=== PATIENT | female | born 1955 | race African-American/Black ===

== ENCOUNTER 2020-07-09 17:06 | Observation (INO) | payer OTHER, SELFPAY ==
[2020-07-09] VITALS (8 sets, daily range): BP systolic 84–103; BP diastolic 43–65; PULSE 60–74; RESP 12–18; TEMP 36.3; O2SAT 97–100
--- NOTE | ~2020-07-09 | US_ITS ---
EXAMINATION:US venous doppler LE BI INDICATION:Calf pain TECHNIQUE: Multiple grayscale, color flow and Doppler images of the right and left lower extremity de ep venous systems were obtained and reviewed. COMPARISON:No prior studies for comparison. FINDINGS: The common femoral, superficial femoral and popliteal veins demonstrate normal respiratory variation, augmentation and compressibility. Color flow is also seen within the posterior tibial, pe roneal, greater saphenous and profunda veins. IMPRESSION: 1: No lower extremity deep venous thrombosis. Reviewed, dictated and finalized at location B.
--- NOTE | ~2020-07-09 | CT_ITS ---
EXAMINATION: CT brain wo con DATE: 07/09/2020 18:50 INDICATION: Head injury. Syncope. TECHNIQUE: Computed tomography (CT) of the head was performed without intravenous contrast. The mA wa s adjusted according to patient size. Iterative reconstruction technique was employed. The dose-lengt h product was 605.33 mGy-cm. COMPARISON: Head CT 01/04/2008 FINDINGS: There are scattered areas of low attenuation in the cerebral white matter, which is within normal limits for the patient's age. There is no intracranial hemorrhage, acute infarction, or abnorm al intracranial mass lesion. The ventricles are normal in size. The paranasal sinuses are clear. The mastoid air cells are normal. The orbits are normal. IMPRESSION: 1. Normal aging brain. Reviewed, dictated and finalized at location A. IMPRESSION: 1. Normal aging brain.
--- NOTE | ~2020-07-09 | CT_ITS ---
EXAMINATION: CTA brain carotid EXAM DATE: 07/11/2020 14:11 INDICATION: Abnormal carotid ultrasound demonstrating high resistance left vertebral arterial wavefor ms. TECHNIQUE: Noncontrast head CT. Spiral CTA of the carotid arteries was performed with intravenous i njection 100 cc of Omnipaque 350. Axial, coronal, sagittal reformatted images reviewed. Additional r eformatted images created on dedicated 3-D workstation. NASCET comparable standard used to assess th e degree of arterial stenosis. Spiral CT angiogram cerebral arteries performed with the same intrave nous injection of contrast. Source images of the brain CTA transferred to dedicated workstation for 3 -D rotational image creation. Coronal, sagittal maximum intensity pixel images also reviewed. The d ose-length product (DLP) for this examination was 1578.21 mGy-cm. The exposure was tailored accordi ng to patient size, and iterative reconstruction (ASIR) was used as additional dose reduction techniq ue. Correlation is made to carotid ultrasound from 07/10/2020. FINDINGS: There is minimal right carotid bifurcation arteriosclerosis, 0% carotid bulb stenosis bilat erally. The vertebral arteries are codominant and unremarkable. Mild bilateral carotid siphon arteria l sclerosis without stenosis. There is no carotid or vertebral basilar arterial dissection or fibrom uscular dysplasia. There are no cerebral artery aneurysms. There is symmetric cerebral artery arboriz ation. The sagittal, transverse and sigmoid sinuses enhance normally, no venous sinus thrombosis. Int ernal cerebral veins also enhance normally. There is no acute intraparenchymal hemorrhage. No evidence of intraparenchymal brain mass lesion. N o evidence of acute infarction. There is mild periventricular and subcortical hypodensity, nonspecifi c but probably related to small vessel ischemic disease. There is intracranial carotid arterioscler osis. There is no mass effect or midline shift. There is no obstructive hydrocephalus suspected. T here are no extra-axial collections. There are no calvarial acute fractures. There is moderate lower thoracic disc disease. The right submandibular gland is not identified, corre late with any history of surgical resection. Mild apical emphysema. IMPRESSION: 1. No acute carotid or intracranial findings. Symmetric unremarkable vertebral arteries. 2. 0% carotid stenosis bilaterally. 3. Mild microangiopathy. Reviewed, dictated and finalized at location A.
--- NOTE | ~2020-07-09 | US_ITS ---
EXAMINATION: US carotid duplex BI DATE: 07/10/2020 13:16 INDICATION: Syncope TECHNIQUE: Grayscale, color Doppler, and pulsed Doppler images of the cervical carotid arteries were obtained. The degree of vessel stenosis is placed in one of the following categories: normal, <50%, 5 0-69%, >=70% but less than near-occlusion, near-occlusion, or total occlusion. Note that percent sten osis relative to normal distal artery lumen diameter is indirectly measured from velocity measurement s as described by Rodo, et al. Radiology 2003; 229:340-346. COMPARISON: 01/05/2008 FINDINGS: RIGHT: The right common carotid artery (CCA) peak systolic velocity (PSV) is 132 cm/s. The right internal ca rotid artery (ICA) PSV is 114 cm/s. The right ICA end-diastolic velocity (EDV) is 28 cm/s. The right ICA/CCA PSV ratio is 0.9. Grayscale and color Doppler images yield an estimate of <50% diameter reduc tion from plaque in the ICA. The external carotid artery (ECA) PSV is 129 cm/s. There is antegrade fl ow in the right vertebral artery. LEFT: The left CCA PSV is 125 cm/s. The left ICA PSV is 105 cm/s. The left ICA EDV is 27 cm/s. The left ICA /CCA PSV ratio is 0.8. Grayscale and color Doppler images yield an estimate of <50% diameter reductio n from plaque in the ICA. The ECA PSV is 119 cm/s. There is antegrade flow in the left vertebral jameson ry but with high resistance waveform which is new since the prior study. IMPRESSION: 1. <50% stenosis in the right internal carotid artery. 2. <50% stenosis in the left internal carotid artery. 3. High resistance waveform in the left vertebral artery which suggests possibility of downstream occ lusion or high-grade stenosis. Reviewed, dictated and finalized at location A. IMPRESSION: 1. <50% stenosis in the right internal carotid artery. 2. <50% stenosis in the left internal carotid artery. 3. High resistance waveform in the left vertebral artery which suggests possibi lity of downstream occlusion or high-grade stenosis.
--- NOTE | ~2020-07-09 | XR_ITS ---
EXAMINATION: XR chest 2V DATE: 07/09/2020 18:59 INDICATION: Syncope. TECHNIQUE: Frontal and lateral views of the chest were obtained. COMPARISON: Chest 2 views 01/04/2008 FINDINGS: The chest demonstrates clear lungs without pneumonia, pleural effusion, or pneumothorax. Th e heart size is normal. Surgical clips in the right upper quadrant are likely from cholecystectomy. IMPRESSION: 1. No acute cardiopulmonary disease. Reviewed, dictated and finalized at location A.
--- NOTE | 2020-07-09 17:29 | ECG_ITS ---
Measurements Intervals [place] Rate: 66 P: 75 ID: [id number] QRS: 33 QRSD: 95 T: 57 QT: 355 QTc: 374 Interpretive Statements SINUS RHYTHM EARLY PRECORDIAL R/S TRANSITION LOW QRS VOLTAGE IN PRECORDIAL LEADS BASELINE WANDER- I, III BORDERLINE ECG Electronically Signed On 07-09-2020 19:04:14 CDT by Dusty Oliver D.O.
--- NOTE | 2020-07-09 17:37 | ED.SYNCOPE ---
HPI - Syncope General Chief Complaint: Syncope Stated Complaint: syncope x 2 episodes/ hit head Time Seen by Provider: 07/09/20 17:37 Source: patient and family Mode of arrival: ambulatory Limitations: no limitations History of Present Illness HPI narrative: Patient is a 65-year-old female with a history of hypertension, arthritis who presents for evaluation of syncopal event. Patient has been nauseated, dizzy throughout the past 5 days, worsened today, and patient had a syncopal event when she sat down to have a bowel movement. Patient's family found her unconscious on the floor of the bathroom, where she had hit her head on the right side. Patient then awakened and they tried to stand her up before she syncopized again. EMS was called, glucose was appropriate. Patient returned to baseline, no seizure-like activity. Patient currently states she feels weak. No new antihypertensives. Patient was recently started on hydroxychloroquine for her rheumatoid arthritis. No recent fever, chills, shortness of breath or cough. No chest pain. No history of Covid. Patient recently had right wrist/arm surgery at [facility] 2 weeks ago. Denies calf swelling or leg pain. No current chest pain. No current dizziness, or numbness, patient states she generally feels weak. Related Data Allergies Allergy/AdvReac Type Severity Reaction Status Date / Time No Known Allergies Allergy Unverified 04/24/14 13:32 Review of Systems Review of Systems: Narrative: CONSTITUTIONAL: Denies fever, chills, or sweats. EYES: Denies visual changes ENT: Denies rhinorrhea, congestion, sore throat, or otalgia. CARDIOVASCULAR: Denies chest pain, palpitations, or edema. RESPIRATORY: Denies cough or dyspnea. GASTROINTESTINAL: Denies abdominal pain, nausea, vomiting, or diarrhea. GENITOURINARY: Denies dysuria or hematuria. SKIN: Denies rash or itching. MUSCULOSKELETAL: Denies back pain, joint pain, or myalgia. NEUROLOGIC: Denies headache, numbness, states she feels generally weak PMFSH Past Medical History Medical History Arthritis Hypertension Surgical History Surgical History H/O right wrist surgery Family History Family History (Updated 04/10/14 @ 10:47 by DOCTOR UNKNOWN) Mother Family history of malignant neoplasm Other Family history of allergic disorder Hypertension Social History Social History Smoking status: Former smoker Smoking end date: 04/12/94 Alcohol intake: current Exam Narrative: Exam Narrative: GENERAL: Awake, alert, conversant HEAD: Normocephalic, atraumatic. EYES: PERRLA and EOMI. ENT: Nares clear, no rhinorrhea or epistaxis. Mucous membranes moist. NECK: Supple. CHEST: No respiratory distress, breathing even and non labored HEART: Regular rate, sinus rhythm ABDOMEN:Non distended, non tender EXTREMITIES: Normal range of motion. No edema. SKIN: Warm, dry, no rash. NEURO:No focal deficits. Alert and oriented x3 Course Vital Signs Vital signs: Vital Signs Temperature 36.3 C L 07/09/20 17:15 Pulse Rate 74 07/09/20 17:15 Respiratory Rate 18 07/09/20 17:15 Blood Pressure 89/43 L 07/09/20 17:15 Pulse Oximetry 98 07/09/20 17:15 Temperature 36.3 C L 07/09/20 17:15 Pulse Rate 61 07/09/20 22:05 Respiratory Rate 18 07/09/20 22:05 Blood Pressure 100/63 07/09/20 22:05 Pulse Oximetry 100 07/09/20 22:05 MDM - Syncope MDM Narrative Medical decision making narrative: Patient presenting for evaluation of recurrent syncope. At the time of assessment, patient is hypotensive without tachycardia. Her mentation. No reported complaints of pain or infectious type sources. It does initially seen by based on clinical symptoms patient may have had a Valsalva related syncopal event however hypotension did persist after in
--- NOTE | 2020-07-09 17:48 | ECG_ITS ---
Measurements Intervals [place] Rate: 60 P: 70 LA: 174 QRS: 41 QRSD: 92 T: 55 QT: 367 QTc: 367 Interpretive Statements SINUS RHYTHM LOW QRS VOLTAGE IN PRECORDIAL LEADS BORDERLINE ECG Electronically Signed On 07-09-2020 19:05:16 CDT by Dusty Oliver D.O.
[2020-07-09] MEDS: ONDANSETRON INJ 4 MG/2 ML VIAL IV PUSH (17:54)
[2020-07-09] MEDS: SODIUM CHLORIDE 0.9% IV 1,000 ML 999 ML IV CONT ×2 (17:54→20:49)
[2020-07-09 18:56] LABS: Anion Gap 8 mmol/L (8-16); Blood Urea Nitrogen 30 mg/dL (7-17); Calcium 8.7 mg/dL (8.4-10.2); Carbon Dioxide 19 mmol/L (22-30); Chloride 109 mmol/L (98-107); Estimated Glomerular Filt Rate 39; Glucose 88 mg/dL (65-105); Potassium 5.1 mmol/L (3.4-5.0); Sodium 136 mmol/L (137-145)
[2020-07-09 19:07] LABS: NT Pro B Type Natriuretic Pept 48 PG/ML (5-100); Troponin I < 0.012 ng/mL (0.000-0.034)
[2020-07-09 20:35] LABS: Basophils Percent Auto 0.3 % (0.2-1.2); Eosinophils Percent Auto 0.3 % (0-4.4); Hematocrit 32.9 % (37.0-47.0); Hemoglobin 10.8 g/dL (12.0-15.0); Immature Granulocyte Absolute 0.04 K/mm3 (0.00-0.031); Immature Granulocyte Percent A 0.4 % (0-0.5); Lymphocytes Percent Auto 14.3 % (18.3-44.2); Mean Corpuscular HGB Conc 32.8 g/dl (32-36); Mean Corpuscular Hemoglobin 27.2 pg (26-34); Mean Corpuscular Volume 82.9 fl (80-100); Mean Platelet Volume 9.1 fl (7.4-10.4); Monocytes Absolute Auto 0.6 K/mm3 (0.1-0.6); Monocytes Percent Auto 5.1 % (2.6-8.5); Neutrophils Absolute Auto 8.9 K/mm3 (1.3-6.7); Neutrophils Percent Auto 79.6 % (45.5-73.1); Platelet Count Result 293 k/mm3 (150-375); Red Blood Count 3.97 M/mm3 (4.2-5.4); Red Cell Distribution Width 13.5 % (11.5-14.5); White Blood Count 11.2 K/mm3 (4.5-10.0)
[2020-07-09 20:49] LABS: INR 1.1; Partial Thromboplastin Time 27.3 SECONDS (22.3-36.8); Prothrombin Time 14.6 Seconds (11.1-14.7)
[2020-07-09 21:01] LABS: D Dimer 0.27 ug/mL (<0.48)
[2020-07-09 21:30] LABS: Lactic Acid Reflex 0.6 mmol/L (0.7-2.1)
[2020-07-09 23:59] LABS: Add Urine Microscopic? NO; Appearance Urine Clear (Clear); Bilirubin Urine Negative (Negative); Blood Urine Negative (Negative); Color Urine Yellow (Yellow); Glucose Urine UA Negative (Negative); Ketones Urine Negative (Negative); Leukocyte Esterase Ur Negative LEU/UL (Negative); Nitrate Urine Negative (Negative); Protein Urine Negative (Negative); Specific Grav Ur 1.011 (1.001-1.035); Urobilinogen Urine Negative mg/dL (<2.0)
[2020-07-10] VITALS (17 sets, daily range): BP systolic 90–137; BP diastolic 49–68; PULSE 55–89; RESP 12–20; TEMP 36.1–36.8; O2SAT 98–100; BMI 28.0
--- NOTE | 2020-07-10 00:34 | ADMGEN ---
This patient, Nora Campos, was admitted to IMU Room 214-01. Patient/family oriented to hospital policies and general routines including ID bracelet, bed and alarms, visiting hours, pain management, procedures, bathroom and other care routines, personal items, smoking policy, room service/diet, and visiting hours. Information on how to activate the Rapid Response Team has been discussed. Patient/Family are encouraged to report perceived risks to care and to ask questions if they do not understand what they are told or what they should do.
[2020-07-10] MEDS: SODIUM CHLORIDE 0.9% IV 1,000 ML 125 ML IV CONT ×3 (00:56→17:58)
[2020-07-10 01:44] LABS: Anion Gap 6 mmol/L (8-16); Blood Urea Nitrogen 24 mg/dL (7-17); Calcium 8.5 mg/dL (8.4-10.2); Carbon Dioxide 20 mmol/L (22-30); Chloride 111 mmol/L (98-107); Estimated CRCL calculation 39 ml/min; Estimated Glomerular Filt Rate 55; Glucose 89 mg/dL (65-105); Potassium 4.7 mmol/L (3.4-5.0); Sodium 137 mmol/L (137-145)
--- NOTE | 2020-07-10 02:13 | ECHO_ITS ---
Patient Info Name: Nora Campos Age: 65 years : 1955 Gender: Female Ht: 62 in Wt: 153 lbs BSA: 1.76 m2 HR: 63 bpm BP: 108 / 68 mmHg Heart Rhythm: Sinus Rhythm Exam Date: 07/10/2020 11:15 AM Exam Location: [facility] Patient Status: Outpatient Admit Date: 07/09/2020 Staff Ordering Physician: Henry Barroso MD Monorail Charger Operator: Kanu Bledsoe, NATACHA, RT Attending Provider: David Matos MD Referring Physician: Dharmesh HENNING; Exam Type: CA echo doppler color flow Study Info Indications R55 - Syncope and collapse Complete two-dimensional, color flow and Doppler transthoracic echocardiogram is performed. Strain analysis performed. Summary 1. Complete two-dimensional, color flow and Doppler transthoracic echocardiogram is performed. 2. Strain analysis performed. 3. Left ventricular chamber dimension is normal. 4. Left ventricular systolic function is normal, estimated at 60-65%. 5. There is no increased left ventricular wall thickness. 6. The left ventricular diastolic function is normal. 7. Global longitudinal strain is normal at -20 %. 8. There is mild mitral valve regurgitation. 9. There is mild tricuspid valve regurgitation. Left Ventricle Left ventricular chamber dimension is normal. Left ventricular systolic function is normal, estimated at 60-65%. There is no increased left ventricular wall thickness. The left ventricular diastolic function is normal. Global longitudinal strain is normal at -20 %. Right Ventricle Right ventricular chamber dimension is normal. Right ventricular systolic function is normal. Left Atria Left atrial chamber dimension is normal. Right Atria Right atrial chamber dimension is normal. Atrial Septum Intact interatrial septum visualized by color flow imaging. Aortic Valve The aortic valve is trileaflet. There is mild aortic valve sclerosis. There is no aortic valve stenosis. There is trace aortic valve regurgitation. Pulmonic Valve The pulmonic valve is normal. There is no pulmonic valve stenosis. Mitral Valve The mitral valve has thickened leaflets. There is no mitral valve stenosis. There is mild mitral valve regurgitation. Tricuspid Valve The tricuspid valve leaflets are normal. There is no significant tricuspid valve stenosis. There is mild tricuspid valve regurgitation. Pericardium/Pleural The pericardium appears normal. There is no pericardial effusion. Inferior Vena Cava Normal inferior vena cava with >50% collapse upon inspiration consistent with normal right atrial pressure, 5 mmHg. Aorta The aortic root size at the sinus of Valsalva is normal. The prox ascending aorta size is normal. Left Ventricular Outflow Tract Name Value Normal LVOT 2D LVOT Diameter 2.0 cm LVOT Doppler LVOT Peak Gradient 5 mmHg LVOT Mean Gradient 3 mmHg LVOT VTI 23 cm LVOT VTI/AV VTI Ratio 0.9 LVOT Stroke Volume 71 ml LVOT CO 4.6 l/min
[2020-07-10 05:59] LABS: Potassium 4.6 mmol/L (3.4-5.0)
[2020-07-10 06:00] LABS: Basophils Percent Auto 0.5 % (0.2-1.2); Eosinophils Absolute Auto 0.1 K/mm3 (0-0.3); Eosinophils Percent Auto 0.9 % (0-4.4); Hematocrit 31.4 % (37.0-47.0); Hemoglobin 10.2 g/dL (12.0-15.0); Immature Granulocyte Absolute 0.04 K/mm3 (0.00-0.031); Immature Granulocyte Percent A 0.5 % (0-0.5); Lymphocytes Absolute Auto 1.95 K/mm3 (0.9-3.2); Lymphocytes Percent Auto 22.8 % (18.3-44.2); Mean Corpuscular HGB Conc 32.5 g/dl (32-36); Mean Corpuscular Hemoglobin 27.3 pg (26-34); Mean Corpuscular Volume 84.2 fl (80-100); Mean Platelet Volume 9.2 fl (7.4-10.4); Monocytes Absolute Auto 0.4 K/mm3 (0.1-0.6); Monocytes Percent Auto 4.6 % (2.6-8.5); Neutrophils Absolute Auto 6.1 K/mm3 (1.3-6.7); Neutrophils Percent Auto 70.7 % (45.5-73.1); Platelet Count Result 264 k/mm3 (150-375); Red Blood Count 3.73 M/mm3 (4.2-5.4); Red Cell Distribution Width 13.4 % (11.5-14.5); White Blood Count 8.6 K/mm3 (4.5-10.0)
[2020-07-10 06:06] LABS: Anion Gap 5 mmol/L (8-16); Blood Urea Nitrogen 23 mg/dL (7-17); Calcium 8.2 mg/dL (8.4-10.2); Carbon Dioxide 20 mmol/L (22-30); Chloride 113 mmol/L (98-107); Estimated CRCL calculation 42 ml/min; Estimated Glomerular Filt Rate > 60; Glucose 86 mg/dL (65-105); Magnesium 1.4 mg/dL (1.6-2.3); Sodium 138 mmol/L (137-145)
[2020-07-10] MEDS: FLUTICASONE PROP 110 MCG INHALER 12 GM (*SP) 2 PUFF INHALATION ×2 (07:05→20:47)
[2020-07-10 08:02] LABS: Glucose Point of Care 82 (65-105)
[2020-07-10] MEDS: FERROUS SULFATE 324 MG TABLET PO (09:01)
[2020-07-10] MEDS: FOLIC ACID 1 MG TABLET 2 MG PO (09:01)
[2020-07-10] MEDS: IPRATROPIUM NASAL SPRAY 0.03% 15 ML BOTTLE 2 SPRAY NASAL ×3 (09:02→17:59)
[2020-07-10] MEDS: MAGNESIUM SULF 2 GM/WATER 50ML 2 GM/50 ML BAG IVPB (11:16)
[2020-07-10 11:51] LABS: Glucose Point of Care 122 (65-105)
--- NOTE | 2020-07-10 14:26 | PM.IMHP ---
H&P: HPI History of Present Illness Date/Time: 07/10/20 14:26 Chief Complaint: syncopy Narrative: 62-year-old female with history of diabetes, hypertension and rheumatoid arthritis was brought in to the emergency department for syncopal episode. Patient has been on Hyzaar for many years. She started spironolactone about a year ago for hirsutism. She states that since starting the medication she has been having some mild lightheadedness when standing after tying her shoes for example. She also was recently started on hydroxychloroquine January. More recently she was having weakness, numbness and tingling in her right hand and underwent a right wrist surgery on May 22 and just had the cast off yesterday. She also states that she had spinal injections on June 17 in the lumbar area. She has been feeling well recently. She has been eating and drinking normally. No nausea, vomiting or diarrhea. She has been having palpitations with activity but this is been going on for about a year. She has frequent ?muscle spasms? in her chest, face and back. They have been going on for years but she has noted increased frequency and severity. MRI of the spine recently showed ?narrowing of the spine and a cyst on the spine?. She follows Dr. Norman and a nerve conduction study was ordered but has not been completed. No recent fever or chills. No vision changes. No odynophagia or dysphagia. She has been having allergy symptoms. She does have asthma has been having a slight wheeze. She has lost about 60 lb over the past 3 years. Her glucose has been well controlled and her metformin dose was decreased. She no longer checks her sugars at home. Patient states that she was speaking with her daughter on the day of admission by phone. She has been feeling constipated recently. She went to sit on the toilet and was bearing down when she had a syncopal episode. Her daughter was still on the phone and contacted family. Patient became awake. Her family tried a stander she had another syncopal episode. There is no seizure-like activity. Patient has no memory since sitting down on the toilet. She is brought to the emergency room for evaluation. Blood pressure was 89/43. She was treated with IV fluids. D-dimer was normal. Creatinine 1.6. Potassium was 5.1. Lactic acid was normal. She was admitted for further care. Review of Systems Review of Systems: All systems reviewed & are unremarkable except as noted in HPI and below PMFSH Past Medical History Medical History (Updated 07/10/20 @ 16:23 by David Matos MD) Arthritis Asthma Cataracts, bilateral Diabetes mellitus Glaucoma Hypertension Rheumatoid arthritis Spinal disease Surgical History Surgical History (Updated 07/10/20 @ 16:09 by David Matos MD) H/O right wrist surgery History of cholecystectomy History of neck surgery Cyst resection History of toe surgery History of total abdominal hysterectomy JESUS when in her 20s with USO. Her 2nd ovary was removed around 1993 Family History Family History (Updated 04/10/14 @ 10:47 by DOCTOR UNKNOWN) Mother Family history of malignant neoplasm Other Family history of allergic disorder Hypertension Social History Social History (Updated 07/10/20 @ 16:11 by David Matos MD) Social History: Patient quit smoking 23 years ago. She smoked a pack a day for about 20 years. She rarely drinks alcohol. She denies drug use but does have a medical card for marijuana chewables that she uses for pain. She lives at home with her and [id number]. She is a full code. [id number] has dementia. She nominated her to be the individual would make medical decisions for her if she is not able. Smoking end date: 04/12/94 Alcohol intake: never Substance use: never Spiritual care concerns: No Meds Home Medications and Allergies Home Medications Medication Instructions Recorded Con
[2020-07-10 16:27] LABS: Glucose Point of Care 76 (65-105)
[2020-07-10] MEDS: ENOXAPARIN 40 MG/0.4 ML SYRINGE SUB-Q (18:22)
[2020-07-10 20:40] LABS: Glucose Point of Care 101 (65-105)
[2020-07-10] MEDS: MONTELUKAST SODIUM 10 MG TABLET PO (20:44)
[2020-07-11] VITALS (9 sets, daily range): BP systolic 97–149; BP diastolic 44–76; PULSE 59–97; RESP 12–20; TEMP 36.1–36.8; O2SAT 99–100
[2020-07-11 08:26] LABS: Glucose Point of Care 90 (65-105)
[2020-07-11] MEDS: IPRATROPIUM NASAL SPRAY 0.03% 15 ML BOTTLE 2 SPRAY NASAL ×2 (08:49→13:13)
[2020-07-11] MEDS: CHOLECALCIFEROL 1,000 UNITS TABLET 2000 UNITS PO (08:49)
[2020-07-11] MEDS: FOLIC ACID 1 MG TABLET 2 MG PO (08:49)
[2020-07-11] MEDS: FLUTICASONE PROP 110 MCG INHALER 12 GM (*SP) 2 PUFF INHALATION (08:50)
[2020-07-11] MEDS: metFORMIN HCL 500 MG TABLET 1000 MG PO (08:50)
[2020-07-11] MEDS: HYDROXYCHLOROQUINE SULFATE 200 MG TABLET PO (08:50)
[2020-07-11] MEDS: FERROUS SULFATE 324 MG TABLET PO (08:50)
[2020-07-11] MEDS: ENOXAPARIN 40 MG/0.4 ML SYRINGE SUB-Q (08:51)
[2020-07-11] MEDS: SODIUM CHLORIDE 0.9% IV 1,000 ML 125 ML IV CONT (08:52)
[2020-07-11 09:03] LABS: Hematocrit 35.2 % (37.0-47.0); Hemoglobin 11.5 g/dL (12.0-15.0); Mean Corpuscular HGB Conc 32.7 g/dl (32-36); Mean Corpuscular Hemoglobin 27.4 pg (26-34); Mean Corpuscular Volume 83.8 fl (80-100); Mean Platelet Volume 8.9 fl (7.4-10.4); Platelet Count Result 299 k/mm3 (150-375); Red Cell Distribution Width 13.6 % (11.5-14.5); White Blood Count 7.6 K/mm3 (4.5-10.0)
[2020-07-11 09:18] LABS: Hemoglobin A1C 5.3 % (<5.7)
[2020-07-11 09:20] LABS: Albumin Level 3.7 g/dL (3.5-5.1); Anion Gap 4 mmol/L (8-16); Blood Urea Nitrogen 13 mg/dL (7-17); Calcium 8.9 mg/dL (8.4-10.2); Carbon Dioxide 23 mmol/L (22-30); Chloride 111 mmol/L (98-107); Estimated CRCL calculation 47 ml/min; Estimated Glomerular Filt Rate > 60; Glucose 94 mg/dL (65-105); Magnesium 1.5 mg/dL (1.6-2.3); Phosphorus 2.5 mg/dL (2.5-4.5); Potassium 4.6 mmol/L (3.4-5.0); Sodium 138 mmol/L (137-145)
[2020-07-11 10:20] LABS: Iron 78 ug/dL (37-170)
[2020-07-11 10:22] LABS: Folic Acid 11.7 ng/mL (2.76->20)
[2020-07-11 10:28] LABS: Percent Iron Saturation 26 % (20-50)
[2020-07-11] MEDS: EUCERIN CREAM 120 GM JAR 1 APPLIC TOPICAL ×2 (13:16→13:17)
[2020-07-11 13:17] LABS: Glucose Point of Care 116 (65-105)
--- NOTE | 2020-07-11 15:46 | PM.DS ---
DS: Admitting Diagnosis Admitting Diagnosis Admitting Diagnosis: Syncope DS: Discharge Diagnosis Discharge Diagnosis (1) Syncope: Qualifiers: Syncope type: unspecified Qualified Code(s): R55 - Syncope and collapse Code(s): R55 - Syncope and collapse Status: Acute Assessment and Plan: To the emergency room by EMS after syncopal episode x2. CT of the brain showed no acute findings. Chest x-ray was clear. Echocardiogram showing EF of 60-65% and normal diastolic function. Mild valvular disease noted. Doppler US showed less than 50% stenosis in the bilateral internal carotid arteries. She did have high resistance waveform left vertebral artery issues as possible a downstream occlusion or high-grade stenosis. CTA of the head and neck however did not show anything abnormal. Patient most likely had a syncopal episode related to vasovagal episode complicated by her chronic dehydrated state. Patient has been on diuretics for about a year and has had some mild symptoms lightheadedness with standing. Anti-HTN medications held. Unclear on the precipitating event but could be related to her recent surgery. In any regard, she has somehow gotten behind on her fluids causing dehydration with a syncopal episode related to her straining on the toilet. Treated with IV fluids. No orthostatic HoTN noted. LE venous dopplers negative for DVT. She worked with PT/OT and was having no symptoms with standing. (2) Acute kidney injury: Code(s): N17.9 - Acute kidney failure, unspecified Status: Acute Assessment and Plan: Creatinine 1.6 on admission. Suspect this is prerenal related to her diuretics. With IV fluids, creatinine has trended downward to 1.0. (3) Hyperkalemia: Code(s): E87.5 - Hyperkalemia Status: Acute Assessment and Plan: Potassium mildly elevated on admission 5.1 related to the renal failure and dehydration. On repeat, this normalized. (4) Rheumatoid arthritis: Code(s): M06.9 - Rheumatoid arthritis, unspecified Status: Acute Assessment and Plan: Stable. No active synovitis. We resumed hydroxychloroquine and methotrexate. (5) Diabetes mellitus: Code(s): E11.9 - Type 2 diabetes mellitus without complications Status: Acute Assessment and Plan: Patient well controlled by report. A1c 5.3 here. She has been started on AccuCheks covering with sliding scale. Hypoglycemia protocol was available as needed. We continued metformin. (6) Asthma: Code(s): J45.909 - Unspecified asthma, uncomplicated Status: Acute Assessment and Plan: Lungs remained clear. No wheezing. We continued Flovent. Albuterol was available as needed. DS: Summary Hospital Course Reason for hospitalization: 65yo female here for syncopal episode x2. Please see H&P for details. Hospital Course: Please see above for details of hospital course. Status at Discharge Cognitive/behavioral status at discharge: Stable Time Spent with Patient Time attestation: Total time spent providing and/or coordinating discharge services: 35 minutes Time spent: Greater than 30 minutes Exam Narrative: Exam Narrative: AF 98.3 149/70 78 14 100% ra Gen - NARD Chest - CTA bilaterally, nml RR CV - RRR S1/S2; Tele showing no significant dysrhytmias Abd - soft, NT/ND, +BS Ext - no pedal edema. Psych - normal mood and affect. Patient is pleasant and cooperative. Skin - warm and dry. DS: Data Data Completed and Pending Labs on day of discharge: Labs from last 24 hours 07/11/20 07/11/20 07/11/20 12:09 08:47 08:47 WBC RBC Hgb Hct MCV MCH MCHC RDW Plt Count MPV Sodium Potassium Chloride Carbon Dioxide Anion Gap BUN Creatinine Estim Creat Clear Calc Estimated GFR Glucose POC Capillary Glucose 116 H Hemoglobin A1c 5.3 Calcium Phosphorus
--- NOTE | 2020-07-15 12:10 | PC.NURSE ---
Blood cx are negative. Dr. Shawna allen.
== END 2020-07-11 17:25 | disposition home or self-care (01) ==
LOC: ANHED 17:37 → ANHIMU 23:18
PROVIDERS: Emergency Medicine; Admitting Provider Family Medicine; Emergency Provider Emergency Medicine; PCP Internal Medicine; Visit Provider Internal Medicine
DX: R55 Syncope and collapse (principal); E86.0 Dehydration; E87.5 Hyperkalemia; R06.2 Wheezing; N17.9 Acute kidney failure, unspecified; I65.23 Occlusion and stenosis of bilateral carotid arteries; M06.9 Rheumatoid arthritis, unspecified; I10 Essential (primary) hypertension; E11.9 Type 2 diabetes mellitus without complications; Z87.891 Personal history of nicotine dependence; H40.9 Unspecified glaucoma; H26.9 Unspecified cataract; J45.909 Unspecified asthma, uncomplicated; F12.90 Cannabis use, unspecified, uncomplicated; I34.0 Nonrheumatic mitral (valve) insufficiency; I36.1 Nonrheumatic tricuspid (valve) insufficiency; M79.661 Pain in right lower leg; Z79.51 Long term (current) use of inhaled steroids; Z79.84 Long term (current) use of oral hypoglycemic drugs
CPT/HCPCS: 36415; 70450; 70496; 70498; 71046; 80048; 80069; 81003; 82607; 82728; 82746; 82948; 83036; 83540; 83550; 83605; 83735; 83880; 84443; 84484; 85025; 85027; 85380; 85610; 85730; 87040; 93005; 93306; 93880; 93970; 94640; 96360; 96361; 96372; 96374; 97116; 97161; 97165; 99285; A9270; G0378; J1650; J2405; J3475; J7030; Q9967

== ENCOUNTER 2020-07-22 08:19 | Outpatient (CLI) | payer OTHER, SELFPAY | END 2020-07-22 08:20 | disposition home or self-care (01) | LOC: ANHCOVIDVC 08:19 | PROVIDERS: PCP Internal Medicine | DX: Z23 Encounter for immunization (principal) | CPT/HCPCS: 0001A; 91300 ==

== ENCOUNTER 2020-08-12 08:18 | Outpatient (CLI) | payer OTHER, SELFPAY | END 2020-08-12 08:19 | disposition home or self-care (01) | LOC: ANHCOVIDVC 08:18 | PROVIDERS: PCP Internal Medicine | DX: Z23 Encounter for immunization (principal) | CPT/HCPCS: 0002A; 91300 ==

== ENCOUNTER 2021-09-12 14:53 | Inpatient (IN) | payer OTHER, SELFPAY ==
--- NOTE | ~2021-09-12 | XR_ITS ---
EXAMINATION: XR chest 2V DATE: 09/12/2021 15:50 INDICATION: Left-sided chest pain TECHNIQUE: PA and lateral views of the chest are obtained. COMPARISON: 07/09/2020 FINDINGS: The lungs are free of acute opacities. There is no pleural effusion or pneumothorax. The ca rdiomediastinal silhouette is normal. There is moderate thoracic spondylosis. Surgical clips in the r ight upper quadrant are likely from prior cholecystectomy. IMPRESSION: 1. No acute cardiopulmonary abnormality. Reviewed, dictated and finalized at location F.
--- NOTE | ~2021-09-12 | US_ITS ---
EXAMINATION: US abdomen limited DATE: 09/13/2021 11:11 INDICATION: Elevated liver function tests TECHNIQUE: Multiple grayscale and Doppler ultrasound images of the abdomen were obtained. COMPARISON: 03/16/2014; CT, 09/12/2021 FINDINGS: The head and body of the pancreas are normal. The pancreatic tail is obscured by bowel gas. The liver is normal with normal echogenicity and echotexture. No surface nodularity. Normal hepatope chris flow in the main portal vein. The gallbladder is absent. The normal common bile duct measures 3 m m. IMPRESSION: 1. No sonographic correlate for the patient's symptoms. Reviewed, dictated and finalized at location A.
--- NOTE | ~2021-09-12 | CT_ITS ---
EXAMINATION: CT abdomen pelvis wo con DATE: 09/12/2021 17:16 INDICATION: Elevated lipase, left-sided pain TECHNIQUE: Computed tomography (CT) of the abdomen and pelvis was performed without intravenous contr ast. The dose-length product (DLP) was 440.07 mGy-cm. Automated exposure control and iterative recons truction technique were employed. COMPARISON: None FINDINGS: Minimal dependent atelectasis is present in the lung bases. The heart size is normal. The g allbladder is surgically absent. The liver, spleen, pancreas, and adrenal glands are normal. The kidn eys are unremarkable. No pathologically enlarged abdominal or pelvic lymph nodes are identified. Ther e is no free intraperitoneal gas or evidence of bowel obstruction. There is moderate lumbar spondylos is. IMPRESSION: 1. No CT correlate for the patient's symptoms. Reviewed, dictated and finalized at location F.
--- NOTE | ~2021-09-12 | MR_ITS ---
EXAMINATION: MR MRCP wo/w con/w 3D wo ind DATE: 09/14/2021 08:05 INDICATION: Pancreatitis, elevated liver function tests TECHNIQUE: Magnetic resonance imaging (MRI) of the abdomen was performed without and with intravenous contrast. Sequences included coronal T2-weighted SS-FSE ARC, coronal T2-weighted FS SS-FSE, coronal T2-weighted 2D FS FIESTA, Water:Coronal LAVA-Flex, sagittal T2-weighted SS-FSE ARC, axial SSFSE ARC, axial 3D DualEcho, axial DWI B=600, axial T1-weighted LAVA, FAT:Coronal LAVA-Flex, and coronal in and opposed phase LAVA-Flex. Thick-slab T2-weighted FRFSE-XL images were obtained for magnetic resonance cholangiopancreatography (MRCP). Maximum intensity projection 3-D reconstructions of the volumetric data were created by the technologist. Postcontrast sequences included a time course of axial T1-weig hted LAVA, FAT:Coronal LAVA-Flex, coronal in and opposed phase LAVA-Flex, and Water:Coronal LAVA-Flex . COMPARISON: CT, 09/12/2021 CONTRAST: Multihance, 14 cc FINDINGS: ABDOMEN MRI: The liver, spleen, pancreas, and adrenal glands are normal. The gallbladder is surgicall y absent. Cysts of the kidneys measure up to 2.3 cm on the left. There are no pathologically enlarged abdominal lymph nodes. There are no dilated loops of bowel. No abnormal enhancement is present after contrast administration. ABDOMEN MRCP: There is no intrahepatic or extrahepatic biliary dilatation. The pancreatic duct is nor mal in course and caliber. IMPRESSION: 1. Normal postcholecystectomy MRCP. Reviewed, dictated and finalized at location A.
--- NOTE | 2021-09-12 14:56 | ECG_ITS ---
Measurements Intervals [place] Rate: 76 P: 73 MO: 160 QRS: 20 QRSD: 102 T: 67 QT: 370 QTc: 418 Interpretive Statements SINUS RHYTHM LOW QRS VOLTAGE IN PRECORDIAL LEADS [QRS DEFLECTION < 1.0 mV IN CHEST LEADS] RSR' IN V1 OR V2, PROBABLY NORMAL VARIANT BASELINE ARTIFACT BORDERLINE ECG COMPARED TO ECG 07/09/2020 17:59:09 NO SIGNIFICANT CHANGES Electronically Signed On 09-12-2021 17:24:34 CDT by Louis Lopez M.D.
[2021-09-12 15:08] VITALS: BP 137/106; PULSE 65; RESP 14; TEMP 36.9; O2SAT 100
[2021-09-12 15:24] LABS: Basophils Absolute Auto 0.1 K/mm3 (0.0-0.1); Basophils Percent Auto 0.7 % (0.2-1.2); Eosinophils Absolute Auto 0.1 K/mm3 (0-0.3); Eosinophils Percent Auto 0.5 % (0-4.4); Hematocrit 40.6 % (37.0-47.0); Hemoglobin 12.9 g/dL (12.0-15.0); Immature Granulocyte Absolute 0.05 K/mm3 (0.00-0.031); Immature Granulocyte Percent A 0.4 % (0-0.5); Lymphocytes Absolute Auto 1.91 K/mm3 (0.9-3.2); Lymphocytes Percent Auto 15.8 % (18.3-44.2); Mean Corpuscular HGB Conc 31.8 g/dl (32-36); Mean Corpuscular Hemoglobin 25.9 pg (26-34); Mean Corpuscular Volume 81.4 fl (80-100); Mean Platelet Volume 9.9 fl (7.4-10.4); Monocytes Absolute Auto 0.9 K/mm3 (0.1-0.6); Monocytes Percent Auto 7.3 % (2.6-8.5); Neutrophils Absolute Auto 9.1 K/mm3 (1.3-6.7); Neutrophils Percent Auto 75.3 % (45.5-73.1); Platelet Count Result 270 k/mm3 (150-375); Red Blood Count 4.99 M/mm3 (4.2-5.4); Red Cell Distribution Width 13.8 % (11.5-14.5); White Blood Count 12.1 K/mm3 (4.5-10.0)
[2021-09-12 15:35] LABS: INR 1.1; Partial Thromboplastin Time 33.4 SECONDS (22.3-36.8); Prothrombin Time 14.2 Seconds (11.1-14.7)
[2021-09-12 15:46] LABS: Troponin I < 0.012 ng/mL (0.000-0.034)
[2021-09-12 15:47] LABS: Alanine Aminotransferase 18 U/L (6-35); Albumin Level 4.6 g/dL (3.5-5.1); Alkaline Phosphatase 75 U/L (38-126); Anion Gap 10 mmol/L (8-16); Aspartate Amino Transferase 23 U/L (14-36); Bilirubin,Total 0.5 mg/dL (0.2-1.3); Blood Urea Nitrogen 13 mg/dL (7-17); Calcium 9.4 mg/dL (8.4-10.2); Carbon Dioxide 25 mmol/L (22-30); Chloride 102 mmol/L (98-107); Estimated CRCL calculation 47 ml/min; Estimated Glomerular Filt Rate > 60; Glucose 131 mg/dL (65-110); Potassium 3.7 mmol/L (3.4-5.0); Sodium 137 mmol/L (137-145)
[2021-09-12 16:12] LABS: Lipase 2413 U/L (23-300)
--- NOTE | 2021-09-12 16:53 | ED.CHESTPAIN ---
HPI - Chest Pain General Chief Complaint: Chest Pain Stated Complaint: L CHEST WALL PAIN Time Seen by Provider: 09/12/21 16:44 History of Present Illness HPI narrative: 66 y/o female presents to the ER today for pain to left lateral chest and left back. She says that the pain started on Wednesday. She thought that she just slept wrong but it has continued to get worse and she can find any position of comfort. She has had nausea and has been belching more frequently. No diarrhea. No fever or chills. She has not had any cough or shortness of breath. She has never had pain like this in the past. PMH is significant for HTN, RA, diabetes. She denies previous history of pancreatitis. She denies any alcohol use. Related Data Home Medications Medication Instructions Recorded Confirmed Eye Promise 2 cap PO TID 07/10/20 07/10/20 albuterol sulfate 90 mcg/actuation 2 puff inhalation QID PRN 07/10/20 07/10/20 aerosol inhaler (Proventil HFA) Shortness Of Breath Or Wheezing carboxymethylcellulose sodium 0.5 1 drp EACH EYE TID 07/10/20 07/10/20 % eye drops (Refresh Tears) cholecalciferol (vitamin D3) 50 50 mcg PO DAILY 07/10/20 07/10/20 mcg (2,000 unit) tablet emollient 1 applic topical DAILY 07/10/20 07/10/20 ferrous sulfate 325 mg (65 mg 325 mg PO DAILY 07/10/20 07/10/20 iron) tablet fluticasone propionate 110 2 puff inhalation Q12H 07/10/20 07/10/20 mcg/actuation HFA aerosol inhaler folic acid 1 mg tablet 2 mg PO DAILY 07/10/20 07/10/20 hydrocodone 5 mg-acetaminophen 325 1 tablet PO Q6H PRN Pain 07/10/20 07/10/20 mg tablet hydroxychloroquine 200 mg tablet 200 mg PO QTUTHSA 07/10/20 07/10/20 hydroxychloroquine 200 mg tablet 400 mg PO QMWF 07/10/20 07/10/20 ipratropium bromide 21 mcg (0.03 2 spray intranasal TID 07/10/20 07/10/20 %) nasal spray krill 1,000 mg-omega-3 230 mg-dha 1 cap PO DAILY 07/10/20 07/10/20 60 pa-mfg-oalrsqsia-astaxan capsule lactobacillus combination no.8 3 2,000 mmu cells PO DAILY 07/10/20 07/10/20 billion cell capsule (Adult Probiotic) losartan 100 1 tablet PO DAILY 07/10/20 07/10/20 mg-hydrochlorothiazide 12.5 mg tablet (Hyzaar) metformin 1,000 mg tablet 1,000 mg PO DAILY 07/10/20 07/10/20 methotrexate sodium 2.5 mg tablet 22.5 mg PO WEEKLY 07/10/20 07/10/20 montelukast 10 mg tablet 10 mg PO HS 07/10/20 07/10/20 (Singulair) progesterone micronized 100 mg 100 mg PO QAM 07/10/20 07/10/20 capsule (Prometrium) spironolactone 100 mg tablet 100 mg PO DAILY 07/10/20 07/10/20 terbinafine 1 % topical gel 1 ea topical HS 07/10/20 07/10/20 triamcinolone acetonide 55 mcg 2 spray intranasal DAILY 07/10/20 07/10/20 nasal spray aerosol (Nasacort) Allergies Allergy/AdvReac Type Severity Reaction Status Date / Time aspirin Allergy Gastrointestinal Verified 07/10/20 01:18 Upset Sulfa (Sulfonamide Allergy Gastrointestinal Verified 07/10/20 01:18 Antibiotics) Upset tramadol Allergy Rash Verified 07/10/20 01:18 Review of Systems Constitutional: Constitutional: Denies chills, Denies fever(s) and Denies weakness Eyes: Eyes: Reports no additional eye complaints ENT: Denies vertigo, Denies dizziness and Denies nasal congestion Cardiovascular: Cardiovascular: Reports chest pain, Denies rapid heart rate and Denies slow heart rate Respiratory: Respiratory: Denies dyspnea and Denies wheezing Gastrointestinal: Gastrointestinal: Reports abdominal pain, Denies diarrhea, Reports nausea and Denies vomiting Genitourinary: Genitourinary: Denies hematuria, Denies nocturia and Denies pelvic pain Musculoskeletal: Musculoskeletal: Denies myalgias Integumentary/Breasts: Skin/Breast: Denies erythema and Denies rash Neurologic: Denies dizziness and Denies headache(s) Psychiatric: Psychiatric: Denies anxiety and Denies depression Hematologic/Lymphatic: Hematologic/Lymphatic: Denies easy bleeding and Denies easy bruising [facility] Past Medical History Medical History (Reviewed 09/12/21 @ 19:13
[2021-09-12] MEDS: ONDANSETRON INJ 4 MG/2 ML VIAL IV PUSH (17:01)
[2021-09-12] MEDS: MORPHINE SULFATE (*CRX) 4 MG/ML INJ IV PUSH (17:01)
[2021-09-12] MEDS: SODIUM CHLORIDE 0.9% IV 1,000 ML 999 ML IV CONT (17:01)
[2021-09-12 17:45] LABS: D Dimer 0.56 ug/mL (<0.48)
[2021-09-12 17:53] LABS: Amylase 392 U/L (30-110)
[2021-09-12] MEDS: HYDROmorphone HCL INJ (*CRX) 1 MG/ML SYR IV PUSH (18:24)
[2021-09-12 19:23] VITALS: BP 116/59; PULSE 71; RESP 12; O2SAT 98
--- NOTE | 2021-09-12 19:34 | PM.IMHP ---
H&P: HPI History of Present Illness Date/Time: 09/12/21 19:34 Chief Complaint: Abdominal pain. Narrative: This is a 66-year-old female with past medical history significant for type 2 diabetes mellitus, RA, COPD/emphysema, hypertension, dyslipidemia. Patient presents to the emergency room due to epigastric abdominal pain with radiation to the back, patient has been in her usual state of health, she has been tolerating all her meals with no nausea or vomiting or diarrhea. Patient denies any cough, sputum production, fevers, rigors, chills. Patient denies any cough, sputum production, shortness of breath, no chest pain, no leg swelling, no PND, no orthopnea. Preliminary workup was significant for lipase above do [address] of abdomen and pelvis did not show acute intra-abdominal findings. Patient has been admitted for further evaluation management and treatment. Review of Systems Review of Systems: Abdominal pain Constitutional: Constitutional: Denies chills, Denies fever(s) and Denies night sweats Eyes: Eyes: Denies change in vision ENT: Denies dysphagia, Denies vertigo, Denies dizziness, Denies nasal congestion, Denies nasal discharge, Denies nasal obstruction and Denies odynophagia Cardiovascular: Cardiovascular: Denies chest pain, Denies pedal edema, Denies claudication, Denies lightheadedness, Denies radiating jaw, neck or arm pain, Denies palpitations and Denies dyspnea on exertion Gastrointestinal: Gastrointestinal: Reports abdominal pain, Denies dyspepsia, Denies heartburn, Denies diarrhea, Denies nausea and Denies vomiting Musculoskeletal: Musculoskeletal: Reports arthralgias and Denies joint swelling Integumentary/Breasts: Skin/Breast: Denies rash Neurologic: Denies focal weakness and Denies Sensory deficit (Neuro) Psychiatric: Psychiatric: Reports no additional psychiatric complaints and Reports as per HPI Endocrine: Endocrine: Denies heat intolerance, Denies polyphagia, Denies polydipsia and Denies palpitations Hematologic/Lymphatic: Hematologic/Lymphatic: Reports no additional hematologic/lymphatic complaints and Reports as per HPI Allergic/Immunologic: Allergic/Immunologic: Reports no additional allergic/immunologic complaints and Reports as per HPI [facility] Past Medical History Medical History (Updated 09/13/21 @ 01:34 by Bertha Bernal MD) Arthritis Asthma Cataracts, bilateral Diabetes mellitus Glaucoma Hypertension Rheumatoid arthritis Spinal disease Surgical History Surgical History H/O right wrist surgery History of cholecystectomy History of neck surgery Cyst resection History of toe surgery History of total abdominal hysterectomy JESUS when in her 20s with USO. Her 2nd ovary was removed around 1993 Family History Family History Mother Family history of malignant neoplasm Other Family history of allergic disorder Hypertension Social History Social History Social History: Patient quit smoking 23 years ago. She smoked a pack a day for about 20 years. She rarely drinks alcohol. She denies drug use but does have a medical card for marijuana chewables that she uses for pain. She lives at home with her and [id number]. She is a full code. [id number] has dementia. She nominated her to be the individual would make medical decisions for her if she is not able. Smoking packs per day: 0.5 Smoking cigarettes per day: 10.0 Years smoked: 26 Smoking pack-years: 13.00 Smoking status: Former smoker Tobacco type: cigarettes Smoking end date: 04/12/94 Alcohol intake: current Substance use: never Spiritual care concerns: No Meds Home Medications and Allergies Home Medications Medication Instructions Recorded Confirmed Type Eye Promise 2 cap PO TID 07/10/20
[2021-09-12 20:06] VITALS: BP 124/60; PULSE 70; RESP 15
--- NOTE | 2021-09-12 20:34 | ADMGEN ---
This patient, Nora Campos, was admitted to Medical Room [facility] at 2033. Patient/family oriented to hospital policies and general routines including ID bracelet, bed and alarms, visiting hours, pain management, procedures, bathroom and other care routines, personal items, smoking policy, room service/diet, and visiting hours. Information on how to activate the Rapid Response Team has been discussed. Patient/Family are encouraged to report perceived risks to care and to ask questions if they do not understand what they are told or what they should do.
[2021-09-12 20:35] VITALS: BP 108/72; PULSE 63; RESP 18; TEMP 36.3; O2SAT 100
[2021-09-12 20:36] VITALS: BMI 29.5
[2021-09-12] MEDS: SODIUM CHLORIDE 0.9% IV 1,000 ML 125 ML IV CONT (21:08)
[2021-09-12 21:54] LABS: Troponin I < 0.012 ng/mL (0.000-0.034)
[2021-09-13] VITALS (8 sets, daily range): BP systolic 115–132; BP diastolic 55–67; PULSE 57–64; RESP 16; TEMP 36.2–37.1; O2SAT 96–100
[2021-09-13] MEDS: MONTELUKAST SODIUM 10 MG TABLET PO ×2 (02:01→20:37)
[2021-09-13] MEDS: SODIUM CHLORIDE 0.9% IV 1,000 ML 125 ML IV CONT ×3 (02:01→20:38)
[2021-09-13] MEDS: ROSUVASTATIN 10 MG TABLET 20 MG PO ×2 (02:01→20:37)
[2021-09-13] MEDS: HYDROmorphone HCL INJ (*CRX) 1 MG/ML SYR IV PUSH (02:53)
[2021-09-13] MEDS: diphenhydrAMINE HCl INJ 50 MG/ML VIAL 25 MG IV PUSH (05:18)
[2021-09-13 07:53] LABS: Glucose Point of Care 83 mg/dl (65-105)
[2021-09-13] MEDS: FLUTICASONE PROP 110 MCG INHALER 12 GM (*SP) 2 PUFF INHALATION ×2 (08:10→20:38)
[2021-09-13] MEDS: EUCERIN CREAM 120 GM JAR 1 APPLIC TOPICAL (08:25)
[2021-09-13] MEDS: LOSARTAN POTASSIUM 100 MG TABLET PO (08:29)
[2021-09-13] MEDS: FOLIC ACID 1 MG TABLET 2 MG PO (08:29)
[2021-09-13] MEDS: CHOLECALCIFEROL 1,000 UNITS TABLET 5000 UNITS PO (08:29)
[2021-09-13] MEDS: guaiFENesin 12 HR 600 MG TABCR PO (08:30)
[2021-09-13] MEDS: hydroCHLOROthiazide 12.5 MG CAPSULE PO (08:30)
[2021-09-13] MEDS: ACIDOPHILUS/BULGARICUS CHEWABLE TABLET 2 TABLET BY MOUTH (08:30)
[2021-09-13] MEDS: HYDROXYCHLOROQUINE SULFATE 200 MG TABLET PO (08:31)
[2021-09-13] MEDS: GABAPENTIN 300 MG CAPSULE 600 MG PO ×2 (08:31→17:17)
[2021-09-13] MEDS: FLUTICASONE PROPIONATE 0.05% NA SPR 16 GM BTL (*BKC) 2 SPRAY NASAL (08:32)
[2021-09-13] MEDS: IPRATROPIUM NASAL SPRAY 0.03% 15 ML BOTTLE 2 SPRAY NASAL ×3 (08:32→17:18)
[2021-09-13] MEDS: ARTIFICIAL TEARS OPHTH SOLN 15 ML BOTTLE 1 DROP EACH EYE (08:33)
[2021-09-13 09:20] LABS: Basophils Absolute Auto 0.1 K/mm3 (0.0-0.1); Basophils Percent Auto 0.6 % (0.2-1.2); Eosinophils Absolute Auto 0.1 K/mm3 (0-0.3); Eosinophils Percent Auto 0.9 % (0-4.4); Hematocrit 38.5 % (37.0-47.0); Hemoglobin 12.2 g/dL (12.0-15.0); Immature Granulocyte Absolute 0.03 K/mm3 (0.00-0.031); Immature Granulocyte Percent A 0.3 % (0-0.5); Lymphocytes Absolute Auto 1.15 K/mm3 (0.9-3.2); Lymphocytes Percent Auto 13.2 % (18.3-44.2); Mean Corpuscular HGB Conc 31.7 g/dl (32-36); Mean Corpuscular Hemoglobin 26.8 pg (26-34); Mean Corpuscular Volume 84.6 fl (80-100); Mean Platelet Volume 9.7 fl (7.4-10.4); Monocytes Absolute Auto 0.7 K/mm3 (0.1-0.6); Monocytes Percent Auto 7.7 % (2.6-8.5); Neutrophils Absolute Auto 6.7 K/mm3 (1.3-6.7); Neutrophils Percent Auto 77.3 % (45.5-73.1); Platelet Count Result 213 k/mm3 (150-375); Red Blood Count 4.55 M/mm3 (4.2-5.4); Red Cell Distribution Width 13.7 % (11.5-14.5); White Blood Count 8.7 K/mm3 (4.5-10.0)
[2021-09-13 09:29] LABS: Alanine Aminotransferase 551 U/L (6-35); Albumin Level 3.7 g/dL (3.5-5.1); Alkaline Phosphatase 157 U/L (38-126); Anion Gap 5 mmol/L (8-16); Aspartate Amino Transferase 615 U/L (14-36); Bilirubin,Total 0.6 mg/dL (0.2-1.3); Blood Urea Nitrogen 10 mg/dL (7-17); Calcium 8.5 mg/dL (8.4-10.2); Carbon Dioxide 22 mmol/L (22-30); Chloride 109 mmol/L (98-107); Estimated CRCL calculation 58 ml/min; Estimated Glomerular Filt Rate > 60; Glucose 86 mg/dL (65-110); Magnesium 1.7 mg/dL (1.6-2.3); Potassium 3.9 mmol/L (3.4-5.0); Sodium 136 mmol/L (137-145)
[2021-09-13 09:32] LABS: Lipase 354 U/L (23-300)
[2021-09-13 09:36] LABS: Cholesterol 64 mg/dL (0-200); HDL Direct 34 mg/dL; Triglycerides 36 mg/dL (<150)
--- NOTE | 2021-09-13 11:17 | PM.IMPN ---
Progress Note: A&P Assessment and Plan (1) Abdominal pain: Code(s): R10.9 - Unspecified abdominal pain Status: Acute Assessment and Plan: Place in observation CT of abdomen and pelvis with no acute intra-abdominal abnormalities Supportive care (2) Serum lipase elevation: Code(s): R74.8 - Abnormal levels of other serum enzymes Status: Acute Assessment and Plan: CT did not show acute pancreatitis Will repeat enzymes in the morning IV fluids (3) Rheumatoid arthritis: Code(s): M06.9 - Rheumatoid arthritis, unspecified Status: Acute Assessment and Plan: Stable on hydroxychloroquine hold methotrexate until further evaluations of liver enzymes (4) Hypertension: Code(s): I10 - Essential (primary) hypertension Status: Acute Assessment and Plan: Continue to monitor Continue home meds (5) Diabetes mellitus: Code(s): E11.9 - Type 2 diabetes mellitus without complications Status: Acute Assessment and Plan: Holding metformin Insulin sliding scale as needed (6) Acute kidney injury: Code(s): N17.9 - Acute kidney failure, unspecified Status: Acute Assessment and Plan: Resolved (7) Transaminitis: Code(s): R74.01 - Elevation of levels of liver transaminase levels Status: Acute Assessment and Plan: obtain hepatitis panel, us abd monitor LFTs consider consulting general surgery pending results. prn iv pain medication Subjective Date/time seen: 09/13/21 11:17 Review of Systems Review of Systems: All systems reviewed & are unremarkable except as noted in HPI and below Objective Data Vital Signs Vital Signs: Vital Signs - 24 hr 09/12/21 15:08 09/12/21 19:23 09/12/21 20:06 Temperature 98.4 F Pulse Rate 65 71 70 Respiratory Rate 14 12 15 Blood Pressure 137/106 H 116/59 L 124/60 Pulse Oximetry 100 98 Oxygen Delivery Room Air 09/12/21 20:35 09/12/21 20:00 09/13/21 06:07 Temperature 97.3 F L 97.2 F L Pulse Rate 63 57 L Respiratory Rate 18 16 Blood Pressure 108/72 122/55 L Pulse Oximetry 100 100 Oxygen Delivery Room Air 09/13/21 08:13 09/13/21 08:12 Temperature Pulse Rate 58 L 58 L Respiratory Rate 16 16 Blood Pressure Pulse Oximetry 98 Oxygen Delivery Room Air Intake/Output Intake/Output: Intake & Output 09/10/21 09/11/21 09/12/21 09/13/21 23:59 23:59 23:59 23:59 Intake Total 1000 1000 Balance 1000 1000 Meds/Results Medications: Active Medications Generic Name Dose Route Start Last Admin Trade Name Freq PRN Reason Stop Dose Admin Albuterol 2 puff 09/13/21 01:31 Albuterol Sulfate (*Sp) Aerosol 1 Puff INHALATION QID PRN Shortness Of Breath Or Wheezing Artificial Tears 1 drop 09/13/21 03:27 09/13/21 08:33 Artificial Tears Ophth Soln 15 Ml Bottle EACH EYE 1 drop TID PRN Administration Dry Eye(s) Baclofen 10 mg 09/13/21 01:31 Baclofen 10 Mg Tablet PO TID PRN Muscle Spasm Diphenhydramine HCl 25 mg 09/13/21 05:09 09/13/21 05:18 Diphenhydramine Hcl Inj 50 Mg/Ml Vial IV PUSH 25 mg Q6H PRN Administration Itching Fluticasone Propionate 2 puff 09/13/21 08:00 09/13/21 08:10 Fluticasone Prop 110 Mcg Inhaler 12 Gm (*Sp) INHALATION 2 puff Q12HRT ZAKIA Administration Fluticasone Propionate 2 spray 09/13/21 09:00 09/13/21 08:32 Fluticasone Propionate 0.05% Na Spr 16 Gm Btl (*Bkc) NASAL 2 spray QAM ZAKIA Administration Folic Acid 2 mg 09/13/21 09:00 09/13/21 08:29 Folic Acid 1 Mg Tablet PO 2 mg DAILY ZAKIA Administration Gabapentin 600 mg 09/13/21 09:00 09/13/21 08:31 Gabapentin 300 Mg Capsule PO 600 mg BID ZAKIA Administration Guaifenesin 600 mg 09/13/21 01:31 09/13/21 08:30 Guaifenesin 12 Hr 600 Mg Tabcr PO 600 mg Q12H PRN Administration Congestion Hydrochlorothiazide 12.5 mg 09/13/21 09:00 09/13/21 08:30 Hyd
[2021-09-13 11:31] LABS: Glucose Point of Care 79 mg/dl (65-105)
[2021-09-13 11:36] LABS: LDL Cholesterol Direct < 30 mg/dL
--- NOTE | 2021-09-13 11:51 | ECG_ITS ---
Measurements Intervals [place] Rate: 56 P: 69 MT: 181 QRS: 23 QRSD: 101 T: 60 QT: 396 QTc: 383 Interpretive Statements SINUS BRADYCARDIA COMPARED TO ECG 09/12/2021 15:01:36 SINUS BRADYCARDIA NOW PRESENT Electronically Signed On 09-13-2021 16:53:29 CDT by Maria Del Carmen Benoit M.D.
[2021-09-13 12:15] LABS: Troponin I < 0.012 ng/mL (0.000-0.034)
[2021-09-13 12:40] LABS: Hepatitis B Surface Antigen Negative (Negative)
[2021-09-13 12:46] LABS: HAV RESULT Negative (Negative); Hepatitis B Core IgM Result Negative (Negative)
[2021-09-13 12:57] LABS: Hepatitis C Virus Antibody Negative (Negative)
[2021-09-13] MEDS: PANTOPRAZOLE SODIUM IV 40 MG VIAL IV PUSH (13:20)
[2021-09-13 16:50] LABS: Glucose Point of Care 82 mg/dl (65-105)
[2021-09-13] MEDS: MICONAZOLE NITRATE 2% CREAM 30 GM TUBE 1 APPLIC TOPICAL (20:37)
[2021-09-13 20:45] LABS: Glucose Point of Care 79 mg/dl (65-105)
[2021-09-14 05:00] VITALS: BP 129/88; PULSE 64; RESP 16; TEMP 36.7; O2SAT 100
[2021-09-14] MEDS: SODIUM CHLORIDE 0.9% IV 1,000 ML 125 ML IV CONT ×3 (05:32→23:50)
--- NOTE | 2021-09-14 08:08 | PM.IMPN ---
Progress Note: A&P Assessment and Plan (1) Abdominal pain: Code(s): R10.9 - Unspecified abdominal pain Status: Acute Assessment and Plan: Place in observation CT of abdomen and pelvis with no acute intra-abdominal abnormalities Supportive care (2) Serum lipase elevation: Code(s): R74.8 - Abnormal levels of other serum enzymes Status: Acute Assessment and Plan: CT did not show acute pancreatitis Lipase decreased, however LFTs increased. Continue to monitor lab values IV fluids (3) Rheumatoid arthritis: Code(s): M06.9 - Rheumatoid arthritis, unspecified Status: Acute Assessment and Plan: Stable on hydroxychloroquine hold methotrexate until further evaluations of liver enzymes (4) Hypertension: Code(s): I10 - Essential (primary) hypertension Status: Acute Assessment and Plan: Continue to monitor Continue home meds (5) Diabetes mellitus: Code(s): E11.9 - Type 2 diabetes mellitus without complications Status: Acute Assessment and Plan: Insulin Lispro sliding scale, Accu-checks qAc and HS and Hold oral hypoglycemics (6) Acute kidney injury: Code(s): N17.9 - Acute kidney failure, unspecified Status: Acute Assessment and Plan: Resolved (7) Transaminitis: Code(s): R74.01 - Elevation of levels of liver transaminase levels Status: Acute Assessment and Plan: Hepatitis panel negative, ultrasound of the abdomen negative monitor LFTs Consult to Gastroenterology. Patient had a right upper quadrant ultrasound which did not reveal acute abnormalities. Patient continues to complain of pain. Suggestive of an MRCP by gastroenterology. Appreciate assistance and recommendations. prn iv pain medication Subjective Date/time seen: 09/14/21 08:08 Interval history: Patient is alert and oriented this morning. Continues complain of mild abdominal pain. Remains NPO and IV fluid resuscitation. Pending MRCP. Gastroenterology was consulted on 09/13/2021. They will follow in consultation for further evaluation of this patient. No acute events reported by RN during the night. Patient's pain medication was switched to fentanyl, patient reported itching with Dilaudid usage. Review of Systems Review of Systems: All systems reviewed & are unremarkable except as noted in HPI and below Exam Narrative: General: No acute distress. Mental Status: Awake, alert and oriented to person, place, and time with clear speech. Skin: Skin in warm, dry and intact without rashes or lesions. Head: Normocephalic and atraumatic. Eyes: Conjunctivae are clear without exudates or hemorrhage. Sclera is non-icteric. EOM are intact, PERRLA. Ears: The external ear and canal are non-tender and without swelling or discharge. Nose: Nasal mucosa is pink and moist. Septum midline. Nares patent bilaterally. Throat: Oral mucosa pink and moist with good dentition. Tongue midline. Neck: The neck supple without adenopathy. Trachea midline. No JVD. Cardiac: S1 and S2 regular rate and rhythm. No murmurs, gallops, or rubs auscultated. Respiratory: Chest wall symmetric, nontender and without deformity or trauma. Respirations even and unlabored. Lung sounds are clear to auscultation in all lobes bilaterally without wheezes, rhonchi, or rales. Abdominal: Abdomen soft, round and mildly-tender to palpation. Bowel sounds present and normoactive in all 4 quadrants. Spine: Neck and back with grossly normal curvature, no deformity in appearance or signs of trauma. Extremities: Upper and lower extremities atraumatic without tenderness or deformity. Full range of motion and muscle strength 5/5 to all extremities bilaterally. Neurological: Full and symmetric motor and light touch sensation bilaterally. Cranial nerves II-XII grossly intact. Objective Data Vital Signs Vital Signs: Vital Signs - 24 hr 09/13/21 08:13 09/13/21 08:12 09/13/21 1
--- NOTE | 2021-09-14 08:38 | WPDGICN ---
Assessment and Plan Assessment and plan (1) Serum lipase elevation: Code(s): R74.8 - Abnormal levels of other serum enzymes Status: Acute Assessment and Plan: Patient with markedly elevated lipase on presentation suggestive of pancreatitis that is now improving because lipase is normalized. Because her LFTs increased so dramatically the day after presentation I suspect she may have passed a common bile duct gallstone. Given her prior cholecystectomy MRCP done this morning hopefully will clear the common bile duct make sure certain there are no residual stones here. Clinically she is improved will obtain follow-up LFTs and lipase today. Advance diet slowly to a low-fat diet. Increase activity as tolerated. (2) Transaminitis: Code(s): R74.01 - Elevation of levels of liver transaminase levels Status: Acute Assessment and Plan: Increase LFTs day after admission associated with elevated lipase level raises the question of passage common bile duct gallstone. MRCP ordered to ensure that there are no additional stones in the common. This is pending at this time. We will advance diet (3) Rheumatoid arthritis: Code(s): M06.9 - Rheumatoid arthritis, unspecified Status: Acute GI Consult Note Consult date/time: 09/14/21 08:38 Reason for consult: Pancreatitis HPI: Nora Campos is a 66 year old female I am asked to see at the request of the hospitalist service because of pancreatitis. Patient in usual state of health several days ago began to get left shoulder pain. For this reason she went to the emergency room. In the emergency room abdominal palpation revealed some abdominal discomfort. Initial cardiac workup was negative. However lab testing revealed markedly elevated serum lipase. Subsequent CT scan revealed no evidence of pancreatitis by CT scan. Patient does have a history of cholecystectomy 5 years ago. Follow-up LFTs yesterday 1 day after admission revealed markedly elevated serum transaminases. Lipase has begun to improve. I am asked to see patient because of elevated LFTs in apparent pancreatitis. Patient is feeling much improved today. She denies abdominal pain. Nausea noted the time of presentation has dissipated. She has not yet had a bowel movement. Review of Systems Review of Systems: Review of systems noncontributory. [facility] Past Medical History Medical History (Updated 09/13/21 @ 11:43 by Marcia Yoon APRN) Arthritis Asthma Cataracts, bilateral Diabetes mellitus Glaucoma Hypertension Rheumatoid arthritis Spinal disease Surgical History Surgical History H/O right wrist surgery History of cholecystectomy History of neck surgery Cyst resection History of toe surgery History of total abdominal hysterectomy JESUS when in her 20s with USO. Her 2nd ovary was removed around 1993 Family History Family History Mother Family history of malignant neoplasm Other Family history of allergic disorder Hypertension Social History Social History Social History: Patient quit smoking 23 years ago. She smoked a pack a day for about 20 years. She rarely drinks alcohol. She denies drug use but does have a medical card for marijuana chewables that she uses for pain. She lives at home with her and [id number]. She is a full code. [id number] has dementia. She nominated her to be the individual would make medical decisions for her if she is not able. Smoking packs per day: 0.5 Smoking cigarettes per day: 10.0 Years smoked: 26 Smoking pack-years: 13.00 Smoking status: Former smoker Tobacco type: cigarettes Smoking end date: 04/12/94 Alcohol intake: current Substance use: never Spiritual care concerns: No Meds Home Medications and
[2021-09-14 08:52] LABS: Glucose Point of Care 79 mg/dl (65-105)
[2021-09-14 09:02] LABS: Basophils Absolute Auto 0.1 K/mm3 (0.0-0.1); Basophils Percent Auto 0.7 % (0.2-1.2); Eosinophils Absolute Auto 0.1 K/mm3 (0-0.3); Eosinophils Percent Auto 0.9 % (0-4.4); Hematocrit 36.8 % (37.0-47.0); Hemoglobin 11.7 g/dL (12.0-15.0); Immature Granulocyte Absolute 0.03 K/mm3 (0.00-0.031); Immature Granulocyte Percent A 0.4 % (0-0.5); Lymphocytes Percent Auto 17.6 % (18.3-44.2); Mean Corpuscular HGB Conc 31.8 g/dl (32-36); Mean Corpuscular Hemoglobin 26.1 pg (26-34); Mean Platelet Volume 9.5 fl (7.4-10.4); Monocytes Absolute Auto 0.7 K/mm3 (0.1-0.6); Monocytes Percent Auto 9.8 % (2.6-8.5); Neutrophils Absolute Auto 4.8 K/mm3 (1.3-6.7); Neutrophils Percent Auto 70.6 % (45.5-73.1); Platelet Count Result 254 k/mm3 (150-375); Red Blood Count 4.49 M/mm3 (4.2-5.4); Red Cell Distribution Width 13.6 % (11.5-14.5); White Blood Count 6.8 K/mm3 (4.5-10.0)
[2021-09-14] MEDS: FLUTICASONE PROPIONATE 0.05% NA SPR 16 GM BTL (*BKC) 2 SPRAY NASAL (09:03)
[2021-09-14] MEDS: hydroCHLOROthiazide 12.5 MG CAPSULE PO (09:04)
[2021-09-14] MEDS: guaiFENesin 12 HR 600 MG TABCR PO (09:04)
[2021-09-14] MEDS: FOLIC ACID 1 MG TABLET 2 MG PO (09:04)
[2021-09-14] MEDS: PANTOPRAZOLE SODIUM IV 40 MG VIAL IV PUSH (09:04)
[2021-09-14] MEDS: GABAPENTIN 300 MG CAPSULE 600 MG PO ×2 (09:05→17:33)
[2021-09-14] MEDS: ACIDOPHILUS/BULGARICUS CHEWABLE TABLET 2 TABLET BY MOUTH (09:05)
[2021-09-14] MEDS: LOSARTAN POTASSIUM 100 MG TABLET PO (09:05)
[2021-09-14] MEDS: EUCERIN CREAM 120 GM JAR 1 APPLIC TOPICAL (09:06)
[2021-09-14 09:13] LABS: INR 1.2; Prothrombin Time 14.9 Seconds (11.1-14.7)
[2021-09-14 09:14] LABS: Alanine Aminotransferase 321 U/L (6-35); Albumin Level 3.6 g/dL (3.5-5.1); Alkaline Phosphatase 149 U/L (38-126); Anion Gap 6 mmol/L (8-16); Aspartate Amino Transferase 145 U/L (14-36); Bilirubin,Total 0.5 mg/dL (0.2-1.3); Blood Urea Nitrogen 14 mg/dL (7-17); Calcium 8.9 mg/dL (8.4-10.2); Carbon Dioxide 20 mmol/L (22-30); Chloride 110 mmol/L (98-107); Estimated CRCL calculation 58 ml/min; Estimated Glomerular Filt Rate > 60; Glucose 75 mg/dL (65-110); Potassium 3.6 mmol/L (3.4-5.0); Sodium 136 mmol/L (137-145)
[2021-09-14 09:16] LABS: Alanine Aminotransferase 321 U/L (6-35); Albumin Level 3.6 g/dL (3.5-5.1); Alkaline Phosphatase 145 U/L (38-126); Aspartate Amino Transferase 144 U/L (14-36); Bilirubin,Total 0.5 mg/dL (0.2-1.3); Lipase 108 U/L (23-300)
[2021-09-14] MEDS: FLUTICASONE PROP 110 MCG INHALER 12 GM (*SP) 2 PUFF INHALATION ×2 (09:30→19:25)
[2021-09-14 09:45] VITALS: O2SAT 99
[2021-09-14 11:44] LABS: Glucose Point of Care 68 mg/dl (65-105)
[2021-09-14 14:15] VITALS: BP 133/66; PULSE 61; RESP 16; TEMP 36.9; O2SAT 98
[2021-09-14] MEDS: fentaNYL CITRATE INJ (*CRX) 100 MCG/2 ML VIAL 12.5 MCG IV PUSH ×2 (16:19→20:45)
[2021-09-14 16:30] LABS: Glucose Point of Care 82 mg/dl (65-105)
[2021-09-14 19:26] VITALS: PULSE 62; RESP 18; O2SAT 99
[2021-09-14 20:32] VITALS: BP 133/62; PULSE 60; RESP 18; TEMP 36.3; O2SAT 100
[2021-09-14 20:45] LABS: Glucose Point of Care 109 mg/dl (65-105)
[2021-09-14] MEDS: MICONAZOLE NITRATE 2% CREAM 30 GM TUBE 1 APPLIC TOPICAL (20:50)
[2021-09-14] MEDS: ROSUVASTATIN 10 MG TABLET 20 MG PO (20:50)
[2021-09-14] MEDS: MONTELUKAST SODIUM 10 MG TABLET PO (20:50)
[2021-09-15] VITALS (9 sets, daily range): BP systolic 104–154; BP diastolic 52–69; PULSE 57–69; RESP 16–19; TEMP 36.7–37.5; O2SAT 96–100
[2021-09-15] MEDS: fentaNYL CITRATE INJ (*CRX) 100 MCG/2 ML VIAL 25 MCG IV PUSH (00:15)
[2021-09-15] MEDS: fentaNYL CITRATE INJ (*CRX) 100 MCG/2 ML VIAL 12.5 MCG IV PUSH ×3 (00:46→08:38)
[2021-09-15] MEDS: BACLOFEN 10 MG TABLET PO ×3 (03:59→23:05)
[2021-09-15] MEDS: diphenhydrAMINE HCl INJ 50 MG/ML VIAL 25 MG IV PUSH (03:59)
[2021-09-15 05:44] LABS: Basophils Absolute Auto 0.1 K/mm3 (0.0-0.1); Basophils Percent Auto 0.8 % (0.2-1.2); Eosinophils Absolute Auto 0.1 K/mm3 (0-0.3); Eosinophils Percent Auto 0.9 % (0-4.4); Hematocrit 35.7 % (37.0-47.0); Immature Granulocyte Absolute 0.04 K/mm3 (0.00-0.031); Immature Granulocyte Percent A 0.4 % (0-0.5); Lymphocytes Absolute Auto 1.31 K/mm3 (0.9-3.2); Lymphocytes Percent Auto 14.1 % (18.3-44.2); Mean Corpuscular HGB Conc 33.6 g/dl (32-36); Mean Corpuscular Hemoglobin 26.4 pg (26-34); Mean Corpuscular Volume 78.6 fl (80-100); Mean Platelet Volume 9.3 fl (7.4-10.4); Monocytes Absolute Auto 1.1 K/mm3 (0.1-0.6); Monocytes Percent Auto 11.3 % (2.6-8.5); Neutrophils Absolute Auto 6.8 K/mm3 (1.3-6.7); Neutrophils Percent Auto 72.5 % (45.5-73.1); Platelet Count Result 283 k/mm3 (150-375); Red Blood Count 4.54 M/mm3 (4.2-5.4); Red Cell Distribution Width 13.4 % (11.5-14.5); White Blood Count 9.3 K/mm3 (4.5-10.0)
[2021-09-15 05:55] LABS: Alanine Aminotransferase 227 U/L (6-35); Albumin Level 3.4 g/dL (3.5-5.1); Alkaline Phosphatase 128 U/L (38-126); Anion Gap 6 mmol/L (8-16); Aspartate Amino Transferase 67 U/L (14-36); Bilirubin,Total 0.6 mg/dL (0.2-1.3); Blood Urea Nitrogen 9 mg/dL (7-17); Calcium 8.9 mg/dL (8.4-10.2); Carbon Dioxide 23 mmol/L (22-30); Chloride 111 mmol/L (98-107); Estimated CRCL calculation 58 ml/min; Estimated Glomerular Filt Rate > 60; Glucose 94 mg/dL (65-110); Magnesium 1.4 mg/dL (1.6-2.3); Potassium 3.6 mmol/L (3.4-5.0); Sodium 140 mmol/L (137-145)
[2021-09-15 07:49] LABS: Glucose Point of Care 83 mg/dl (65-105)
[2021-09-15] MEDS: FLUTICASONE PROP 110 MCG INHALER 12 GM (*SP) 2 PUFF INHALATION ×2 (08:13→21:11)
[2021-09-15] MEDS: SODIUM CHLORIDE 0.9% IV 1,000 ML 125 ML IV CONT (08:48)
[2021-09-15] MEDS: hydroCHLOROthiazide 12.5 MG CAPSULE PO (08:49)
[2021-09-15] MEDS: FLUTICASONE PROPIONATE 0.05% NA SPR 16 GM BTL (*BKC) 2 SPRAY NASAL (08:49)
[2021-09-15] MEDS: IPRATROPIUM NASAL SPRAY 0.03% 15 ML BOTTLE 2 SPRAY NASAL ×2 (08:49→20:08)
[2021-09-15] MEDS: HYDROXYCHLOROQUINE SULFATE 200 MG TABLET 400 MG PO (08:50)
[2021-09-15] MEDS: LOSARTAN POTASSIUM 100 MG TABLET PO (08:50)
[2021-09-15] MEDS: GABAPENTIN 300 MG CAPSULE 600 MG PO ×2 (08:59→16:39)
[2021-09-15] MEDS: CHOLECALCIFEROL 1,000 UNITS TABLET 5000 UNITS PO (08:59)
[2021-09-15] MEDS: FOLIC ACID 1 MG TABLET 2 MG PO (08:59)
[2021-09-15] MEDS: PANTOPRAZOLE SODIUM IV 40 MG VIAL IV PUSH (09:00)
[2021-09-15] MEDS: ACIDOPHILUS/BULGARICUS CHEWABLE TABLET 2 TABLET BY MOUTH (09:00)
[2021-09-15] MEDS: ONDANSETRON INJ 4 MG/2 ML VIAL IV PUSH (09:00)
[2021-09-15] MEDS: EUCERIN CREAM 120 GM JAR 1 APPLIC TOPICAL (09:01)
[2021-09-15] MEDS: OPTI-GEN TAB 1 TABLET PO ×2 (09:25→16:40)
--- NOTE | 2021-09-15 10:25 | PM.IMPN ---
Progress Note: A&P Assessment and Plan (1) Abdominal pain: Code(s): R10.9 - Unspecified abdominal pain Status: Acute Assessment and Plan: Place in observation CT of abdomen and pelvis with no acute intra-abdominal abnormalities Supportive care Patient continues to have persistent pain to the left upper quadrant however this morning she complained of pain to the right upper quadrant radiating around to her back. CT of the abdomen and pelvis appear WNL, MRCP WNL, ultrasound of the abdomen WNL. LFTs down trending. Patient does not have a leukocytosis and is not receiving IV antibiotics. She is currently receiving IV fentanyl for acute pain of unknown origin. This will be deescalated. Discussed this with the patient. Continue IV fluids and NPO status. Defer acute abdominal pain to gastroenterology. (2) Serum lipase elevation: Code(s): R74.8 - Abnormal levels of other serum enzymes Status: Acute Assessment and Plan: CT did not show acute pancreatitis Lipase decreased, however LFTs increased. Continue to monitor lab values IV fluids (3) Rheumatoid arthritis: Code(s): M06.9 - Rheumatoid arthritis, unspecified Status: Acute Assessment and Plan: Stable on hydroxychloroquine hold methotrexate until further evaluations of liver enzymes (4) Hypertension: Code(s): I10 - Essential (primary) hypertension Status: Acute Assessment and Plan: Continue to monitor Continue home meds (5) Diabetes mellitus: Code(s): E11.9 - Type 2 diabetes mellitus without complications Status: Acute Assessment and Plan: Insulin Lispro sliding scale, Accu-checks qAc and HS and Hold oral hypoglycemics (6) Acute kidney injury: Code(s): N17.9 - Acute kidney failure, unspecified Status: Acute Assessment and Plan: Resolved (7) Transaminitis: Code(s): R74.01 - Elevation of levels of liver transaminase levels Status: Acute Assessment and Plan: Hepatitis panel negative, ultrasound of the abdomen negative monitor LFTs Consult to Gastroenterology. Patient had a right upper quadrant ultrasound which did not reveal acute abnormalities. Patient continues to complain of pain. Suggestive of an MRCP by gastroenterology. Appreciate assistance and recommendations. prn iv pain medication Subjective Date/time seen: 09/15/21 10:25 Patient continues to have a acute abdominal pain although this morning she reported the pain on her right side radiating to her back. CT of the abdomen and pelvis negative, MRCP negative, ultrasound of the abdomen negative, LFTs down trending, lipase WNL, patient does not have a leukocytosis and not receiving IV antibiotics. She is currently receiving IV fluids due to her NPO status. Although patient was advanced to a clear liquid diet yesterday and reportedly did well initially and did not have acute pain however her pain began this morning with increased nausea and a spasm sensation. Gastroenterology was notified of the patient's complaints reported today by the patient. Patient requested for more IV narcotics, this was an refusal due to the unknown circumstance or origin of the patient's pain as it has radiated from the left persistently now on the right persistently. Patient's symptoms are very vague. Will wait for Gastroenterology's recommendations. Patient may be discharged at a later date. Review of Systems Review of Systems: All systems reviewed & are unremarkable except as noted in HPI and below Exam Narrative: General: No acute distress. Mental Status: Awake, alert and oriented to person, place, and time with clear speech. Skin: Skin in warm, dry and intact without rashes or lesions. Head: Normocephalic and atraumatic. Eyes: Conjunctivae are clear without exudates or hemorrhage. Sclera is non-icteric. EOM are intact, PERRLA. Ears: The external ear and canal are non-tender and without s
--- NOTE | 2021-09-15 10:47 | WPDHPUPDATE1 ---
History and Physical Update Update Date/Time: 09/15/21 10:47 Patient states she had recurrent abdominal pain after eating yesterday. States pain is across the upper abdomen and right upper side. Her her LFTs continue to decrease. Lipase has normalized. MRCP is normal. With no evidence of biliary obstruction. On physical exam she is tender in the epigastric area. Plan will be to per proceed with EGD today to evaluate abdominal pain related to diet in the epigastric area. History and Physical has been reviewed, including an updated exam of the patient. There are NO changes in the patient's condition. Risks, benefits, and alternatives have been discussed and questions answered. Patient agrees to proceed with procedure.
--- NOTE | 2021-09-15 11:12 | WPDANESEPPF ---
Anes - Initial Pre Proc Eval Procedure: Operation Date: 09/15/21 13:00 Proposed Procedures p Esophagogastroduodenoscopy - Clif Garcia MD Date/Time: 09/15/21 11:12 Surgeon: Gene Khan MD Pre Op Diagnosis: acute pancreatitis Patient Data Age: 66 Gender: F Height: 1.57 m Weight: 73.4 kg Last Vital Signs Temp 36.7 C 09/15/21 05:41 Pulse 68 09/15/21 08:16 Resp 18 09/15/21 08:16 BP 154/67 H 09/15/21 05:41 Pulse Ox 96 09/15/21 08:16 O2 Del Method Room Air 09/15/21 08:16 Allergies Allergy/AdvReac Type Severity Reaction Status Date / Time hydromorphone Allergy Severe Rash Verified 09/14/21 20:44 tramadol Allergy Rash Verified 07/10/20 01:18 aspirin AdvReac Gastrointestinal Verified 09/15/21 07:25 Upset Sulfa (Sulfonamide AdvReac Gastrointestinal Verified 09/15/21 07:25 Antibiotics) Upset Home Medications Medication Instructions Recorded Confirmed Type Eye Promise 2 cap PO TID 07/10/20 09/12/21 History albuterol sulfate 90 mcg/actuation 2 puff inhalation QID PRN 07/10/20 09/12/21 History aerosol inhaler (Proventil HFA) Shortness Of Breath Or Wheezing carboxymethylcellulose sodium 0.5 1 drp EACH EYE TID PRN Dry Eyes 07/10/20 09/12/21 History % eye drops (Refresh Tears) cholecalciferol (vitamin D3) 50 5,000 unit PO DAILY 07/10/20 09/12/21 History mcg (2,000 unit) tablet emollient 1 applic topical DAILY 07/10/20 09/12/21 History fluticasone propionate 110 2 puff inhalation Q12H 07/10/20 09/12/21 History mcg/actuation HFA aerosol inhaler folic acid 1 mg tablet 2 mg PO DAILY 07/10/20 09/12/21 History hydroxychloroquine 200 mg tablet 200 mg PO QTUTHSA 07/10/20 09/12/21 History hydroxychloroquine 200 mg tablet 400 mg PO QMWF 07/10/20 09/12/21 History ipratropium bromide 21 mcg (0.03 2 spray intranasal TID 07/10/20 09/12/21 History %) nasal spray lactobacillus combination no.8 3 2,000 mmu cells PO DAILY 07/10/20 09/12/21 History billion cell capsule (Adult Probiotic) losartan 100 1 tablet PO DAILY 07/10/20 09/12/21 History mg-hydrochlorothiazide 12.5 mg tablet (Hyzaar) metformin 1,000 mg tablet 1,000 mg PO DAILY 07/10/20 09/12/21 History methotrexate sodium 2.5 mg tablet 22.5 mg PO WEEKLY 07/10/20 09/12/21 History montelukast 10 mg tablet 10 mg PO HS 07/10/20 09/12/21 History (Singulair) progesterone micronized 100 mg 100 mg PO HS 07/10/20 09/12/21 History capsule (Prometrium) terbinafine 1 % topical gel 1 ea topical HS 07/10/20 09/12/21 History triamcinolone acetonide 55 mcg 2 spray intranasal DAILY 07/10/20 09/12/21 History nasal spray aerosol (Nasacort) baclofen 10 mg tablet 10 mg PO TID PRN muscle 09/12/21 09/12/21 History gabapentin 600 mg tablet 600 mg PO BID 09/12/21 09/12/21 History guaifenesin 600 mg tablet, 600 mg PO Q12H PRN Congestion 09/12/21 09/12/21 History extended release 12 hr (Mucinex) rosuvastatin 20 mg tablet 20 mg PO HS 09/12/21 09/12/21 History Laboratory Tests 09/14/21 09/14/21 09/14/21 11:41 16:26 20:41 WBC RBC Hgb Hct MCV MCH MCHC RDW Plt Count MPV Immature Gran % (Auto) Neut % (Auto) Lymph % (Auto) [place] % (Auto) Eos % (Auto) Baso % (Auto) Lymph # (Auto) [place] # (Auto) Eos # (Auto) Baso # (Auto) Abs Immat Gran (auto) Absolute Neuts (auto) Absolute Nucleated RBC Nucleated RBC % Sodium Potassium Chloride Carbon Dioxide Anion Gap BUN Creatinine Estim Creat Clear Calc Estimated GFR Glucose POC Capillary Glucose 68 mg/dl mg/dl 82 mg/dl mg/dl 109 mg/dl H mg/dl (65-105) (65-105
[2021-09-15] MEDS: LACTATED RINGERS 1,000 ML 150 ML IV CONT (11:17)
[2021-09-15 11:23] LABS: Glucose Point of Care 98 mg/dl (65-105)
[2021-09-15] MEDS: MAGNESIUM OXIDE 400 MG TABLET PO (15:15)
[2021-09-15 17:00] LABS: Glucose Point of Care 75 mg/dl (65-105)
[2021-09-15] MEDS: ROSUVASTATIN 10 MG TABLET 20 MG PO (20:08)
[2021-09-15] MEDS: MONTELUKAST SODIUM 10 MG TABLET PO (20:08)
[2021-09-15] MEDS: MICONAZOLE NITRATE 2% CREAM 30 GM TUBE 1 APPLIC TOPICAL (20:10)
[2021-09-16] MEDS: SODIUM CHLORIDE 0.9% IV 1,000 ML 125 ML IV CONT (02:21)
[2021-09-16 05:42] LABS: Basophils Absolute Auto 0.1 K/mm3 (0.0-0.1); Basophils Percent Auto 0.4 % (0.2-1.2); Eosinophils Percent Auto 0.2 % (0-4.4); Hematocrit 35.8 % (37.0-47.0); Hemoglobin 11.5 g/dL (12.0-15.0); Immature Granulocyte Absolute 0.04 K/mm3 (0.00-0.031); Immature Granulocyte Percent A 0.3 % (0-0.5); Lymphocytes Absolute Auto 1.28 K/mm3 (0.9-3.2); Lymphocytes Percent Auto 10.6 % (18.3-44.2); Mean Corpuscular HGB Conc 32.1 g/dl (32-36); Mean Corpuscular Hemoglobin 26.2 pg (26-34); Mean Corpuscular Volume 81.5 fl (80-100); Mean Platelet Volume 9.5 fl (7.4-10.4); Monocytes Absolute Auto 1.3 K/mm3 (0.1-0.6); Monocytes Percent Auto 11.1 % (2.6-8.5); Neutrophils Absolute Auto 9.3 K/mm3 (1.3-6.7); Neutrophils Percent Auto 77.4 % (45.5-73.1); Platelet Count Result 269 k/mm3 (150-375); Red Blood Count 4.39 M/mm3 (4.2-5.4); Red Cell Distribution Width 13.3 % (11.5-14.5)
[2021-09-16 05:55] LABS: Alanine Aminotransferase 142 U/L (6-35); Albumin Level 3.4 g/dL (3.5-5.1); Alkaline Phosphatase 104 U/L (38-126); Anion Gap 6 mmol/L (8-16); Aspartate Amino Transferase 34 U/L (14-36); Bilirubin,Total 0.8 mg/dL (0.2-1.3); Blood Urea Nitrogen 7 mg/dL (7-17); Calcium 8.6 mg/dL (8.4-10.2); Carbon Dioxide 22 mmol/L (22-30); Chloride 109 mmol/L (98-107); Estimated CRCL calculation 58 ml/min; Estimated Glomerular Filt Rate > 60; Glucose 98 mg/dL (65-110); Potassium 3.3 mmol/L (3.4-5.0); Sodium 137 mmol/L (137-145)
[2021-09-16 06:00] VITALS: BP 132/64; PULSE 70; RESP 18; TEMP 36.8; O2SAT 98
[2021-09-16 07:40] LABS: Glucose Point of Care 95 mg/dl (65-105)
--- NOTE | 2021-09-16 07:50 | WPDANESPN ---
Anes - Prog Note Post-Op Date/Time: 09/16/21 07:50 Cardiovascular status: normal Respiratory status: normal Airway patency: baseline Mental status: baseline Post-Op hydration status: normal Vital Signs: Last Vital Signs Temp 36.8 C 09/16/21 06:00 Pulse 70 09/16/21 06:00 Resp 18 09/16/21 06:00 BP 132/64 09/16/21 06:00 Pulse Ox 98 09/16/21 06:00 O2 Del Method Room Air 09/15/21 21:13 Pain Score (VAS): 0 I/O: Intake & Output 09/15/21 09/15/21 09/16/21 15:59 23:59 07:59 Intake Total 100 1000 Output Total 1425 Balance 100 -425 Laboratory Tests 09/16/21 05:34 09/16/21 05:34 09/15/21 09/15/21 09/16/21 11:20 16:57 05:34 WBC 12.0 H RBC 4.39 Hgb 11.5 L Hct 35.8 L MCV 81.5 MCH 26.2 MCHC 32.1 RDW 13.3 Plt Count 269 MPV 9.5 Immature Gran % (Auto) 0.3 Neut % (Auto) 77.4 H Lymph % (Auto) 10.6 L [place] % (Auto) 11.1 H Eos % (Auto) 0.2 Baso % (Auto) 0.4 Lymph # (Auto) 1.28 [place] # (Auto) 1.3 H Eos # (Auto) 0.0 Baso # (Auto) 0.1 Abs Immat Gran (auto) 0.04 H Absolute Neuts (auto) 9.3 H Absolute Nucleated RBC 0.0 Nucleated RBC % 0.0 Sodium Potassium Chloride Carbon Dioxide Anion Gap BUN Creatinine Estim Creat Clear Calc Estimated GFR Glucose POC Capillary Glucose 98 75 Calcium Total Bilirubin AST ALT Alkaline Phosphatase Total Protein Albumin 09/16/21 09/16/21 05:34 07:37 WBC RBC Hgb Hct MCV MCH MCHC RDW Plt Count MPV Immature Gran % (Auto) Neut % (Auto) Lymph % (Auto) [place] % (Auto) Eos % (Auto) Baso % (Auto) Lymph # (Auto) [place] # (Auto) Eos # (Auto) Baso # (Auto) Abs Immat Gran (auto) Absolute Neuts (auto) Absolute Nucleated RBC Nucleated RBC % Sodium 137 Potassium 3.3 L Chloride 109 H Carbon Dioxide 22 Anion Gap 6 L BUN 7 Creatinine 0.80 Estim Creat Clear Calc 58 Estimated GFR > 60 Glucose 98 POC Capillary Glucose 95 Calcium 8.6 Total Bilirubin 0.8 AST 34 ALT 142 H Alkaline Phosphatase 104 Total Protein 6.0 L Albumin 3.4 L Post-procedural complaints: none Patient Feedback: Patient satisfied with anesthetic care.
--- NOTE | 2021-09-16 07:57 | PM.DS ---
DS: Admitting Diagnosis Discharge Date 09/16/2021 Admitting Diagnosis Acute abdominal pain DS: Discharge Diagnosis Discharge Diagnosis (1) Abdominal pain: Code(s): R10.9 - Unspecified abdominal pain Status: Acute Assessment and Plan: Place in observation CT of abdomen and pelvis with no acute intra-abdominal abnormalities Supportive care Patient continues to have persistent pain to the left upper quadrant however this morning she complained of pain to the right upper quadrant radiating around to her back. CT of the abdomen and pelvis appear WNL, MRCP WNL, ultrasound of the abdomen WNL. LFTs down trending. Patient does not have a leukocytosis and is not receiving IV antibiotics. She is currently receiving IV fentanyl for acute pain of unknown origin. This will be deescalated. Discussed this with the patient. Continue IV fluids and NPO status. Defer acute abdominal pain to gastroenterology. (2) Serum lipase elevation: Code(s): R74.8 - Abnormal levels of other serum enzymes Status: Acute Assessment and Plan: CT did not show acute pancreatitis Lipase decreased, however LFTs increased. Continue to monitor lab values IV fluids (3) Rheumatoid arthritis: Code(s): M06.9 - Rheumatoid arthritis, unspecified Status: Acute Assessment and Plan: Stable on hydroxychloroquine hold methotrexate until further evaluations of liver enzymes (4) Hypertension: Code(s): I10 - Essential (primary) hypertension Status: Acute Assessment and Plan: Continue to monitor Continue home meds (5) Diabetes mellitus: Code(s): E11.9 - Type 2 diabetes mellitus without complications Status: Acute Assessment and Plan: Insulin Lispro sliding scale, Accu-checks qAc and HS and Hold oral hypoglycemics (6) Acute kidney injury: Code(s): N17.9 - Acute kidney failure, unspecified Status: Acute Assessment and Plan: Resolved (7) Transaminitis: Code(s): R74.01 - Elevation of levels of liver transaminase levels Status: Acute Assessment and Plan: Hepatitis panel negative, ultrasound of the abdomen negative monitor LFTs Consult to Gastroenterology. Patient had a right upper quadrant ultrasound which did not reveal acute abnormalities. Patient continues to complain of pain. Suggestive of an MRCP by gastroenterology. Appreciate assistance and recommendations. prn iv pain medication DS: Summary Hospital Course Reason for hospitalization: Acute abdominal pain Hospital Course: 66-year-old female with past medical history significant for type 2 diabetes mellitus, RA, COPD/emphysema, hypertension, dyslipidemia.? Patient presents to the emergency room due to epigastric abdominal pain with radiation to the back, patient has been in her usual state of health, she has been tolerating all her meals with no nausea or vomiting or diarrhea.? Patient denies any cough, sputum production, fevers, rigors, chills.? Patient denies any cough, sputum production, shortness of breath, no chest pain, no leg swelling, no PND, no orthopnea.? Upon further evaluation in the emergency department labs and imaging were obtained. Labs were significant for WBC of 12.1, hemoglobin 12.9, hematocrit 40.6 and platelet 270, sodium 37, potassium 3.7, BUN 13 and creatinine 1.0. Normal LFTs however lipase is mildly elevated and a troponin was negative as well. CT of the abdomen and pelvis was performed which did not reveal acute intra-abdominal findings. However the patient was admitted for further evaluation and treatment. Upon further admission the patient developed elevated LFTs and significant abdominal pain 4/10. IV fluids were continued with NPO status as well as IV pain medication. Patient did not have a [facility] sign upon exam and a hepatitis panel was obtained as well. Methotrexate was placed on hold and a right upper quadrant ultrasound was performed which wa
[2021-09-16] MEDS: FLUTICASONE PROPIONATE 0.05% NA SPR 16 GM BTL (*BKC) 2 SPRAY NASAL (08:07)
[2021-09-16] MEDS: IPRATROPIUM NASAL SPRAY 0.03% 15 ML BOTTLE 2 SPRAY NASAL ×2 (08:07→17:35)
[2021-09-16] MEDS: CHOLECALCIFEROL 1,000 UNITS TABLET 5000 UNITS PO (08:10)
[2021-09-16] MEDS: hydroCHLOROthiazide 12.5 MG CAPSULE PO (08:10)
[2021-09-16] MEDS: ACIDOPHILUS/BULGARICUS CHEWABLE TABLET 2 TABLET BY MOUTH (08:10)
[2021-09-16] MEDS: FOLIC ACID 1 MG TABLET 2 MG PO (08:10)
[2021-09-16] MEDS: HYDROXYCHLOROQUINE SULFATE 200 MG TABLET PO (08:11)
[2021-09-16] MEDS: LOSARTAN POTASSIUM 100 MG TABLET PO (08:11)
[2021-09-16] MEDS: GABAPENTIN 300 MG CAPSULE 600 MG PO ×2 (08:11→17:35)
[2021-09-16] MEDS: OPTI-GEN TAB 1 TABLET PO ×2 (08:11→17:36)
[2021-09-16 08:19] VITALS: O2SAT 98
[2021-09-16] MEDS: FLUTICASONE PROP 110 MCG INHALER 12 GM (*SP) 2 PUFF INHALATION (08:19)
--- NOTE | 2021-09-16 08:30 | WPDGIPROGNO ---
Progress Note: A&P Assessment and Plan (1) Pancreatitis: Code(s): K85.90 - Acute pancreatitis without necrosis or infection, unspecified Status: Acute Assessment and Plan: Patient felt to have pancreatitis on presentation with markedly elevated lipase. This is diminished. Suspect her ongoing pain may be on this basis. If pain persists follow-up lipase and follow-up scanning may be indicated. Will advance to low 5 diet initially and hopefully no additional testing required. (2) Transaminitis: Code(s): R74.01 - Elevation of levels of liver transaminase levels Status: Acute Assessment and Plan: Elevated transaminases noted after admission suggesting she may have passed a common bile duct gallstone. The LFTs have now begun to resolve. hepatitis serologies negative. Imaging of this abdomen unremarkable. Conservative management continue to follow LFTs till resolution after discharge. (3) Abdominal pain: Code(s): R10.9 - Unspecified abdominal pain Status: Acute Assessment and Plan: Abdominal pain has resolved. It was mostly in the right upper quadrant epigastric area yesterday. EGD also performed yesterday unremarkable. Suspect this may be a lingering effect of pancreatitis. Plan to advance to low-fat diet as tolerated. Subjective Date/time seen: 09/16/21 08:30 Patient alert comfortable this morning. No longer has abdominal pain. She states pain is abated. She has not yet eaten however. Somewhat concerned because of pain beginning after eating. Review of Systems Review of Systems: Review of systems noncontributory. Exam Narrative: Physical exam reveals patient be alert. Vital signs stable. HEENT exam reveals no icterus. Lungs are clear. Heart without murmur. Abdomen bowel sounds present soft nontender with no organomegaly. Objective Data Vital Signs Vital Signs: Vital Signs - 24 hr 09/15/21 11:12 09/15/21 11:59 09/15/21 12:09 Temperature 98.8 F Pulse Rate 57 L 60 63 Respiratory Rate 17 19 18 Blood Pressure 148/69 H 117/68 104/52 L Pulse Oximetry 100 100 100 Oxygen Delivery Room Air Room Air Room Air 09/15/21 12:19 09/15/21 14:00 09/15/21 21:13 Temperature 99.5 F Pulse Rate 62 61 69 Respiratory Rate 18 18 Blood Pressure 123/61 144/61 H Pulse Oximetry 100 100 98 Oxygen Delivery Room Air Room Air 09/15/21 21:13 09/16/21 06:00 09/16/21 08:19 Temperature 98.4 F 98.2 F Pulse Rate 67 70 Respiratory Rate 16 18 Blood Pressure 134/63 132/64 Pulse Oximetry 100 98 98 Oxygen Delivery Room Air Intake/Output Intake/Output: Intake & Output 09/13/21 09/14/21 09/15/21 09/16/21 23:59 23:59 23:59 23:59 Intake Total 3000 3980 1100 1000 Output Total 1425 Balance 3000 3980 1100 -425 Meds/Results Medications: Active Medications Generic Name Dose Route Start Last Admin Trade Name Freq PRN Reason Stop Dose Admin Albuterol 2 puff 09/13/21 01:31 Albuterol Sulfate (*Sp) Aerosol 1 Puff INHALATION QID PRN Shortness Of Breath Or Wheezing Artificial Tears 1 drop 09/13/21 03:27 09/13/21 08:33 Artificial Tears Ophth Soln 15 Ml Bottle EACH EYE 1 drop TID PRN Administration Dry Eye(s) Baclofen 10 mg 09/13/21 01:31 09/15/21 23:05 Baclofen 10 Mg Tablet PO 10 mg TID PRN Administration Muscle Spasm Diphenhydramine HCl 25 mg 09/13/21 05:09 09/15/21 03:59 Diphenhydramine Hcl Inj 50 Mg/Ml Vial IV PUSH 25 mg Q6H PRN Administration Itching Fentanyl Citrate 12.5 mcg 09/13/21 12:07 09/15/21 08:38 Fentanyl Citrate Inj (*Crx) 100 Mcg/2 Ml Vial IV PUSH 12.5 mcg Q4H PRN Administration Pain Rated 7-10 Fluticasone Propionate 2 puff 09/13/21 08:00 09/16/21 08:19 Fluticasone Prop 110 Mcg Inhaler 12 Gm (*Sp) INHALATION 2 puff Q12HRT ZAKIA Administration Fluticasone Propionate 2 spray 09/13/21 09:00 09/16/21 08:07 Fluticasone Propionate 0.05% Na
[2021-09-16] MEDS: PANTOPRAZOLE SODIUM IV 40 MG VIAL IV PUSH (09:00)
[2021-09-16] MEDS: EUCERIN CREAM 120 GM JAR 1 APPLIC TOPICAL (09:00)
[2021-09-16 11:47] LABS: Glucose Point of Care 114 mg/dl (65-105)
[2021-09-16 13:53] VITALS: BP 149/83; PULSE 71; RESP 16; TEMP 37.2; O2SAT 100
--- NOTE | 2021-09-16 16:09 | PC.NURSE ---
Patient tolerated clear liquid at breakfast then full liquid at lunch. She did have a mild bout of nausea. Per GI order will advance to low fat diet and discharge then if tolerated.
[2021-09-16] MEDS: BACLOFEN 10 MG TABLET PO (16:23)
[2021-09-16 16:29] LABS: Glucose Point of Care 106 mg/dl (65-105)
[2021-09-16] MEDS: POTASSIUM CHLORIDE 20 MEQ TABLET 40 MEQ PO (16:36)
== END 2021-09-16 17:50 | disposition home or self-care (01) | DRG 392 ==
LOC: ANHED 16:44 → ANH3MED 19:12
PROVIDERS: Emergency Medicine; Internal Medicine Gastroenterology; Admitting Provider Chiropractor; Emergency Provider Nurse Practitioner Family; Visit Provider Nurse Practitioner Family
PROC: 0DJ08ZZ Inspection of Upper Intestinal Tract, Via Natural or Artificial Opening Endoscopic (ICD-10-PCS; CPT 43235; principal; 2021-09-15 13:00)
DX: R10.12 Left upper quadrant pain (principal); R74.8 Abnormal levels of other serum enzymes; M06.9 Rheumatoid arthritis, unspecified; I10 Essential (primary) hypertension; J43.9 Emphysema, unspecified; E11.9 Type 2 diabetes mellitus without complications; Z87.891 Personal history of nicotine dependence; Z79.899 Other long term (current) drug therapy; Z79.84 Long term (current) use of oral hypoglycemic drugs; R74.01 Elevation of levels of liver transaminase levels; Z80.8 Family history of malignant neoplasm of other organs or systems; Z79.51 Long term (current) use of inhaled steroids; E78.5 Hyperlipidemia, unspecified
CPT/HCPCS: 36415; 71046; 74176; 74183; 76376; 76705; 80053; 80061; 80074; 80076; 82150; 82948; 83690; 83735; 84484; 85025; 85380; 85610; 85730; 87081; 93005; 94640; 96361; 96374; 96375; 96376; 99285; A9270; A9577; C9113; G0378; J1170; J1200; J2270; J2405; J2704; J3010; J7030; J7120

== ENCOUNTER 2021-10-03 13:42 | Outpatient (CLI) | payer OTHER, SELFPAY ==
--- NOTE | ~2021-10-03 | MR_ITS ---
EXAMINATION: MR lumbar spine wo/w con DATE: 10/03/2021 14:42 INDICATION: Low back pain TECHNIQUE: Magnetic resonance imaging (MRI) of the lumbar spine was performed without and with 13 mL Multihance intravenous contrast. Sequences included sagittal T2-weighted FSE, sagittal T2-weighted FS FSE, and sagittal and axial T1-weighted FSE. Postcontrast sequences included axial T2-weighted FSE, sagittal T1-weighted FSE, and axial and sagittal T1-weighted FS FSE. 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 There are 12 more cephalad paired rib bearing thor acic segments on prior chest radiograph dated 09/12/2021. 11 degrees lumbar levoscoliosis measured betw een T12 and L5. 2-3 mm anterolisthesis L4 on L5. Vertebral body heights are normal. Normal marrow si gnal. Mild disc height loss at L3-L4 and L5-S1 and moderate disc height loss at L4-L5. Annular fissur es at both L4-L5 and L5-S1. The conus medullaris terminates at L2. There is normal signal in the caud al spinal cord. A few T2 hyperintense nonenhancing bilateral renal cysts the largest on the left rani suring 2.3 cm. Nonspecific edema and nonmasslike enhancement in the soft tissues surrounding the lowe r lumbar facet joints which likely reactive related to severe facet osteoarthritis with joint be furt her detailed below. The following disc levels are specifically discussed: T12-L1: The disc does not extend beyond the endplate margin. There is mild bilateral facet joint oste oarthritis. There is no neural foraminal stenosis. There is no central canal stenosis. L1-L2: The disc does not extend beyond the endplate margin. There is mild left and mild to moderate r ight facet joint osteoarthritis. There is mild left and minimal right neural foraminal stenosis. Ther e is no central canal stenosis. L2-L3: The disc does not extend beyond the endplate margin. There is mild bilateral facet joint osteo arthritis. There is no neural foraminal stenosis. There is no central canal stenosis. L3-L4: Disc is minimally bulging. There is hypertrophy of the ligamentum flavum. There is moderate bi lateral facet joint osteoarthritis. Small amount of fluid the articular surfaces of the fa cet joints which measures approximately 3 mm AP suggesting the potential for a similar degree of ante rolisthesis of L3 on L4 either with standing or with flexion. There is mild bilateral neural foramina l stenosis. There is minimal central canal stenosis. L4-L5: Disc is bulging with annular fissure. There is hypertrophy of the ligamentum flavum. There is severe bilateral facet joint osteoarthritis with similar fluid-filled 2-3 mm AP separation of the articular surfaces. There is moderate left and mild to moderate right neural foraminal stenosis. There is mild central canal stenosis. L5-S1: Disc is bulging with annular fissure. There is hypertrophy of the ligamentum flavum. There is severe bilateral facet joint osteoarthritis with similar fluid-filled separation of the articular pereyra rface measuring 3 mm AP in the right and 4 mm on the left. There is moderate bilateral neural foramin al stenosis. There is mild central canal stenosis. IMPRESSION: 1. Moderate lumbar spondylosis with moderate to severe facet osteoarthritis in the lower lumbar spine with 2-4 mm separation of the articular surfaces at L3-L4 through L5-S1 suggesting potential for spo ndylolisthesis with similar degree of anterior transitory motion at each of these levels. Reviewed, dictated and finalized at location B.
== END 2021-10-03 13:43 | disposition home or self-care (01) ==
LOC: ANHIMG 13:47
DX: M54.50 Low back pain, unspecified (principal); M47.816 Spondylosis without myelopathy or radiculopathy, lumbar region; M85.88 Other specified disorders of bone density and structure, other site
CPT/HCPCS: 72158; A9577

== ENCOUNTER → 2023-03-15 11:34 | Outpatient (CLI) | payer MEDICARE, OTHER, SELFPAY ==
--- NOTE | ~2023-03-15 | MM_ITS ---
EXAMINATION: MM screening katie BI w gael HISTORY: Screening mammogram TECHNIQUE: Craniocaudal and mediolateral oblique 3-D tomosynthesis images were obtained and synthetic 2-D images were generated. CAD analysis was submitted and interpreted. COMPARISON: 09/02/2015, 08/30/2014 BREAST PARENCHYMAL COMPOSITION: There are scattered areas of fibroglandular density. FINDINGS: No suspicious mass, calcification, or architectural distortion are identified in either toni ast to suggest malignancy. There has been no suspicious interval change. IMPRESSION: 1. No mammographic evidence of malignancy. 2. Recommend routine screening mammography in one year. BI-RADS Category 1: Negative Reviewed, dictated and finalized at location A. L CUTTER
== END ==
PROVIDERS: PCP Obstetrics & Gynecology; Visit Provider Obstetrics & Gynecology
DX: Z12.31 Encounter for screening mammogram for malignant neoplasm of breast (principal)
CPT/HCPCS: 77063; 77067

== ENCOUNTER 2023-03-26 09:45 | Outpatient (CLI) | payer MEDICARE, OTHER, SELFPAY ==
[2023-03-26 11:26] LABS: Hemoglobin A1C 5.7 % (<5.7)
[2023-03-26 11:28] LABS: Alanine Aminotransferase 21 U/L (6-35); Albumin Level 4.4 g/dL (3.5-5.1); Alkaline Phosphatase 70 U/L (38-126); Anion Gap 6 mmol/L (8-16); Aspartate Amino Transferase 27 U/L (14-36); Bilirubin,Total 0.9 mg/dL (0.2-1.3); Blood Urea Nitrogen 13 mg/dL (7-17); Calcium 9.3 mg/dL (8.4-10.2); Carbon Dioxide 25 mmol/L (22-30); Chloride 106 mmol/L (98-107); Cholesterol 89 mg/dL (0-200); Estimated Glomerular Filt Rate > 60; Glucose 92 mg/dL (65-110); HDL Direct 45 mg/dL; Sodium 137 mmol/L (137-145); Triglycerides 62 mg/dL (<150)
[2023-03-26 11:39] LABS: LDL Cholesterol Direct 40 mg/dL
[2023-03-26 11:44] LABS: Vitamin D 25 Hydroxy 40.3 ng/mL
== END 2023-03-26 09:46 | disposition home or self-care (01) ==
PROVIDERS: PCP Emergency Medicine; Visit Provider Emergency Medicine
DX: I10 Essential (primary) hypertension (principal); E55.9 Vitamin D deficiency, unspecified; E11.9 Type 2 diabetes mellitus without complications
CPT/HCPCS: 36415; 80053; 80061; 82306; 83036

== ENCOUNTER 2024-07-21 11:06 | Outpatient (CLI) | payer MEDICARE, OTHER, SELFPAY ==
--- OUTSIDE RECORDS SUMMARY | 2024-07-21 11:29 | XMS_ITS | Encounter Summary ---
Author Organization [facility] Address [address] [facility] [place] [address] Care Team Providers Care Chief Counsel Name Role Phone Unavailable Primary Care Provider Unavailabl e Encounter Details Date Type Department Care Team (Late st Contact Info) Description 04/29/2022 Lab Requisition [facility] DermPath Lab [address] [facility] [place] [id number] Ashish Sanches MD [address] [facility] [address] [place] [address] Social History Tobacco Use Types Packs/Day Years Used Date Smoking Tobacco: Former Smokeless Tobacco: Never Sex and Gender Information Value Date Recorded Sex Assigned at Not on file Gender Identity Not on file Sexual Orientation Not on file documented as of this encounter Plan of Treatment Not on file documented as of this encounter Procedures Procedure Name Priority Date/Time Associated Diagnosis Comments DERMATOPATHOLOGY Routine 04/28/2022 12:0 0 AM LICENSED FUNERAL DIRECTOR AND EMBALMER documented in this encounter Results * DERMATOPATHOLOGY (04/28/2022 12:00 AM LICENSED FUNERAL DIRECTOR AND EMBALMER) Case Report Dermatopathology Report Case: [id number] Authorizing Provider: Ashish Sanches MD Collected: 04/28/2022 12:00 AM Ordering Location: [facility] Care DermPath Lab Received: 04/29/2022 04:41 PM Pathologist: Lisset Lucia MD Specimen: Skin, right thumb 1:29 PM LICENSED FUNERAL DIRECTOR AND EMBALMER DERMATOPATHOLOGY LABORATORY Final Diagnosis Specimen A. 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 The specimen consists of a shave biopsy measuring 9x9x3 mm. Jar 0. 3 1:29 PM [facility] DERMATOPATHOLOGY LABORATORY Microscopic Description Specimen A. SKIN, right thumb: Sections show papillomatosis and hypergranulosis with overlying focal parakeratosis. The base of the lesion is not visualized. COMMENT: Given the superficial nature of the biopsy specimen, a deeper process cannot be excluded. 3 1:29 PM [facility] DERMATOPATHOLOGY [facility]ORATORY Disclaimer An external and internal positive and negative controls are appropriate for the histochemical, immunohistochemical and immunofluorescence stain(s) in this case (if any), except where stated explicitly. The performance characteristics of the stain(s) cited in this report were developed and its performance characteristic determined by the Dermatopathology Laboratory at [facility], directed by Dr. Radha Bates. These tests need not be, and therefore are not, approved by the [place] Food and Drug Administration. The tests are used for clinical purposes. Billing Codes Specimen Charges Stain Charges 38870 1 3 1:29 PM [facility] DERMATOPATHOLOGY [facility]ORAT[facility] Embedded Images 3 1:29 PM [facility] DERMATOPATH[facility]Y [facility]OR[facility]ORY Pathology/Cytolog y TISSUE SPECIMEN FROM SKIN / Unknown 04/28/2022 04/29/2022 4:41 PM LICENSED FUNERAL DIRECTOR AND EMBALMER Ashish Sanches MD LAB - PATHOLOGY/CYTO LOGY ORDERABLES DERMATOPATHOLOGY LABORATORY [facility] - Department of Dermatology [address], [address] [phone] documented in this encounter Visit Diagnoses Not on filedocumented in this encounter
--- OUTSIDE RECORDS SUMMARY | 2024-07-21 11:29 | XMS_ITS | Encounter Summary ---
Author Organization [facility] Address [address] [place] [address] Phone Care Team Providers Care Driver'S License Examiner Name Role Phone Gene Moreno MD Primary Care Provide r Sandra Mark MD Unavailable + Encounter Details Date Type Department Care Team (Late st Contact Info) Description 08/19/2022 Orders Only [facility] [phone] Scanning, Provider Social History Tobacco Use Types Packs/Day Years Used Date Smoking Tobacco: Former Cigarettes 0.5 21 1 974 - 1994 Smokeless Tobacco: Never Alcohol Use Standard Drinks/Week Comments Yes 0 (1 standard drink = 0.6 oz pur e alcohol) rare AUDIT-C Answer Date Recorded Q1: How often do you have a drink containing alc ohol? Monthly or less 10/09/2020 Average Number of Drinks Not on file 021 Frequency of Binge Drinking Not on file 09/12 Personal Safety Answer Date Recorded Have you ever been in or are you currently in a harmful physical or emotional relationship or is someone making you feel afraid or unsafe? 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 Not on file Not on file documented as of this encounter Plan of Treatment Not on file documented as of this encounter Procedures Procedure Name Priority Date/Time Associated Diagnosis Comments SCAN - RADIOLOGY/IMAGING 08/19/2022 documented in this encounter Results * SCAN - RADIOLOGY/IMAGING (08/19/2022) Anatomical Region Laterality Modality Other us Provider Scanning Final Result documented in this encounter Visit Diagnoses Not on filedocumented in this encounter Care Teams Driver'S License Examiner Relationship Specialty Start Date End Date Gene Moreno MD [address] [facility] [place] [address] PCP - General Emergency Medicine 07/27/22 Sandra Mark MD [address] [facility] [address] [place] [address] Rheumatology 08/19/23 documented as of this encounter
--- OUTSIDE RECORDS SUMMARY | 2024-07-21 11:29 | XMS_ITS | Encounter Summary ---
Author Organization [facility] Address [address] [facility] [place] [address] Care Team Providers Care Diesel Plant Operator Name Role Phone Unavailable Primary Care Provider Unavailabl e Encounter Details Date Type Department Care Team (Late st Contact Info) Description 03/27/2022 Lab Requisition [facility] DermPath Lab [address] [facility] [place] [id number] Ashish Sanches MD [address] [place] [address] Social History Tobacco Use Types Packs/Day Years [...] Priority Date/Time Associated Diagnosis Comments DERMATOPATHOLOGY Routine 03/25/2022 12:0 0 AM FLAT LOCK MACHINE OPERATOR documented in this encounter Results * DERMATOPATHOLOGY (03/25/2022 12:00 AM FLAT LOCK MACHINE OPERATOR) Case Report Dermatopathology Report Case: [id number] Authorizing Provider: Ashish Sanches MD Collected: 03/25/2022 12:00 AM Ordering Location: [facility] Care DermPath Lab Received: 03/27/2022 06:59 AM Pathologist: Krystal Braswell MD Specimen: Skin, right thumb 3:26 PM FLAT LOCK MACHINE OPERATOR DERMATOPATHOLOGY LABORATORY Final Diagnosis Specimen A. SKIN, right thumb: PARAKERATOSIS (L85.9) (see microscopic description and comment) 2 3:26 PM [facility] DERMATOPATHOLOGY LABORATORY Clinical History VV vs. Other Path: [id number] 2 3:26 PM [facility] DERMATOPATHOLOGY LABORATORY Gross Description Specimen A: Received is one formalin filled container labeled with the patient's name and designated right thumb. The specimen consists of a shave biopsy measuring 4x3x1 mm. Jar 0. 2 3:26 PM [facility] DERMATOPATHOLOGY LABORATORY Microscopic Description Specimen A. SKIN, right thumb: The specimen consisted mostly of stratum corneum with retained nuclei. There is no cellular epidermis present for evaluation. COMMENT: This type of stratum corneum is frequently seen overlying squamous proliferations such as verruca vulgaris, clavus (corn), actinic keratoses or squamous cell carcinomas. Additional deeper sections were obtained and reviewed. 2 3:26 PM [facility] DERMATOPATHOLOGY LABORATORY Disclaimer An external and internal positive and negative controls are appropriate for the histochemical, immunohistochemical and immunofluorescence stain(s) in this case (if any), except where stated explicitly. The performance characteristics of the stain(s) cited in this report were developed and its performance characteristic determined by the Dermatopathology Laboratory at [facility], directed by Dr. Radha Bates. These tests need not be, and therefore are not, approved by the [place] Food and Drug Administration. The tests are used for clinical purposes. Billing Codes Specimen Charges Stain Charges 87584 1 2 3:26 PM [facility] DERMATOPATHOLOGY LABORATORY Embedded Images 2 3:26 PM [facility] DERMATOPATHOLOGY LABORATORY Pathology/Cytolog y TISSUE SPECIMEN FROM SKIN / Unknown 03/25/2022 03/27/2022 6:59 AM FLAT LOCK MACHINE OPERATOR Ashish Sanches MD LAB - PATHOLOGY/CYTO LOGY ORDERABLES DERMATOPATHOLOGY LABORATORY [facility] - Department of Dermatology [address], [address] [phone] documented in this encounter Visit Diagnoses Not on filedocumented in this encounter
--- OUTSIDE RECORDS SUMMARY | 2024-07-21 11:29 | XMS_ITS | Clinical Summary ---
Author Organization [facility] [employer] Address [address] [place] [address] Care Team Providers Care Regional Telecommunications Specialist Name Role Phone Unavailable Primary Care Provider Unavailabl e Source Comments [facility] [employer],non-owned Affiliates and Associated Physician Practices is amultiple site organization consisting of ambulatory clinics and hospital sitesin [place], [place], [place] and [place]. This disclosure is being madepursuant to the Care Everywhere program and may not contain all information available regarding this patient. Last updated 17.[facility] [employer] Allergies Active Allergy Reactions Criticality Noted Date Comments Aspirin Other Medications * Be aware that medications may not be up to date on this document. Alwaysverify current medications with the patient. Medication Sig Dispensed Refills Start Date End Date Status vitamin D, cholecalciferol, 2000 UNITS tablet 1 tablet once daily 01/18/2018 Active REFRESH TEARS 0.5 % ophthalmic solution 1 drop 3 times daily 01/21/2018 Active progesterone 200 mg 200 mg tablet 0.5 tablets 01/11/2018 Active emollient (VANICREAM) cream 1 applicator once daily 02/17/2018 Active folic acid (FOLVITE) 1 MG tablet 1 tablet once daily 02/04/2018 Acti ve losartan-hydroCHLORO thiazide (HYZAAR) 100-12.5 MG tablet 1 tablet once daily 03/14/2018 Active methotrexate 2.5 MG tablet 6 tablets every 7 days 02/22/2018 Active terbinafine (LAMISIL) 1 % cream 1 applicator 02/18/2018 Act huong triamcinolone acetonide (KENALOG) 0.1 % cream 1 applicator 02/17/2018 Active Immunizations Name Administration Dates Next Due INFLUENZA VACCINE 02/04/2018 Social History Tobacco Use Types Packs/Day Years Used Date Smoking Tobacco: Former Smokeless Tobacco: Never Sex and Gender Information Value Date Recorded Sex Assigned at Not on file Gender Identity Not on file Sexual Orientation Not on file Last Filed Vital Signs Vital Sign Reading Time Taken Comments Blood Pressure 117/68 04/08/2018 11:24 AM MILL TENDER WASHING Pulse 62 04/08/2018 11:24 AM MILL TENDER WASHING Temperature 36.9 C (98.5 F) 04/08/2018 11:24 AM MILL TENDER WASHING Respiratory Rate 18 04/08/2018 11:24 AM MILL TENDER WASHING Oxygen Saturation 100% 04/08/2018 11:24 AM MILL TENDER WASHING Inhaled Oxygen Concentration - - Weight 85.3 kg (188 lb) 04/08/2018 11:24 AM MILL TENDER WASHING Height 157.5 cm (5' 2 ) 04/08/2018 11:24 AM MILL TENDER WASHING Body Mass Index 34.39 04/08/2018 11:24 AM MILL TENDER WASHING Plan of Treatment Health Maintenance Due Date Last Done Comments BONE DENSITY TESTING 1955 COLOGUARD (AGES 45-75) - COL ON CA SCREENING 1957 COLON MONITORING 1957 COLONOSCOPY - COLON CA SCREENING 1957 CT COLONOGRAPHY - COLON CA SCREENING 1955 Colorectal Cancer Screening 1957 FIT - COLON CA SCREENING 1957 FLEX SIG - COLON CA SCREENING 1957 LIPID TESTING 1957 MAMMOGRAM 1957 HEPATITIS C SCREENING 05/30/1975 DTAP/TDAP/TD VACCINES (1 - Tdap) 1976 PNEUMOCOCCAL VACCINE 50+ (1 of 1 - PCV) 2007 ZOSTER VACCINE (1 of 2) 2007 SCREENING FOR DIABETES 04/08/2021 8, 03/25/2018 COVID-19 VACCINE (1 - 2023-2 5 season) 2023 DEPRESSION SCREENING 04/12/2024 INFLUENZA VACCINE (Season Ended) 2024 02/04/2018 Respiratory Syncytial Virus (RSV) Vaccine Pt: or over 60 yrs (1 - 1-dose 75+ series) 2032 HEPATITIS B VACCINE Aged Out No longe r eligible based on patient's age to complete this topic HIB VACCINE Aged Out No longer eligi ble based on patient's age to complete this topic HPV VACCINE Aged Out No longer eligi ble based on patient's age to complete this topic MENINGOCOCCAL (Group B) VACCINE SHARED DECISION-MAKING Aged Out No longer eligible based on patient's age to complete this topic MENINGOCOCCAL GROUPS A/C/Y/W VACCINE Aged Out No longer eligible b ased on patient's age to complete this topic Procedures Procedure Name Priority Date/Time Associated Diagnosis Comments COMPREHENSIVE METABOLIC PANEL Routine 04/08/2018 11:18 AM MILL TENDER WASHING Leukocytosis, unspecified type from Last 3 Months or Most Recently Relevant to Health Maintenance Results * COMPREHENSIVE METABOLIC PANEL (04/08/2018 11:18 AM MILL TENDER WASHING) BUN 15 7 - 26 mg/dL 04/08/2018 11:52 AM [facility] Creatinine 1.0 0.6 - 1.2 mg/dL 04/08/2018 11:52 AM [facility] Sodium 141 136 - 145 mmol/L 04/08/2018 11:52 AM [facility] Potassium 3.9 3.5 - 4.5 mmol/L 04/08/2018 11:52 AM [facility] Chloride 106 98 - 107 mmol/L 04/08/2018 11:52 AM [facility] CO2 27 22 - 29 mmol/L 04/08/2018 11:52 AM [facility] Glucose 88 70 - 115 mg/dL 04/08/2018 11:52 AM [facility] Calcium 9.7 8.4 - 10.2 mg/dL 04/08/2018 11:52 AM [facility] Protein Total 6.7 6.0 - 8.3 g/dL 04/08/2018 11:52 AM [facility] Albumin 3.5 3.4 - 5.0 g/dL 04/08/2018 11:52 AM [facility] Bilirubin Total 0.4 0.2 - 1.2 mg/dL 04/08/2018 11:52 AM [facility] Alkaline Phosphatase 58 40 - 150 Units/L 04/08/2018 11:52 AM [facility] ALT 8 0 - 55 Units/L 04/08/2018 11:52 AM [facility] AST 10 5 - 34 Units/L 04/08/2018 11:52 AM [facility] Anion Gap 12 8 - 18 04/08/2018 11:52 AM [facility] BUN/Creatinine Ratio 15 7 - 23 04/08/2018 11:52 AM [facility] Osmolality Calculated 292 270 - 300 mOsm/kg 04/08/2018 11:52 AM [facility] Albumin/Globulin Ratio 1.1 1.1 - 2.3 04/08/2018 11:52 AM [facility] eGFR >60 >60 mL/min/1.7 3 m2 04/08/2018 11:52 AM [facility] Blood BLOOD SPECIMEN / Unknown Lab Venipuncture / Unknown 04/08/2018 11:18 AM MILL TENDER WASHING 04/08/2018 11:28 AM [facility] Praveen Ordonez MD LAB - CHEMISTRY FELIPE KENNEDY Performing Organization Address City/State/[facility] Co de Phone Number [address] [phone] from Last 3 Months or Most Recently Relevant to Health Maintenance
--- OUTSIDE RECORDS SUMMARY | 2024-07-21 11:29 | XMS_ITS | Clinical Summary ---
Author Organization [facility] Address [address] [place] [address] Care Team Providers Care Manufacturing Applications Engineer Name Role Phone Gene Moreno MD Primary Care Provider + [phone] Allergies Active Allergy Reactions Criticality Noted Date Comments Sulfamethoxazole-Trimethoprim Itching 2023 Fentanyl Rash Low 03/20/2024 Tramadol Rash Low 03/20/2024 Medications losartan (COZAAR) 50 MG tablet Take 2 tablets (100 mg total) by mouth daily. Active allopurinol (ZYLOPRIM) 100 MG tablet Take 1 tablet (100 mg total) by mouth daily. Active multivitamin with minerals liquid Take 15 mLs by mouth daily. Active ezetimibe (ZETIA) 10 MG tablet Take 1 tablet (10 mg total) by mouth daily. Active metFORMIN (GLUCOPHAGE) 500 MG tablet Take 1 tablet (500 mg total) by mouth 2 (two) times daily with meals. Active colchicine 0.6 MG tablet Take 1 tablet (0.6 mg total) by mouth daily. 03/03/2024 Active Social History Tobacco Use Types Packs/Day Years Used Date Smoking Tobacco: Never Smokeless Tobacco: Never Tobacco Cessation:Counseling Given: Not Answered Alcohol Use Standard Drinks/Week Comments Yes 0 (1 standard drink = 0.6 oz pur e alcohol) holidays Comments Unknown Sex and Gender Information Value Date Recorded Sex Assigned at Not on file Legal Sex Female 4:27 PM CDT Gender Identity Not on file Sexual Orientation Not on file Last Filed Vital Signs Vital Sign Reading Time Taken Comments Blood Pressure 151/80 04/03/2024 8:21 AM GEOLOGICAL ENGINEER Pulse 68 04/03/2024 8:21 AM GEOLOGICAL ENGINEER Temperature 36.2 C (97.2 F) 04/03/2024 7:01 AM GEOLOGICAL ENGINEER Respiratory Rate 18 04/03/2024 8:21 AM GEOLOGICAL ENGINEER Oxygen Saturation 100% 04/03/2024 8:21 AM GEOLOGICAL ENGINEER Inhaled Oxygen Concentration - - Weight 72.6 kg (160 lb) 04/03/2024 7:01 AM GEOLOGICAL ENGINEER Height 157.5 cm (5' 2 ) 04/03/2024 7:01 AM GEOLOGICAL ENGINEER Body Mass Index 29.26 04/03/2024 7:01 AM GEOLOGICAL ENGINEER Plan of Treatment Health Maintenance Due Date Last Done Comments Colorectal Cancer Screening Colonoscopy (10 Years) 1957 Hepatitis C 1975 Mammogram Screening 1997 Annual Medicare Wellness Visit 2022 Dexa Scan (General) 2022 COVID-19 Vaccine ( season) 2024 12/16/2023, 07/01/2023, 01/05/2023, Additional history exists DTaP, Tdap and Td Vaccines (4 - Td or Tdap) 03/04/2034 03/04/2024, 04/13/2018, 09/17/2008 RSV Immunization or 60+ Years Completed 02/25/2023 Pneumococcal Vaccine: 65+ Years Completed 03/04/2024, 03/30/2019 Zoster Vaccines Completed 03/04/2024, 04/2018, 12/07/2018 Meningococcal B Vaccine Aged Out No l onger eligible based on patient's age to complete this topic Meningococcal Vaccine Aged Out No sarah aaron eligible based on patient's age to complete this topic RSV Immunizations Under 20 Months Aged Out No longer eligible based on patient's age to complete this topic Medical Devices Implanted Type Area Preparation Supervisor Freezing Device Identifier Shelf Expiration Date Model / Serial / Lot Tecnis 1 Piece Iol Implanted:Qty: 1 on 04/03/2024 by Damián Newton MD at [facility] Left: Eye [employer] 04/23/2025 / [id number] / Insurance MEDICARE [employer] Care Teams Manufacturing Applications Engineer Relationship Specialty Start Date End Date Gene Moreno MD [address] [place] [address] PCP - General 04/02/24
--- OUTSIDE RECORDS SUMMARY | 2024-07-21 11:29 | XMS_ITS | Encounter Summary ---
Author Organization [facility] Address [address] [facility] [address] [place] [address] Phone Care Team Providers Care Pre Press Operator Name Role Phone Radu Jara MD Primary Care Provider [phone] Tracy Dickerson NP Unavailable [phone] Marylou Alas DO Unavailable [phone] Radu Jara MD Primary Care Provider [phone] Marylou Alas DO Primary Care Provider [phone] Biju Rogers MD Primary Care Provider [phone] Marylou Alas DO Primary Care Provider [phone] Biju Rogers MD Primary Care Provider [phone] Gene Moreno MD Primary Care Provide r Sandra Mark MD Unavailable + Encounter Details Date Type Department Care Team (Late st Contact Info) Description 09/05/2019 Orders Only [facility] RHEUMATOLOG[facility] Scanning, Provider Social History Tobacco Use Types Packs/Day Years Used Date Smoking Tobacco: Former Smokeless Tobacco: Never Alcohol Use Standard Drinks/Week Comments No 0 (1 standard drink = 0.6 oz pur e alcohol) Comments Unknown Sex and Gender Information Value Date Recorded Sex Assigned at Not on file Legal Sex Female 7:57 PM DRUPAL PHP DEVELOPER Gender Identity Not on file Sexual Orientation Not on file 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 Not on file Not on file documented as of this encounter Plan of Treatment Not on file documented as of this encounter Procedures Procedure Name Priority Date/Time Associated Diagnosis Comments SCAN - LABS 09/05/2019 documented in this encounter Results * SCAN - LABS (09/05/2019) us Provider Scanning Final Result documented in this encounter Visit Diagnoses Not on filedocumented in this encounter Care Teams Pre Press Operator Relationship Specialty Start Date End Date Radu Jara MD PCP - General 10/14/18 01/29/20 Radu Jara MD PCP - General 01/30/20 02/01/20 Marylou Alas DO PCP - General Family Medicine 02/02/20 03/27/21 Biju Rogers MD PCP - General Internal Medicine 03/28/21 05/08/21 Marylou Alas DO PCP - General 05/09/21 11/13/21 Biju Rogers MD [address] [place] [address] PCP - General Internal Medicine 11/14/21 07/26/22 Gene Moreno MD [address] [place] [address] PCP - General Emergency Medicine 07/27/22 Tracy Dickerson NP Nurse Practitioner Rheumatology 11/24/19 07/26/22 Marylou Alas DO Family Medicine 12/13/19 07/26/22 Sandra Mark MD [address] [facility] [address] [place] [address] Rheumatology 08/19/23 documented as of this encounter
--- OUTSIDE RECORDS SUMMARY | 2024-07-21 11:29 | XMS_ITS | Encounter Summary ---
Author Organization [facility] Address [address] [place] [id number] Care Team Providers Care Content Specialist Name Role Phone Gene Moreno MD Primary Care Provider Encounter Details Date Type Department Care Team (Late st Contact Info) Description 08/28/2014 Abstract [facility] CONVERSION [address] [place] [address] , Generic ConversionMD Social History Tobacco Use Types Packs/Day Years Used Date Smoking Tobacco: Never Assessed Comments Unknown Sex and Gender Information Value Date Recorded Sex Assigned at Not on file Legal Sex Female 4:27 PM CDT Gender Identity Not on file Sexual Orientation Not on file documented as of this encounter Plan of Treatment Not on file documented as of this encounter Visit Diagnoses Not on filedocumented in this encounter Care Teams Content Specialist Relationship Specialty Start Date End Date Gene Moreno MD [address] [place] [address] PCP - General 04/02/24 documented as of this encounter
--- OUTSIDE RECORDS SUMMARY | 2024-07-21 11:30 | XMS_ITS | Referral Summary ---
Author Organization [facility] Address [address] [place] [id number] Care Team Providers Care Pharmacovigilance Safety Expert Name Role Phone Gene Moreno MD Primary Care Provide r TemSandra zazueta MD Unavailable + Encounters Date Type Department Care Team Description 06/30/2024 10:54 AM CDT - 06/30/2024 11:59 PM CDT Hospital Encounter [facility] [address] [place] [address] Status post cervical spinal fusion Discharge Disposition: Discharge to home or self care 06/30/2024 11:20 AM CDT Office Visit [facility] Orthopaedic Surgery [address] [facility] 12th [place] [address] [place] [phone] Clif Mendez MD Status post cervical spinal fusion (Primary Dx) 06/05/2024 11:15 AM DIRECTOR OF VOCATIONAL TRAINING - 06/05/2024 11:59 PM DIRECTOR OF VOCATIONAL TRAINING Hospital Encounter [facility] [address] [place] [phone] Clif Mendez MD Status post cervical spinal fusion Discharge Disposition: Discharge to home or self care 06/05/2024 11:40 AM DIRECTOR OF VOCATIONAL TRAINING Office Visit [facility] Orthopaedic Surgery [address] [place] [address] 2nd Floor [address] [place] [address] Clif Mendez MD Status post cervical spinal fusion (Primary Dx) 05/23/2024 Telephone [facility] Orthopaedic Surgery [address] [place] [address] Medical Office Building [address] [place] [phone] Clif Mendez MD 05/18/2024 5:13 AM DIRECTOR OF VOCATIONAL TRAINING - 05/20/2024 2:00 PM DIRECTOR OF VOCATIONAL TRAINING Hospital Encounter [address] [address] Clif Mendez MD Cervical radiculopathy (Primary Dx) Discharge Disposition: Discharge to home or self care 05/18/2024 7:30 AM DIRECTOR OF VOCATIONAL TRAINING - 05/18/2024 11:10 AM DIRECTOR OF VOCATIONAL TRAINING Surgery [facility] Operating Room 1 [place] [address] Clif Mendez MD FUSION CERVICAL ANTERIOR DISCECTOMY WITH INSTRUMENTATION, C4-C7 Anterior Cervical Discectomy and Fusion with Instrumentation, Allograft, Autograft, Spinal Cord Monitoring 05/18/2024 7:39 AM DIRECTOR OF VOCATIONAL TRAINING Anesthesia Event [facility] Operating Room 1 [place] [address] Zachary Perez MD Edwards, Jacob Christopher, MD 05/17/2024 Telephone [facility] [address] [place] [address] Medical Office Building [address] [place] [phone] Clif Mendez MD 05/12/2024 10:57 AM DIRECTOR OF VOCATIONAL TRAINING - 05/12/2024 11:59 PM DIRECTOR OF VOCATIONAL TRAINING Hospital Encounter [facility] [address] [place] [phone] Misael Almanza MD Lumbar radiculopathy (Primary Dx) Discharge Disposition: Discharge to home or self care 05/10/2024 8:00 AM DIRECTOR OF VOCATIONAL TRAINING Office Visit [facility] Orth[facility] Surgery [address] [place] [address] 2nd Floor [address] [place] [address] Misael Almanza MD Lumbar radiculopathy (Primary Dx) 05/05/2024 1:30 PM DIRECTOR OF VOCATIONAL TRAINING Clinical Support [facility] [address] [facility] 12th [place] [address] [place] [address] 05/05/2024 2:30 PM DIRECTOR OF VOCATIONAL TRAINING Pre-Admission Testing [facility] for Preoperative Assessment and Planning [facility] ([facility]) [address] [place] [address] Preoperative testing (Primary Dx); Spinal stenosis in cervical region; Cervical radiculopathy; Pain in other joint; Vitamin D deficiency; Type 2 diabetes mellitus with other specified complication, unspecified whether terminal operator insulin use (HCC) 04/26/2024 Telephone [facility] Orth[facility] [address] [facility] 2nd Floor [address] [place] [address] Misael Almanza MD from Last 3 Months Allergies Active Allergy Reactions Criticality Noted Date Comments Aspirin Stomach upset Low Sulfamethoxazole-Trimethoprim Itching Low 2020 Fentanyl Itching,Rash Medium 10/06/2021 Hydrocodone-Acetaminophen Itching Low 03/03/2022 Hydromorphone Rash Medium 05/05/2024 Methylprednisolone Itching Low 05/09/2021 Sulfa (Sulfonamide Antibiotics) Stomach upset Low 0 06/28/2019 Tramadol Rash Medium 03/20/2024 Tramadol Hcl Itching,Rash Medium 04/23/2017 Medications emollient creamIndication s:Skin Inflammation,to feet Apply 1 Application topically every morning 8 Active metFORMIN (GLUCOPHAGE) 1,000 mg tabletIndicatio ns:type 2 diabetes mellitus Take 1 tablet (1,000 mg total) by mouth 2 (two) times a day with meals 1 Active losartan (COZAAR) 100 mg tabletIndicatio ns:hypertension Take 1 tablet (100 mg total) by mouth every morning 2 Active rosuvastatin (CRESTOR) 10 mg tabletIndicatio ns:hyperlipidem ia Take 1 tablet (10 mg total) by mouth every morning 2 Active cyanocobalamin, vitamin B-12, (VITAMIN B-12 INJ) Inject 1 Dose as directed every 3 (three) months Due for next shot before surgery Active colchicine (COLCRYS) 0.6 mg tablet TAKE 1 TABLET BY MOUTH EVERY DAY 90 tablet 4 Active albuterol HFA (PROVENTIL HFA,VENTOLIN HFA,PROAIR HFA) 90 mcg/actuation inhalerIndicati ons:Acute Asthma Attack Inhale 2 puffs every 6 (six) hours as needed 5 Active ezetimibe (ZETIA) 10 mg tabletIndicatio ns:hyperlipidem ia Take 1 tablet (10 mg total) by mouth every morning 5 Active allopurinoL (ZYLOPRIM) 300 mg tabletIndicatio ns:gout Take 1 tablet (300 mg total) by mouth every morning Active ketoconazole (NIZORAL) 2 % creamIndication s:to feet Apply 1 Application topically every morning Active B.animalis,bifi d,infantis,long (PROBIOTIC 4X ORAL)Indication s:Gi Health Take 1 capsule by mouth every morning Active miconazole 2 % creamIndication s:to feet Apply 1 Application topically every morning Active doxepin (ZONALON) 5 % cream 5 Active acetaminophen 500 mg capsuleIndicati ons:Pain Take 2 capsules (1,000 mg total) by mouth every 8 (eight) hours 5 Active senna-docusate (PERICOLACE) 8.6-50 mgIndications:c onstipation Take 2 tablets by mouth 2 (two) times a day 120 tablet 5 Active cyclobenzaprine (FLEXERIL) 10 mg tabletIndicatio ns:Muscle Spasm Take 1 tablet (10 mg total) by mouth every 8 (eight) hours 90 tablet 5 Active benzocaine-ment hoL (CHLORASEPTIC) 6-10 mg lozenge Take 1 lozenge by mouth every 3 (three) hours as needed for sore throat 54 tablet 5 Active oxyCODONE (ROXICODONE) 5 mg immediate release tabletIndicatio ns:Pain Take 1 tablet (5 mg total) by mouth every 4 (four) hours as needed Active pregabalin (LYRICA) 75 mg capsuleIndicati ons:Postoperati ve Acute Pain Take 1 capsule (75 mg total) by mouth every 12 (twelve) hours 60 capsule 1 5 08/20/19 25 Active Active Problems Problem Noted Date Diagnosed Date S/P cervical spinal fusion 05/18/2024 Myelopathy 05/18/2024 Spinal stenosis in cervical region 04/06/2024 Cervical radiculopathy 04/06/2024 Glenohumeral arthritis, right 10/05/2023 Arthritis of right acromioclavicular joint 08/15 Rotator cuff tendinitis, right 08/16/2023 Nontraumatic incomplete tear of right rotator cu ff 08/16/2023 Pain in joint of right shoulder 08/16/2023 Osteoarthritis of multiple joints 06/16/2021 At high risk for deep venous thrombosis 05/07/19 Chronic midline low back pain 01/30/2020 Vitamin D deficiency 01/30/2020 Primary osteoarthritis of fi rst carpometacarpal joint of left hand 06/02/2019 Assessment & Plan (06/02/2019 8:58 AM DIRECTOR OF VOCATIONAL TRAINING): Status post left CMC injection today High risk medication use 10/14/2018 Inflammatory arthritis 10/14/2018 Asthma 10/01/2017 Hypertension 10/01/2017 Type 2 diabetes mellitus wit hout complication, without long-term current use of insulin 10/01/2017 Other secondary gout, multiple sites 10/01/2017 Resolved Problems Problem Noted Date Diagnosed Date Resolved Date Pain in right toe(s) 06/16/2021 022 Cramp and spasm 10/11/2020 09/23/2021 Assessment & Plan (10/11/2020 1:58 PM CDT): Patient has a history of muscle cramps and spasms which by reviewed history seems to be benign in etiology. She does have an antecedent history of lumbar spondylosis. Neurophysiologic testing was unrevealing of myopathy findings. There is no weakness. I will place her on a trial of baclofen 10 mg t.i.d. p.r.n. spasms. I will see her back in the office on an as-needed basis. Arthritis of carpometacarpal (CMC) joint of right thumb 05/08/2020 09/23/2021 Overview (05/08/2020): Added automatically from request for surgery [id number] Swelling 05/07/2020 07/19/2020 OA (osteoarthritis) of finger, right 01/30/2020 09/23/2021 Thumb pain 05/05/2019 07/19/2020 Assessment & Plan (05/05/2019 9:12 AM DIRECTOR OF VOCATIONAL TRAINING): Status post intra-articular injection of the CMC today Arthritis, senescent 05/05/2019 021 Assessment & Plan (05/05/2019 9:13 AM DIRECTOR OF VOCATIONAL TRAINING): Status post bilateral intra-articular injections Arthritis 06/17/2017 09/23/2021 SOB (shortness of breath) Chronic cough 07/19/2020 Immunizations Immunization Administration Dates Next Due Influenza, Quadrivalent, Spl it, Intramuscular 03/04/2022,02/16/2014 Influenza, Quadrivalent, Spl it, Preservative Free, Intramuscular 02/25/2022,01/23/2021,01/04/2020,01/26 Influenza, Split 02/12/2010, 9,02/27/2005,03/20 Influenza, Trivalent, Cell Culture-based MDCK, Preservative Free, Antibiotic Free, Intramuscular 03/17/2017 Influenza, Trivalent, IM (MDV) 01/01/2016,2011,02/06/2011 Influenza, Trivalent, Preser vative Free, Intramuscular 01/28/2019,01/08/2015,01/25/2013 Influenza, Unspecified 01/25/2019,02/04/2018 Influenza, Whole 02/12/2003,02/25/1999 Pfizer SARS-CoV-2 Monovalent Vaccination (12+ Yrs) PURPLE 07/18/2021,12/02/2020,08/12/2020,07/21 Pfizer Sars-Cov-2 Bivalent V accination (12+ YRS) 07/01/2023,03/19/2022 Pneumococcal Conjugate PCV 13 03/30/2019 Pneumococcal Conjugate, Unspecified 01/25/2019 RSV Vaccine, Pref, Recombina nt, Subunit, Adjuvanted, PF, IM (Arexvy) 12/16/2023 Td, adsorbed 04/13/2018 Tdap 09/17/2008 ZOSTER Recombinant 02/10/2019,12/07/2018 Social History Tobacco Use Types Packs/Day Years Used Date Smoking Tobacco: Former Cigarettes 0.5 21 1 974 - 1994 Smokeless Tobacco: Never Tobacco Cessation:Counseling Given: Not Answered Alcohol Use Standard Drinks/Week Comments Yes 0 (1 standard drink = 0.6 oz pur e alcohol) rare AUDIT-C Answer Date Recorded Q1: How often do you have a drink containing alcohol? Never 05/18/2024 Q2: How many drinks containi ng alcohol do you have on a typical day when you are drinking? Patient does not drink Q3: How often do you have si x or more drinks on one occasion? Never 05/18/2024 Personal Safety Answer Date Recorded Have you ever been in or are you currently in a harmful physical or emotional relationship or is someone making you feel afraid or unsafe? 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 Not on file Not on file Not on file Last Filed Vital Signs Vital Sign Reading Time Taken Comments Blood Pressure 150/80 05/20/2024 7:32 AM DIRECTOR OF VOCATIONAL TRAINING Pulse 78 05/20/2024 7:32 AM DIRECTOR OF VOCATIONAL TRAINING Temperature 36.6 C (97.8 F) 05/20/2024 7:32 AM DIRECTOR OF VOCATIONAL TRAINING Respiratory Rate 17 05/20/2024 7:32 AM DIRECTOR OF VOCATIONAL TRAINING Oxygen Saturation 98% 05/20/2024 7:32 AM DIRECTOR OF VOCATIONAL TRAINING Inhaled Oxygen Concentration - - Weight 72.6 kg (160 lb) 06/30/2024 11:11 AM CDT Height 157.5 cm (5' 2 ) 06/30/2024 11:11 AM CDT Body Mass Index 29.26 06/30/2024 11:11 AM CDT Plan of Treatment Not on file Medical Devices Implanted Type Area Firer Marine Device Identifier Shelf Expiration Date Model / Serial / Lot [employer] [id number] Corkscrew Fiberwire 2.7mm 7mm 17.9mm Needle Wire Foot Ankle 2-0 - [id number] Implanted:Qty: 1 on 05/22/2020 by Philip Fine MD at [facility] Right: Wrist [employer] [id number] 11/09/2024 [id number] / / [id number] [employer] [id number] Corkscrew Fiberwire 2.7mm 7mm 17.9mm Needle Wire Foot Ankle 2-0 - [id number] Implanted:Qty: 1 on 05/22/2020 by Philip Fine MD at [facility] Right: Wrist [employer] [id number] 11/09/2024 [id number] / / [id number] [employer] Graft Bone Magnetos 2.5cc 1-2mm Granules In Moldable Putty [id number] - [id number] Implanted:Qty: 1 on 05/18/2024 by Clif Mendez MD at [facility] N/A: Spine Cervical [employer] 10/10/2028 [id number] / / Medtronic Inc Screw Spinal Anterior Cervical Self Drilling Solid Zevo 3.5x17mm Titanium [id number] - [id number] Implanted:Qty: 7 on 05/18/2024 by Clif Mendez MD at [facility] N/A: Spine Cervical Med[employer]onic Inc [id number] / / Medtronic Inc Plate Spine Anterior Cervical Level 3 Zevo 48mm Titanium [id number] - [id number] Implanted:Qty: 1 on 05/18/2024 by Clif Mendez MD at [facility] N/A: Spine Cervical Med[employer]onic Inc [id number] / / Medtronic Inc Cage Spinal Cervical 6 Degree Acif Large Endoskeleton Tcs Nanolock [id number] Titanium [id number]-N - [id number] Implanted:Qty: 1 on 05/18/2024 by Clif Mendez MD at [facility] N/A: Spine Cervical Med[employer]onic Inc [id number] / / Medtronic Inc Cage Spinal Cervical 6 Degree Acif Large Endoskeleton Tcs Nanolock [id number] Titanium [id number] - [id number] Implanted:Qty: 1 on 05/18/2024 by Clif Mendez MD at [facility] N/A: Spine Cervical Med[employer]onic Inc [id number] / / Medtronic Inc Cage Spinal Cervical 6 Degree Acif Large Endoskeleton Tcs Nanolock [id number] Titanium 0926-3499-[id number] - [id number] Implanted:Qty: 1 on 05/18/2024 by Clif Mendez MD at [facility] N/A: Spine Cervical Med[employer]onic Inc [id number] -[id number] / / Medtronic Inc Screw Spinal Anterior Cervical Self Drilling Solid Zevo 4.0x17mm Titanium [id number] - [id number] Implanted:Qty: 1 on 05/18/2024 by Clif Mendez MD at [facility] N/A: Spine Cervical Med[employer] Inc [id number] / / Procedures Procedure Name Priority Date/Time Associated Diagnosis Comments XR SPINE CERVICAL 2 OR 3 VIEWS Schedule Routine, Read Routine (OP Routine) 06/30/2024 11:03 AM CDT Status post cervical spinal fusion XR SPINE CERVICAL 2 OR 3 VIEWS Schedule Routine, Read Routine (OP Routine) 06/05/2024 11:22 AM DIRECTOR OF VOCATIONAL TRAINING Status post cervical spinal fusion POCT GLUCOSE DEVICE Routine 05/20/2024 7 :35 AM DIRECTOR OF VOCATIONAL TRAINING EGFR Routine 05/20/2024 4:35 AM DIRECTOR OF VOCATIONAL TRAINING CBC WITHOUT DIFFERENTIAL Routine 05/20/2024 4:35 AM DIRECTOR OF VOCATIONAL TRAINING BASIC METABOLIC PANEL Routine 05/20/2024 4:35 AM DIRECTOR OF VOCATIONAL TRAINING POCT GLUCOSE DEVICE Routine 05/19/2024 9 :17 PM DIRECTOR OF VOCATIONAL TRAINING POCT GLUCOSE DEVICE Routine 05/19/2024 4 :53 PM DIRECTOR OF VOCATIONAL TRAINING POCT GLUCOSE DEVICE Routine 05/19/2024 11:45 AM DIRECTOR OF VOCATIONAL TRAINING URINALYSIS, MICROSCOPIC ONLY Routine 05/19/2024 10:49 AM DIRECTOR OF VOCATIONAL TRAINING URINALYSIS AND REFLEX TO MICROSCOPIC AND CULTURE Routine 05/19/2024 10:49 AM DIRECTOR OF VOCATIONAL TRAINING DIFFERENTIAL AUTO STAT 05/19/2024 10:33 AM DIRECTOR OF VOCATIONAL TRAINING CBC WITH AUTO DIFFERENTIAL STAT 05/19/2024 10:33 AM DIRECTOR OF VOCATIONAL TRAINING XR SPINE CERVICAL 2 OR 3 VIEWS Pending Discharge 05/19/2024 9:08 AM DIRECTOR OF VOCATIONAL TRAINING POCT GLUCOSE DEVICE Routine 05/19/2024 7 :55 AM DIRECTOR OF VOCATIONAL TRAINING LIPID PANEL Routine 05/19/2024 5:00 AM DIRECTOR OF VOCATIONAL TRAINING EGFR Routine 05/19/2024 5:00 AM DIRECTOR OF VOCATIONAL TRAINING CBC WITHOUT DIFFERENTIAL Routine 05/19/2024 5:00 AM DIRECTOR OF VOCATIONAL TRAINING BASIC METABOLIC PANEL Routine 05/19/2024 5:00 AM DIRECTOR OF VOCATIONAL TRAINING POCT GLUCOSE DEVICE Routine 05/18/2024 8 :13 PM DIRECTOR OF VOCATIONAL TRAINING POCT GLUCOSE DEVICE Routine 05/18/2024 6 :56 PM DIRECTOR OF VOCATIONAL TRAINING POCT GLUCOSE DEVICE Routine 05/18/2024 12:43 PM DIRECTOR OF VOCATIONAL TRAINING FL FLUOROSCOPY < 1 HOUR IP Routine 05/18/2024 11:27 AM DIRECTOR OF VOCATIONAL TRAINING MA AN PROCEDURE PLACEHOLDER Routine 05/18/2024 8:34 AM DIRECTOR OF VOCATIONAL TRAINING MA AN ELECTIVE ENDOTRACHEAL AIRWAY Routine 05/18/2024 8:34 AM DIRECTOR OF VOCATIONAL TRAINING SPINAL CORD MONITORING 05/18/2024 7:37 AM DIRECTOR OF VOCATIONAL TRAINING Spinal stenosis in cervical region Cervical radiculopathy Special Needs Microscope, C-Arm, SCM, OSI Flat, Medtronic Divergence, Medtronic ZEVO FUSION CERVICAL ANTERIOR DISCECTOMY WITH INSTRUMENTATION 05/18/2024 7:37 AM DIRECTOR OF VOCATIONAL TRAINING Spinal stenosis in cervical region Cervical radiculopathy Special Needs Microscope, C-Arm, SCM, OSI Flat, Medtronic Divergence, Medtronic ZEVO POCT GLUCOSE DEVICE Routine 05/18/2024 6 :33 AM DIRECTOR OF VOCATIONAL TRAINING B CHECK SAMPLE STAT 05/18/2024 6:30 AM DIRECTOR OF VOCATIONAL TRAINING TRANSFORAMINAL EPIDURAL INJECTION LUMBAR SACRAL FIRST LEVEL BILATERAL Schedule Routine, Read Routine (OP Routine) 05/12/2024 11:45 AM DIRECTOR OF VOCATIONAL TRAINING Lumbar radiculopathy EGFR Routine 05/05/2024 4:02 PM DIRECTOR OF VOCATIONAL TRAINING Preoperative testing LUPUS ANTICOAGULANT PANEL PLUS REFLEXES Routine 05/05/2024 4:02 PM DIRECTOR OF VOCATIONAL TRAINING Preoperative testing URINALYSIS, MICROSCOPIC ONLY Routine 05/05/2024 4:02 PM DIRECTOR OF VOCATIONAL TRAINING Spinal stenosis in cervical region Cervical radiculopathy CBC WITHOUT DIFFERENTIAL Routine 05/05/2024 4:02 PM DIRECTOR OF VOCATIONAL TRAINING Preoperative testing BASIC METABOLIC PANEL Routine 05/05/2024 4:02 PM DIRECTOR OF VOCATIONAL TRAINING Preoperative testing CPAP APTT ALGORITHM Routine 05/05/2024 4 :02 PM DIRECTOR OF VOCATIONAL TRAINING Preoperative testing ALBUMIN Routine 05/05/2024 4:02 PM DIRECTOR OF VOCATIONAL TRAINING Spinal stenosis in cervical region Cervical radiculopathy HEMOGLOBIN A1C Routine 05/05/2024 4:02 PM DIRECTOR OF VOCATIONAL TRAINING Spinal stenosis in cervical region Cervical radiculopathy Type 2 diabetes mellitus with other specified complication, unspecified whether terminal operator insulin use (HCC) VITAMIN D 25 HYDROXY Routine 05/05/2024 4:02 PM DIRECTOR OF VOCATIONAL TRAINING Spinal stenosis in cervical region Cervical radiculopathy Vitamin D deficiency PROTIME-INR Routine 05/05/2024 4:02 PM DIRECTOR OF VOCATIONAL TRAINING Spinal stenosis in cervical region Cervical radiculopathy Pain in other joint NICOTINE METABOLITE SCREEN, URINE Routine 05/05/2024 4:02 PM DIRECTOR OF VOCATIONAL TRAINING Spinal stenosis in cervical region Cervical radiculopathy URINALYSIS AND REFLEX TO MICROSCOPIC AND CULTURE Routine 05/05/2024 4:02 PM DIRECTOR OF VOCATIONAL TRAINING Spinal stenosis in cervical region Cervical radiculopathy TYPE AND SCREEN 14 DAY Routine 05/05/2024 3:48 PM DIRECTOR OF VOCATIONAL TRAINING Preoperative testing from Last 3 Months Results * XR Spine Cervical 2 or 3 Views (06/30/2024 11:03 AM CDT) Anatomical Region Laterality Modality Spine N/A Computed Radiogr aphy 06/30/2024 12:2 7 PM CDT Impressions 06/30/2024 12:27 PM CDT Unchanged C4-C7 anterior discectomy and fusion. Electronically signed by: Gene Kidd D.O. Narrative 06/30/2024 12:27 PM CDT EXAMINATION: XR SPINE CERVICAL 2 OR 3 VIEWS HISTORY: C-spine fusion, follow up COMPARISON: Radiograph 06/05/2024 FINDINGS: Normal alignment. Normal vertebral body heights. C4-C7 anterior discectomy and fusion. Intact hardware without evidence of loosening. Maintained disc heights at the unfused segments. Mild multilevel facet arthropathy. Mild persistent prevertebral soft tissue swelling. Procedure Note Gene Kidd, - 06/30/2024 EXAMINATION: XR SPINE CERVICAL 2 OR 3 VIEWS HISTORY: C-spine fusion, follow up COMPARISON: Radiograph 06/05/2024 FINDINGS: Normal alignment. Normal vertebral body heights. C4-C7 anterior discectomy and fusion. Intact hardware without evidence of loosening. Maintained disc heights at the unfused segments. Mild multilevel facet arthropathy. Mild persistent prevertebral soft tissue swelling. IMPRESSION: Unchanged C4-C7 anterior discectomy and fusion. Electronically signed by: Gene O'Jae, D.O. us Clif Junior Lambrechts MD IMG XR PROCEDURES Final Result * XR Spine Cervical 2 or 3 Views (06/05/2024 11:22 AM DIRECTOR OF VOCATIONAL TRAINING) Anatomical Region Laterality Modality Spine N/A Computed Radiogr aphy 06/05/2024 11:4 4 AM DIRECTOR OF VOCATIONAL TRAINING Impressions 06/05/2024 11:44 AM DIRECTOR OF VOCATIONAL TRAINING Unchanged anterior instrumented C4-C7 fusion in expected position. Electronically signed by: Blanco Smith M.D. Narrative 06/05/2024 11:44 AM DIRECTOR OF VOCATIONAL TRAINING XR SPINE CERVICAL 2 OR 3 VIEWS HISTORY: Spinal fusion. FINDINGS: 2 views of the cervical spine are obtained and compared with 05/19/2024. There is redemonstrated anterior discectomies and instrumented interbody fusions at C4-C7. Instrumentation is intact. Alignment is normal. Vertebral body heights are within normal limits. There is mild, decreasing prevertebral soft tissue swelling. Procedure Note Blanco Smith MD - 06/05/2024 XR SPINE CERVICAL 2 OR 3 VIEWS HISTORY: Spinal fusion. FINDINGS: 2 views of the cervical spine are obtained and compared with 05/19/2024. There is redemonstrated anterior discectomies and instrumented interbody fusions at C4-C7. Instrumentation is intact. Alignment is normal. Vertebral body heights are within normal limits. There is mild, decreasing prevertebral soft tissue swelling. IMPRESSION: Unchanged anterior instrumented C4-C7 fusion in expected position. Electronically signed by: Blanco Smith M.D. Clif Mendez MD IMG XR PROCEDURES Final Result * POCT glucose (05/20/2024 7:35 AM DIRECTOR OF VOCATIONAL TRAINING) Glucose, POC 100 70 - 199 mg/dL Blood 05/20/2024 7:35 AM DIRECTOR OF VOCATIONAL TRAINING 05/20/2024 7:35 AM DIRECTOR OF VOCATIONAL TRAINING Clif Mendez MD LAB POCT ORDERABLES - D EVICE Final Result Performing Organization Address City/State/[facility] de Phone Number FELECIA [facility] Department [place] [address] * eGFR (05/20/2024 4:35 AM DIRECTOR OF VOCATIONAL TRAINING) Pathologist [facility] eGFR 71 >=60 mL/min/1. 73 m2 Comment: Interpretive Data Reference Interval Normal >/= 90 mL/min/1.73m2 Mildly decreased* 60 - 89 mL/min/1.73m2 Mildly to moderately decreased 45 - 59 mL/min/1.73m2 Moderately to severely decreased 30 - 44 mL/min/1.73m2 Severely decreased 15 - 29 mL/min/1.73m2 Kidney Failure < 15 mL/min/1.73m2 *Relative to young adult level Estimated glomerular filtration rate is determined by the 2020 CKD-EPI equation recommended by the National Kidney Foundation (A Unifying Approach to GFR Estimation: Recommendations of the NKF-ASK Task Force on Reassessing the Inclusion of Race in Diagnosing Kidney Disease, JASN 2020). The CKD-EPI equation should not be used for patients with unstable renal function and has not been validated in children and those over 70. Current interpretive data was last reviewed 2021. Blood 05/20/2024 4:35 AM DIRECTOR OF VOCATIONAL TRAINING 05/20/2024 4:51 AM DIRECTOR OF VOCATIONAL TRAINING Ed Du MD LAB BLOOD ORDERABLES Fi nal Result Performing Organization Address [facility] Co de Phone Number [facility] [place] [address] * (ABNORMAL) CBC without differential (05/20/2024 4:35 AM DIRECTOR OF VOCATIONAL TRAINING) Pathologist [facility] WBC 12.3(H) 3.8 - 9.9 K/cumm Hgb 12.8 11.9 - 15.5 g/dL [facility] Hct 39.2 35.6 - 45.5 % [facility] Plt 223 150 - 400 K/cumm [facility] MPV 9.3 9.1 - 12.3 fL [facility] RBC 5.06 3.90 - 5.20 M/cumm [facility] MCV 77.5(L) 81.3 - 96.4 fL [facility] MCH 25.3(L) 27.1 - 33.3 pg [facility] [facility] MCHC 32.7 32.3 - 35.7 g/dL [facility] RDW CV 14.0 11.1 - 14.9 % [facility] RDW SD 39.0 35.7 - 48.1 fL [facility] NRBC abs 0.00 0.00 - 0.01 K/cumm [facility] Blood 05/20/2024 4:35 AM DIRECTOR OF VOCATIONAL TRAINING 05/20/2024 4:51 AM DIRECTOR OF VOCATIONAL TRAINING Ed Du MD LAB BLOOD ORDERABLES Fi nal Result [facility] [place] [address] * Basic metabolic panel (05/20/2024 4:35 AM DIRECTOR OF VOCATIONAL TRAINING) Pathologist [facility] Sodium 139 135 - 145 mmol/L Potassium, pl 4.1 3.3 - 4.9 mmol/L [facility] Chloride 108 97 - 110 mmol/L [facility] CO2 24 22 - 32 mmol/L [facility] Anion gap 7 2 - 15 mmol/L [facility] BUN 10 6 - 25 mg/dL [facility] Creatinine 0.89 0.60 - 1.10 mg/dL [facility] Glucose 96 70 - 199 mg/dL [facility] Comment: Interpretive Data Fasting glucose >/= 126 mg/dl is diagnostic for diabetes. Fasting is defined as no caloric intake for at least 8 hours. Fasting glucose between 100 mg/dl to 125 mg/dl is diagnostic of prediabetes. In a patient with classic symptoms of hyperglycemia or hyperglycemic crisis, a random glucose >/= 200 mg/dl is diagnostic for diabetes. In the absence of unequivocal hyperglycemia, results should be confirmed by repeat testing. The classification and Diagnosis of Diabetes Diabetes Care 2021; 46: S19-S40. Current interpretive data was last revised 2022. Calcium 8.5 8.5 - 10.3 mg/dL [facility] Blood 05/20/2024 4:35 AM DIRECTOR OF VOCATIONAL TRAINING 05/20/2024 4:51 AM DIRECTOR OF VOCATIONAL TRAINING us Ed Du MD LAB BLOOD ORDERABLES Fi nal Result Performing Organization Address [facility] de Phone Number [facility] [place] [address] * POCT glucose (05/19/2024 9:17 PM DIRECTOR OF VOCATIONAL TRAINING) Glucose, POC 114 70 - 199 mg/dL Blood 05/19/2024 9:17 PM DIRECTOR OF VOCATIONAL TRAINING 05/19/2024 9:17 PM DIRECTOR OF VOCATIONAL TRAINING us Clif Mendez MD LAB POCT ORDERABLES - D EVICE Final Result Performing Organization Address [facility] de Phone Number [facility] [place] [address] * POCT glucose (05/19/2024 4:53 PM DIRECTOR OF VOCATIONAL TRAINING) Glucose, POC 100 70 - 199 mg/dL Blood 05/19/2024 4:53 PM DIRECTOR OF VOCATIONAL TRAINING 05/19/2024 4:53 PM DIRECTOR OF VOCATIONAL TRAINING us Clif Mendez MD LAB POCT ORDERABLES - D EVICE Final Result Performing Organization Address [facility] de Phone Number [facility] [place] [address] * POCT glucose (05/19/2024 11:45 AM DIRECTOR OF VOCATIONAL TRAINING) Glucose, POC 103 70 - 199 mg/dL Blood 05/19/2024 11:4 5 AM DIRECTOR OF VOCATIONAL TRAINING 05/19/2024 11:45 AM DIRECTOR OF VOCATIONAL TRAINING us Clif Mendez MD LAB POCT ORDERABLES - D BETH Final Result [facility] [place] [address] * (ABNORMAL) Urinalysis reflex to microscopic and culture Urine, clean voided (05/19/2024 10:49 AM DIRECTOR OF VOCATIONAL TRAINING) Color, ur Straw Yellow Clarity, ur Clear Clear [facility] Specific gravity, ur 1.008 1.003 - 1.030 [facility] pH, urine 6.0 [facility] Comment: Interpretive Data U rine pH is affected by diet, medications, systemic acid-base disturbances, and renal tubular function. pH may affect urinary stone formation. For example, urine pH below 6.0 may help reduce the tendency for calcium phosphate stones and pH greater than 6.0 may reduce the tendency for uric acid stone formation. Source: [facility] Current Interpretive Data was last revised on 2017 Protein, ur ql Negative Negative [facility] Glucose, ur ql Negative Negative [facility] Ketones, ur Negative Negative [facility] Bilirubin, ur Negative Negative [facility] Blood, ur Trace(A) Negative [facility] Urobilinogen, ur <2.0 <2.0 mg/dL [facility] Nitrite, ur Negative Negative [facility] Leukocyte esterase, ur Negative Negative [facility] UA reflex comment Reflex to microscopic UA will be performed. [facility] Urine, clean voided 05/19/2024 10:49 AM DIRECTOR OF VOCATIONAL TRAINING 05/19/2024 11:01 AM DIRECTOR OF VOCATIONAL TRAINING us Tyesha Wick NP LAB MICROBIOLOGY - G ENERAL ORDERABLES Final Result Performing Organization Address City/[facility]/ZIP Co de Phone Number [facility] [place] [address] * (ABNORMAL) Urinalysis, microscopic only (05/19/2024 10:49 AM DIRECTOR OF VOCATIONAL TRAINING) WBC, ur 0-5 0 - 5 /HPF RBC, ur 0-2 0 - 2 /HPF [facility] Bacteria, ur Trace(A) [facility] Culture Reflex Comment Reflex conditions for urine culture (WBC >10) not met. [facility] Urine, clean voided 05/19/2024 10:49 AM DIRECTOR OF VOCATIONAL TRAINING 05/19/2024 11:01 AM DIRECTOR OF VOCATIONAL TRAINING us Tyesha Brenda Wick NP LAB URINE ORDERABLES Final Result [facility] [place] [address] * (ABNORMAL) Differential, auto (05/19/2024 10:33 AM DIRECTOR OF VOCATIONAL TRAINING) Neutrophil abs 17.4(H) 1.5 - 6.5 K/cumm Imm gran abs 0.1 0.0 - 0.1 K/cumm [facility] Lymphocyte abs 1.7 0.8 - 3.3 K/cumm [facility] Monocyte abs 1.7(H) 0.2 - 0.8 K/cumm [facility] Eosinophil abs 0.5 0.0 - 0.5 K/cumm [facility] Basophil abs 0.1 0.0 - 0.1 K/cumm [facility] Neutrophil pct 80.9 % [facility] Comment: Interpretive Data Percent cell count reference ranges are not reported, since discordance with absolute values may lead to misinterpretation of CBC data. Current Interpretive Data was last revised on 2017. Imm gran pct 0.6 % [facility] Comment: Interpretive Data Percent cell count reference ranges are not reported, since discordance with absolute values may lead to misinterpretation of CBC data. Current Interpretive Data was last revised on 2017. Lymphocyte pct 8.0 % [facility] Comment: Interpretive Data Percent cell count reference ranges are not reported, since discordance with absolute values may lead to misinterpretation of CBC data. Current Interpretive Data was last revised on 2017. Monocyte pct 7.8 % [facility] Comment: Interpretive Data Percent cell count reference ranges are not reported, since discordance with absolute values may lead to misinterpretation of CBC data. Current Interpretive Data was last revised on 2017. Eosinophil pct 2.1 % [facility] Comment: Interpretive Data Percent cell count reference ranges are not reported, since discordance with absolute values may lead to misinterpretation of CBC data. Current Interpretive Data was last revised on 2017. Basophil pct 0.6 % [facility] Comment: Interpretive Data Percent cell count reference ranges are not reported, since discordance with absolute values may lead to misinterpretation of CBC data. Current Interpretive Data was last revised on 2017. Blood 05/19/2024 10:3 3 AM DIRECTOR OF VOCATIONAL TRAINING 05/19/2024 10:45 AM DIRECTOR OF VOCATIONAL TRAINING Tyesha Wick NP LAB BLOOD ORDERABLES Final Result [facility] [place] [address] * (ABNORMAL) CBC with auto differential (05/19/2024 10:33 AM DIRECTOR OF VOCATIONAL TRAINING) WBC 21.5(H) 3.8 - 9.9 K/cumm Hgb 13.8 11.9 - 15.5 g/dL [facility] Hct 43.6 35.6 - 45.5 % [facility] Plt 247 150 - 400 K/cumm [facility] MPV 9.5 9.1 - 12.3 fL [facility] RBC 5.48(H) 3.90 - 5.20 M/cumm [facility] MCV 79.6(L) 81.3 - 96.4 fL [facility] MCH 25.2(L) 27.1 - 33.3 pg [facility] MCHC 31.7(L) 32.3 - 35.7 g/dL [facility] RDW CV 13.8 11.1 - 14.9 % [facility] RDW SD 39.7 35.7 - 48.1 fL [facility] NRBC abs 0.00 0.00 - 0.01 K/cumm [facility] Blood 05/19/2024 10:3 3 AM DIRECTOR OF VOCATIONAL TRAINING 05/19/2024 10:45 AM DIRECTOR OF VOCATIONAL TRAINING us Tyesha Wick ELECTROLYSIS ENGINEER LAB BLOOD ORDERABLES Final Result [facility] [place] [address] * XR Spine Cervical 2 or 3 Views (05/19/2024 9:08 AM DIRECTOR OF VOCATIONAL TRAINING) Anatomical Region Laterality Modality Spine N/A Computed Radiogr aphy 05/19/2024 10:2 5 AM DIRECTOR OF VOCATIONAL TRAINING Impressions 05/19/2024 10:39 AM DIRECTOR OF VOCATIONAL TRAINING 1. Interval anterior cervical discectomy and instrumented fusion from C4 through C7. Dictated by: Juni Rosado M.D. The radiology attending physician has personally reviewed this study, and had reviewed and/or edited this written report and agrees with it. Electronically signed by: Andry Santana D.O. Narrative 05/19/2024 10:39 AM DIRECTOR OF VOCATIONAL TRAINING EXAMINATION: XR SPINE CERVICAL 2 OR 3 VIEWS HISTORY: Postop spinal fusion COMPARISON: Comparison is made to prior radiograph dated 02/21/2024. FINDINGS: Vertebral body heights are maintained. Interval anterior cervical discectomy and instrumented fusion from C4 through C7. Instrumentation is intact. No osteolysis. Surgical drain noted within the prevertebral soft tissues. Mild prevertebral soft tissue swelling which is an expected finding in the postoperative setting. Procedure Note Andry Santana DO - 05/19/2024 EXAMINATION: XR SPINE CERVICAL 2 OR 3 VIEWS HISTORY: Postop spinal fusion COMPARISON: Comparison is made to prior radiograph dated 02/21/2024. FINDINGS: Vertebral body heights are maintained. Interval anterior cervical discectomy and instrumented fusion from C4 through C7. Instrumentation is intact. No osteolysis. Surgical drain noted within the prevertebral soft tissues. Mild prevertebral soft tissue swelling which is an expected finding in the postoperative setting. IMPRESSION: 1. Interval anterior cervical discectomy and instrumented fusion from C4 through C7. Dictated by: Juni Rosado M.D. The radiology attending physician has personally reviewed this study, and had reviewed and/or edited this written report and agrees with it. Electronically signed by: Andry Santana D.O. us Tyesha Wick NP IMG XR PROCEDURES Fi nal Result * POCT glucose (05/19/2024 7:55 AM DIRECTOR OF VOCATIONAL TRAINING) Glucose, POC 108 70 - 199 mg/dL Comment:Glu2: RN/MD Notified Glucose comment 1 Glu2: RN/MD Notified [facility] Blood 05/19/2024 7:55 AM DIRECTOR OF VOCATIONAL TRAINING 05/19/2024 7:55 AM DIRECTOR OF VOCATIONAL TRAINING us Clif Mendez MD LAB POCT ORDERABLES - D EVICE Final Result [facility] [place] [address] * eGFR (05/19/2024 5:00 AM DIRECTOR OF VOCATIONAL TRAINING) eGFR 69 >=60 mL/min/1. 73 m2 Comment: Interpretive Data Reference Interval Normal >/= 90 mL/min/1.73m2 Mildly decreased* 60 - 89 mL/min/1.73m2 Mildly to moderately decreased 45 - 59 mL/min/1.73m2 Moderately to severely decreased 30 - 44 mL/min/1.73m2 Severely decreased 15 - 29 mL/min/1.73m2 Kidney Failure < 15 mL/min/1.73m2 *Relative to young adult level Estimated glomerular filtration rate is determined by the 2020 CKD-EPI equation recommended by the National Kidney Foundation (A Unifying Approach to GFR Estimation: Recommendations of the NKF-ASK Task Force on Reassessing the Inclusion of Race in Diagnosing Kidney Disease, JASN 2020). The CKD-EPI equation should not be used for patients with unstable renal function and has not been validated in children and those over 70. Current interpretive data was last reviewed 2021. Blood 05/19/2024 5:00 AM DIRECTOR OF VOCATIONAL TRAINING 05/19/2024 5:29 AM DIRECTOR OF VOCATIONAL TRAINING us Ed Du MD LAB BLOOD ORDERABLES Fi nal Result Performing Organization Address [facility] Co de Phone Number [facility] Department [place] [address] * (ABNORMAL) CBC without differential (05/19/2024 5:00 AM DIRECTOR OF VOCATIONAL TRAINING) Pathologist [facility] WBC 20.9(H) 3.8 - 9.9 K/cumm Hgb 13.5 11.9 - 15.5 g/dL [facility] Hct 40.9 35.6 - 45.5 % [facility] Plt 288 150 - 400 K/cumm [facility] MPV 10.6 9.1 - 12.3 fL [facility] RBC 5.33(H) 3.90 - 5.20 M/cumm [facility] MCV 76.7(L) 81.3 - 96.4 fL [facility] MCH 25.3(L) 27.1 - 33.3 pg [facility] MCHC 33.0 32.3 - 35.7 g/dL [facility] RDW CV 13.7 11.1 - 14.9 % [facility] RDW SD 37.6 35.7 - 48.1 fL [facility] NRBC abs 0.00 0.00 - 0.01 K/cumm [facility] Blood 05/19/2024 5:00 AM DIRECTOR OF VOCATIONAL TRAINING 05/19/2024 5:28 AM DIRECTOR OF VOCATIONAL TRAINING Ed Du MD LAB BLOOD ORDERABLES Fi nal Result Performing Organization Address [facility]/ZIP Co de Phone Number [facility] [place] [address] * Lipid panel (05/19/2024 5:00 AM DIRECTOR OF VOCATIONAL TRAINING) Pathologist [facility] Cholesterol 117 30 - 199 mg/dL Comment: Interpretive Data Ages < or = 19 years Acceptable: <170 mg/dL Borderline high: 170-199 mg/dL High: >or= 200 mg/dL Ages > or = 20 years Desirable: <200 mg/dL Borderline high: 200-239 mg/dL High: >or= 240 mg/dL Literature References: 1. Expert Panel on Integrated Guidelines for Cardiovascular Health and Risk Reduction in Children and Adolescents. Pediatrics 2011;128:S213 2. NCEP Expert Panel. Circulation 2004;110:227 Current Interpretive Data was last revised on 2017. Triglycerides 48 <=149 mg/dL [facility] Comment: Interpretive Data Ages < or = 9 years Acceptable: <75 mg/dL Borderline high: 75-99 mg/dL High: >or= 100 mg/dL Ages 10 to 20 years Acceptable: <90 mg/dL Borderline high: 90-129 mg/dL High: >or= 130 mg/dL Ages > or = 20 years Desirable: <150 mg/dL Borderline high: 150-199 mg/dL High: 200-499 mg/dL Very high: >or= 499 mg/dL Literature References: 1. Expert Panel on Integrated Guidelines for Cardiovascular Health and Risk Reduction in Children and Adolescents. Pediatrics 2011;128:S213 2. NCEP Expert Panel. Circulation 2004;110:227 Current Interpretive Data was last revised on 2017. HDL 63 >=40 mg/dL [facility] Comment: Interpretive Data Ages < or = 19 years Acceptable: >45 mg/dL Borderline low: 40-45 mg/dL Low: <40 mg/dL Ages > or = 20 years Desirable: >or= 60 mg/dL Low: <40 mg/dL Literature References: 1. Expert Panel on Integrated Guidelines for Cardiovascular Health and Risk Reduction in Children and Adolescents. Pediatrics 2011;128:S213 2. NCEP Expert Panel. Circulation 2003;110:227 Current Interpretive Data was last revised on 2017. LDL, calculated 42 <=129 mg/dL [facility] Comment: Interpretive Data Ages < or = 19 years Acceptable: <110 mg/dL Borderline high: 110-129 mg/dL High: >or= 130 mg/dL Ages > or = 20 years Optimal: <100 mg/dL Near optimal: 100-129 mg/dL Borderline high: 130-159 mg/dL High: >160 mg/dL Calculated using the Burgos LDL-C estimating equation. This equation was implemented on 2023. Prior to this date LDL-C was estimated using the Friedewald equation. Literature References: 1. Expert Panel on Integrated Guidelines for Cardiovascular Health and Risk Reduction in Children and Adolescents. Pediatrics 2011;128:S213 2. NCEP Expert Panel. Circulation 2004;110:227 3. Aubrey M et al. CORETTA Cardiol. 2020 August 10;5(5):540-548. doi: 10.1001/[email or web address] Current Interpretive Data was last revised on 2023. Non-HDL Cholesterol 54 mg/dL [facility] Comment: Interpretive Data Ages < or = 19 years Acceptable: <120 mg/dL Borderline high: 120-144 mg/dL High: >145 mg/dL Ages > or = 20 years When triglycerides are >200 mg/dL, Non-HDL cholesterol is a secondary target of therapy with treatment goals that are 30 mg/dL greater than the LDL cholesterol target. Literature References: 1. Expert Panel on Integrated Guidelines for Cardiovascular Health and Risk Reduction in Children and Adolescents. Pediatrics 2011;128:S213 2. NCEP Expert Panel. Circulation 2004;110:227 Current Interpretive Data was last revised on 2017. Chol/HDL ratio 2 [facility] Blood 05/19/2024 5:00 AM DIRECTOR OF VOCATIONAL TRAINING 05/19/2024 5:29 AM DIRECTOR OF VOCATIONAL TRAINING Narrative [facility] - 05/19/2024 8:37 AM DIRECTOR OF VOCATIONAL TRAINING Reflex us Clif Mendez MD LAB BLOOD ORDERABLES Fi nal Result [facility] [place] [address] * Basic metabolic panel (05/19/2024 5:00 AM DIRECTOR OF VOCATIONAL TRAINING) Sodium 138 135 - 145 mmol/L Potassium, pl 4.3 3.3 - 4.9 mmol/L [facility] Chloride 104 97 - 110 mmol/L [facility] CO2 23 22 - 32 mmol/L [facility] Anion gap 11 2 - 15 mmol/L [facility] BUN 9 6 - 25 mg/dL [facility] Creatinine 0.92 0.60 - 1.10 mg/dL [facility] Glucose 94 70 - 199 mg/dL [facility] Comment: Interpretive Data Fasting glucose >/= 126 mg/dl is diagnostic for diabetes. Fasting is defined as no caloric intake for at least 8 hours. Fasting glucose between 100 mg/dl to 125 mg/dl is diagnostic of prediabetes. In a patient with classic symptoms of hyperglycemia or hyperglycemic crisis, a random glucose >/= 200 mg/dl is diagnostic for diabetes. In the absence of unequivocal hyperglycemia, results should be confirmed by repeat testing. The classification and Diagnosis of Diabetes Diabetes Care 2021; 46: S19-S40. Current interpretive data was last revised 2022. Calcium 8.8 8.5 - 10.3 mg/dL [facility] Blood 05/19/2024 5:00 AM DIRECTOR OF VOCATIONAL TRAINING 05/19/2024 5:29 AM DIRECTOR OF VOCATIONAL TRAINING Ed Du MD LAB BLOOD ORDERABLES Fi nal Result Performing Organization Address [facility] Co de Phone Number [facility] [place] [address] * POCT glucose (05/18/2024 8:13 PM DIRECTOR OF VOCATIONAL TRAINING) Glucose, POC 139 70 - 199 mg/dL Blood 05/18/2024 8:13 PM DIRECTOR OF VOCATIONAL TRAINING 05/18/2024 8:13 PM DIRECTOR OF VOCATIONAL TRAINING us Clif Mendez MD LAB POCT ORDERABLES - D EVICE Final Result Performing Organization Address City/[facility]/ZIP Co de Phone Number [facility] [place] [address] * POCT glucose (05/18/2024 6:56 PM DIRECTOR OF VOCATIONAL TRAINING) Glucose, POC 147 70 - 199 mg/dL Blood 05/18/2024 6:56 PM DIRECTOR OF VOCATIONAL TRAINING 05/18/2024 6:56 PM DIRECTOR OF VOCATIONAL TRAINING Clif Mendez MD LAB POCT ORDERABLES - D EVICE Final Result Performing Organization Address [facility] Co de Phone Number [facility] [place] [address] * POCT glucose (05/18/2024 12:43 PM DIRECTOR OF VOCATIONAL TRAINING) Glucose, POC 130 70 - 199 mg/dL Blood 05/18/2024 12:4 3 PM DIRECTOR OF VOCATIONAL TRAINING 05/18/2024 12:43 PM DIRECTOR OF VOCATIONAL TRAINING us Clif Mendez MD LAB POCT ORDERABLES - D EVICE Final Result Performing Organization Address [facility] Co de Phone Number [facility] [place] [address] * FL Fluoroscopy < 1 Hour (05/18/2024 11:27 AM DIRECTOR OF VOCATIONAL TRAINING) Narrative [id number] - 05/18/2024 11:27 AM DIRECTOR OF VOCATIONAL TRAINING The images from this study are not interpreted by Radiology. Please refer to the physician's procedure / OR operative note. us Clif Mendez MD IMG FLUOROSCOPY PROCEDU RES Final Result Performing Organization Address [facility] Co de Phone Number [email or web address] * MA AN ELECTIVE ENDOTRACHEAL AIRWAY, MA AN PROCEDURE PLACEHOLDER (05/18/2024 8:34 AM DIRECTOR OF VOCATIONAL TRAINING) Narrative Zachary Perez MD - 05/18/2024 8:34 AM DIRECTOR OF VOCATIONAL TRAINING Zachary Perez MD 05/18/2024 8:35 AM Airway Patient location: OR Indications for airway management: anesthesia Difficult airway: no Staff: Placed by: Anesthesiologist: Zachary Perez MD Emergent airway documentation: Risks and benefits discussed: yes Consent obtained: yes Consent given by: patient Airway prep: Preoxygenated: yes Mask difficulty assessment: 1 - vent by mask Sedation level during airway: GA Final airway details: Final airway type: endotracheal airway Tube type: ETT Technique used for successful ETT placement: video laryngoscopy Video blade type: Lao Blade size: 3 Cormack-Lehane (video): grade I - full view of glottis ETT to nares: 21 cm Placement verified by: auscultation Airway secured with: silk tape Number of attempts: 1 us Zachary Perez MD ANESTHESIA ORDERABLES Fi nal Result * POCT glucose (05/18/2024 6:33 AM DIRECTOR OF VOCATIONAL TRAINING) Glucose, POC 98 70 - 199 mg/dL Blood 05/18/2024 6:33 AM DIRECTOR OF VOCATIONAL TRAINING 05/18/2024 6:33 AM DIRECTOR OF VOCATIONAL TRAINING us Clif Mendez MD LAB POCT ORDERABLES - D EVICE Final Result Performing Organization Address [facility] Co de Phone Number [facility] [place] [address] * Check Sample (05/18/2024 6:30 AM DIRECTOR OF VOCATIONAL TRAINING) ABO Rh B Positive [facility] OTHER 05/18/2024 6:30 AM DIRECTOR OF VOCATIONAL TRAINING 05/18/2024 6:51 AM DIRECTOR OF VOCATIONAL TRAINING us Clif Mendez MD LAB BLOOD ORDERABLES Fi nal Result Performing Organization Address [facility] de Phone Number [facility] [place] [address] [facility] * IR Transforaminal Epidural Injection Lumbar Sacral First Level Bilateral (05/12/2024 11:45 AM DIRECTOR OF VOCATIONAL TRAINING) Narrative [email or web address] - 05/12/2024 11:49 AM DIRECTOR OF VOCATIONAL TRAINING The images from this study are not interpreted by Radiology. Please refer to the physician's procedure / OR operative note. us Misael Almanza MD IMG IR PROCEDURES Final Result Performing Organization Address [facility] [facility] Co de Phone Number [email or web address] * (ABNORMAL) Lupus Anticoagulant Panel plus Reflexes (05/05/2024 4:02 PM DIRECTOR OF VOCATIONAL TRAINING) PT 12.0 9.7 - 13.0 sec INR 1.11 0.90 - 1.20 [facility] Comment: Interpretive data Oral anticoagulant therapeutic ranges: Venous thromboembolism prophylaxis or treatment: 2.0-3.0 CARDIOLOGY Standard range: 2.0-3.0 High-intensity range: 2.5-3.5 Refer to indication-specific guidelines for appropriate target ranges for prosthetic heart valve replacement. Current interpretive data was last revised on 2019. aPTT 41(H) 28 - 38 sec [facility] Comment: Interpretive Data Heparin therapeutic range: 66.0 - 100.0 seconds. Range based on correlation with therapeutic heparin activity range of 0.3 - 0.7 Units/mL. Current interpretive data was last revised on 2023. Thrombin Time 13.90 10.00 - 15.00 sec [facility] DRVVT screen ratio 1.02 0.00 - 1.20 Ratio [facility] SCT Screen Ratio 1.61(H) 0.00 - 1.16 Ratio [facility] SCT Confirm Ratio 1.03 Ratio [facility] SCT S/C Ratio 1.56(H) 0.00 - 1.16 Ratio [facility] Lupus anticoagulant, interp Positive( A) [facility] Comment: Interpretive data Lupus anticoagulants (LA) are acquired autoantibodies that interfere with invitro clotting in a phospholipid-dependent manner and are associated with an increased risk of thromboembolic events and complications. Routine APTT and PT reagents are not sensitive to inhibition by LA, and should not be used as screening tests. The laboratory follows ISTH 2009 guidelines (Pengo, 2009) for LA testing and interpretation: Two sensitive methods performed in parallel improve sensitivity. One activates the intrinsic pathway (Silica-APTT) and one activates the common pathway (dilute Jefferson's viper venom time - dRVVT). Each method begins with a SCREEN step, and if neither is prolonged, no further testing is performed and the interpretation is: NO LA DETECTED. If either screening test is prolonged, then additional steps are performed to provide specificity. A POSITIVE LA result occurs if either one or both tests produce a positive CONFIRM result. An INDETERMINATE result means results cannot distinguish between coagulopathy and a weak LA. Consider retesting when PT/INR is less prolonged, if clinical indicated. To support laboratory confirmation of antiphospholipid syndrome, persistence of a positive LA result should be verified by repeat testing at least 12 weeks later (Moe, 2006). Prior to LA testing, the laboratory screens patient plasma samples for evidence of heparin contamination, which is neutralized prior to LA testing, and the following interfering conditions which require canceling LA testing: INR >3.0, fibrinogen < 100 mg/dl, use of direct oral or IV anticoagulants other than heparin. References: 1) Rose V, Obie A, Pallavi JH, Ormae TL, Travis M, De Roman PG. Update of the guidelines for lupus anticoagulant detection. J Thromb Haemost. 2009; 7:3051-8480. 2. oMe Kramer. et al. International consensus statement on an update of the classification criteria for definite antiphospholipid syndrome (APS). J Thromb Haemost. 2006; 4:295-306. Current interpretive data was last revised on 2018 Blood 05/05/2024 4:02 PM DIRECTOR OF VOCATIONAL TRAINING 05/05/2024 4:56 PM DIRECTOR OF VOCATIONAL TRAINING us Kanu Lyles MD LAB BLOOD ORDERABLE S Final Result [facility] [place] [address] * eGFR (05/05/2024 4:02 PM DIRECTOR OF VOCATIONAL TRAINING) eGFR 74 >=60 mL/min/1. 73 m2 Comment: Interpretive Data Reference Interval Normal >/= 90 mL/min/1.73m2 Mildly decreased* 60 - 89 mL/min/1.73m2 Mildly to moderately decreased 45 - 59 mL/min/1.73m2 Moderately to severely decreased 30 - 44 mL/min/1.73m2 Severely decreased 15 - 29 mL/min/1.73m2 Kidney Failure < 15 mL/min/1.73m2 *Relative to young adult level Estimated glomerular filtration rate is determined by the 2020 CKD-EPI equation recommended by the National Kidney Foundation (A Unifying Approach to GFR Estimation: Recommendations of the NKF-ASK Task Force on Reassessing the Inclusion of Race in Diagnosing Kidney Disease, JASN 2020). The CKD-EPI equation should not be used for patients with unstable renal function and has not been validated in children and those over 70. Current interpretive data was last reviewed 2021. Blood 05/05/2024 4:02 PM DIRECTOR OF VOCATIONAL TRAINING 05/05/2024 4:54 PM DIRECTOR OF VOCATIONAL TRAINING Kanu Lyles MD LAB BLOOD ORDERABLE S Final Result Performing Organization Address [facility] [place] [address] * (ABNORMAL) CPAP aPTT algorithm (05/05/2024 4:02 PM DIRECTOR OF VOCATIONAL TRAINING) aPTT 41(H) 28 - 38 sec Comment: Interpretive Data Heparin therapeutic range: 66.0 - 100.0 seconds. Range based on correlation with therapeutic heparin activity range of 0.3 - 0.7 Units/mL. Current interpretive data was last revised on 2023. Blood 05/05/2024 4:02 PM DIRECTOR OF VOCATIONAL TRAINING 05/05/2024 4:02 PM DIRECTOR OF VOCATIONAL TRAINING Kanu Lyles MD LAB BLOOD ORDERABLE S Final Result Performing Organization Address [facility] [place] [address] * (ABNORMAL) Urinalysis reflex to microscopic and culture Urine, clean voided (05/05/2024 4:02 PM DIRECTOR OF VOCATIONAL TRAINING) Color, ur Straw Yellow Clarity, ur Clear Clear [facility] Specific gravity, ur 1.013 1.003 - 1.030 [facility] pH, urine 6.5 [facility] Comment: Interpretive Data U rine pH is affected by diet, medications, systemic acid-base disturbances, and renal tubular function. pH may affect urinary stone formation. For example, urine pH below 6.0 may help reduce the tendency for calcium phosphate stones and pH greater than 6.0 may reduce the tendency for uric acid stone formation. Source: [facility] Current Interpretive Data was last revised on 2017 Protein, ur ql Negative Negative [facility] Glucose, ur ql Negative Negative [facility] Ketones, ur Negative Negative [facility] Bilirubin, ur Negative Negative [facility] Blood, ur Trace(A) Negative [facility] Urobilinogen, ur <2.0 <2.0 mg/dL [facility] Nitrite, ur Negative Negative [facility] Leukocyte esterase, ur Negative Negative [facility] UA reflex comment Reflex to microscopic UA will be performed. [facility] Urine, clean voided 05/05/2024 4:02 PM DIRECTOR OF VOCATIONAL TRAINING 05/05/2024 4:49 PM DIRECTOR OF VOCATIONAL TRAINING us Clif Mendez MD LAB MICROBIOLOGY - [facility] ORDERABLES Final Result [facility] [place] [address] * Nicotine metabolite screen, urine (05/05/2024 4:02 PM DIRECTOR OF VOCATIONAL TRAINING) Nicotine, ur <5.0 <5.0 ng/mL [place] [facility] Cotinine, ur <5.0 <5.0 ng/mL [facility] Anabasine ur <2.0 <2.0 ng/mL [facility] Comment: ADDITIONAL INFORMATION This test was developed and its performance characteristics determined by [facility] in a manner consistent with CLIA requirements. This test has not been cleared or approved by the U.S. Food and Drug Administration. Test Performed by: [facility] - [address] [address] Insert Molding Operator: Margi Downey Ph.D.; CLIA# [id number] Nornicotine, ur <2.0 <2.0 ng/mL [facility] Urine 05/05/2024 4:02 PM DIRECTOR OF VOCATIONAL TRAINING 05/05/2024 6:30 PM DIRECTOR OF VOCATIONAL TRAINING Clif Mendez MD LAB URINE ORDERABLES Fi nal Result Performing Organization Address [facility] Co de Phone Number [facility] [place] [address] [facility] * Vitamin D 25 hydroxy (05/05/2024 4:02 PM DIRECTOR OF VOCATIONAL TRAINING) Pathologist [facility] Vitamin D 25-OH 30 30 - 80 ng/mL Blood 05/05/2024 4:02 PM DIRECTOR OF VOCATIONAL TRAINING 05/05/2024 4:54 PM DIRECTOR OF VOCATIONAL TRAINING Clif Mendez MD LAB BLOOD ORDERABLES Fi nal Result Performing Organization Address [facility] de Phone Number [facility] [place] [address] * (ABNORMAL) Urinalysis, microscopic only (05/05/2024 4:02 PM DIRECTOR OF VOCATIONAL TRAINING) Pathologist [facility] WBC, ur 0-5 0 - 5 /HPF RBC, ur 3-5(A) 0 - 2 /HPF [facility] Epithelial cells, squamous, ur 1-5 0 - 5 /HPF [facility] Mucous, ur Present(A) [facility] Culture Reflex Comment Reflex conditions for urine culture (WBC >10) not met. [facility] Urine, clean voided 05/05/2024 4:02 PM DIRECTOR OF VOCATIONAL TRAINING 05/05/2024 4:49 PM DIRECTOR OF VOCATIONAL TRAINING Clif Mendez MD LAB URINE ORDERABLES Fi nal Result Performing Organization Address [facility] Co de Phone Number [facility] [place] [address] * Protime-INR (05/05/2024 4:02 PM DIRECTOR OF VOCATIONAL TRAINING) Pathologist [facility] PT 11.7 9.7 - 13.0 sec INR 1.08 0.90 - 1.20 [facility] Comment: Interpretive data Oral anticoagulant therapeutic ranges: Venous thromboembolism prophylaxis or treatment: 2.0-3.0 CARDIOLOGY Standard range: 2.0-3.0 High-intensity range: 2.5-3.5 Refer to indication-specific guidelines for appropriate target ranges for prosthetic heart valve replacement. Current interpretive data was last revised on 2019. Blood 05/05/2024 4:02 PM DIRECTOR OF VOCATIONAL TRAINING 05/05/2024 4:56 PM DIRECTOR OF VOCATIONAL TRAINING us Clif Mendez MD LAB BLOOD ORDERABLES Fi nal Result [facility] Department [place] [address] * (ABNORMAL) CBC without differential (05/05/2024 4:02 PM DIRECTOR OF VOCATIONAL TRAINING) WBC 10.4(H) 3.8 - 9.9 K/cumm Hgb 14.5 11.9 - 15.5 g/dL [facility] Hct 44.0 35.6 - 45.5 % [facility] Plt 277 150 - 400 K/cumm [facility] MPV 10.1 9.1 - 12.3 fL [facility] RBC 5.69(H) 3.90 - 5.20 M/cumm [facility] MCV 77.3(L) 81.3 - 96.4 fL [facility] MCH 25.5(L) 27.1 - 33.3 pg [facility] MCHC 33.0 32.3 - 35.7 g/dL [facility] RDW CV 13.3 11.1 - 14.9 % [facility] RDW SD 37.3 35.7 - 48.1 fL [facility] NRBC abs 0.00 0.00 - 0.01 K/cumm [facility] Blood 05/05/2024 4:02 PM DIRECTOR OF VOCATIONAL TRAINING 05/05/2024 4:52 PM DIRECTOR OF VOCATIONAL TRAINING us Kanu Lyles MD LAB BLOOD ORDERABLE S Final Result [facility] [place] [address] * (ABNORMAL) Hemoglobin A1c (05/05/2024 4:02 PM DIRECTOR OF VOCATIONAL TRAINING) [facility] Hgb A1C 5.7(H) 4.0 - 5.6 % Estimated Average Glucose 117 mg/dL [facility] Comment: The ADA recommends reporting an estimated Average Glucose (eAG) with all Hemoglobin A1c results using the equation derived from a study of 507 normal and diabetic adults. Minority populations were underrepresented and children were not included. (Diabetes Care 2020; 43(S1): S66-S76). The eAG is not equivalent to a fasting glucose. Blood 05/05/2024 4:02 PM DIRECTOR OF VOCATIONAL TRAINING 05/05/2024 4:53 PM DIRECTOR OF VOCATIONAL TRAINING Clif Mendez MD LAB BLOOD ORDERABLES Fi nal Result Performing Organization Address [facility] de Phone Number [facility] Department [place] [address] * Albumin (05/05/2024 4:02 PM DIRECTOR OF VOCATIONAL TRAINING) [facility] Albumin 4.2 3.5 - 5.0 g/dL Blood 05/05/2024 4:02 PM DIRECTOR OF VOCATIONAL TRAINING 05/05/2024 4:54 PM DIRECTOR OF VOCATIONAL TRAINING Clif Mendez MD LAB BLOOD ORDERABLES Fi nal Result Performing Organization Address City/[facility] Co de Phone Number [facility] [place] [address] * Basic metabolic panel (05/05/2024 4:02 PM DIRECTOR OF VOCATIONAL TRAINING) [facility] Sodium 142 135 - 145 mmol/L Potassium, pl 4.0 3.3 - 4.9 mmol/L [facility] Chloride 106 97 - 110 mmol/L [facility] CO2 25 22 - 32 mmol/L [facility] Anion gap 11 2 - 15 mmol/L [facility] BUN 11 6 - 25 mg/dL [facility] Creatinine 0.86 0.60 - 1.10 mg/dL [facility] Glucose 100 70 - 199 mg/dL [facility] Comment: Interpretive Data Fasting glucose >/= 126 mg/dl is diagnostic for diabetes. Fasting is defined as no caloric intake for at least 8 hours. Fasting glucose between 100 mg/dl to 125 mg/dl is diagnostic of prediabetes. In a patient with classic symptoms of hyperglycemia or hyperglycemic crisis, a random glucose >/= 200 mg/dl is diagnostic for diabetes. In the absence of unequivocal hyperglycemia, results should be confirmed by repeat testing. The classification and Diagnosis of Diabetes Diabetes Care 2021; 46: S19-S40. Current interpretive data was last revised 2022. Calcium 9.0 8.5 - 10.3 mg/dL [facility] Blood 05/05/2024 4:02 PM DIRECTOR OF VOCATIONAL TRAINING 05/05/2024 4:54 PM DIRECTOR OF VOCATIONAL TRAINING Kanu Lyles MD LAB BLOOD ORDERABLE S Final Result Performing Organization Address City/[facility]/ZIP Co de Phone Number [facility] [employer] [place] [address] * TYPE AND SCREEN 14 DAY (05/05/2024 3:48 PM DIRECTOR OF VOCATIONAL TRAINING) ABO Rh B Positive Brandon, indirect Negative [facility] Blood 05/05/2024 3:48 PM DIRECTOR OF VOCATIONAL TRAINING 05/05/2024 5:08 PM DIRECTOR OF VOCATIONAL TRAINING Narrative [facility] - 05/05/2024 9:21 PM DIRECTOR OF VOCATIONAL TRAINING Is this test being ordered in advance for a procedure?->Yes Expected date of procedure:->05/18/24 Has the patient been transfused in the past 3 months?->No Has the patient been in the past 3 months?->No Kanu Lyles MD LAB BLOOD BANK TEST ORDERABLES Final Result Performing Organization Address City/[facility]/ZIP Co de Phone Number [facility] [place] [address] from Last 3 Months Insurance MEDICARE [facility] Address: [address] [address] [place] [address] [facility] MEDICARE [facility] Address: [address] [address] [place] [address] MEDICARE FOR LIFE Advance Directives For more information, please contact: [phone] * Full Code (Latest Code Status on File) Date Activated Date Inactivated Comments 05/18/2024 5:44 PM 05/20/2024 6:10 PM Care Teams Pharmacovigilance Safety Expert Relationship Specialty Start Date End Date Gene Moreno MD [address] [place] [address] PCP - General Emergency Medicine 07/27/22 Sandra Mark MD [address] [facility] [address] [place] [address] Rheumatology 08/19/23
--- OUTSIDE RECORDS SUMMARY | 2024-07-21 11:30 | XMS_ITS | Clinical Summary ---
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 Name Role Phone Gene Moreno MD Primary Care Provide r Sandra Mark MD Unavailable + Allergies Active Allergy Reactions Criticality Noted Date [...] high risk for deep venous thrombosis 05/07/19 21 Chronic midline low back pain 01/30/2020 Vitamin D deficiency 01/30/2020 Primary osteoarthritis of fi rst carpometacarpal joint of left hand 06/02/2019 Assessment & Plan (06/02/2019 8:58 AM ORNAMENTAL BRICK INSTALLER): Status post left CMC injection today High [...] (05/08/2020): Added automatically from request for surgery [id number] Swelling 05/07/2020 07/19/2020 OA (osteoarthritis) of finger, right 01/30/2020 09/23/2021 Thumb pain 05/05/2019 07/19/2020 Assessment & Plan (05/05/2019 9:12 AM ORNAMENTAL BRICK INSTALLER): Status post intra-articular injection of the CMC today Arthritis, senescent 05/05/2019 021 Assessment & Plan (05/05/2019 9:13 AM ORNAMENTAL BRICK INSTALLER): Status post bilateral intra-articular injections Arthritis 06/17/2017 09/23/2021 SOB (shortness of breath) Chronic cough 07/19/2020 Encounters Date Type Department Care Team Description 06/30/2024 11:20 AM CDT Office Visit [facility] Orthopaedic Surgery [address] [facility] 12th [place] [address] [place] [address] Clif Mendez MD Status post cervical spinal fusion (Primary Dx) 06/30/2024 10:54 AM CDT - 06/30/2024 11:59 PM CDT Hospital Encounter [facility] [address] [place] [address] Status post cervical spinal fusion Discharge Disposition: Discharge to home or self care 06/05/2024 11:40 AM ORNAMENTAL BRICK INSTALLER Office Visit [facility] Orthopaedic Surgery [address] [facility] 2nd Floor [address] [place] [address] Clif Mendez MD Status post cervical spinal fusion (Primary Dx) 06/05/2024 11:15 AM ORNAMENTAL BRICK INSTALLER - 06/05/2024 11:59 PM ORNAMENTAL BRICK INSTALLER Hospital Encounter [facility] [address] [place] [phone] Clif Mendez MD Status post cervical spinal fusion Discharge Disposition: Discharge to home or self care 05/23/[address] [facility] Orthopaedic Surgery [facility] Medical Office Building [address] [place] [phone] Clif Mendez MD 05/18/2024 7:39 AM ORNAMENTAL BRICK INSTALLER Anesthesia Event [facility] Operating Room 1 [place] [address] Zachary Perez MD Edwards, Jacob Christopher, MD 05/18/2024 7:30 AM ORNAMENTAL BRICK INSTALLER - 05/18/2024 11:10 AM ORNAMENTAL BRICK INSTALLER Surgery [facility] Operating Room [address] [place] [address] Clif Mendez MD FUSION CERVICAL ANTERIOR DISCECTOMY WITH INSTRUMENTATION, C4-C7 Anterior Cervical Discectomy and Fusion with Instrumentation, Allograft, Autograft, Spinal Cord Monitoring 05/18/2024 5:13 AM ORNAMENTAL BRICK INSTALLER - 05/20/2024 2:00 PM ORNAMENTAL BRICK INSTALLER Hospital Encounter [address] [phone] Clif Mendez MD Cervical radiculopathy (Primary Dx) Discharge Disposition: Discharge to home or self care 05/17/[address] [facility] Orthopaedic Surgery [address] [place] [address] Medical Office Building [address] [place] [phone] Clif Mendez MD 05/12/2024 10:57 AM ORNAMENTAL BRICK INSTALLER - 05/12/2024 11:59 PM ORNAMENTAL BRICK INSTALLER Hospital Encounter [facility] [address] [place] [phone] Misael Almanza MD Lumbar radiculopathy (Primary Dx) Discharge Disposition: Discharge to home or self care 05/10/2024 8:00 AM ORNAMENTAL BRICK INSTALLER Office Visit [facility] Orthopaedic Surgery [address] [place] [address] 2nd Floor [address] [place] [address] Misael Almanza MD Lumbar radiculopathy (Primary Dx) 05/05/2024 2:30 PM ORNAMENTAL BRICK INSTALLER Pre-Admission Testing [facility] Center for Preoperative Assessment and Planning [facility] ([facility]) [address] [place] [address] Preoperative testing (Primary Dx); Spinal stenosis in cervical region; Cervical radiculopathy; Pain in other joint; Vitamin D deficiency; Type 2 diabetes mellitus with other specified complication, unspecified whether rodent exterminator insulin use (HCC) 05/05/2024 1:30 PM ORNAMENTAL BRICK INSTALLER Clinical Support [facility] Orthopaedic Surgery [address] [facility] 12th [place] [address] [place] [address] 04/26/[address] [facility] Orthopaedic Surgery [id number] [place] [address] 2nd Floor [address] [place] [address] Misael Almanza MD from Last 3 Months Immunizations Immunization Administration Dates Next Due Influenza, [...] adsorbed 04/13/2018 Tdap 09/17/2008 ZOSTER Recombinant 02/10/2019,12/07/2018 Surgical History Surgery Date Site/Laterality Comments WY STOT/TOT HYSTERECTOMY AFTER DELIVERY Hysterectomy - (Added by TW Conv) WY CHOLECSTOT/CHOLECSTOST W/EXPL DRG/RMVL ST1 SPX Cholecystotomy - (Added by TW Conv) HYSTERECTOMY CHOLECYSTECTOMY SECTION OOPHORECTOMY APPENDECTOMY ABDOMINAL SURGERY perforated CYST REMOVAL Right neck TOE SURGERY Bilateral bone removed from small toes IR INJECTION ARTHROGRAM SI JOINT BILATERAL WITH GUIDANCE 06/17/2020 Bilateral IR INJECTION ARTHROGRAM SI JOINT BILATERAL WITH GUIDANCE 09/24/2020 Bilateral HAND SURGERY FL UPPER GI AIR CONTRAST W KUB 11/18/2020 Left FACET BLOCK LUMBAR SACRAL 1 LEVEL LEFT 12/17/2020 Bilateral FLUORO GUIDED ASPIRATION OR INJECTION LARGE JOINT BILATERAL 05/23/2021 Bilateral IR INJECTION ARTHROGRAM SI JOINT BILATERAL WITH GUIDANCE 10/06/2021 Bilateral FACET BLOCK LUMBAR SACRAL 1 LEVEL LEFT 11/14/2021 Bilateral FACET BLOCK LUMBAR SACRAL 1 LEVEL LEFT 02/05/2022 Bilateral FL FLUORO GUIDED LUMBAR PUNCTURE 05/01/2022 Right FL UPPER GI AIR CONTRAST W KUB 07/27/2022 Bilateral EPIDURAL INJECTION LEFT CERVICAL THORACIC 1 LEVEL 08/18/2023 Left COLONOSCOPY SHOULDER SURGERY 10/05/2023 Right EPIDURAL INJECTION LEFT CERVICAL THORACIC 1 LEVEL 01/20/2024 Left CATARACT EXTRACTION 03/12/2024 - 04/11/2024 Left FL UPPER GI AIR CONTRAST W KUB 05/12/2024 Bilateral Medical History Medical History Date Comments Inflammatory arthritis Osteoarthritis Asthma Viral meningitis Diabetes (HCC) Gout Gastric reflux Hypertension Headache Allergic rhinitis Rheumatoid arthritis (HCC) Sickle cell anemia (HCC) Sleep apnea Urinary tract infection Pancreatitis due to common bile duct stone Family History Medical History Relation Name Comments Seizures Brother 1 Seizures Brother 2 No Known Problems Brother 3 No Known Problems Brother 4 No Known Problems Father Arthritis Maternal Grandmother Arlin Cancer Mother Maris Lucia Seizures Mother Maris Lucia Seizures Sister Anesthesia problems Neg Hx Relation Name Status Comments Brother 1 Alive Brother 2 Alive Brother 3 Alive Brother 4 Alive Father Maternal Grandmother Arlin Mother Maris Lucia Sister Alive Social History Tobacco Use Types Packs/Day Years [...] on file Legal Sex Female 7:57 PM ORNAMENTAL BRICK INSTALLER Gender Identity Not on file Sexual Orientation Not on file 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 Not on file Not on file Not on file Obstetrics History Last Filed Vital Signs Vital Sign Reading Time Taken Comments Blood Pressure 150/80 05/20/2024 7:32 AM ORNAMENTAL BRICK INSTALLER Pulse 78 05/20/2024 7:32 AM ORNAMENTAL BRICK INSTALLER Temperature 36.6 C (97.8 F) 05/20/2024 7:32 AM ORNAMENTAL BRICK INSTALLER Respiratory Rate 17 05/20/2024 7:32 AM ORNAMENTAL BRICK INSTALLER Oxygen Saturation 98% 05/20/2024 7:32 AM ORNAMENTAL BRICK INSTALLER Inhaled Oxygen Concentration - - Weight 72.6 kg (160 lb) 06/30/2024 11:11 AM CDT Height 157.5 cm (5' 2 ) 06/30/2024 11:11 AM CDT Body Mass Index 29.26 06/30/2024 11:11 AM CDT Plan of Treatment Health Maintenance Due Date Last Done Comments Albumin Creatinine Ratio, Urine 1957 Breast Cancer Screening-Mammogram 1957 Colon Cancer Screening-Colonoscopy 1957 Hepatitis C Screening 1957 Osteoporosis Screening-Bone Density Scan 1957 Dilated Eye Exam 1957 Foot Exam 1957 Hepatitis B Screening 1975 Pneumococcal vaccine 65+ (2 of 2 - PPSV23) 05/25/2019 03/30/2019, 01/25/2019 Well Visit 65+ 2022 Depression Screening 02/17/2023 02/17/2022 Covid-19 Vaccine (2023-2 5 season) 2023 07/01/2023, 03/19/2022, 07/18/2021, Additional history exists Hemoglobin A1C 11/02/2024 05/05/2024 Influenza Vaccine (Season Ended) 2024 03/04/2022, 02/25/2022, 01/23/2021, Additional history exists Lipid Panel 05/19/2025 05/19/2024 Fall Risk Assessment 05/20/2025 05/20/2024 eGFR 05/20/2025 05/20/2024, 10/2024, 05/05/2024, Additional history exists DTaP/Tdap/Td Vaccine (3 - Td or Tdap) 04/13/2028 04/13/2018, 09/17/2008 Zoster Vaccine Completed 02/10/2019, 12/07/2018 Medical Devices Implanted Type Area Strategy Analyst Device Identifier Shelf Expiration Date Model / Serial / Lot [employer] [id number] Corkscrew Fiberwire 2.7mm 7mm 17.9mm Needle Wire Foot Ankle 2-0 - [id number] Implanted:Qty: 1 on 05/22/2020 by Philip Fine MD at [facility] Right: Wrist [employer] [id number] 11/09/2024 [id number] / / [id number] [employer] [id number] Corkscrew Fiberwire 2.7mm 7mm 17.9mm Needle Wire Foot Ankle 2-0 - [id number] Implanted:Qty: 1 on 05/22/2020 by Philip Fine MD at [facility] Right: Wrist [employer] [id number] 11/09/2024 [id number] / / [id number] [employer] Graft Bone Magnetos 2.5cc 1-2mm Granules In Moldable Putty [id number] - [id number] Implanted:Qty: 1 on 05/18/2024 by Clif Mendez MD at [facility] N/A: Spine Cervical [facility] 10/10/2028 [id number] / / Medtronic Inc Screw Spinal Anterior Cervical Self Drilling Solid Zevo 3.5x17mm Titanium [id number] - [id number] Implanted:Qty: 7 on 05/18/2024 by Clif Mendez MD at [facility] N/A: Spine Cervical Medtronic Inc [id number] / / Medtronic Inc Plate Spine Anterior Cervical Level 3 Zevo 48mm Titanium [id number] - [id number] Implanted:Qty: 1 on 05/18/2024 by Clif Mendez MD at [facility] N/A: Spine Cervical Medtronic Inc [id number] / / Medtronic Inc Cage Spinal Cervical 6 Degree Acif Large Endoskeleton Tcs Nanolock [id number] Titanium [id number] - [id number] Implanted:Qty: 1 on 05/18/2024 by Clif Mendez MD at [facility] N/A: Spine Cervical Med[employer] Inc [id number] / / Medtronic Inc Cage Spinal Cervical 6 Degree Acif Large Endoskeleton Tcs Nanolock [id number] Titanium [id number] - [id number] Implanted:Qty: 1 on 05/18/2024 by Clif Mendez MD at [facility] N/A: Spine Cervical Med[employer]onic Inc [id number] -[id number] / / Medtronic Inc Cage Spinal Cervical 6 Degree Acif Large Endoskeleton Tcs Nanolock [id number] Titanium [id number] - [id number] Implanted:Qty: 1 on 05/18/2024 by Clif Mendez MD at [facility] N/A: Spine Cervical Med[employer]onic Inc [id number] -[id number] / / Medtronic Inc Screw Spinal Anterior Cervical Self Drilling Solid Zevo 4.0x17mm Titanium [id number] - [id number] Implanted:Qty: 1 on 05/18/2024 by Clif Mendez MD at [facility] N/A: Spine Cervical Med[employer] Inc [id number] / / Procedures Procedure Name Priority Date/Time Associated Diagnosis Comments XR SPINE CERVICAL 2 OR 3 VIEWS Schedule Routine, Read Routine (OP Routine) 06/30/2024 11:03 AM CDT Status post cervical spinal fusion XR SPINE CERVICAL 2 OR 3 VIEWS Schedule Routine, Read Routine (OP Routine) 06/05/2024 11:22 AM ORNAMENTAL BRICK INSTALLER Status post cervical spinal fusion POCT GLUCOSE DEVICE Routine 05/20/2024 7 :35 AM ORNAMENTAL BRICK INSTALLER EGFR Routine 05/20/2024 4:35 AM ORNAMENTAL BRICK INSTALLER CBC WITHOUT DIFFERENTIAL Routine 05/20/2024 4:35 AM ORNAMENTAL BRICK INSTALLER BASIC METABOLIC PANEL Routine 05/20/2024 4:35 AM ORNAMENTAL BRICK INSTALLER POCT GLUCOSE DEVICE Routine 05/19/2024 9 :17 PM ORNAMENTAL BRICK INSTALLER POCT GLUCOSE DEVICE Routine 05/19/2024 4 :53 PM ORNAMENTAL BRICK INSTALLER POCT GLUCOSE DEVICE Routine 05/19/2024 11:45 AM ORNAMENTAL BRICK INSTALLER URINALYSIS, MICROSCOPIC ONLY Routine 05/19/2024 10:49 AM ORNAMENTAL BRICK INSTALLER URINALYSIS AND REFLEX TO MICROSCOPIC AND CULTURE Routine 05/19/2024 10:49 AM ORNAMENTAL BRICK INSTALLER DIFFERENTIAL AUTO STAT 05/19/2024 10:33 AM ORNAMENTAL BRICK INSTALLER CBC WITH AUTO DIFFERENTIAL STAT 05/19/2024 10:33 AM ORNAMENTAL BRICK INSTALLER XR SPINE CERVICAL 2 OR 3 VIEWS Pending Discharge 05/19/2024 9:08 AM ORNAMENTAL BRICK INSTALLER POCT GLUCOSE DEVICE Routine 05/19/2024 7 :55 AM ORNAMENTAL BRICK INSTALLER LIPID PANEL Routine 05/19/2024 5:00 AM ORNAMENTAL BRICK INSTALLER EGFR Routine 05/19/2024 5:00 AM ORNAMENTAL BRICK INSTALLER CBC WITHOUT DIFFERENTIAL Routine 05/19/2024 5:00 AM ORNAMENTAL BRICK INSTALLER BASIC METABOLIC PANEL Routine 05/19/2024 5:00 AM ORNAMENTAL BRICK INSTALLER POCT GLUCOSE DEVICE Routine 05/18/2024 8 :13 PM ORNAMENTAL BRICK INSTALLER POCT GLUCOSE DEVICE Routine 05/18/2024 6 :56 PM ORNAMENTAL BRICK INSTALLER POCT GLUCOSE DEVICE Routine 05/18/2024 12:43 PM ORNAMENTAL BRICK INSTALLER FL FLUOROSCOPY < 1 HOUR IP Routine 05/18/2024 11:27 AM ORNAMENTAL BRICK INSTALLER WY AN PROCEDURE PLACEHOLDER Routine 05/18/2024 8:34 AM ORNAMENTAL BRICK INSTALLER WY AN ELECTIVE ENDOTRACHEAL AIRWAY Routine 05/18/2024 8:34 AM ORNAMENTAL BRICK INSTALLER SPINAL CORD MONITORING 05/18/2024 7:37 AM ORNAMENTAL BRICK INSTALLER Spinal stenosis in cervical region Cervical radiculopathy Special Needs Microscope, C-Arm, SCM, OSI Flat, Medtronic Divergence, Medtronic ZEVO FUSION CERVICAL ANTERIOR DISCECTOMY WITH INSTRUMENTATION 05/18/2024 7:37 AM ORNAMENTAL BRICK INSTALLER Spinal stenosis in cervical region Cervical radiculopathy Special Needs Microscope, C-Arm, SCM, OSI Flat, Medtronic Divergence, Medtronic ZEVO POCT GLUCOSE DEVICE Routine 05/18/2024 6 :33 AM ORNAMENTAL BRICK INSTALLER B CHECK SAMPLE STAT 05/18/2024 6:30 AM ORNAMENTAL BRICK INSTALLER TRANSFORAMINAL EPIDURAL INJECTION LUMBAR SACRAL FIRST LEVEL BILATERAL Schedule Routine, Read Routine (OP Routine) 05/12/2024 11:45 AM ORNAMENTAL BRICK INSTALLER Lumbar radiculopathy EGFR Routine 05/05/2024 4:02 PM ORNAMENTAL BRICK INSTALLER Preoperative testing LUPUS ANTICOAGULANT PANEL PLUS REFLEXES Routine 05/05/2024 4:02 PM ORNAMENTAL BRICK INSTALLER Preoperative testing URINALYSIS, MICROSCOPIC ONLY Routine 05/05/2024 4:02 PM ORNAMENTAL BRICK INSTALLER Spinal stenosis in cervical region Cervical radiculopathy CBC WITHOUT DIFFERENTIAL Routine 05/05/2024 4:02 PM ORNAMENTAL BRICK INSTALLER Preoperative testing BASIC METABOLIC PANEL Routine 05/05/2024 4:02 PM ORNAMENTAL BRICK INSTALLER Preoperative testing CPAP APTT ALGORITHM Routine 05/05/2024 4 :02 PM ORNAMENTAL BRICK INSTALLER Preoperative testing ALBUMIN Routine 05/05/2024 4:02 PM ORNAMENTAL BRICK INSTALLER Spinal stenosis in cervical region Cervical radiculopathy HEMOGLOBIN A1C Routine 05/05/2024 4:02 PM ORNAMENTAL BRICK INSTALLER Spinal stenosis in cervical region Cervical radiculopathy Type 2 diabetes mellitus with other specified complication, unspecified whether usp insulin use (HCC) VITAMIN D 25 HYDROXY Routine 05/05/2024 4:02 PM ORNAMENTAL BRICK INSTALLER Spinal stenosis in cervical region Cervical radiculopathy Vitamin D deficiency PROTIME-INR Routine 05/05/2024 4:02 PM ORNAMENTAL BRICK INSTALLER Spinal stenosis in cervical region Cervical radiculopathy Pain in other joint NICOTINE METABOLITE SCREEN, URINE Routine 05/05/2024 4:02 PM ORNAMENTAL BRICK INSTALLER Spinal stenosis in cervical region Cervical radiculopathy URINALYSIS AND REFLEX TO MICROSCOPIC AND CULTURE Routine 05/05/2024 4:02 PM ORNAMENTAL BRICK INSTALLER Spinal stenosis in cervical region Cervical radiculopathy TYPE AND SCREEN 14 DAY Routine 05/05/2024 3:48 PM ORNAMENTAL BRICK INSTALLER Preoperative testing from Last 3 Months Results * XR Spine Cervical 2 or 3 Views (06/30/2024 11:03 AM CDT) Anatomical Region Laterality Modality Spine N/A Computed Radiogr aphy 06/30/2024 12:2 7 PM CDT Impressions 06/30/2024 12:27 PM CDT Unchanged C4-C7 anterior discectomy and fusion. Electronically signed by: Geen Kidd D.O. Narrative 06/30/2024 12:27 PM CDT EXAMINATION: XR SPINE CERVICAL 2 OR 3 VIEWS HISTORY: C-spine fusion, follow up COMPARISON: Radiograph 06/05/2024 FINDINGS: Normal alignment. Normal vertebral body heights. C4-C7 anterior discectomy and fusion. Intact hardware without evidence of loosening. Maintained disc heights at the unfused segments. Mild multilevel facet arthropathy. Mild persistent prevertebral soft tissue swelling. Procedure Note Gene Kidd, DO - 06/30/2024 EXAMINATION: XR SPINE CERVICAL 2 [...] fusion. Electronically signed by: Gene Kidd D.O. Clif Mendez MD IMG XR PROCEDURES Final Result * XR Spine Cervical 2 or 3 Views (06/05/2024 11:22 AM ORNAMENTAL BRICK INSTALLER) Anatomical Region Laterality Modality Spine N/A Computed Radiogr aphy 06/05/2024 11:4 4 AM ORNAMENTAL BRICK INSTALLER Impressions 06/05/2024 11:44 AM ORNAMENTAL BRICK INSTALLER Unchanged anterior instrumented C4-C7 fusion in expected position. Electronically signed by: Blanco Smith M.D. Narrative 06/05/2024 11:44 AM ORNAMENTAL BRICK INSTALLER XR SPINE CERVICAL 2 OR 3 VIEWS [...] Result * POCT glucose (05/20/2024 7:35 AM ORNAMENTAL BRICK INSTALLER) Glucose, POC 100 70 - 199 mg/dL Blood 05/20/2024 7:35 AM ORNAMENTAL BRICK INSTALLER 05/20/2024 7:35 AM ORNAMENTAL BRICK INSTALLER Clif Mendez MD LAB POCT ORDERABLES - D EVICE Final Result [facility] Department [place] [address] * eGFR (05/20/2024 4:35 AM ORNAMENTAL BRICK INSTALLER) eGFR 71 >=60 mL/min/1. 73 m2 Comment: [...] last reviewed 2021. Blood 05/20/2024 4:35 AM ORNAMENTAL BRICK INSTALLER 05/20/2024 4:51 AM ORNAMENTAL BRICK INSTALLER Ed Du MD LAB BLOOD ORDERABLES Fi nal Result Performing Organization Address [facility] Co de Phone Number [facility] Department [place] [address] * (ABNORMAL) CBC without differential (05/20/2024 4:35 AM ORNAMENTAL BRICK INSTALLER) WBC 12.3(H) 3.8 - 9.9 K/cumm Hgb 12.8 11.9 - 15.5 g/dL [facility] Hct 39.2 35.6 - 45.5 % [facility] Plt 223 150 - 400 K/cumm [facility] MPV 9.3 9.1 - 12.3 fL [facility] RBC 5.06 3.90 - 5.20 M/cumm [facility] MCV 77.5(L) 81.3 - 96.4 fL [facility] MCH 25.3(L) 27.1 - 33.3 pg [facility] MCHC 32.7 32.3 - 35.7 g/dL [facility] RDW CV 14.0 11.1 - 14.9 % [facility] RDW SD 39.0 35.7 - 48.1 fL [facility] NRBC abs 0.00 0.00 - 0.01 K/cumm [facility] Blood 05/20/2024 4:35 AM ORNAMENTAL BRICK INSTALLER 05/20/2024 4:51 AM ORNAMENTAL BRICK INSTALLER Ed Du MD LAB BLOOD ORDERABLES Fi nal Result Performing Organization Address City/[facility]/ZIP Co de Phone Number [facility] Department [place] [address] * Basic metabolic panel (05/20/2024 4:35 AM ORNAMENTAL BRICK INSTALLER) Sodium 139 135 - 145 mmol/L Potassium, pl 4.1 3.3 - 4.9 mmol/L [facility] Chloride 108 97 - 110 mmol/L [facility] CO2 24 22 - 32 mmol/L [facility] Anion gap 7 2 - 15 mmol/L [facility] BUN 10 6 - 25 mg/dL [facility] Creatinine 0.89 0.60 - 1.10 mg/dL [facility] Glucose 96 70 - 199 mg/dL [facility] Comment: Interpretive Data Fasting glucose >/= 126 [...] classification and Diagnosis of Diabetes Diabetes Care 202; 46: S19-S40. Current interpretive data was last revised 2022. Calcium 8.5 8.5 - 10.3 mg/dL [facility] Blood 05/20/2024 4:35 AM ORNAMENTAL BRICK INSTALLER 05/20/2024 4:51 AM ORNAMENTAL BRICK INSTALLER us Ed Du MD LAB BLOOD ORDERABLES Fi nal Result [facility] Department [place] [address] * POCT glucose (05/19/2024 9:17 PM ORNAMENTAL BRICK INSTALLER) Glucose, POC 114 70 - 199 mg/dL Blood 05/19/2024 9:17 PM ORNAMENTAL BRICK INSTALLER 05/19/2024 9:17 PM ORNAMENTAL BRICK INSTALLER us Clif Mendez MD LAB POCT ORDERABLES - D EVICE Final Result Performing Organization Address [facility] Co de Phone Number [facility] [place] [address] * POCT glucose (05/19/2024 4:53 PM ORNAMENTAL BRICK INSTALLER) Glucose, POC 100 70 - 199 mg/dL Blood 05/19/2024 4:53 PM ORNAMENTAL BRICK INSTALLER 05/19/2024 4:53 PM ORNAMENTAL BRICK INSTALLER Clif Mendez MD LAB POCT ORDERABLES - D EVICE Final Result Performing Organization Address [facility] [place] [address] * POCT glucose (05/19/2024 11:45 AM ORNAMENTAL BRICK INSTALLER) Glucose, POC 103 70 - 199 mg/dL Blood 05/19/2024 11:4 5 AM ORNAMENTAL BRICK INSTALLER 05/19/2024 11:45 AM ORNAMENTAL BRICK INSTALLER Clif Mendez MD LAB POCT ORDERABLES - D EVICE Final Result Performing Organization Address [facility] de Phone Number [facility] [place] [address] * (ABNORMAL) Urinalysis reflex to microscopic and culture Urine, clean voided (05/19/2024 10:49 AM ORNAMENTAL BRICK INSTALLER) Color, ur Straw Yellow Clarity, ur Clear Clear [facility] Specific gravity, ur 1.008 1.003 - 1.030 [facility] pH, urine 6.0 [facility] Comment: Interpretive Data U rine pH is affected by diet, medications, systemic acid-base disturbances, and renal tubular function. pH may affect urinary stone formation. For example, urine pH below 6.0 may help reduce the tendency for calcium phosphate stones and pH greater than 6.0 may reduce the tendency for uric acid stone formation. Source: [facility] Current Interpretive Data was last revised on 2017 Protein, ur ql Negative Negative [facility] Glucose, ur ql Negative Negative [facility] Ketones, ur Negative Negative [facility] Bilirubin, ur Negative Negative [facility] Blood, ur Trace(A) Negative [facility] Urobilinogen, ur <2.0 <2.0 mg/dL [facility] Nitrite, ur Negative Negative [facility] Leukocyte esterase, ur Negative Negative [facility] UA reflex comment Reflex to microscopic UA will be performed. [facility] Urine, clean voided 05/19/2024 10:49 AM ORNAMENTAL BRICK INSTALLER 05/19/2024 11:01 AM ORNAMENTAL BRICK INSTALLER Tyesha Wick NP LAB MICROBIOLOGY - G ENERAL ORDERABLES Final Result Performing Organization Address [facility] Co de Phone Number [facility] Department [place] [address] * (ABNORMAL) Urinalysis, microscopic only (05/19/2024 10:49 AM ORNAMENTAL BRICK INSTALLER) WBC, ur 0-5 0 - 5 /HPF RBC, ur 0-2 0 - 2 /HPF [facility] Bacteria, ur Trace(A) [facility] Culture Reflex Comment Reflex conditions for urine culture (WBC >10) not met. [facility] Urine, clean voided 05/19/2024 10:49 AM ORNAMENTAL BRICK INSTALLER 05/19/2024 11:01 AM ORNAMENTAL BRICK INSTALLER Tyesha Wick NP LAB URINE ORDERABLES Final Result Performing Organization Address City/[facility]/ZIP Co de Phone Number [facility] Department [place] [address] * (ABNORMAL) Differential, auto (05/19/2024 10:33 AM ORNAMENTAL BRICK INSTALLER) Neutrophil abs 17.4(H) 1.5 - 6.5 K/cumm Imm gran abs 0.1 0.0 - 0.1 K/cumm [facility] Lymphocyte abs 1.7 0.8 - 3.3 K/cumm [facility] Monocyte abs 1.7(H) 0.2 - 0.8 K/cumm [facility] Eosinophil abs 0.5 0.0 - 0.5 K/cumm [facility] Basophil abs 0.1 0.0 - 0.1 K/cumm [facility] Neutrophil pct 80.9 % [facility] Comment: Interpretive Data Percent cell count reference ranges are not reported, since discordance with absolute values may lead to misinterpretation of CBC data. Current Interpretive Data was last revised on 2017. Imm gran pct 0.6 % [facility] Comment: Interpretive Data Percent cell count reference ranges are not reported, since discordance with absolute values may lead to misinterpretation of CBC data. Current Interpretive Data was last revised on 2017. Lymphocyte pct 8.0 % [facility] Comment: Interpretive Data Percent cell count reference ranges are not reported, since discordance with absolute values may lead to misinterpretation of CBC data. Current Interpretive Data was last revised on 2017. Monocyte pct 7.8 % [facility] Comment: Interpretive Data Percent cell count reference ranges are not reported, since discordance with absolute values may lead to misinterpretation of CBC data. Current Interpretive Data was last revised on 2017. Eosinophil pct 2.1 % [facility] Comment: Interpretive Data Percent cell count reference ranges are not reported, since discordance with absolute values may lead to misinterpretation of CBC data. Current Interpretive Data was last revised on 2017. Basophil pct 0.6 % [facility] Comment: Interpretive Data Percent cell count reference ranges are not reported, since discordance with absolute values may lead to misinterpretation of CBC data. Current Interpretive Data was last revised on 2017. Blood 05/19/2024 10:3 3 AM ORNAMENTAL BRICK INSTALLER 05/19/2024 10:45 AM ORNAMENTAL BRICK INSTALLER us Tyesha Wick NP LAB BLOOD ORDERABLES Final Result [facility] [place] [address] * (ABNORMAL) CBC with auto differential (05/19/2024 10:33 AM ORNAMENTAL BRICK INSTALLER) WBC 21.5(H) 3.8 - 9.9 K/cumm Hgb 13.8 11.9 - 15.5 g/dL [facility] Hct 43.6 35.6 - 45.5 % [facility] Plt 247 150 - 400 K/cumm [facility] MPV 9.5 9.1 - 12.3 fL [facility] RBC 5.48(H) 3.90 - 5.20 M/cumm [facility] MCV 79.6(L) 81.3 - 96.4 fL [facility] MCH 25.2(L) 27.1 - 33.3 pg [facility] MCHC 31.7(L) 32.3 - 35.7 g/dL [facility] RDW CV 13.8 11.1 - 14.9 % [facility] RDW SD 39.7 35.7 - 48.1 fL [facility] NRBC abs 0.00 0.00 - 0.01 K/cumm [facility] Blood 05/19/2024 10:3 3 AM ORNAMENTAL BRICK INSTALLER 05/19/2024 10:45 AM ORNAMENTAL BRICK INSTALLER Tyesha Wick TRANSPORTATION PROGRAM DIRECTOR LAB BLOOD ORDERABLES Final Result [facility] [place] [address] * XR Spine Cervical 2 or 3 Views (05/19/2024 9:08 AM ORNAMENTAL BRICK INSTALLER) Anatomical Region Laterality Modality Spine N/A Computed Radiogr aphy 05/19/2024 10:2 5 AM ORNAMENTAL BRICK INSTALLER Impressions 05/19/2024 10:39 AM ORNAMENTAL BRICK INSTALLER 1. Interval anterior cervical discectomy and instrumented fusion from C4 through C7. Dictated by: Juni Rosado M.D. The radiology attending physician has personally reviewed this study, and had reviewed and/or edited this written report and agrees with it. Electronically signed by: Andry Santana D.O. Narrative 05/19/2024 10:39 AM ORNAMENTAL BRICK INSTALLER EXAMINATION: XR SPINE CERVICAL 2 OR 3 [...] in the postoperative setting. Procedure Note Andry Santana, DO - 05/19/2024 EXAMINATION: XR SPINE CERVICAL [...] by: Andry Santana D.O. us Tyesha Wick TRANSPORTATION PROGRAM DIRECTOR IMG XR PROCEDURES Fi nal Result * POCT glucose (05/19/2024 7:55 AM ORNAMENTAL BRICK INSTALLER) Glucose, POC 108 70 - 199 mg/dL Comment:Glu2: RN/MD Notified Glucose comment 1 Glu2: RN/MD Notified [facility] Blood 05/19/2024 7:55 AM ORNAMENTAL BRICK INSTALLER 05/19/2024 7:55 AM ORNAMENTAL BRICK INSTALLER us Clif Mendez MD LAB POCT ORDERABLES - D EVICE Final Result [facility] Department of Laboratories [place], [place] [id number] * eGFR (05/19/2024 5:00 AM ORNAMENTAL BRICK INSTALLER) Pathologist [facility] eGFR 69 >=60 mL/min/1. 73 m2 Comment: [...] last reviewed 2021. Blood 05/19/2024 5:00 AM ORNAMENTAL BRICK INSTALLER 05/19/2024 5:29 AM ORNAMENTAL BRICK INSTALLER Ed Du MD LAB BLOOD ORDERABLES Fi nal Result [facility] Department [place] [address] * (ABNORMAL) CBC without differential (05/19/2024 5:00 AM ORNAMENTAL BRICK INSTALLER) [facility] WBC 20.9(H) 3.8 - 9.9 K/cumm Hgb 13.5 11.9 - 15.5 g/dL [facility] Hct 40.9 35.6 - 45.5 % [facility] Plt 288 150 - 400 K/cumm [facility] MPV 10.6 9.1 - 12.3 fL [facility] RBC 5.33(H) 3.90 - 5.20 M/cumm [facility] MCV 76.7(L) 81.3 - 96.4 fL [facility] MCH 25.3(L) 27.1 - 33.3 pg [facility] MCHC 33.0 32.3 - 35.7 g/dL [facility] RDW CV 13.7 11.1 - 14.9 % [facility] RDW SD 37.6 35.7 - 48.1 fL [facility] NRBC abs 0.00 0.00 - 0.01 K/cumm [facility] Blood 05/19/2024 5:00 AM ORNAMENTAL BRICK INSTALLER 05/19/2024 5:28 AM ORNAMENTAL BRICK INSTALLER us Ed Du MD LAB BLOOD ORDERABLES Fi nal Result [facility] Department [place] [address] * Lipid panel (05/19/2024 5:00 AM ORNAMENTAL BRICK INSTALLER) Cholesterol 117 30 - 199 mg/dL Comment: [...] revised on 2017. Triglycerides 48 <=149 mg/dL [facility] Comment: Interpretive Data Ages < or = [...] revised on 2017. HDL 63 >=40 mg/dL [facility] Comment: Interpretive Data Ages < or = [...] on 2017. LDL, calculated 42 <=129 mg/dL [facility] Comment: Interpretive Data Ages < or = 19 years Acceptable: <110 mg/dL Borderline high: 110-129 mg/dL High: >or= 130 mg/dL Ages > or = 20 years Optimal: <100 mg/dL Near optimal: 100-129 mg/dL Borderline high: 130-159 mg/dL High: >160 mg/dL Calculated using the Aubrey LDL-C estimating equation. This equation was implemented on 2023. Prior to this date LDL-C was estimated using the Friedewald equation. Literature References: 1. Expert Panel on Integrated Guidelines for Cardiovascular Health and Risk Reduction in Children and Adolescents. Pediatrics 2011;128:S213 2. NCEP Expert Panel. Circulation 2004;110:227 3. Aubrey Silva et al. CORETTA Cardiol. 2019August 10;5(5):540-548. doi: 10.1001/[email or web address] Current Interpretive Data was last revised on 2023. Non-HDL Cholesterol 54 mg/dL [facility] Comment: Interpretive Data Ages < or = [...] last revised on 2017. Chol/HDL ratio 2 [facility] Blood 05/19/2024 5:00 AM ORNAMENTAL BRICK INSTALLER 05/19/2024 5:29 AM ORNAMENTAL BRICK INSTALLER Narrative [facility] - 05/19/2024 8:37 AM ORNAMENTAL BRICK INSTALLER Reflex us Clif Mendez MD LAB BLOOD ORDERABLES Fi nal Result Performing Organization Address City/[facility]/ZIP Co de Phone Number [facility] Department [place] [address] * Basic metabolic panel (05/19/2024 5:00 AM ORNAMENTAL BRICK INSTALLER) Sodium 138 135 - 145 mmol/L Potassium, pl 4.3 3.3 - 4.9 mmol/L [facility] Chloride 104 97 - 110 mmol/L [facility] CO2 23 22 - 32 mmol/L [facility] Anion gap 11 2 - 15 mmol/L [facility] BUN 9 6 - 25 mg/dL [facility] Creatinine 0.92 0.60 - 1.10 mg/dL [facility] Glucose 94 70 - 199 mg/dL [facility] Comment: Interpretive Data Fasting glucose >/= 126 [...] classification and Diagnosis of Diabetes Diabetes Care 202; 46: S19-S40. Current interpretive data was last revised 2022. Calcium 8.8 8.5 - 10.3 mg/dL [facility] Blood 05/19/2024 5:00 AM ORNAMENTAL BRICK INSTALLER 05/19/2024 5:29 AM ORNAMENTAL BRICK INSTALLER us Ed Du MD LAB BLOOD ORDERABLES Fi nal Result Performing Organization Address City/[facility]/[place] [address] * POCT glucose (05/18/2024 8:13 PM ORNAMENTAL BRICK INSTALLER) Glucose, POC 139 70 - 199 mg/dL Blood 05/18/2024 8:13 PM ORNAMENTAL BRICK INSTALLER 05/18/2024 8:13 PM ORNAMENTAL BRICK INSTALLER us Clif Mendez MD LAB POCT ORDERABLES - D EVICE Final Result Performing Organization Address [facility] [place] [address] * POCT glucose (05/18/2024 6:56 PM ORNAMENTAL BRICK INSTALLER) Glucose, POC 147 70 - 199 mg/dL Blood 05/18/2024 6:56 PM ORNAMENTAL BRICK INSTALLER 05/18/2024 6:56 PM ORNAMENTAL BRICK INSTALLER us Clif Mendez MD LAB POCT ORDERABLES - D EVICE Final Result Performing Organization Address [facility] Co de Phone Number [facility] [place] [address] * POCT glucose (05/18/2024 12:43 PM ORNAMENTAL BRICK INSTALLER) Glucose, POC 130 70 - 199 mg/dL Blood 05/18/2024 12:4 3 PM ORNAMENTAL BRICK INSTALLER 05/18/2024 12:43 PM ORNAMENTAL BRICK INSTALLER Clif Mendez MD LAB POCT ORDERABLES - D EVICE Final Result Performing Organization Address [facility] [place] [address] * FL Fluoroscopy < 1 Hour (05/18/2024 11:27 AM ORNAMENTAL BRICK INSTALLER) Narrative [email or web address] - 05/18/2024 11:27 AM ORNAMENTAL BRICK INSTALLER The images from this study are not interpreted by Radiology. Please refer to the physician's procedure / OR operative note. us Clif Mendez MD IMG FLUOROSCOPY PROCEDU RES Final Result Performing Organization Address [facility] Co de Phone Number [email or web address] * W[place] AN ELECTIVE ENDOTRACHEAL AIRWAY, [place] AN PROCEDURE PLACEHOLDER (05/18/2024 8:34 AM ORNAMENTAL BRICK INSTALLER) Narrative Zachary Perez MD - 05/18/2024 8:34 AM ORNAMENTAL BRICK INSTALLER Zachary Perez MD 05/18/2024 8:35 AM Airway [...] Result * POCT glucose (05/18/2024 6:33 AM ORNAMENTAL BRICK INSTALLER) Glucose, POC 98 70 - 199 mg/dL Blood 05/18/2024 6:33 AM ORNAMENTAL BRICK INSTALLER 05/18/2024 6:33 AM ORNAMENTAL BRICK INSTALLER us Clif Mendez MD LAB POCT ORDERABLES - D EVICE Final Result Performing Organization Address City/[facility]/ZIP Co de Phone Number [facility] Department [place] [address] * Check Sample (05/18/2024 6:30 AM ORNAMENTAL BRICK INSTALLER) ABO Rh B Positive [facility] OTHER 05/18/2024 6:30 AM ORNAMENTAL BRICK INSTALLER 05/18/2024 6:51 AM ORNAMENTAL BRICK INSTALLER Clif Mendez MD LAB BLOOD ORDERABLES Fi nal Result [facility] Department [place] [address] [facility] * IR Transforaminal Epidural Injection Lumbar Sacral First Level Bilateral (05/12/2024 11:45 AM ORNAMENTAL BRICK INSTALLER) Narrative [facility] - 05/12/2024 11:49 AM ORNAMENTAL BRICK INSTALLER The images from this study are not interpreted by Radiology. Please refer to the physician's procedure / OR operative note. Misael Almanza MD IMG IR PROCEDURES Final Result Performing Organization Address City/[facility]/ZIP Co de Phone Number [email or web address] * (ABNORMAL) Lupus Anticoagulant Panel plus Reflexes (05/05/2024 4:02 PM ORNAMENTAL BRICK INSTALLER) PT 12.0 9.7 - 13.0 sec INR 1.11 0.90 - 1.20 [facility] Comment: Interpretive data Oral anticoagulant therapeutic ranges: Venous thromboembolism prophylaxis or treatment: 2.0-3.0 CARDIOLOGY Standard range: 2.0-3.0 High-intensity range: 2.5-3.5 Refer to indication-specific guidelines for appropriate target ranges for prosthetic heart valve replacement. Current interpretive data was last revised on 2019. aPTT 41(H) 28 - 38 sec [facility] Comment: Interpretive Data Heparin therapeutic range: 66.0 - 100.0 seconds. Range based on correlation with therapeutic heparin activity range of 0.3 - 0.7 Units/mL. Current interpretive data was last revised on 2023. Thrombin Time 13.90 10.00 - 15.00 sec [facility] DRVVT screen ratio 1.02 0.00 - 1.20 Ratio [facility] SCT Screen Ratio 1.61(H) 0.00 - 1.16 Ratio [facility] SCT Confirm Ratio 1.03 Ratio [facility] SCT S/C Ratio 1.56(H) 0.00 - 1.16 Ratio [facility] Lupus anticoagulant, interp Positive( A) [facility] Comment: Interpretive data Lupus anticoagulants (LA) are acquired autoantibodies that interfere with invitro clotting in a phospholipid-dependent manner and are associated with an increased risk of thromboembolic events and complications. Routine APTT and PT reagents are not sensitive to inhibition by LA, and should not be used as screening tests. The laboratory follows ISTH 2009 guidelines ([place], 2009) for LA testing and interpretation: Two [...] heparin. References: 1) Rose V, Obie A, [place] [facility], Orjamesl TL, Travis M, De Roman PG. Update of the guidelines for lupus anticoagulant detection. J Thromb Haemost. 2009; 7:5924-9128. 2. Moe Brunson al. International consensus statement on an update of the classification criteria for definite antiphospholipid syndrome (APS). J Thromb Haemost. 2006; 4:295-306. Current interpretive data was last revised on 2018 Blood 05/05/2024 4:02 PM ORNAMENTAL BRICK INSTALLER 05/05/2024 4:56 PM ORNAMENTAL BRICK INSTALLER Kanu Lyles MD LAB BLOOD ORDERABLE S Final Result Performing Organization Address [facility] de Phone Number [facility] Department [place] [address] * eGFR (05/05/2024 4:02 PM ORNAMENTAL BRICK INSTALLER) eGFR 74 >=60 mL/min/1. 73 m2 Comment: [...] last reviewed 2021. Blood 05/05/2024 4:02 PM ORNAMENTAL BRICK INSTALLER 05/05/2024 4:54 PM ORNAMENTAL BRICK INSTALLER us Kanu Lyles MD LAB BLOOD ORDERABLE S Final Result Performing Organization Address [facility] Co de Phone Number [facility] Department [place] [address] * (ABNORMAL) CPAP aPTT algorithm (05/05/2024 4:02 PM ORNAMENTAL BRICK INSTALLER) aPTT 41(H) 28 - 38 sec Comment: Interpretive Data Heparin therapeutic range: 66.0 - 100.0 seconds. Range based on correlation with therapeutic heparin activity range of 0.3 - 0.7 Units/mL. Current interpretive data was last revised on 2023. Blood 05/05/2024 4:02 PM ORNAMENTAL BRICK INSTALLER 05/05/2024 4:02 PM ORNAMENTAL BRICK INSTALLER Kanu Lyles MD LAB BLOOD ORDERABLE S Final Result Performing Organization Address City/[facility]/ZIP Co de Phone Number [facility] [place] [address] * (ABNORMAL) Urinalysis reflex to microscopic and culture Urine, clean voided (05/05/2024 4:02 PM ORNAMENTAL BRICK INSTALLER) Color, ur Straw Yellow Clarity, ur Clear Clear [facility] Specific gravity, ur 1.013 1.003 - 1.030 [facility] pH, urine 6.5 [facility] Comment: Interpretive Data U rine pH is affected by diet, medications, systemic acid-base disturbances, and renal tubular function. pH may affect urinary stone formation. For example, urine pH below 6.0 may help reduce the tendency for calcium phosphate stones and pH greater than 6.0 may reduce the tendency for uric acid stone formation. Source: [facility] Current Interpretive Data was last revised on 2017 Protein, ur ql Negative Negative [facility] Glucose, ur ql Negative Negative [facility] Ketones, ur Negative Negative [facility] Bilirubin, ur Negative Negative [facility] Blood, ur Trace(A) Negative [facility] Urobilinogen, ur <2.0 <2.0 mg/dL [facility] Nitrite, ur Negative Negative [facility] Leukocyte esterase, ur Negative Negative [facility] UA reflex comment Reflex to microscopic UA will be performed. [facility] Urine, clean voided 05/05/2024 4:02 PM ORNAMENTAL BRICK INSTALLER 05/05/2024 4:49 PM ORNAMENTAL BRICK INSTALLER us Clif Mendez MD LAB MICROBIOLOGY - GENE RAL ORDERABLES Final Result Performing Organization Address City/[facility]/ZIP Co de Phone Number [facility] Department [place] [address] * Nicotine metabolite screen, urine (05/05/2024 4:02 PM ORNAMENTAL BRICK INSTALLER) [facility] Nicotine, ur <5.0 <5.0 ng/mL [facility] Cotinine, ur <5.0 <5.0 ng/mL [facility] Anabasine ur <2.0 <2.0 ng/mL [facility] Comment: ADDITIONAL INFORMATION This test was developed and its performance characteristics determined by [facility] in a manner consistent with CLIA requirements. This test has not been cleared or approved by the U.S. Food and Drug Administration. Test Performed by: [place] [address] Director Sales Training: Margi Downey Ph.D.; CLIA# [id number] Nornicotine, ur <2.0 <2.0 ng/mL [facility] Urine 05/05/2024 4:02 PM ORNAMENTAL BRICK INSTALLER 05/05/2024 6:30 PM ORNAMENTAL BRICK INSTALLER Clif Mendez MD LAB URINE ORDERABLES Fi nal Result Performing Organization Address [facility] [place] [address] [facility] * Vitamin D 25 hydroxy (05/05/2024 4:02 PM ORNAMENTAL BRICK INSTALLER) [facility] Vitamin D 25-OH 30 30 - 80 ng/mL Blood 05/05/2024 4:02 PM ORNAMENTAL BRICK INSTALLER 05/05/2024 4:54 PM ORNAMENTAL BRICK INSTALLER Clif Mendez MD LAB BLOOD ORDERABLES Fi nal Result Performing Organization Address [facility]/[place] [address] * (ABNORMAL) Urinalysis, microscopic only (05/05/2024 4:02 PM ORNAMENTAL BRICK INSTALLER) WBC, ur 0-5 0 - 5 /HPF RBC, ur 3-5(A) 0 - 2 /HPF [facility] Epithelial cells, squamous, ur 1-5 0 - 5 /HPF [facility] Mucous, ur Present(A) [facility] Culture Reflex Comment Reflex conditions for urine culture (WBC >10) not met. [facility] Urine, clean voided 05/05/2024 4:02 PM ORNAMENTAL BRICK INSTALLER 05/05/2024 4:49 PM ORNAMENTAL BRICK INSTALLER Clif Mendez MD LAB URINE ORDERABLES Fi nal Result Performing Organization Address [facility] de Phone Number [facility] [place] [address] * Protime-INR (05/05/2024 4:02 PM ORNAMENTAL BRICK INSTALLER) Pathologist [facility] PT 11.7 9.7 - 13.0 sec INR 1.08 0.90 - 1.20 [facility] Comment: Interpretive data Oral anticoagulant therapeutic ranges: Venous thromboembolism prophylaxis or treatment: 2.0-3.0 CARDIOLOGY Standard range: 2.0-3.0 High-intensity range: 2.5-3.5 Refer to indication-specific guidelines for appropriate target ranges for prosthetic heart valve replacement. Current interpretive data was last revised on 2019. Blood 05/05/2024 4:02 PM ORNAMENTAL BRICK INSTALLER 05/05/2024 4:56 PM ORNAMENTAL BRICK INSTALLER Clif Mendez MD LAB BLOOD ORDERABLES Fi nal Result Performing Organization Address [facility] Co de Phone Number [facility] Department [place] [address] * (ABNORMAL) CBC without differential (05/05/2024 4:02 PM ORNAMENTAL BRICK INSTALLER) Pathologist [facility] WBC 10.4(H) 3.8 - 9.9 K/cumm Hgb 14.5 11.9 - 15.5 g/dL [facility] Hct 44.0 35.6 - 45.5 % [facility] Plt 277 150 - 400 K/cumm [facility] MPV 10.1 9.1 - 12.3 fL [facility] RBC 5.69(H) 3.90 - 5.20 M/cumm [facility] MCV 77.3(L) 81.3 - 96.4 fL [facility] MCH 25.5(L) 27.1 - 33.3 pg [facility] MCHC 33.0 32.3 - 35.7 g/dL [facility] RDW CV 13.3 11.1 - 14.9 % [facility] RDW SD 37.3 35.7 - 48.1 fL [facility] NRBC abs 0.00 0.00 - 0.01 K/cumm [facility] Blood 05/05/2024 4:02 PM ORNAMENTAL BRICK INSTALLER 05/05/2024 4:52 PM ORNAMENTAL BRICK INSTALLER us Kanu Lyles MD LAB BLOOD ORDERABLE S Final Result Performing Organization Address City/State/ZIP Vt de Phone Number [facility] Department [place] [address] * (ABNORMAL) Hemoglobin A1c (05/05/2024 4:02 PM ORNAMENTAL BRICK INSTALLER) Hgb A1C 5.7(H) 4.0 - 5.6 % Estimated Average Glucose 117 mg/dL [facility] Comment: The ADA recommends reporting an estimated Average Glucose (eAG) with all Hemoglobin A1c results using the equation derived from a study of 507 normal and diabetic adults. Minority populations were underrepresented and children were not included. (Diabetes Care 2020; 43(S1): S66-S76). The eAG is not equivalent to a fasting glucose. Blood 05/05/2024 4:02 PM ORNAMENTAL BRICK INSTALLER 05/05/2024 4:53 PM ORNAMENTAL BRICK INSTALLER us Clif Mendez MD LAB BLOOD ORDERABLES Fi nal Result [facility] Department [place] [address] * Albumin (05/05/2024 4:02 PM ORNAMENTAL BRICK INSTALLER) Pathologist [facility] Albumin 4.2 3.5 - 5.0 g/dL Blood 05/05/2024 4:02 PM ORNAMENTAL BRICK INSTALLER 05/05/2024 4:54 PM ORNAMENTAL BRICK INSTALLER us Clif Mendez MD LAB BLOOD ORDERABLES Fi nal Result Performing Organization Address [facility] Co de Phone Number [facility] [place] [address] * Basic metabolic panel (05/05/2024 4:02 PM ORNAMENTAL BRICK INSTALLER) [facility] Sodium 142 135 - 145 mmol/L Potassium, pl 4.0 3.3 - 4.9 mmol/L [facility] Chloride 106 97 - 110 mmol/L [facility] CO2 25 22 - 32 mmol/L [facility] Anion gap 11 2 - 15 mmol/L [facility] BUN 11 6 - 25 mg/dL [facility] Creatinine 0.86 0.60 - 1.10 mg/dL [facility] Glucose 100 70 - 199 mg/dL [facility] Comment: Interpretive Data Fasting glucose >/= 126 [...] 2022. Calcium 9.0 8.5 - 10.3 mg/dL [facility] Blood 05/05/2024 4:0 2 PM ORNAMENTAL BRICK INSTALLER 05/05/2024 4:54 PM ORNAMENTAL BRICK INSTALLER Kanu Lyles MD LAB BLOOD ORDERABLE S Final Result Performing Organization Address [facility] Co de Phone Number [facility] [place] [address] * TYPE AND SCREEN 14 DAY (05/05/2024 3:48 PM ORNAMENTAL BRICK INSTALLER) ABO Rh B Positive [place], indirect Negative [facility] Blood 05/05/2024 3:48 PM ORNAMENTAL BRICK INSTALLER 05/05/2024 5:08 PM ORNAMENTAL BRICK INSTALLER Narrative [facility] - 05/05/2024 9:21 PM ORNAMENTAL BRICK INSTALLER Is this test being ordered in advance for a procedure?->Yes Expected date of procedure:->05/18/24 Has the patient been transfused in the past 3 months?->No Has the patient been in the past 3 months?->No Kanu Lyles MD LAB BLOOD BANK TEST ORDERABLES Final Result Performing Organization Address [facility] de Phone Number [facility]LECIA [facility] [place] [address] from Last 3 Months Insurance MEDICARE [employer] [facility] MEDICARE MEDICARE FOR LIFE Advance Directives For more information, please contact: [phone] * Full Code (Latest Code Status on File) Date Activated Date Inactivated Comments 05/18/2024 5:44 PM 05/20/2024 6:10 PM Care Teams Needle Felt Making Machine Operator Relationship Specialty Start Date End Date Gene Moreno MD [address] [place] [address] PCP - General Emergency Medicine 07/27/22 Sandra Mark MD [address] [place] [address] Rheumatology 08/19/23
--- OUTSIDE RECORDS SUMMARY | 2024-07-21 11:30 | XMS_ITS | Encounter Summary ---
Author Organization [facility] Address [address] [place] [address] Phone Care Team Providers Care Car Dumper Operator Name Role Phone Jones Edmondson MD Primary Care Provider [phone] Radu Jara MD Primary Care Provider [phone] Tracy Dickerson PACKAGING MACHINE OPERATOR Unavailable [phone] Marylou Alas DO Unavailable [phone] Radu Jara MD Primary Care Provider [phone] Marylou Alas DO Primary Care Provider [phone] Biju Rogers MD Primary Care Provider +- [phone] Marylou Alas DO Primary Care Provider [phone] Biju Rogers MD Primary Care Provider [phone] Gene Moreno MD Primary Care Provide r Sandra Mark MD Unavailable + Encounter Details Date Type Department Care Team (Latest Contact Info) Description 07/28/2017 Orders Only [facility] CONVERSION Scanning, Provider Social History Tobacco Use Types Packs/Day Years Used Date Smoking Tobacco: Former Comments Unknown Sex and Gender Information Value Date Recorded Sex Assigned at Not on file 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 Gender Identity Not on file Sexual Orientation Not on file documented as of this encounter Plan of Treatment Not on file documented as of this encounter Procedures Procedure Name Priority Date/Time Associated Diagnosis Comments PULMONARY FUNCTION TEST (PFT) 07/28/2017 8:25 AM CDT documented in this encounter Results * PULMONARY FUNCTION TEST (PFT) (07/28/2017 8:25 AM CDT) Anatomical Region Laterality Modality PFT us Provider Scanning PFT ORDERABLES Final Result documented in this encounter Visit Diagnoses Not on filedocumented in this encounter Care Teams Car Dumper Operator Relationship Specialty Start Date End Date Jones Edmondson MD [address] [place] [address] PCP - General 07/23/17 10/13/18 Radu Jara MD [address] [place] [address] PCP - General 10/14/18 01/29/20 Radu Jara MD [address] [place] [address] PCP - General 01/30/20 02/01/20 Marylou Alas DO [address] [place], [place] [address] PCP - General Family Medicine 02/02/20 03/27/21 Biju Rogers MD [address] [place] [address] PCP - General Internal Medicine 03/28/21 05/08/21 Evette Marylou Yuridia, DO [address] [place] [address] PCP - General 05/09/21 11/13/21 Biju Rogers MD [address] [place] [address] PCP - General Internal Medicine 11/14/21 07/26/22 Gene Moreno MD [address] [place], [place] [address] PCP - General Emergency Medicine 07/27/22 Tracy Dickerson NP [address] [place] [address] Nurse Practitioner Rheumatology 11/24/19 07/26/22 Evette Marylou Yuridia, DO [address] [place] [address] Family Medicine 12/13/19 07/26/22 Sandra Mark MD [address] [facility] [address] [place] [address] Rheumatology 08/19/23 documented as of this encounter
--- OUTSIDE RECORDS SUMMARY | 2024-07-21 11:30 | XMS_ITS | Encounter Summary ---
Author Organization [facility] Address [address] [facility] [address] [place] [address] Phone Care Team Providers Care Grey Percher Name Role Phone NathanTracy gamino Cindy OREILLY Unavailable [phone] Marylou Alas DO Unavailable [phone] Marylou Alas DO Primary Care Provider [phone] Biju Rogers MD Primary Care Provider +- [phone] Marylou Alas DO Primary Care Provider [phone] Biju Rogers MD Primary Care Provider [phone] Gene Moreno MD Primary Care Provide r Sandra Mark MD Unavailable + Encounter Details Date Type Department Care Team (Late st Contact Info) Description 10/14/2020 Orders Only [facility] RHEUMATOLOGY Scanning, Provider Social History Tobacco Use Types Packs/Day Years Used Date Smoking Tobacco: Former Cigarettes 0.5 21 1 4 - 1994 Smokeless Tobacco: Never Alcohol Use Standard Drinks/Week Comments Yes 0 (1 standard drink = 0.6 oz pur e alcohol) rare AUDIT-C Answer Date Recorded Q1: How often do you have a drink containing alc ohol? 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 Not on file Not on file documented as of this encounter Plan of Treatment Not on file documented as of this encounter Procedures Procedure Name Priority Date/Time Associated Diagnosis Comments SCAN - RADIOLOGY/IMAGING 10/14/2020 documented in this encounter Results * SCAN - RADIOLOGY/IMAGING (10/14/2020) Anatomical Region Laterality Modality Other us Provider Scanning Final Result documented in this encounter Visit Diagnoses Not on filedocumented in this encounter Care Teams Grey Percher Relationship Specialty Start Date End Date Marylou Alas DO PCP - General Family Medicine 02/02/20 03/27/21 Biju Rogers MD PCP - General Internal Medicine 03/28/21 05/08/21 Marylou Alas DO PCP - General 05/09/21 11/13/21 Biju Rogers MD [address] [place] [address] PCP - General Internal Medicine 11/14/21 07/26/22 Gene Moreno MD [address] [place] [address] PCP - General Emergency Medicine 07/27/22 Tracy Dickerson, AFIA Nurse Practitioner Rheumatology 11/24/19 07/26/22 Marylou Alas DO Family Medicine 12/13/19 07/26/22 Sandra Mark MD [address] [facility] [address] [place] [address] Rheumatology 08/19/23 documented as of this encounter
[2024-07-21 12:18] LABS: Hemoglobin A1C 5.2 % (<5.7)
[2024-07-21 12:22] LABS: Cholesterol 120 mg/dL (0-200); Creatine Kinase 63 U/L (30-135); HDL Direct 48 mg/dL; Triglycerides 70 mg/dL (<150)
[2024-07-21 12:25] LABS: Alanine Aminotransferase 16 U/L (6-35); Albumin Level 3.9 g/dL (3.5-5.1); Alkaline Phosphatase 68 U/L (38-126); Anion Gap 8 mmol/L (4-12); Aspartate Amino Transferase 22 U/L (14-36); Bilirubin,Total 0.5 mg/dL (0.2-1.3); Blood Urea Nitrogen 16 mg/dL (7-17); Calcium 8.9 mg/dL (8.4-10.2); Carbon Dioxide 26 mmol/L (22-30); Chloride 105 mmol/L (98-107); Estimated Glomerular Filt Rate > 60; Glucose 81 mg/dL (65-110); Potassium 3.8 mmol/L (3.4-5.0); Sodium 139 mmol/L (137-145)
[2024-07-21 12:33] LABS: LDL Cholesterol Direct 55 mg/dL
[2024-07-21 12:36] LABS: Vitamin D 25 Hydroxy 33.7 ng/mL
[2024-07-21 13:22] LABS: Vitamin B12 > 1000.0 pg/mL (239-931)
[2024-07-21 20:52] LABS: Creatinine Urine 40.6 mg/dL
[2024-07-21 20:56] LABS: MALB Creatinine Ratio < 14.8 mg/g (0-30); Microalbumin Urine Random < 6.0 mg/L (0-16.7)
[2024-07-24 13:34] LABS: Homocysteine 7.3 umol/L (<10.4)
[2024-07-24 15:53] LABS: Red Blood Cell Folate 565 ng/mL RBC (>280)
[2024-07-25 13:33] LABS: Vitamin B1 160 nmol/L (8-30)
[2024-07-25 21:44] LABS: Vitamin B6 7.2 ng/mL (2.1-21.7)
[2024-07-27 11:22] LABS: Vitamin D 1,25 (OH)2 Total 24 pg/mL (18-72); Vitamin D2 1,25 (OH)2 <8 pg/mL; Vitamin D3 1,25 (OH)2 24 pg/mL
== END 2024-07-21 11:07 | disposition home or self-care (01) ==
PROVIDERS: PCP Emergency Medicine; Referring Provider Psychiatry & Neurology Neurology; Visit Provider Emergency Medicine
DX: E11.9 Type 2 diabetes mellitus without complications (principal); E55.9 Vitamin D deficiency, unspecified; E78.5 Hyperlipidemia, unspecified; M06.9 Rheumatoid arthritis, unspecified; M79.10 Myalgia, unspecified site; J45.909 Unspecified asthma, uncomplicated; M54.50 Low back pain, unspecified; M54.2 Cervicalgia
CPT/HCPCS: 36415; 80053; 80061; 82043; 82306; 82550; 82607; 82652; 82747; 83036; 83090; 83921; 84207; 84425; 86334

== ENCOUNTER 2024-08-28 14:58 | Outpatient (CLI) | payer MEDICARE, OTHER, SELFPAY ==
--- NOTE | ~2024-08-28 | MM_ITS ---
EXAMINATION: MM screening katie BI w gael HISTORY: Screening TECHNIQUE: Craniocaudal and mediolateral oblique 3-D tomosynthesis images were obtained and synthetic 2-D images were generated. CAD analysis was submitted and interpreted. COMPARISON: Comparison to multiple prior studies sequentially, with oldest reviewed study dated 09/01. BREAST PARENCHYMAL COMPOSITION: Not dense: There are scattered areas of fibroglandular density. FINDINGS: There is no evidence of suspicious mass, calcification, or architectural distortion to sugg est malignancy in either breast. There has been no suspicious interval change. IMPRESSION: 1. No mammographic evidence of malignancy. 2. Recommend routine screening mammography in one year. BI-RADS Category 1: Negative Reviewed, dictated and finalized at location B.
== END 2024-08-28 14:59 | disposition home or self-care (01) ==
LOC: MICIMG 14:59
PROVIDERS: PCP Emergency Medicine; Visit Provider Emergency Medicine
DX: Z12.31 Encounter for screening mammogram for malignant neoplasm of breast (principal)
CPT/HCPCS: 77063; 77067

== ENCOUNTER 2024-09-14 13:07 | Outpatient (CLI) | payer MEDICARE, OTHER, SELFPAY ==
--- OUTSIDE RECORDS SUMMARY | 2024-09-14 13:41 | XMS_ITS | Encounter Summary ---
Author Organization [facility] Address [address] [place] [address] Care Team Providers Care Director Of Global Sales Name Role Phone Unavailable Primary Care Provider Unavailabl e Encounter Details Date Type Department Care Team (Late st Contact Info) Description 04/29/2022 Lab Requisition [facility] [address] [place] [id number] Ashish Sanches MD [address] [place] [address] Social History Tobacco Use Types Packs/Day Years Used Date Smoking Tobacco: Former Smokeless Tobacco: Never Comments Unknown Sex and Gender Information Value Date Recorded Sex Assigned at Not on file 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 Gender Identity Not on file Sexual Orientation Not on file documented as of this encounter Plan of Treatment Not on file documented as of this encounter Procedures Procedure Name Priority Date/Time Associated Diagnosis Comments DERMATOPATHOLOGY Routine 04/28/2022 12:0 0 AM MEASUREMENT SPECIALIST documented in this encounter Results * DERMATOPATHOLOGY (04/28/2022 12:00 AM MEASUREMENT SPECIALIST) Case Report Dermatopathology Report Case: [id number] Authorizing Provider: Ashish Sanches MD Collected: 04/28/2022 12:00 AM Ordering Location: [facility] Care DermPath Lab Received: 04/29/2022 04:41 PM Pathologist: Lisset Lucia MD Specimen: Skin, right thumb 1:29 PM MEASUREMENT SPECIALIST DERMATOPATHOLOGY LABORATORY Final Diagnosis Specimen A. 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 The specimen consists of a shave biopsy measuring 9x9x3 mm. Jar 0. 1:29 PM [facility] DERMATOPATHOLOGY LABORATORY Microscopic Description Specimen A. SKIN, right thumb: Sections show papillomatosis and hypergranulosis with overlying focal parakeratosis. The base of the lesion is not visualized. COMMENT: Given the superficial nature of the biopsy specimen, a deeper process cannot be excluded. 1:29 PM [facility] DERMATOPATHOLOGY LABORATORY Disclaimer An external and internal positive and negative controls are appropriate for the histochemical, immunohistochemical and immunofluorescence stain(s) in this case (if any), except where stated explicitly. The performance characteristics of the stain(s) cited in this report were developed and its performance characteristic determined by the Dermatopathology Laboratory at [facility], directed by Dr. Radha Bates. These tests need not be, and therefore are not, approved by the [place] Food and Drug Administration. The tests are used for clinical purposes. Billing Codes Specimen Charges Stain Charges 33428 1 3 1:29 PM [facility] DERMATOPATHOLOGY LABORATORY Embedded Images 3 1:29 PM [facility] DERMATOPATHOLOGY LABORATORY Pathology/Cytolog y TISSUE SPECIMEN FROM SKIN / Unknown 04/28/2022 04/29/2022 4:41 PM MEASUREMENT SPECIALIST us Ashish Sanches MD LAB - PATHOLOGY/CYTOLOGY ORDER ANNELISE Final Result DERMATOPATHOLOGY LABORATORY [facility] - Department of Dermatology [address] [phone] documented in this encounter Visit Diagnoses Not on filedocumented in this encounter
--- OUTSIDE RECORDS SUMMARY | 2024-09-14 13:41 | XMS_ITS | Encounter Summary ---
Author Organization [facility] Address [address] [place] [address] Care Team Providers Care Rhinestone Setter Name Role Phone Unavailable Primary Care Provider Unavailabl e Encounter Details Date Type Department Care Team (Late st Contact Info) Description 03/27/2022 Lab Requisition [facility] DermPath Lab [address] [facility] [place] [id number] Ashish Sanches MD [address] [place] [place] [address] Social History Tobacco Use Types Packs/Day Years Used Date Smoking Tobacco: Former Smokeless Tobacco: Never Comments Unknown Sex and Gender Information Value Date Recorded Sex Assigned at Not on file 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 Gender Identity Not on file Sexual Orientation Not on file documented as of this encounter Plan of Treatment Not on file documented as of this encounter Procedures Procedure Name Priority Date/Time Associated Diagnosis Comments DERMATOPATHOLOGY Routine 03/25/2022 12:0 0 AM MOTOR POOL DRIVER documented in this encounter Results * DERMATOPATHOLOGY (03/25/2022 12:00 AM MOTOR POOL DRIVER) Case Report Dermatopathology Report Case: [id number] Authorizing Provider: Ashish Sanches MD Collected: 03/25/2022 12:00 AM Ordering Location: [facility] Care DermPath Lab Received: 03/27/2022 06:59 AM Pathologist: Krystal Braswell MD Specimen: Skin, right thumb 2 3:26 PM MOTOR POOL DRIVER DERMATOPATHOLOGY LABORATORY Final Diagnosis Specimen A. SKIN, right thumb: PARAKERATOSIS (L85.9) (see microscopic description and comment) 2 3:26 PM [facility] DERMATOPATHOLOGY LABORATORY at [address] MOTOR POOL DRIVER Clinical History VV vs. Other Path: [id number] 2 3:26 PM [facility] DERMATOPATHOLOGY LABORATORY Gross Description Specimen A: Received is one formalin filled container labeled with the patient's name and designated right thumb. The specimen consists of a shave biopsy measuring 4x3x1 mm. Jar 0. 2 3:26 PM [facility] DERMATOPATHOLOGY LABORATORY Microscopic Description Specimen A. SKIN, right thumb: The specimen consisted mostly of stratum corneum with retained nuclei. There is no cellular epidermis present for evaluation. COMMENT: This type of stratum corneum is frequently seen overlying squamous proliferations such as verruca vulgaris, clavus (corn), actinic keratoses or squamous cell carcinomas. Additional deeper sections were obtained and reviewed. 2 3:26 PM [facility] DERMATOPATHOLOGY LABORATORY Disclaimer An external and internal positive and negative controls are appropriate for the histochemical, immunohistochemical and immunofluorescence stain(s) in this case (if any), except where stated explicitly. The performance characteristics of the stain(s) cited in this report were developed and its performance characteristic determined by the Dermatopathology Laboratory at [facility], directed by Dr. Radha Bates. These tests need not be, and therefore are not, approved by the [place] Food and Drug Administration. The tests are used for clinical purposes. Billing Codes Specimen Charges Stain Charges 71514 1 2 3:26 PM [facility] DERMATOPATHOLOGY LABORATORY Embedded Images 2 3:26 PM [facility] DERMATOPATHOLOGY LABORATORY Pathology/Cytolog y TISSUE SPECIMEN FROM SKIN / Unknown 03/25/2022 03/27/2022 6:59 AM [facility] us Ashish Sanches MD LAB - PATHOLOGY/CYTOLOGY ORDER ANNELISE Final Result DERMATOPATHOLOGY LABORATORY [facility] - Department of Dermatology [address], [address] [phone] documented in this encounter Visit Diagnoses Not on filedocumented in this encounter
--- OUTSIDE RECORDS SUMMARY | 2024-09-14 13:41 | XMS_ITS | Clinical Summary ---
Author Organization [facility] Address [address] [place] [address] Care Team Providers Care Pony Ride Attendant Name Role Phone Unavailable Primary Care Provider Unavailabl e Source Comments [facility],non-owned Affiliates and Associated Physician Practices is amultiple site organization consisting of ambulatory clinics and hospital sitesin [place], [place], [place] and [place]. This disclosure is being madepursuant to the Care Everywhere program and may not contain all information available regarding this patient. Last updated 17.[facility] 4 the stars Allergies Active Allergy Reactions Criticality Noted Date Comments Aspirin Other Medications * Be aware that medications may not be up to date on this document. Alwaysverify current medications with the patient. vitamin D, cholecalciferol , 2000 UNITS tablet 1 tablet once daily 8 Active REFRESH TEARS 0.5 % ophthalmic solution 1 drop 3 times daily 8 Active progesterone 200 mg 200 mg tablet 0.5 tablets 8 Active emollient (VANICREAM) cream 1 applicator once daily 8 Active folic acid (FOLVITE) 1 MG tablet 1 tablet once daily 8 Active losartan-hydroC HLOROthiazide (HYZAAR) 100-12.5 MG tablet 1 tablet once daily 8 Active methotrexate 2.5 MG tablet 6 tablets every 7 days 8 Active terbinafine (LAMISIL) 1 % cream 1 applicator 8 Active triamcinolone acetonide (KENALOG) 0.1 % cream 1 applicator 8 Active Immunizations Immunization Administration Dates Next Due INFLUENZA VACCINE 02/04/2018 Social History Tobacco Use Types Packs/Day Years Used Date Smoking Tobacco: Former Smokeless Tobacco: Never Comments Unknown Sex and Gender Information Value Date Recorded Sex Assigned at Not on file 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 Sex Female 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 MILEAGE CLERK Gender Identity Not on file Sexual Orientation Not on file Last Filed Vital Signs Vital Sign Reading Time Taken Comments Blood Pressure 117/68 04/08/2018 11:24 AM MILEAGE CLERK Pulse 62 04/08/2018 11:24 AM MILEAGE CLERK Temperature 36.9 C (98.5 F) 04/08/2018 11:24 AM MILEAGE CLERK Respiratory Rate 18 04/08/2018 11:24 AM MILEAGE CLERK Oxygen Saturation 100% 04/08/2018 11:24 AM MILEAGE CLERK Inhaled Oxygen Concentration - - Weight 85.3 kg (188 lb) 04/08/2018 11:24 AM MILEAGE CLERK Height 157.5 cm (5' 2) 04/08/2018 11:24 AM MILEAGE CLERK Body Mass Index 34.39 04/08/2018 11:24 AM MILEAGE CLERK Plan of Treatment Health Maintenance Due Date [...] COMPREHENSIVE METABOLIC PANEL Routine 04/08/2018 11:18 AM MILEAGE CLERK Leukocytosis, unspecified type from Last 3 Months or Most Recently Relevant to Health Maintenance Results * COMPREHENSIVE METABOLIC PANEL (04/08/2018 11:18 AM MILEAGE CLERK) BUN 15 7 - 26 mg/dL 04/08/2018 11:[address] [facility] Creatinine 1.0 0.6 - 1.2 mg/dL 04/08/2018 11:[address] [facility] Sodium 141 136 - 145 mmol/L 04/08/2018 11:[address] [facility] Potassium 3.9 3.5 - 4.5 mmol/L 04/08/2018 11:[address] [facility] Chloride 106 98 - 107 mmol/L 04/08/2018 11:[address] [facility] CO2 27 22 - 29 mmol/L 04/08/2018 11:[address] [facility] Glucose 88 70 - 115 mg/dL 04/08/2018 11:[address] [facility] Calcium 9.7 8.4 - 10.2 mg/dL 04/08/2018 11:52 AM [facility] Protein Total 6.7 6.0 - 8.3 g/dL 04/08/2018 11:[address] [facility] Albumin 3.5 3.4 - 5.0 g/dL 04/08/2018 11:[address] [facility] Bilirubin Total 0.4 0.2 - 1.2 mg/dL 04/08/2018 11:[address] [facility] Alkaline Phosphatase 58 40 - 150 Units/L 04/08/2018 11:52 AM [facility] ALT 8 0 - 55 Units/L 04/08/2018 11:[address] [facility] AST 10 5 - 34 Units/L 04/08/2018 11:[address] [facility] Anion Gap 12 8 - 18 04/08/2018 11:[address] [facility] BUN/Creatinine Ratio 15 7 - 23 04/08/2018 11:[address] [facility] Osmolality Calculated 292 270 - 300 mOsm/kg 04/08/2018 11:[address] [facility] Albumin/Globulin Ratio 1.1 1.1 - 2.3 04/08/2018 11:[address] [facility] eGFR >60 >60 mL/min/1.7 3 m2 04/08/2018 11:[address] [facility] Blood BLOOD SPECIMEN / Unknown Lab Venipuncture / Unknown 04/08/2018 11:18 AM MILEAGE CLERK 04/08/2018 11:28 AM [facility] us Praveen Ordonez MD LAB - CHEMISTRY ORDERABLES Tammy gilmore Result [address] [phone] from Last 3 Months or Most Recently Relevant to Health Maintenance Insurance [facility] Address: [facility] [address] [place] [address] [place] [address]
--- OUTSIDE RECORDS SUMMARY | 2024-09-14 13:42 | XMS_ITS | Encounter Summary ---
Author Organization [facility] Address [address] [facility] [address] [place] [address] Phone Care Team Providers Care Park Interpreter Name Role Phone Radu Jara MD Primary Care Provider [phone] Tracy Dickerson NP Unavailable [phone] Marylou Alas DO Unavailable [phone] Radu Jara MD Primary Care Provider [phone] Marylou Alas DO Primary Care Provider [phone] Biju Rogers MD Primary Care Provider [phone] Marylou Alas DO Primary Care Provider [phone] Biju Rogers MD Primary Care Provider [phone] Gene Moreno MD Primary Care Provide r [...] on file 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 Gender Identity Not on file Sexual Orientation Not on file 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 file Not [...] on filedocumented in this encounter Care Teams Park Interpreter Relationship Specialty Start Date End Date Radu Jara MD PCP - General 10/14/18 01/29/20 Radu Jara MD PCP - General 01/30/20 02/01/20 Marylou Alas DO PCP - General Family Medicine 02/02/20 03/27/21 Biju Rogers MD PCP - General Internal Medicine 03/28/21 05/08/21 Marylou Alas DO PCP - General 05/09/21 11/13/21 Biju Rogers MD [address] [place] [address] PCP - General Internal Medicine 11/14/21 07/26/22 Gene Moreno MD [address] [place] [address] PCP - General Emergency Medicine 07/27/22 Tracy Dickerson NP Nurse Practitioner Rheumatology 11/24/19 07/26/22 Marylou Alas DO Family Medicine 12/13/19 07/26/22 Sandra Mark MD [address] [facility] [address] [place] [address] Rheumatology 08/19/23 documented as of this encounter
--- OUTSIDE RECORDS SUMMARY | 2024-09-14 13:42 | XMS_ITS | Encounter Summary ---
Author Organization [facility] Address [address] [place] [address] Phone Care Team Providers Care Central Supply Aide Name Role Phone Jones Edmondson MD Primary Care Provider [phone] Radu Jara MD Primary Care Provider [phone] Tracy Dickerson MUTTON PUNCHER Unavailable [phone] Marylou Alas DO Unavailable [phone] Radu Jara MD Primary Care Provider [phone] Marylou Aals DO Primary Care Provider [phone] Biju Rogers MD Primary Care Provider [phone] Marylou Alas DO Primary Care Provider [phone] Biju Rogers MD Primary Care Provider [phone] Gene Moreno MD Primary Care Provide r Sandra Mark MD Unavailable + Encounter Details Date Type Department Care Team (Latest Contact Info) Description 07/28/2017 Orders Only [facility] CONVERSION Scanning, Provider Social History Tobacco Use Types Packs/Day Years Used Date Smoking Tobacco: Former Comments Unknown Sex and Gender Information Value Date Recorded Sex Assigned at Not on file 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 Gender Identity Not on file Sexual Orientation [...] on filedocumented in this encounter Care Teams Central Supply Aide Relationship Specialty Start Date End Date Jones Edmondson MD [address] [place] [address] PCP - General 07/23/17 10/13/18 Radu Jara MD [address] [place] [address] PCP - General 10/14/18 01/29/20 Radu Jara MD [address] [place] [address] PCP - General 01/30/20 02/01/20 Marylou Alas DO [address] [place], [place] [address] PCP - General Family Medicine 02/02/20 03/27/21 Biju Rogers MD [address] [place] [address] PCP - General Internal Medicine 03/28/21 05/08/21 Evette Marylou Yuridia, DO [address] [place] [address] PCP - General 05/09/21 11/13/21 Biju Rogers MD [address] [place] [address] PCP - General Internal Medicine 11/14/21 07/26/22 Gene Moreno MD [address] [place], [place] [address] PCP - General Emergency Medicine 07/27/22 Tracy Dickerson NP [address] [place] [address] Nurse Practitioner Rheumatology 11/24/19 07/26/22 Evette Marylou Yuridia, DO [address] [place] [address] Family Medicine 12/13/19 07/26/22 Sandra Mark MD [address] [facility] [address] [place] [address] Rheumatology 08/19/23 documented as of this encounter
--- OUTSIDE RECORDS SUMMARY | 2024-09-14 13:42 | XMS_ITS | Encounter Summary ---
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 [place] [address] PCP - General Emergency Medicine 07/27/22 Sandra Mark MD [address] [facility] [address] [place] [address] Rheumatology 08/19/23 documented as of this encounter
--- OUTSIDE RECORDS SUMMARY | 2024-09-14 13:42 | XMS_ITS | Referral Summary ---
Author Organization [facility] Address [address] [place] [address] Care Team Providers Care Radioactive Waste Disposal Dispatcher Name Role Phone Gene Moreno MD Primary Care Provide r TemSandra zazueta MD Unavailable + Encounters Date Type Department Care Team Description 09/12/2024 Telephone [facility] Orthopaedic Surgery [address] [place] [address] 2nd [address] [place] [address] Melany Keen CMA Scheduling Appointments 09/12/2024 Telephone [facility] Surgery [address] [place] [address] 2nd [address] [place] [address] Melany Keen CMA Scheduling Appointments 09/12/2024 8:45 AM CDT - 09/12/2024 11:59 PM CDT Hospital Encounter [facility] [address] [place] [address] Hip pain, unspecified laterality Discharge Disposition: Discharge to home or self care 09/12/2024 8:30 AM CDT Office Visit [facility] [address] [place] [address] 2nd [address] [place] [address] Misael Almanza MD Hip pain, unspecified laterality (Primary Dx); Osteoarthritis of both hips, unspecified osteoarthritis type 09/08/2024 Telephone [facility] [address] [place] [address] 2nd [address] [place] [address] Misael Almanza MD 09/07/2024 Telephone [facility] [address] [place] [address] 2nd [address] [place] [address] Misael Almanza MD 08/21/2024 7:39 AM CDT - 08/21/2024 11:59 PM CDT Hospital Encounter [facility] [id number] [place] [address] Misael Almanza MD Lumbar radiculopathy (Primary Dx) Discharge Disposition: Discharge to home or self care 08/18/2024 Orders Only [facility] [address] [place] [address] [facility] 12th [place] [address] [place] [address] Clif Mendez MD Status post cervical spinal fusion (Primary Dx) 08/18/2024 10:46 AM CDT - 08/18/2024 11:59 PM CDT Hospital Encounter [facility] [address] [place] [address] S/P cervical spinal fusion Discharge Disposition: Discharge to home or self care 08/18/2024 11:20 AM CDT Office Visit [facility] Orth[facility] [address] [place] [address] [facility] 12th [place] [address] [place] [address] Clif Mendez MD Fusion of spine of cervical region (Primary Dx) 08/16/2024 Orders Only [facility] [address] [place] [address] [address] [place] [address] Misael Almanza MD Lumbar radiculopathy (Primary Dx) 08/08/2024 Orders Only [facility] [address] [place] [address] [facility] 12th [place] [address] [place] [address] Clif Mendez MD S/P cervical spinal fusion (Primary Dx) 06/30/2024 10:54 AM CDT - 06/30/2024 11:59 PM CDT Hospital Encounter [facility] [address] [place] [address] Status post cervical spinal fusion Discharge Disposition: Discharge to home or self care 06/30/2024 11:20 AM CDT Office Visit [facility] Orthopaedic Surgery [address] [facility] [address]th [place] [address] [place] [address] Clif Mendez MD Status post cervical spinal fusion (Primary Dx) from Last 3 Months Allergies Active Allergy [...] 12 (twelve) hours 60 capsule 1 5 Active Mucinex 600 mg 12 hr tablet 5 Active triamcinolone (KENALOG) 0.1 % cream 5 Active Active Problems Problem Noted Date Diagnosed [...] 06/02/2019 Assessment & Plan (06/02/2019 8:58 AM WASTE HAND): Status post left CMC injection today High [...] (05/08/2020): Added automatically from request for surgery [id number] Swelling 05/07/2020 07/19/2020 OA (osteoarthritis) of finger, right 01/30/2020 09/23/2021 Thumb pain 05/05/2019 07/19/2020 Assessment & Plan (05/05/2019 9:12 AM WASTE HAND): Status post intra-articular injection of the CMC today Arthritis, senescent 05/05/2019 021 Assessment & Plan (05/05/2019 9:13 AM WASTE HAND): Status post bilateral intra-articular injections Arthritis 06/17/2017 [...] making you feel afraid or unsafe? 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 Not on file Not on file Not on file Last Filed Vital Signs Vital Sign Reading Time Taken Comments Blood Pressure 123/81 08/21/2024 9:05 AM CDT Pulse 64 08/21/2024 9:05 AM CDT Temperature 36.6 C (97.8 F) 05/20/2024 7:32 AM WASTE HAND Respiratory Rate 18 08/21/2024 9:05 AM CDT Oxygen Saturation 96% 08/21/2024 9:05 AM CDT Inhaled Oxygen Concentration - - Weight 72.6 kg (160 lb) 08/21/2024 8:21 AM CDT Height 157.5 cm (5' 2) 06/30/2024 11:11 AM CDT Body Mass Index 29.26 06/30/2024 11:11 AM CDT Plan of Treatment Not on file Medical Devices Implanted Type Area Asphalt Heater Tender Device Identifier Shelf Expiration Date Model / Serial / Lot [employer] [id number] Corkscrew Fiberwire 2.7mm 7mm 17.9mm Needle Wire Foot Ankle 2-0 - [id number] Implanted:Qty: 1 on 05/22/2020 by Philip Fine MD at [facility] Right: Wrist [employer] [id number] 11/09/2024 [id number] / / [id number] [employer] [id number] Corkscrew Fiberwire 2.7mm 7mm 17.9mm Needle Wire Foot Ankle 2-0 - [id number] Implanted:Qty: 1 on 05/22/2020 by Philip Fine MD at [facility] Right: Wrist [employer] [id number] 11/09/2024 [id number] / / [id number] [employer] Graft Bone Magnetos 2.5cc 1-2mm Granules In Moldable Putty 703-043-Us - [id number] Implanted:Qty: 1 on 05/18/2024 by Clif Mendez MD at [facility] N/A: Spine Cervical [employer] 10/10/2028 [id number] / / Medtronic [employer] Screw Spinal Anterior Cervical Self Drilling Solid Zevo 3.5x17mm Titanium [id number] - [id number] Implanted:Qty: 7 on 05/18/2024 by Clif Mendez MD at [facility] N/A: Spine Cervical [employer] [id number] / / Med[employer] Plate Spine Anterior Cervical Level 3 Zevo 48mm Titanium [id number] - [id number] Implanted:Qty: 1 on 05/18/2024 by Clif Mendez MD at [facility] N/A: Spine Cervical [employer] [id number] / / [employer] Inc Cage Spinal Cervical 6 Degree Acif Large Endoskeleton Tcs Nanolock [id number] Titanium 8470-8753-N - [id number] Implanted:Qty: 1 on 05/18/2024 by Clif Mendez MD at [facility] N/A: Spine Cervical [employer] [id number] -[id number] / / [employer] Cage Spinal Cervical 6 Degree Acif Large Endoskeleton Tcs Nanolock [id number] Titanium 9131-9922-N - [id number] Implanted:Qty: 1 on 05/18/2024 by Clif Mendez MD at [facility] N/A: Spine Cervical [employer] [id number] -[id number] / / [employer] Cage Spinal Cervical 6 Degree Acif Large Endoskeleton Tcs Nanolock [id number] Titanium [id number]-N - [id number] Implanted:Qty: 1 on 05/18/2024 by Clif Mendez MD at [facility] N/A: Spine Cervical [employer] [id number] -[id number] / / Med[employer] Inc Screw Spinal Anterior Cervical Self Drilling Solid Zevo 4.0x17mm Titanium [id number] - [id number] Implanted:Qty: 1 on 05/18/2024 by Clif Mendez MD at [facility] N/A: Spine Cervical [employer] Inc [id number] / / Procedures Procedure Name Priority Date/Time Associated Diagnosis Comments XR PELVIS 1 OR 2 VIEWS Schedule Routine, Read Routine (OP Routine) 09/12/2024 9:03 AM CDT Hip pain, unspecified laterality TRANSFORAMINAL EPIDURAL INJECTION LUMBAR SACRAL FIRST LEVEL BILATERAL Schedule Routine, Read Routine (OP Routine) 08/21/2024 8:56 AM CDT Lumbar radiculopathy XR SPINE CERVICAL 2 OR 3 VIEWS Schedule Routine, Read Routine (OP Routine) 08/18/2024 10:51 AM CDT S/P cervical spinal fusion XR SPINE CERVICAL 2 OR 3 VIEWS Schedule Routine, Read Routine (OP Routine) 06/30/2024 11:03 AM CDT Status post cervical spinal fusion EGFR Routine 05/20/2024 4:35 AM WASTE HAND LIPID PANEL Routine 05/19/2024 5:00 AM WASTE HAND HEMOGLOBIN A1C Routine 05/05/2024 4:02 PM WASTE HAND Spinal stenosis in cervical region Cervical radiculopathy Type 2 diabetes mellitus with other specified complication, unspecified whether group home insulin use (HCC) from Last 3 Months or Most Recently Relevant to Health Maintenance Results * XR Pelvis 1 or 2 Views (09/12/2024 9:03 AM CDT) Anatomical Region Laterality Modality Body, Pelvis N/A Computed Radiogr aphy 09/12/2024 9:07 AM CDT Impressions 09/12/2024 9:07 AM CDT 1. Unchanged mild bilateral hip osteoarthritis. 2. Partially imaged advanced degenerative changes in the lower lumbar spine. Electronically signed by: Espinoza Pantoja M.D. Narrative 09/12/2024 9:07 AM CDT EXAMINATION: XR PELVIS 1 OR 2 VIEWS HISTORY: pelvis pain FINDINGS: 2 examination of the pelvis is read with comparison to 05/09/2021. Both hips are well-seated without fracture. Unchanged mild bilateral hip osteoarthritis. Pubic symphysis is normal. Mild bilateral sacroiliac joint osteoarthritis. Advanced degenerative changes in the lower lumbar spine, partially imaged. Procedure Note Espinoza Hayden MD - 09/12/2024 EXAMINATION: XR PELVIS 1 OR 2 VIEWS HISTORY: pelvis pain FINDINGS: 2 examination of the pelvis is read with comparison to 05/09/2021. Both hips are well-seated without fracture. Unchanged mild bilateral hip osteoarthritis. Pubic symphysis is normal. Mild bilateral sacroiliac joint osteoarthritis. Advanced degenerative changes in the lower lumbar spine, partially imaged. IMPRESSION: 1. Unchanged mild bilateral hip osteoarthritis. 2. Partially imaged advanced degenerative changes in the lower lumbar spine. Electronically signed by: Espinoza Pantoja M.D. Misael ESTRADA XR PROCEDURES Final Result * IR Transforaminal Epidural Injection Lumbar Sacral First Level Bilateral (08/21/2024 8:56 AM CDT) Narrative [facility] - 08/21/2024 9:04 AM CDT The images from this study are not interpreted by Radiology. Please refer to the physician's procedure / OR operative note. Misael ESTRADA IR PROCEDURES Final Result [facility] * XR Spine Cervical 2 or 3 Views (08/18/2024 10:51 AM CDT) Anatomical Region Laterality Modality Spine N/A Computed Radiogr aphy 08/18/2024 2:45 PM CDT Impressions 08/18/2024 4:05 PM CDT 1. Unchanged C4-C7 anterior discectomy and instrumented fusion. 2. 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 Dictated by: Azael Corey M.D. The radiology attending physician has personally reviewed this study, and had reviewed and/or edited this written report and agrees with it. Electronically signed by: River Sharma M.D. Narrative 08/18/2024 4:05 PM CDT EXAMINATION: XR SPINE CERVICAL 2 OR 3 VIEWS HISTORY: Cervical spine fusion follow-up FINDINGS: 2 radiographs of the cervical spine are submitted for interpretation. Comparison is made with prior study dated 06/30/2024, 06/05/2024, 02/21/2024. Postsurgical changes of C4-C7 anterior discectomy and fusion. Hardware is intact. No perihardware fracture or dislocation lucency. Sagittal alignment is unremarkable. Vertebral body heights are maintained. Moderate degenerative disc disease at C7-T1. Interval improvement of postsurgical soft tissue swelling. The prevertebral soft tissue is no unremarkable. Dental hardware is present. Procedure Note River Sharma MD PhD - 08/18/2024 EXAMINATION: XR SPINE CERVICAL 2 OR 3 VIEWS HISTORY: Cervical spine fusion follow-up FINDINGS: 2 radiographs of the cervical spine are submitted for interpretation. Comparison is made with prior study dated 06/30/2024, 06/05/2024, 02/21/2024. Postsurgical changes of C4-C7 anterior discectomy and fusion. Hardware is intact. No perihardware fracture or dislocation lucency. Sagittal alignment is unremarkable. Vertebral body heights are maintained. Moderate degenerative disc disease at C7-T1. Interval improvement of postsurgical soft tissue swelling. The prevertebral soft tissue is no unremarkable. Dental hardware is present. IMPRESSION: 1. Unchanged C4-C7 anterior discectomy and instrumented fusion. 2. 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 Dictated by: Azael Corey M.D. The radiology attending physician has personally reviewed this study, and had reviewed and/or edited this written report and agrees with it. Electronically signed by: River Sharma M.D. Clif Mendez MD IM XR PROCEDURES Final Result * XR Spine [...] by: Gene Kidd D.O. Clif Mendez MD [facility] [place] XR PROCEDURES Final Result * eGFR (05/20/2024 4:35 AM WASTE HAND) eGFR 71 >=60 mL/min/1. 73 m2 Comment: [...] last reviewed 2021. Blood 05/20/2024 4:35 AM WASTE HAND 05/20/2024 4:51 AM WASTE HAND Ed Du MD LAB BLOOD ORDERABLES Fi nal Result [facility] Department [place] [address] * Lipid panel (05/19/2024 5:00 AM WASTE HAND) Cholesterol 117 30 - 199 mg/dL Comment: [...] revised on 2017. Triglycerides 48 <=149 mg/dL [facility] Comment: Interpretive Data Ages < or = [...] on 2017. HDL 63 >=40 mg/dL [facility] Comment: Interpretive Data Ages < or = [...] 2017. LDL, calculated 42 <=129 mg/dL [facility] Comment: Interpretive Data Ages < or = [...] NCEP Expert Panel. Circulation 2004;110:227 3. Aubrey Omalley al. CORETTA Cardiol. 2020 August 10;5(5):540-548. doi: 10.1001/jamacardio.2020.0013 Current Interpretive Data was last revised on 2023. Non-HDL Cholesterol 54 mg/dL [facility] Comment: Interpretive Data Ages < or = [...] last revised on 2017. Chol/HDL ratio 2 [facility] Blood 05/19/2024 5:00 AM WASTE HAND 05/19/2024 5:29 AM WASTE HAND Narrative [facility] - 05/19/2024 8:37 AM WASTE HAND Reflex Clif Mendez MD LAB BLOOD ORDERABLES Fi nal Result Performing Organization Address [facility] de Phone Number [facility] [place] [address] * (ABNORMAL) Hemoglobin A1c (05/05/2024 4:02 PM WASTE HAND) Hgb A1C 5.7(H) 4.0 - 5.6 % Estimated Average Glucose 117 mg/dL [facility] Comment: The ADA recommends reporting an estimated Average Glucose (eAG) with all Hemoglobin A1c results using the equation derived from a study of 507 normal and diabetic adults. Minority populations were underrepresented and children were not included. (Diabetes Care 2020; 43(S1): S66-S76). The eAG is not equivalent to a fasting glucose. Blood 05/05/2024 4:02 PM WASTE HAND 05/05/2024 4:53 PM WASTE HAND Clif Mendez MD LAB BLOOD ORDERABLES Fi nal Result Performing Organization Address [facility] Co de Phone Number [facility] [place] [address] from Last 3 Months or Most Recently Relevant to Health Maintenance [place] [address] MEDICARE [facility] MEDICARE MEDICARE FOR LIFE Advance Directives For more information, please contact: [phone] * Full Code (Latest Code Status on File) Date Activated Date Inactivated Comments 05/18/2024 5:44 PM 05/20/2024 6:10 PM Care Teams Radioactive Waste Disposal Dispatcher Relationship Specialty Start Date End Date Gene Moreno MD [address] [place] [address] PCP - General Emergency Medicine 07/27/22 Sandra Mark MD [address] [facility] [address] [place] [address] Rheumatology 08/19/23
--- OUTSIDE RECORDS SUMMARY | 2024-09-14 13:42 | XMS_ITS | Clinical Summary ---
Author Organization [facility] Address [address] [place] [address] Care Team Providers Care Seed Packer Name Role Phone Gene Moreno MD Primary [...] 06/02/2019 Assessment & Plan (06/02/2019 8:58 AM TRAFFIC EXPERT): Status post left CMC injection today High [...] (05/08/2020): Added automatically from request for surgery [id number] Swelling 05/07/2020 07/19/2020 OA (osteoarthritis) of finger, right 01/30/2020 09/23/2021 Thumb pain 05/05/2019 07/19/2020 Assessment & Plan (05/05/2019 9:12 AM TRAFFIC EXPERT): Status post intra-articular injection of the CMC today Arthritis, senescent 05/05/2019 021 Assessment & Plan (05/05/2019 9:13 AM TRAFFIC EXPERT): Status post bilateral intra-articular injections Arthritis 06/17/2017 09/23/2021 SOB (shortness of breath) Chronic cough 07/19/2020 Encounters Date Type Department Care Team Description 09/12/2024 8:45 AM CDT - 09/12/2024 11:59 PM CDT Hospital Encounter [facility] [address] [place] [address] Hip pain, unspecified laterality Discharge Disposition: Discharge to home or self care 09/12/2024 8:30 AM CDT Office Visit [facility] Orthopaedic Surgery [address] [place] [address] [address] [place] [phone] Misael Almanza MD Hip pain, unspecified laterality (Primary Dx); Osteoarthritis of both hips, unspecified osteoarthritis type 09/12/2024 Telephone [facility] Orthopaedic Surgery [address] [place] [address] 2nd [address] [place] [address] Melany Keen CMA Scheduling Appointments 09/12/2024 Telephone [facility] Orthopaedic Surgery [address] [place] [address] [address] [place] [phone] Melany Keen CMA Scheduling Appointments 09/08/2024 Telephone [facility] Orthopaedic Surgery [address] [place] [address] [address] [place] [phone] Misael Almanza MD 09/07/2024 Telephone [facility] Orthopaedic [address] 2nd Floor [address] [place] [phone] Misael Almanza MD 08/21/2024 7:39 AM CDT - 08/21/2024 11:59 PM CDT Hospital Encounter [facility] [address] [place] [address] Misael Almanza MD Lumbar radiculopathy (Primary Dx) Discharge Disposition: Discharge to home or self care 08/18/2024 11:20 AM CDT Office Visit [facility] Orthopaedic Surgery [address] [place] [address] [facility] 12th [place] [address] [place] [address] Clif Mendez MD Fusion of spine of cervical region (Primary Dx) 08/18/2024 10:46 AM CDT - 08/18/2024 11:59 PM CDT Hospital Encounter [facility] [address] [place] [address] S/P cervical spinal fusion Discharge Disposition: Discharge to home or self care 08/18/2024 Orders Only [facility] Orthopaedic Surgery [address] [place] [address] [facility] 12th [place] [address] [place] [address] Clif Mendez MD Status post cervical spinal fusion (Primary Dx) 08/16/2024 Orders Only [facility] Orthopaedic Surgery [address] [place] [address] 2nd [address] [place] [phone] Misael Almanza MD Lumbar radiculopathy (Primary Dx) 08/08/2024 Orders Only [facility] Orthopaedic Surgery [address] [place] [address] [facility] 12th [place] [address] [place] [address] Clif Mendez MD S/P cervical spinal fusion (Primary Dx) 06/30/2024 11:20 AM CDT Office Visit [facility] Orthopaedic Surgery [address] [facility] 12th [place] [address] [place] [address] Clif Mendez MD Status post cervical spinal fusion (Primary Dx) 06/30/2024 10:54 AM CDT - 06/30/2024 11:59 PM CDT Hospital Encounter [facility] [address] [place] [address] Status post cervical spinal fusion Discharge Disposition: Discharge to home or self care from Last 3 Months Immunizations Immunization Administration [...] 02/10/2019,12/07/2018 Surgical History Surgery Date Site/Laterality Comments [place] STOT/TOT HYSTERECTOMY AFTER DELIVERY Hysterectomy - (Added by TW Conv) [place] CHOLECSTOT/CHOLECSTOST W/EXPL DRG/RMVL ST1 SPX Cholecystotomy - [...] GI AIR CONTRAST W KUB 05/12/2024 Bilateral FL UPPER GI AIR CONTRAST W KUB 08/21/2024 Bilateral Medical History Medical History Date Comments [...] on file Legal Sex Female 7:57 PM TRAFFIC EXPERT Gender Identity Not on file Sexual Orientation Not on file 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 file Not on file Not on file Obstetrics History Last Filed Vital Signs Vital Sign Reading Time Taken Comments Blood Pressure 123/81 08/21/2024 9:05 AM CDT Pulse 64 08/21/2024 9:05 AM CDT Temperature 36.6 C (97.8 F) 05/20/2024 7:32 AM TRAFFIC EXPERT Respiratory Rate 18 08/21/2024 9:05 AM CDT [...] Additional history exists Lipid Panel 05/19/2025 05/19/2024 eGFR 05/20/2025 05/20/2024, 020 10/2024, 05/05/2024, Additional history exists Fall Risk Assessment 08/21/2025 08/21/2024 DTaP/Tdap/Td Vaccine (3 - Td or Tdap) 04/13/2028 04/13/2018, 09/17/2008 Zoster Vaccine Completed 02/10/2019, 12/07/2018 Medical Devices Implanted Type Area Car Body Designer Device Identifier Shelf Expiration Date Model / Serial / Lot [employer] [id number] Corkscrew Fiberwire 2.7mm 7mm 17.9mm Needle Wire Foot Ankle 2-0 - [id number] Implanted:Qty: 1 on 05/22/2020 by Philip Fine MD at [facility] Right: Wrist [employer] [id number] 11/09/2024 [id number] / / [id number] [employer] [id number] Corkscrew Fiberwire 2.7mm 7mm 17.9mm Needle Wire Foot Ankle 2-0 - [id number] Implanted:Qty: 1 on 05/22/2020 by Philip Fine MD at [facility] Right: Wrist [employer] [id number] 11/09/2024 [id number] / / [id number] [employer] Graft Bone Magnetos 2.5cc 1-2mm Granules In Moldable Putty [id number]-[id number] - [id number] Implanted:Qty: 1 on 05/18/2024 by Clif Mendez MD at [facility] N/A: Spine Cervical [employer] 10/10/2028 [id number] / / Medtronic Inc Screw Spinal Anterior Cervical Self Drilling Solid Zevo 3.5x17mm Titanium [id number] - [id number] Implanted:Qty: 7 on 05/18/2024 by Clif Mendez MD at [facility] N/A: Spine Cervical Med[employer] Inc [id number] / / Med[employer]onic Inc Plate Spine Anterior Cervical Level 3 Zevo 48mm Titanium [id number] - [id number] Implanted:Qty: 1 on 05/18/2024 by Clif Mendez MD at [facility] N/A: Spine Cervical Med[employer] Inc [id number] / / Med[employer]onic Inc Cage Spinal Cervical 6 Degree Acif Large Endoskeleton Tcs Nanolock [id number] Titanium [id number] - [id number] Implanted:Qty: 1 on 05/18/2024 by Clif Mendez MD at [facility] N/A: Spine Cervical [employer] Inc [id number] -[id number] / / Med[employer]onic Inc Cage Spinal Cervical 6 Degree Acif Large Endoskeleton Tcs Nanolock [id number] Titanium [id number] - [id number] Implanted:Qty: 1 on 05/18/2024 by Clif Mendez MD at [facility] N/A: Spine Cervical [employer] Inc [id number] -[id number] / / Med[employer] Cage Spinal Cervical 6 Degree Acif Large Endoskeleton Tcs Nanolock [id number] Titanium [id number] - [id number] Implanted:Qty: 1 on 05/18/2024 by Clif Mendez MD at [facility] N/A: Spine Cervical Med[employer] Inc [id number] -[id number] / / Med[employer]onic Inc Screw Spinal Anterior Cervical Self Drilling Solid Zevo 4.0x17mm Titanium [id number] - [id number] Implanted:Qty: 1 on 05/18/2024 by Clif Mendez MD at [facility] N/A: Spine Cervical [employer] Inc [id number] / / Procedures Procedure Name Priority Date/Time [...] spinal fusion EGFR Routine 05/20/2024 4:35 AM TRAFFIC EXPERT LIPID PANEL Routine 05/19/2024 5:00 AM TRAFFIC EXPERT HEMOGLOBIN A1C Routine 05/05/2024 4:02 PM TRAFFIC EXPERT Spinal stenosis in cervical region Cervical radiculopathy Type 2 diabetes mellitus with other specified complication, unspecified whether fpc insulin use (HCC) from Last 3 Months [...] lower lumbar spine, partially imaged. Procedure Note Ed Pantoja, Espinoza Johnson MD - 09/12/2024 EXAMINATION: XR PELVIS 1 [...] Electronically signed by: Espinoza Pantoja M.D. Misael Almanza MD IMG XR PROCEDURES Final Result * IR Transforaminal Epidural Injection Lumbar Sacral First Level Bilateral (08/21/2024 8:56 AM CDT) Narrative [facility] - 08/21/2024 9:04 AM CDT The images from this study are not interpreted by Radiology. Please refer to the physician's procedure / OR operative note. Misael Almanza MD [facility] IR PROCEDURES Final Result Performing Organization Address City/State/[facility] Co de Phone Number [facility] * XR Spine Cervical 2 or [...] it. Electronically signed by: River Sharma M.D. us Clif Mendez MD IMG XR PROCEDURES Final [...] fusion. Electronically signed by: Gene Kidd D.O. us Clif Mendez MD IMG XR PROCEDURES Final Result * eGFR (05/20/2024 4:35 AM TRAFFIC EXPERT) eGFR 71 >=60 mL/min/1. 73 m2 Comment: [...] last reviewed 2021. Blood 05/20/2024 4:35 AM TRAFFIC EXPERT 05/20/2024 4:51 AM TRAFFIC EXPERT Ed Du MD LAB BLOOD ORDERABLES Fi nal Result [facility] [place] [address] * Lipid panel (05/19/2024 5:00 AM TRAFFIC EXPERT) Cholesterol 117 30 - 199 mg/dL Comment: [...] revised on 2017. Triglycerides 48 <=149 mg/dL [facility] Comment: Interpretive Data Ages < or [...] on 2017. HDL 63 >=40 mg/dL [facility] Comment: Interpretive Data Ages < or [...] 2017. LDL, calculated 42 <=129 mg/dL [facility] Comment: Interpretive Data Ages < or [...] revised on 2023. Non-HDL Cholesterol 54 mg/dL [facility] Comment: Interpretive Data Ages < or [...] last revised on 2017. Chol/HDL ratio 2 [facility] Blood 05/19/2024 5:00 AM TRAFFIC EXPERT 05/19/2024 5:29 AM TRAFFIC EXPERT Narrative [facility] - 05/19/2024 8:37 AM TRAFFIC EXPERT Reflex Clif Mendez MD LAB BLOOD ORDERABLES Fi nal Result Performing Organization Address [facility] Co de Phone Number [facility] [place] [address] * (ABNORMAL) Hemoglobin A1c (05/05/2024 4:02 PM TRAFFIC EXPERT) Hgb A1C 5.7(H) 4.0 - 5.6 % Estimated Average Glucose 117 mg/dL [facility] Comment: The ADA recommends reporting an estimated Average Glucose (eAG) with all Hemoglobin A1c results using the equation derived from a study of 507 normal and diabetic adults. Minority populations were underrepresented and children were not included. (Diabetes Care 2020; 43(S1): S66-S76). The eAG is not equivalent to a fasting glucose. Blood 05/05/2024 4:02 PM TRAFFIC EXPERT 05/05/2024 4:53 PM TRAFFIC EXPERT Clif Mendez MD LAB BLOOD ORDERABLES Fi nal Result Performing Organization Address [facility] de Phone Number [facility] [place] [address] from Last 3 Months or Most Recently Relevant to Health Maintenance Insurance MEDICARE Swivl [facility] MEDICARE MEDICARE FOR LIFE Advance Directives For more information, please contact: [phone] * Full Code (Latest Code Status on File) Date Activated Date Inactivated Comments 05/18/2024 5:44 PM 05/20/2024 6:10 PM Care Teams Seed Packer Relationship Specialty Start Date End Date Gene Moreno MD [address] [place] [address] PCP - General Emergency Medicine 07/27/22 Sandra Mark MD [address] [facility] [address] [place] [address] Rheumatology 08/19/23
--- OUTSIDE RECORDS SUMMARY | 2024-09-14 13:42 | XMS_ITS | Encounter Summary ---
Author Organization [facility] Address [address] [place] [address] Care Team Providers Care Adjunct Professor Of Law Name Role Phone Gene Moreno MD Primary Care Provide r TempraSandra MD Unavailable + Reason for Referral * Diagnostic Imaging (Routine) - Closed Specialty Diagnoses / Procedures Referred By Jessica calixto Referred To Contact Diagnoses Hip pain, unspecified laterality Procedures XR Pelvis 1 [place] [address] [place] [address] Phone: tel: fax: [facility] [address] [place] [address] Referral ID Status Reason Start Date Expiration Date Visits Re quested Visits Authorized [id number] Closed 09/12/2024 10/12/2025 1 1 Reason for Visit * Diagnostic Imaging (Routine) - Closed Specialty Diagnoses / Procedures Referred By Jessica calixto Referred To Contact Diagnoses Hip pain, unspecified laterality Procedures XR Pelvis 1 [place] [address] [place] [address] Phone: tel: fax: [facility] [address] [place] [address] Referral ID Status Reason Start Date Expiration Date Visits Re quested Visits Authorized [id number] Closed 09/12/2024 10/12/2025 1 1 Encounter Details Date Type Department Care Team (Latest Contact Info) Description 09/12/2024 8:45 AM CDT - 09/12/2024 11:59 PM CDT Hospital Encounter [facility] [address] [place] [address] Hip pain, unspecified laterality Discharge Disposition: Discharge to home or self care Social History Tobacco Use Types Packs/Day Years [...] on file Legal Sex Female 7:57 PM GRAPE GROWER Gender Identity Not on file Sexual Orientation Not on file 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 Not on file Not on file documented as of this encounter Medications at Time of Discharge acetaminophen 500 mg capsuleIndicatio ns:Pain Take 2 capsules (1,000 mg total) by mouth every 8 (eight) hours 05/19/2024 albuterol HFA (PROVENTIL HFA,VENTOLIN HFA,PROAIR HFA) 90 mcg/actuation inhalerIndicatio ns:Acute Asthma Attack Inhale 2 puffs every 6 (six) hours as needed 04/19/2024 allopurinoL (ZYLOPRIM) 300 mg tabletIndication s:gout Take 1 tablet (300 mg total) by mouth every morning B.animalis,bifid ,infantis,long (PROBIOTIC 4X ORAL)Indications :[facility] Take 1 capsule by mouth every morning benzocaine-menth oL (CHLORASEPTIC) 6-10 mg lozenge Take 1 lozenge by mouth every 3 (three) hours as needed for sore throat 54 tablet 05/19/2024 colchicine (COLCRYS) 0.6 mg tablet TAKE 1 TABLET BY MOUTH EVERY DAY 90 tablet 03/03/2024 cyanocobalamin, vitamin B-12, (VITAMIN B-12 INJ) Inject 1 Dose as directed every 3 (three) months Due for next shot before surgery doxepin (ZONALON) 5 % cream 05/07/2024 emollient creamIndications :Skin Inflammation,to feet Apply 1 Application topically every morning 02/17/2018 ezetimibe (ZETIA) 10 mg tabletIndication s:hyperlipidemia Take 1 tablet (10 mg total) by mouth every morning 04/19/2024 ketoconazole (NIZORAL) 2 % creamIndications :to feet Apply 1 Application topically every morning losartan (COZAAR) 100 mg tabletIndication s:hypertension Take 1 tablet (100 mg total) by mouth every morning 05/02/2021 metFORMIN (GLUCOPHAGE) 1,000 mg tabletIndication s:type 2 diabetes mellitus Take 1 tablet (1,000 mg total) by mouth 2 (two) times a day with meals 12/20/2020 miconazole 2 % creamIndications :to feet Apply 1 Application topically every morning Mucinex 600 mg 12 hr tablet 08/08/2024 oxyCODONE (ROXICODONE) 5 mg immediate release tabletIndication s:Pain Take 1 tablet (5 mg total) by mouth every 4 (four) hours as needed rosuvastatin (CRESTOR) 10 mg tabletIndication s:hyperlipidemia Take 1 tablet (10 mg total) by mouth every morning 03/02/2022 triamcinolone (KENALOG) 0.1 % cream 08/12/2024 documented as of this encounter Discharge Disposition Disposition Code Departure Means Destination Discharge to home or self care documented in this encounter Plan of Treatment Not on file documented as of this encounter Procedures Procedure Name Priority Date/Time Associated Diagnosis Comments XR PELVIS 1 OR 2 VIEWS Schedule Routine, Read Routine (OP Routine) 09/12/2024 9:03 AM CDT Hip pain, unspecified laterality documented in this encounter Results * XR Pelvis 1 or 2 [...] Almanza MD IMG XR PROCEDURES Final Result documented in this encounter Visit Diagnoses Diagnosis Hip pain, unspecified laterality documented in this encounter Care Teams Adjunct Professor Of Law Relationship Specialty Start Date End Date Gene Moreno MD [address] [place] [address] PCP - General Emergency Medicine 07/27/22 Sandra Mark MD [address] [facility] [address] [place] [address] Rheumatology 08/19/23 documented as of this encounter
--- OUTSIDE RECORDS SUMMARY | 2024-09-14 13:42 | XMS_ITS | Encounter Summary ---
Author Organization [facility] Address [address] [facility] [address] [place] [address] Phone Care Team Providers Care Parts Person Name Role Phone NathanTracy gamino Cindy OREILLY Unavailable [phone] Marylou Alas DO Unavailable [phone] Marylou Alas DO Primary Care Provider [phone] Biju Rogers MD Primary Care Provider [phone] Marylou Alas DO Primary Care Provider [phone] Biju Rogers MD Primary Care Provider [phone] Gene Moreno MD Primary Care Provide r [...] on file Legal Sex Female 7:57 PM BUSINESS SYSTEMS ANALYST Gender Identity Not on file Sexual Orientation Not on file 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 Not on file Not [...] on filedocumented in this encounter Care Teams Parts Person Relationship Specialty Start Date End Date Marylou Alas DO PCP - General Family Medicine 02/02/20 03/27/21 Biju Rogers MD PCP - General Internal Medicine 03/28/21 05/08/21 Marylou Alas DO PCP - General 05/09/21 11/13/21 Biju Rogers MD [address] [place] [address] PCP - General Internal Medicine 11/14/21 07/26/22 Gene Moreno MD [address] [place] [address] PCP - General Emergency Medicine 07/27/22 Tracy Dickerson, AFIA Nurse Practitioner Rheumatology 11/24/19 07/26/22 Marylou Alas DO Family Medicine 12/13/19 07/26/22 Sandra Mark MD [address] [facility] [address] [place] [address] Rheumatology 08/19/23 documented as of this encounter
--- NOTE | 2024-09-14 14:00 | NEURO_ITS ---
EMG and nerve conduction study History: The patient is 70-year-old with history of diabetes mellitus has had a surgery on cervical spine and for right carpal tunnel syndrome. Patient has paresthesias in both upper limbs as well as neck pain. Symptoms are more on the left upper limb compared to the right side. On a brief examination no significant focal abnormalities were noted in the upper limbs. The results of the study are enclosed below. Summary of findings: 1. Left and right median motor distal latencies and conduction velocities were within normal limits. Amplitudes are mildly decreased. 2. Left and right ulnar motor distal latencies amplitudes and conduction velocities from below elbow to wrist were within normal limits however mild focal slowing was seen across the elbow slightly more on the left than right side. 3. Left and right median, ulnar palmar and digital and radial sensory distal latencies amplitude and conduction velocity within normal limits. 4. EMG examination performed were various muscles the evaluated both upper limbs in the distention was C5-T1 distribution. No denervation changes were seen. Motor unit amplitude, duration and recruitment pattern appeared within acceptable normal limits. Impression: EMG and nerve conduction study of both upper limbs shows evidence of mild / minimal bilateral ulnar neuropathy at elbow, left more than right side. No denervation changes were seen in the ulnar nerve distribution in forearm or hand at this time. Remainder of the findings are within acceptable normal limits. Gavin Figueredo MD,FAAN,FAANEM Neurology and electrodiagnostic Medicine Nerve Conduction Studies Motor Nerve Results ? Latency Amplitude F-Lat Segment Distance CV Comment Site (ms) (mV) (ms) (cm) (m/s) Left Median (APB) Motor Wrist 3.5 5.5 Elbow 7.5 4.9 Elbow-Wrist 210 53 Right Median (APB) Motor Wrist 3.6 5.3 Elbow 7.5 5.0 Elbow-Wrist 215 55 Left Ulnar (ADM) Motor Wrist 2.9 7.6 Bel Elbow 6.5 7.2 Bel Elbow-Wrist 190 53 Abv Elbow 8.3 7.5 Abv Elbow-Bel Elbow 80 44 Right Ulnar (ADM) Motor Wrist 2.6 6.6 Bel Elbow 6.0 5.2 Bel Elbow-Wrist 190 56 Abv Elbow 7.7 5.4 Abv Elbow-Bel Elbow 80 47 Sensory Nerve Results? Latency (Peak) Amplitude (P-P) Segment Distance CV Comment Site (ms) (?V) (cm) (m/s) Left Median DigIII Sensory Wrist-Dig III 3.4 28 Wrist-Dig III 140 41 Right Median DigIII Sensory Wrist-Dig III 3.3 33 Wrist-Dig III 135 41 Left Median-Ulnar Palmar Sensory ? Median Palm-Wrist 2.1 40 Palm-Wrist 80 38 ? Ulnar Palm-Wrist 1.78 15 Palm-Wrist 80 45 Right Median-Ulnar Palmar Sensory ? Median Palm-Wrist 2.1 38 Palm-Wrist 80 38 ? Ulnar Palm-Wrist 1.75 22 Palm-Wrist 80 46 Left Radial Sensory Forearm-Wrist 1.40 55 Forearm-Wrist 100 71 Right Radial Sensory Forearm-Wrist 1.90 24 Forearm-Wrist 100 53 Left Ulnar Sensory Wrist-Dig V 3.1 20 Wrist-Dig V 140 45 Right Ulnar Sensory Wrist-Dig V 3.1 18 Wrist-Dig V 140 45 Electromyography ?Side Muscle Nerve Ins Act Fibs Psw Amp Dur Recrt Comment Right Deltoid Axillary Nml Nml Nml Nml Nml Nml Right Triceps Radial Nml Nml Nml Nml Nml Nml Right ExtCarUln Radial (Post Int) Nml Nml Nml Nml Nml Nml Right FlexPolLong Median (Ant Int) Nml Nml Nml Nml Nml Nml Right 1stDorInt Ulnar Nml Nml Nml Nml Nml Nml Right Abd Poll Brev Median Nml Nml Nml Nml Nml Nml Left Deltoid Axillary Nml Nml Nml Nml Nml Nml Left Triceps Radial Nml Nml Nml Nml Nml Nml Left ExtCarUln Radial (Post Int) Nml Nml Nml Nml Nml Nml Left FlexPolLong Median (Ant Int) Nml Nml Nml Nml Nml Nml Left 1stDorInt Ulnar Nml Nml Nml Nml Nml Nml Left Abd Poll Brev Median Nml Nml Nml Nml Nml Nml Right BrachioRad Radial Nml Nml Nml Nml Nml Nml Left BrachioRad Radial Nml Nml Nml Nml Nml Nml
== END 2024-09-14 13:08 | disposition home or self-care (01) ==
LOC: ANHNEURO 13:08
PROVIDERS: PCP Emergency Medicine; Visit Provider Psychiatry & Neurology Neurology
DX: G56.23 Lesion of ulnar nerve, bilateral upper limbs (principal); M54.2 Cervicalgia; E11.9 Type 2 diabetes mellitus without complications; M06.9 Rheumatoid arthritis, unspecified; M79.10 Myalgia, unspecified site; J45.909 Unspecified asthma, uncomplicated; M54.50 Low back pain, unspecified
CPT/HCPCS: 95886; 95912

== ENCOUNTER 2024-10-12 13:09 | Outpatient (CLI) | payer MEDICARE, OTHER, SELFPAY ==
--- OUTSIDE RECORDS SUMMARY | 2024-10-12 13:13 | XMS_ITS | Patient Health Record ---
Author Organization [facility] Address [address] [place], [place] [address] Care Team Providers Care Plastic Printer Name Role Phone MEKHI CELESTE Unavailable [phone] Reason For Referral No Information Medications Medication SIG (Take, Route, Frequency, Duration) Notes Start Date End Date Status Nabumetone 500 MG Oral Tablet ORAL nabumetone 500 MG Oral TabletOriginal Medicationnabumetone 500 MG Oral Tablet *Reorder from [employer] for eRx and Interaction Alerts* 04/06/2013 Active Plan Of Treatment No Information Insurance Providers Payer Name Payer Address Payer Phone Subscriber Number Group Number Insured Name Patient Relationship to Insured Coverage Start Date Coverage End Date [facility] [address] [place] [phone] [id number] ROYA WAYNE Spouse - patient is the spouse of the insured
--- OUTSIDE RECORDS SUMMARY | 2024-10-12 13:13 | XMS_ITS | Clinical Summary ---
Author Organization [facility] Address [address] [place] [address] Care Team Providers Care Sample Checker Name Role Phone Unavailable Primary Care Provider Unavailabl e Source Comments [facility],non-owned Affiliates and Associated Physician Practices is amultiple site organization consisting of ambulatory clinics and hospital sitesin [place]. This disclosure is being madepursuant to the Care Everywhere program and may not contain all information available regarding this patient. 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 Gender Identity Not on file Sexual Orientation Not on file Last Filed Vital Signs Vital Sign Reading Time Taken Comments Blood Pressure 117/68 04/08/2018 11:24 AM GLUING MACHINE OPERATOR Pulse 62 04/08/2018 11:24 AM GLUING MACHINE OPERATOR Temperature 36.9 C (98.5 F) 04/08/2018 11:24 AM GLUING MACHINE OPERATOR Respiratory Rate 18 04/08/2018 11:24 AM GLUING MACHINE OPERATOR Oxygen Saturation 100% 04/08/2018 11:24 AM GLUING MACHINE OPERATOR Inhaled Oxygen Concentration - - Weight 85.3 kg (188 lb) 04/08/2018 11:24 AM GLUING MACHINE OPERATOR Height 157.5 cm (5' 2) 04/08/2018 11:24 AM GLUING MACHINE OPERATOR Body Mass Index 34.39 04/08/2018 11:24 AM GLUING MACHINE OPERATOR Plan of Treatment Health Maintenance Due Date [...] COMPREHENSIVE METABOLIC PANEL Routine 04/08/2018 11:18 AM GLUING MACHINE OPERATOR Leukocytosis, unspecified type from Last 3 Months or Most Recently Relevant to Health Maintenance Results * COMPREHENSIVE METABOLIC PANEL (04/08/2018 11:18 AM GLUING MACHINE OPERATOR) BUN 15 7 - 26 mg/dL 04/08/2018 11:52 AM [facility] Creatinine 1.0 0.6 - 1.2 mg/dL 04/08/2018 11:52 AM [facility] Sodium 141 136 - 145 mmol/L 04/08/2018 11:52 AM [facility] Potassium 3.9 3.5 - 4.5 mmol/L 04/08/2018 11:52 AM [facility] Chloride 106 98 - 107 mmol/L 04/08/2018 11:52 AM [facility] CO2 27 22 - 29 mmol/L 04/08/2018 11:52 AM [facility] Glucose 88 70 - 115 mg/dL 04/08/2018 11:52 AM [facility] Calcium 9.7 8.4 - 10.2 mg/dL 04/08/2018 11:52 AM [facility] Protein Total 6.7 6.0 - 8.3 g/dL 04/08/2018 11:52 AM [facility] Albumin 3.5 3.4 - 5.0 g/dL 04/08/2018 11:52 AM [facility] Bilirubin Total 0.4 0.2 - 1.2 mg/dL 04/08/2018 11:52 AM [facility] Alkaline Phosphatase 58 40 - 150 Units/L 04/08/2018 11:52 AM [facility] [facility] ALT 8 0 - 55 Units/L 04/08/2018 11:52 AM [facility] AST 10 5 - 34 Units/L 04/08/2018 11:52 AM [facility] Anion Gap 12 8 - 18 04/08/2018 11:52 AM [facility] BUN/Creatinine Ratio 15 7 - 23 04/08/2018 11:52 AM [facility] Osmolality Calculated 292 270 - 300 mOsm/kg 04/08/2018 11:52 AM [facility] Albumin/Globulin Ratio 1.1 1.1 - 2.3 04/08/2018 11:52 AM [facility] eGFR >60 >60 mL/min/1.7 3 m2 04/08/2018 11:52 AM [facility] Blood BLOOD SPECIMEN / Unknown Lab Venipuncture / Unknown 04/08/2018 11:18 AM GLUING MACHINE OPERATOR 04/08/2018 11:28 AM [facility] us Praveen Ordonez MD LAB - CHEMISTRY ORDERABLES Tammy gilmore Result [address] [phone] from Last 3 Months or Most Recently Relevant to Health Maintenance Insurance [facility] Address: [facility] [address] [place] [address] [place] [phone]
--- OUTSIDE RECORDS SUMMARY | 2024-10-12 13:14 | XMS_ITS | Encounter Summary ---
Author Organization [facility] Address [address] [address] Care Team Providers Care Driller'S Offsider Name Role Phone Unavailable Primary Care Provider Unavailabl e Encounter Details Date Type Department Care Team (Late st Contact Info) Description 04/29/2022 Lab Requisition [facility] DermPath Lab [address] [facility] [address] [place] [id number] Ashish Sanches MD [address] [place] [address] Social History Tobacco Use Types Packs/Day Years Used Date Smoking Tobacco: Former Smokeless Tobacco: Never Comments Unknown Sex and Gender Information Value Date Recorded Sex Assigned at Not on file Legal Sex Female 2:09 PM 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 SOFTWARE ENGINEER Gender Identity Not on file Sexual Orientation Not on file documented as of this encounter Plan of Treatment Not on file documented as of this encounter Procedures Procedure Name Priority Date/Time Associated Diagnosis Comments DERMATOPATHOLOGY Routine 04/28/2022 12:0 0 AM 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 SOFTWARE ENGINEER documented in this encounter Results * DERMATOPATHOLOGY (04/28/2022 12:00 AM 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 SOFTWARE ENGINEER) Case Report Dermatopathology Report Case: [id number] Authorizing Provider: Ashish Sanches MD Collected: 04/28/2022 12:00 AM Ordering Location: [facility] Care DermPath Lab Received: 04/29/2022 04:41 PM Pathologist: Lisset Lucia MD Specimen: Skin, right thumb 1:29 PM 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 SOFTWARE ENGINEER DERMATOPATHOLOGY LABORATORY Final Diagnosis Specimen A. 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 The specimen consists of a shave biopsy measuring 9x9x3 mm. Jar 0. 1:29 PM [facility] DERMATOPATHOLOGY LABORATORY Microscopic Description Specimen A. SKIN, right thumb: Sections show papillomatosis and hypergranulosis with overlying focal parakeratosis. The base of the lesion is not visualized. COMMENT: Given the superficial nature of the biopsy specimen, a deeper process cannot be excluded. 1:29 PM [facility] DERMATOPATHOLOGY LABORATORY Disclaimer An external and internal positive and negative controls are appropriate for the histochemical, immunohistochemical and immunofluorescence stain(s) in this case (if any), except where stated explicitly. The performance characteristics of the stain(s) cited in this report were developed and its performance characteristic determined by the Dermatopathology Laboratory at [facility], directed by Dr. Radha Bates. These tests need not be, and therefore are not, approved by the [place] Food and Drug Administration. The tests are used for clinical purposes. Billing Codes Specimen Charges Stain Charges 12073 1 3 1:29 PM [facility] DERMATOPATHOLOGY LABORATORY Embedded Images 3 1:29 PM [facility] DERMATOPATHOLOGY LABORATORY Pathology/Cytolog y TISSUE SPECIMEN FROM SKIN / Unknown 04/28/2022 04/29/2022 4:41 PM 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 SOFTWARE ENGINEER us Ashish Sanches MD LAB - PATHOLOGY/CYTOLOGY ORDER ANNELISE Final Result DERMATOPATHOLOGY LABORATORY [facility] - Department of Dermatology [address], [address] [phone] documented in this encounter Visit Diagnoses Not on filedocumented in this encounter
--- OUTSIDE RECORDS SUMMARY | 2024-10-12 13:14 | XMS_ITS | Encounter Summary ---
Author Organization [facility] Address [address] [facility] [address] [place] [address] Phone Care Team Providers Care Teletype Technician Name Role Phone Radu Jara MD Primary Care Provider [phone] Tracy Dickerson NP Unavailable [phone] Marylou Alas DO Unavailable [phone] Radu Jara MD Primary Care Provider [phone] Marylou Alas DO Primary Care Provider [phone] Biju Rogers MD Primary Care Provider [phone] Marylou Alas DO Primary Care Provider [phone] Biju Rogers MD Primary Care Provider [phone] Gene Moreno MD Primary Care Provide r [...] on file 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 Gender Identity Not on file Sexual Orientation Not on file 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 on file Not [...] on filedocumented in this encounter Care Teams Teletype Technician Relationship Specialty Start Date End Date Radu Jara MD PCP - General 10/14/18 01/29/20 Radu Jara MD PCP - General 01/30/20 02/01/20 Marylou Alas DO PCP - General Family Medicine 02/02/20 03/27/21 Biju Rogers MD PCP - General Internal Medicine 03/28/21 05/08/21 Marylou Alas DO PCP - General 05/09/21 11/13/21 Biju Rogers MD [address] [place] [address] PCP - General Internal Medicine 11/14/21 07/26/22 Gene Moreno MD [address] [place] [address] PCP - General Emergency Medicine 07/27/22 Tracy Dickerson NP Nurse Practitioner Rheumatology 11/24/19 07/26/22 Marylou Alas DO Family Medicine 12/13/19 07/26/22 Sandra Mark MD [address] [facility] [address] [place] [address] Rheumatology 08/19/23 documented as of this encounter
--- OUTSIDE RECORDS SUMMARY | 2024-10-12 13:14 | XMS_ITS | Encounter Summary ---
Author Organization [facility] Address [address] [place] [address] Phone Care Team Providers Care Waste Cotton Cleaner Name Role Phone Jones Edmondson MD Primary Care Provider [phone] Radu Jara MD Primary Care Provider [phone] Tracy Dickerson TRADE PROMOTION ANALYST Unavailable +[phone] Marylou Alas DO Unavailable [phone] Radu Jara MD Primary Care Provider [phone] Marylou Alas DO Primary Care Provider [phone] Biju Rogers MD Primary Care Provider [phone]- [phone] Marylou Alas DO Primary Care Provider [phone] Biju Rogers MD Primary Care Provider [phone] Gene Moreno MD Primary Care Provide r Sandra Mark MD Unavailable + Encounter Details Date Type Department Care Team (Latest Contact Info) Description 07/28/2017 Orders Only [facility] CONVERSION Scanning, Provider Social History Tobacco Use Types Packs/Day Years Used Date Smoking Tobacco: Former Comments Unknown Sex and Gender Information Value Date Recorded Sex Assigned at Not on file 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 Gender Identity Not on file Sexual [...] on filedocumented in this encounter Care Teams Waste Cotton Cleaner Relationship Specialty Start Date End Date Jones Edmondson MD [address] [place] [address] PCP - General 07/23/17 10/13/18 Radu Jara MD [address] [place] [address] PCP - General 10/14/18 01/29/20 Radu Jara MD [address] [place] [address] PCP - General 01/30/20 02/01/20 Marylou Alas DO [address] [place], [place] [address] PCP - General Family Medicine 02/02/20 03/27/21 Biju Rogers MD [address] [place] [address] PCP - General Internal Medicine 03/28/21 05/08/21 Evette Marylou Yuridia, DO [address] [place] [address] PCP - General 05/09/21 11/13/21 Biju Rogers MD [address] [place] [address] PCP - General Internal Medicine 11/14/21 07/26/22 Gene Moreno MD [address] [place], [place] [address] PCP - General Emergency Medicine 07/27/22 Tracy Dickerson NP [address] [place] [address] Nurse Practitioner Rheumatology 11/24/19 07/26/22 Evette Marylou Yuridia, DO [address] [place] [address] Family Medicine 12/13/19 07/26/22 Sandra Mark MD [address] [facility] [address] [place] [address] Rheumatology 08/19/23 documented as of this encounter
--- OUTSIDE RECORDS SUMMARY | 2024-10-12 13:14 | XMS_ITS | Encounter Summary ---
Author Organization [facility] Address [address] [facility] [address] [place] [address] Phone Care Team Providers Care Supervisor Lending Activities Name Role Phone NathanTracy gamino Cindy OREILLY Unavailable [phone] Marylou Alas DO Unavailable [phone] Marylou Alas DO Primary Care Provider [phone] Biju Rogers MD Primary Care Provider [phone]- [phone] Marylou Alas DO Primary Care Provider [phone] Biju Rogers MD Primary Care Provider [phone] Gene Moreno MD Primary Care Provide r [...] on file 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 Female 7:57 PM STONE 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 Gender Identity Not on file Sexual Orientation Not on file 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 Not on file Not [...] on filedocumented in this encounter Care Teams Supervisor Lending Activities Relationship Specialty Start Date End Date Marylou Alas DO PCP - General Family Medicine 02/02/20 03/27/21 Biju Rogers MD PCP - General Internal Medicine 03/28/21 05/08/21 Marylou Alas DO PCP - General 05/09/21 11/13/21 Biju Rogers MD [address] [place] [address] PCP - General Internal Medicine 11/14/21 07/26/22 Gene Moreno MD [address] [place] [address] PCP - General Emergency Medicine 07/27/22 Tracy Dickerson, AFIA Nurse Practitioner Rheumatology 11/24/19 07/26/22 Marylou Alas DO Family Medicine 12/13/19 07/26/22 Sandra Mark MD [address] [facility] [address] [place] [address] Rheumatology 08/19/23 documented as of this encounter
--- OUTSIDE RECORDS SUMMARY | 2024-10-12 13:14 | XMS_ITS | Encounter Summary ---
Author Organization [facility] Address [address] [place] [address] Care Team Providers Care Warp Coiler Name Role Phone Gene Moreno MD Primary Care Provider [phone] Encounter Details Date Type Department Care Team (Late st Contact Info) Description 08/28/2014 Abstract [facility] CONVERSION [address] [place] [address] , Generic ConversionMD Social History Tobacco Use [...] on filedocumented in this encounter Care Teams Warp Coiler Relationship Specialty Start Date End Date Gene Moreno MD [address] [place] [address] PCP - General 04/02/24 documented as of this encounter
--- OUTSIDE RECORDS SUMMARY | 2024-10-12 13:14 | XMS_ITS | Encounter Summary ---
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
--- OUTSIDE RECORDS SUMMARY | 2024-10-12 13:14 | XMS_ITS | Encounter Summary ---
Author Organization [facility] Address [address] [place] [address] Care Team Providers Care Eye Care Professional Name Role Phone Unavailable Primary Care Provider Unavailabl e Encounter Details Date Type Department Care Team (Late st Contact Info) Description 03/27/2022 Lab Requisition [facility] DermPath Lab [address] [facility] [place] [address] Ashish Sanches MD [address] [facility] [place] [address] Social History Tobacco Use Types Packs/Day Years Used Date Smoking Tobacco: Former Smokeless Tobacco: Never Comments Unknown Sex and Gender Information Value Date Recorded Sex Assigned at Not on file Legal Sex Female 2:09 PM PIPE MAKER Gender Identity Not on file Sexual Orientation Not on file documented as of this encounter Plan of Treatment Not on file documented as of this encounter Procedures Procedure Name Priority Date/Time Associated Diagnosis Comments DERMATOPATHOLOGY Routine 03/25/2022 12:0 0 AM PIPE MAKER documented in this encounter Results * DERMATOPATHOLOGY (03/25/2022 12:00 AM PIPE MAKER) Case Report Dermatopathology Report Case: [id number] Authorizing Provider: Ashish Sanches MD Collected: 03/25/2022 12:00 AM Ordering Location: [facility] Care DermPath Lab Received: 03/27/2022 06:59 AM Pathologist: Krystal Braswell MD Specimen: Skin, right thumb 2 3:26 PM PIPE MAKER DERMATOPATHOLOGY LABORATORY Final Diagnosis Specimen A. SKIN, right thumb: PARAKERATOSIS (L85.9) (see microscopic description and comment) 2 3:26 PM [facility] DERMATOPATHOLOGY LABORATORY at 1525 PIPE MAKER Clinical History VV vs. Other Path: [id number] 2 3:26 PM [facility] DERMATOPATHOLOGY LABORATORY Gross Description Specimen A: Received is one formalin filled container labeled with the patient's name and designated right thumb. The specimen consists of a shave biopsy measuring 4x3x1 mm. Jar 0. 2 3:26 PM [facility] DERMATOPATHOLOGY LABORATORY Microscopic Description Specimen A. SKIN, right thumb: The specimen consisted mostly of stratum corneum with retained nuclei. There is no cellular epidermis present for evaluation. COMMENT: This type of stratum corneum is frequently seen overlying squamous proliferations such as verruca vulgaris, clavus (corn), actinic keratoses or squamous cell carcinomas. Additional deeper sections were obtained and reviewed. 2 3:26 PM [facility] DERMATOPATHOLOGY LABORATORY Disclaimer An external and internal positive and negative controls are appropriate for the histochemical, immunohistochemical and immunofluorescence stain(s) in this case (if any), except where stated explicitly. The performance characteristics of the stain(s) cited in this report were developed and its performance characteristic determined by the Dermatopathology Laboratory at [facility], directed by Dr. Radha Bates. These tests need not be, and therefore are not, approved by the [place] Food and Drug Administration. The tests are used for clinical purposes. Billing Codes Specimen Charges Stain Charges 12451 1 2 3:26 PM [facility] DERMATOPATHOLOGY LABORATORY Embedded Images 2 3:26 PM [facility] DERMATOPATHOLOGY LABORATORY Pathology/Cytolog y TISSUE SPECIMEN FROM SKIN / Unknown 03/25/2022 03/27/2022 6:59 AM [facility] us Ashish Sanches MD LAB - PATHOLOGY/CYTOLOGY ORDER ANNELISE Final Result DERMATOPATHOLOGY LABORATORY [facility] - Department of Dermatology [address] [phone] documented in this encounter Visit Diagnoses Not on filedocumented in this encounter
--- OUTSIDE RECORDS SUMMARY | 2024-10-12 13:14 | XMS_ITS | Clinical Summary ---
Author Organization [facility] Address [address] [place] [address] Care Team Providers Care Continuous Process Tanner Rotary Drum Name Role Phone Gene Moreno MD Primary Care Provider [phone] Allergies Active Allergy Reactions Criticality Noted Date [...] Comments Blood Pressure 151/80 04/03/2024 8:21 AM BOOTH OPERATOR Pulse 68 04/03/2024 8:21 AM BOOTH OPERATOR Temperature 36.2 C (97.2 F) 04/03/2024 7:01 AM BOOTH OPERATOR Respiratory Rate 18 04/03/2024 8:21 AM BOOTH OPERATOR Oxygen Saturation 100% 04/03/2024 8:21 AM BOOTH OPERATOR Inhaled Oxygen Concentration - - Weight 72.6 kg (160 lb) 04/03/2024 7:01 AM BOOTH OPERATOR Height 157.5 cm (5' 2) 04/03/2024 7:01 AM BOOTH OPERATOR Body Mass Index 29.26 04/03/2024 7:01 AM BOOTH OPERATOR Plan of Treatment Health Maintenance Due [...] or 60+ Years Completed 02/25/2023 Pneumococcal Vaccine: 50+ Years Completed 03/04/2024, 03/30/2019 Zoster Vaccines Completed [...] this topic Medical Devices Implanted Type Area Warp Knitting Machine Operator Device Identifier Shelf Expiration Date Model / Serial / Lot [employer]ec[employer] 1 Piece Iol Implanted:Qty: 1 on 04/03/2024 by Damián Newton MD at [facility] Left: Eye [employer] [facility] [facility] 04/23/2025 / [id number] / Insurance MEDICARE [facility] Care Teams Continuous Process Tanner Rotary Drum Relationship Specialty Start Date End Date Gene Moreno MD [address] [place] [address] PCP - General 04/02/24
--- OUTSIDE RECORDS SUMMARY | 2024-10-12 13:14 | XMS_ITS | Referral Summary ---
Author Organization [facility] Address [address] [place] [phone] Care Team Providers Care Graphics Production Specialist Name Role Phone Gene Moreno MD [facility] Unavailable + Encounters Date Type Department Care Team Description 09/20/2024 1:12 PM CDT - 09/20/2024 11:59 PM CDT Hospital Encounter [facility] [address] [place] [phone] Misael Almanza MD Sacroiliac joint pain (Primary Dx); Osteoarthritis of both hips, unspecified osteoarthritis type Discharge Disposition: Discharge to home or self care 09/18/2024 Orders Only [facility] Orthopaedic Surgery [address] [place] [phone] Misael Almanza MD Osteoarthritis of both hips, unspecified osteoarthritis type (Primary Dx); Sacroiliitis, not elsewhere classified 09/12/2024 Telephone [facility] Orthopaedic Surgery [address] [place] [address] 2nd Floor [address] [place] [address] Melany Keen CMA Scheduling Appointments 09/12/2024 Telephone [facility] Orthopaedic Surgery [address] [place] [address] 2nd Floor [address] [place] [address] Melany Keen CMA Scheduling Appointments 09/12/2024 8:45 AM CDT - 09/12/2024 11:59 PM CDT Hospital Encounter [facility] [address] [place] [phone] Hip pain, unspecified laterality Discharge Disposition: Discharge to home or self care 09/12/2024 8:30 AM CDT Office Visit [facility] Orthopaedic Surgery [address] [place] [address] 2nd Floor [address] [place] [phone] Misael Almanza MD Hip pain, unspecified laterality (Primary Dx); Osteoarthritis of both hips, unspecified osteoarthritis type 09/08/2024 Telephone [facility] Orthopaedic Surgery [address] [place] [address] Floor [address] [place] [phone] Misael Almanza MD 09/07/2024 Telephone [facility] Orthopa[facility] Surgery [address] [place] [address] Floor [address] [place] [phone] Misael Almanza MD 08/21/2024 7:39 AM CDT - 08/21/2024 11:59 PM CDT Hospital Encounter [facility] [address] [place] [phone] Misael Almanza MD Lumbar radiculopathy (Primary Dx) Discharge Disposition: Discharge to home or self care 08/18/2024 Orders Only [facility] Orthopaedic Surgery [address] [place] [address] [facility] 12th [place] [address] [place] [address] Clif Mendez MD Status post cervical spinal fusion (Primary Dx) 08/18/2024 10:46 AM CDT - 08/18/2024 11:59 PM CDT Hospital Encounter [facility] [address] [place] [phone] S/P cervical spinal fusion Discharge Disposition: Discharge to home or self care 08/18/2024 11:20 AM CDT Office Visit [facility] Orthopaedic Surgery [address] [facility] 12th [place] [address] [place] [address] Clif Mendez MD Fusion of spine of cervical region (Primary Dx) 08/16/2024 Orders Only [facility] Orthopaedic Surgery [address] [facility] 2nd Floor [address] [place] [address] Misael Almanza MD Lumbar radiculopathy (Primary Dx) 08/08/2024 Orders Only [facility] Orth[facility] Surgery [address] [facility] 12th [place] [address] [place] [address] Clif Mendez MD S/P cervical spinal fusion (Primary Dx) from Last 3 Months Allergies Active Allergy Reactions Criticality Noted Date Comments Aspirin Stomach upset Low Sulfamethoxazole-Trimethoprim Itching Low 2020 Fentanyl Itching,Rash Medium 10/06/2021 Hydrocodone-Acetaminophen Itching Low 03/03/2022 Hydromorphone Rash Medium 05/05/2024 Methylprednisolone Itching Low 05/09/2021 Sulfa (Sulfonamide Antibiotics) Stomach upset Low 0 06/28/2019 Tramadol Rash Medium 03/20/2024 Tramadol Hcl Itching,Rash Medium 04/23/2017 Medications emollient creamIndicatio ns:Skin Inflammation,t o feet Apply 1 Application topically every morning 8 Active metFORMIN (GLUCOPHAGE) 1,000 mg tabletIndicati ons:type 2 diabetes mellitus Take 1 tablet (1,000 mg total) by mouth 2 (two) times a day with meals 1 Active losartan (COZAAR) 100 mg tabletIndicati ons:hypertensi on Take 1 tablet (100 mg total) by mouth every morning 2 Active rosuvastatin (CRESTOR) 10 mg tabletIndicati ons:hyperlipid emia Take 1 tablet (10 mg total) by mouth every morning 2 Active cyanocobalamin , vitamin B-12, (VITAMIN B-12 INJ) Inject 1 Dose as directed every 3 (three) months Due for next shot before surgery Active colchicine (COLCRYS) 0.6 mg tablet TAKE 1 TABLET BY MOUTH EVERY DAY 90 tablet 4 Active albuterol HFA (PROVENTIL HFA,VENTOLIN HFA,PROAIR HFA) 90 mcg/actuation inhalerIndicat ions:Acute Asthma Attack Inhale 2 puffs every 6 (six) hours as needed 5 Active ezetimibe (ZETIA) 10 mg tabletIndicati ons:hyperlipid emia Take 1 tablet (10 mg total) by mouth every morning 5 Active allopurinoL (ZYLOPRIM) 300 mg tabletIndicati ons:gout Take 1 tablet (300 mg total) by mouth every morning Active ketoconazole (NIZORAL) 2 % creamIndicatio ns:to feet Apply 1 Application topically every morning Active B.animalis,bif id,infantis,lo ng (PROBIOTIC 4X ORAL)Indicatio ns:Gi Health Take 1 capsule by mouth every morning Active miconazole 2 % creamIndicatio ns:to feet Apply 1 Application topically every morning Active doxepin (ZONALON) 5 % cream 5 Active acetaminophen 500 mg capsuleIndicat ions:Pain Take 2 capsules (1,000 mg total) by mouth every 8 (eight) hours 5 Active senna-docusate (PERICOLACE) 8.6-50 mgIndications: constipation Take 2 tablets by mouth 2 (two) times a day 120 tablet 5 Active cyclobenzaprin e (FLEXERIL) 10 mg tabletIndicati ons:Muscle Spasm Take 1 tablet (10 mg total) by mouth every 8 (eight) hours 90 tablet 5 Active benzocaine-men thoL (CHLORASEPTIC) 6-10 mg lozenge Take 1 lozenge by mouth every 3 (three) hours as needed for sore throat 54 tablet 5 Active oxyCODONE (ROXICODONE) 5 mg immediate release tabletIndicati ons:Pain Take 1 tablet (5 mg total) by mouth every 4 (four) hours as needed Active Mucinex 600 mg 12 hr tablet 5 Active triamcinolone (KENALOG) 0.1 % cream 5 Active pregabalin (LYRICA) 50 mg capsuleIndicat ions:Postopera tive Acute Pain Take one capsule by mouth twice per day for 7 days. Then reduce to one capsule by mouth once per day for 7 days. 21 capsule 5 Active pregabalin (LYRICA) 75 mg capsuleIndicat ions:Postopera tive Acute Pain Take 1 capsule (75 mg total) by mouth every 12 (twelve) hours 60 capsule 1 5 09/20/19 25 Discontin ued(Alter rema therapy) Active Problems Problem Noted Date Diagnosed Date [...] 06/02/2019 Assessment & Plan (06/02/2019 8:58 AM GANG PUSHER): Status post left CMC injection today High [...] (05/08/2020): Added automatically from request for surgery [id number] Swelling 05/07/2020 07/19/2020 OA (osteoarthritis) of finger, right 01/30/2020 09/23/2021 Thumb pain 05/05/2019 07/19/2020 Assessment & Plan (05/05/2019 9:12 AM GANG PUSHER): Status post intra-articular injection of the CMC today Arthritis, senescent 05/05/2019 021 Assessment & Plan (05/05/2019 9:13 AM GANG PUSHER): Status post bilateral intra-articular injections Arthritis 06/17/2017 [...] SARS-CoV-2 Monovalent Vaccination (12+ Yrs) PURPLE 07/18/2021,12/02/2020,08/12/2020,07/21 [email or web address] Sars-Cov-2 Bivalent V accination (12+ YRS) 07/01/2023,03/19/2022 [...] making you feel afraid or unsafe? 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 on file Not on file Not on file Last Filed Vital Signs Vital Sign Reading Time Taken Comments Blood Pressure 142/80 09/20/2024 1:46 PM CDT Pulse 69 09/20/2024 1:46 PM CDT Temperature 36.6 C (97.8 F) 05/20/2024 7:32 AM GANG PUSHER Respiratory Rate 16 09/20/2024 1:46 PM CDT Oxygen Saturation 99% 09/20/2024 1:46 PM CDT Inhaled Oxygen Concentration - - Weight 72.6 kg (160 lb) 08/21/2024 8:21 AM CDT Height 157.5 cm (5' 2) 06/30/2024 11:11 AM CDT Body Mass Index 29.26 06/30/2024 11:11 AM CDT Plan of Treatment Not on file Medical Devices Implanted Type Area Boiler Plant Worker Device Identifier Shelf Expiration Date Model / Serial / Lot [employer] [id number] Corkscrew Fiberwire 2.7mm 7mm 17.9mm Needle Wire Foot Ankle 2-0 - [id number] Implanted:Qty: 1 on 05/22/2020 by Philip Fine MD at [facility] Right: Wrist [employer] [id number] 11/09/2024 [id number] / / [id number] [employer] [id number] Corkscrew Fiberwire 2.7mm 7mm 17.9mm Needle Wire Foot Ankle 2-0 - [id number] Implanted:Qty: 1 on 05/22/2020 by Philip Fine MD at [facility] Right: Wrist [employer] [id number] 11/09/2024 [id number] / / [id number] [employer] Graft Bone Magnetos 2.5cc 1-2mm Granules In Moldable Putty [id number] - [id number] Implanted:Qty: 1 on 05/18/2024 by Clif Mendez MD at [facility] N/A: Spine Cervical [employer] 10/10/2028 [id number] / / Med[employer] Screw Spinal Anterior Cervical Self Drilling Solid Zevo 3.5x17mm Titanium [id number] - [id number] Implanted:Qty: 7 on 05/18/2024 by Clif Mendez MD at [facility] N/A: Spine Cervical [employer] [id number] / / [employer] Plate Spine Anterior Cervical Level 3 Zevo 48mm Titanium [id number] - [id number] Implanted:Qty: 1 on 05/18/2024 by Clif Mendez MD at [facility] N/A: Spine Cervical [employer] [id number] / / [employer] Cage Spinal Cervical 6 Degree Acif Large Endoskeleton Tcs Nanolock [id number] Titanium [id number] - [id number] Implanted:Qty: 1 on 05/18/2024 by Clif Mendez MD at [facility] N/A: Spine Cervical [employer] [id number] / / [employer] Cage Spinal Cervical 6 Degree Acif Large Endoskeleton Tcs Nanolock [id number] Titanium [id number] - [id number] Implanted:Qty: 1 on 05/18/2024 by Clif Mendez MD at [facility] N/A: Spine Cervical [employer] [id number] / / [employer] Cage Spinal Cervical 6 Degree Acif Large Endoskeleton Tcs Nanolock [id number] Titanium [id number] - [id number] Implanted:Qty: 1 on 05/18/2024 by Clif Mendez MD at [facility] N/A: Spine Cervical [employer] [id number] / / [employer] Screw Spinal Anterior Cervical Self Drilling Solid Zevo 4.0x17mm Titanium [id number] - [id number] Implanted:Qty: 1 on 05/18/2024 by Clif Mendez MD at [facility] N/A: Spine Cervical [employer] [id number] / / Procedures Procedure Name Priority Date/Time Associated Diagnosis Comments IR INJECTION SI JOINT BILATERAL WITH GUIDANCE Schedule Routine, Read Routine (OP Routine) 09/20/2024 1:44 PM CDT Osteoarthritis of both hips, unspecified osteoarthritis type Sacroiliac joint pain XR PELVIS 1 OR 2 VIEWS Schedule Routine, Read Routine (OP Routine) 09/12/2024 9:03 AM CDT Hip pain, unspecified laterality TRANSFORAMINAL EPIDURAL INJECTION LUMBAR SACRAL FIRST LEVEL BILATERAL Schedule Routine, Read Routine (OP Routine) 08/21/2024 8:56 AM CDT Lumbar radiculopathy XR SPINE CERVICAL 2 OR 3 VIEWS Schedule Routine, Read Routine (OP Routine) 08/18/2024 10:51 AM CDT S/P cervical spinal fusion EGFR Routine 05/20/2024 4:35 AM GANG PUSHER LIPID PANEL Routine 05/19/2024 5:00 AM GANG PUSHER HEMOGLOBIN A1C Routine 05/05/2024 4:02 PM GANG PUSHER Spinal stenosis in cervical region Cervical radiculopathy Type 2 diabetes mellitus with other specified complication, unspecified whether halfway insulin use (HCC) from Last 3 Months or Most Recently Relevant to Health Maintenance Results * IR Injection SI Joint Bilateral with Guidance (09/20/2024 1:44 PM CDT) Narrative [facility] - 09/20/2024 1:44 PM CDT The images from this study are not interpreted by Radiology. Please refer to the physician's procedure / OR operative note. Misael Almanza MD IMG IR PROCEDURES Final Result [facility] * XR Pelvis 1 or 2 Views [...] Almanza MD IMG IR PROCEDURES Final Result [facility] * XR [...] by: River Sharma M.D. Clif Mendez MD IMG XR PROCEDURES Final Result * eGFR (05/20/2024 4:35 AM GANG PUSHER) eGFR 71 >=60 mL/min/1. 73 m2 Comment: [...] of Race in Diagnosing Kidney Disease, JASN 202). The CKD-EPI equation should not be used for patients with unstable renal function and has not been validated in children and those over 70. Current interpretive data was last reviewed 2021. Blood 05/20/2024 4:35 AM GANG PUSHER 05/20/2024 4:51 AM GANG PUSHER us Ed Du MD LAB BLOOD ORDERABLES Fi nal Result [facility] [place] [address] * Lipid panel (05/19/2024 5:00 AM GANG PUSHER) Cholesterol 117 30 - 199 mg/dL Comment: [...] on 2017. HDL 63 >=40 mg/dL [facility] Comment: Interpretive Data Ages < [...] 2017. LDL, calculated 42 <=129 mg/dL [facility] Comment: Interpretive Data Ages < [...] on 2023. Non-HDL Cholesterol 54 mg/dL [facility] Comment: Interpretive Data Ages < [...] revised on 2017. Chol/HDL ratio 2 [facility] Blood 05/19/2024 5:00 AM GANG PUSHER 05/19/2024 5:29 AM GANG PUSHER Narrative [facility] - 05/19/2024 8:37 AM GANG PUSHER Reflex Clif Mendez MD LAB BLOOD ORDERABLES Fi nal Result Performing Organization Address [facility] de Phone Number [facility] [place] [address] * (ABNORMAL) Hemoglobin A1c (05/05/2024 4:02 PM GANG PUSHER) Hgb A1C 5.7(H) 4.0 - 5.6 % Estimated Average Glucose 117 mg/dL [facility] Comment: The ADA recommends reporting an estimated Average Glucose (eAG) with all Hemoglobin A1c results using the equation derived from a study of 507 normal and diabetic adults. Minority populations were underrepresented and children were not included. (Diabetes Care 2020; 43(S1): S66-S76). The eAG is not equivalent to a fasting glucose. Blood 05/05/2024 4:02 PM GANG PUSHER 05/05/2024 4:53 PM GANG PUSHER Clif Mendez MD LAB BLOOD ORDERABLES Fi nal Result Performing Organization Address [facility] de Phone Number [facility] [place] [address] from Last 3 Months or Most Recently Relevant to Health Maintenance Insurance MEDICARE [facility] [place] [address] MEDICARE FOR LIFE Advance Directives For more information, please contact: [phone] * Full Code (Latest Code Status on File) Date Activated Date Inactivated Comments 05/18/2024 5:44 PM 05/20/2024 6:10 PM Care Teams Graphics Production Specialist Relationship Specialty Start Date End Date Gene Moreno MD [address] [place] [address] PCP - General Emergency Medicine 07/27/22 Sandra Mark MD [address] [place] [address] Rheumatology 08/19/23
--- OUTSIDE RECORDS SUMMARY | 2024-10-12 13:14 | XMS_ITS | Clinical Summary ---
Author Organization [facility] Address [address] [place] [address] Care Team Providers Care Gunner'S Mate M Name Role Phone Gene Moreno MD Primary [...] 06/02/2019 Assessment & Plan (06/02/2019 8:58 AM EMAIL PRODUCER): Status post left CMC injection today High [...] (05/08/2020): Added automatically from request for surgery [id number] Swelling 05/07/2020 07/19/2020 OA (osteoarthritis) of finger, right 01/30/2020 09/23/2021 Thumb pain 05/05/2019 07/19/2020 Assessment & Plan (05/05/2019 9:12 AM EMAIL PRODUCER): Status post intra-articular injection of the CMC today Arthritis, senescent 05/05/2019 021 Assessment & Plan (05/05/2019 9:13 AM EMAIL PRODUCER): Status post bilateral intra-articular injections Arthritis 06/17/2017 09/23/2021 SOB (shortness of breath) Chronic cough 07/19/2020 Encounters Date Type Department Care Team Description 09/20/2024 1:12 PM CDT - 09/20/2024 11:59 PM CDT Hospital Encounter [facility] [address] [place] [address] Misael Almanza MD Sacroiliac joint pain (Primary Dx); Osteoarthritis of both hips, unspecified osteoarthritis type Discharge Disposition: Discharge to home or self care 09/18/2024 Orders Only [facility] [address] [place] [address] Medical Office Building [address] [place] [address] Misael Almanza MD Osteoarthritis of both hips, unspecified osteoarthritis type (Primary Dx); Sacroiliitis, not elsewhere classified 09/12/2024 8:45 AM CDT - 09/12/2024 11:59 PM CDT Hospital Encounter [facility] [address] [place] [address] Hip pain, unspecified laterality Discharge Disposition: Discharge to home or self care 09/12/2024 8:30 AM CDT Office Visit [facility] [address] [place] [address] 2nd Floor [address] [place] [phone] Misael Almanza MD Hip pain, unspecified laterality (Primary Dx); Osteoarthritis of both hips, unspecified osteoarthritis type 09/12/2024 Telephone [facility] [address] 2nd Floor [address] [place] [phone] Melany Keen CMA Scheduling Appointments 09/12/2024 Telephone [facility] [address] 2nd Floor [address] [place] [phone] Melany Keen CMA Scheduling Appointments 09/08/[address] 2nd Floor [address] [place] [phone] Misael Almanza MD 09/07/[address] 2nd Floor [address] [place] [phone] Misael Almanza MD 08/21/2024 7:39 AM CDT - 08/21/2024 11:59 PM CDT Hospital Encounter [facility] [address] [place] [address] Misael Almanza MD Lumbar radiculopathy (Primary Dx) Discharge Disposition: Discharge to home or self care 08/18/2024 11:20 AM CDT Office Visit [facility] [address] [facility] 12th [place] [address] [place] [address] Clif Mendez MD Fusion of spine of cervical region (Primary Dx) 08/18/2024 10:46 AM CDT - 08/18/2024 11:59 PM CDT Hospital Encounter [facility] [address] [place] [address] S/P cervical spinal fusion Discharge Disposition: Discharge to home or self care 08/18/2024 Orders Only [facility] [address] [facility] 12th [place] [address] [place] [address] Clif Mendez MD Status post cervical spinal fusion (Primary Dx) 08/16/2024 Orders Only [facility] [address] [facility] 2nd Floor [address] [place] [address] Misael Almanza MD Lumbar radiculopathy (Primary Dx) 08/08/2024 Orders Only [facility] [address] [facility] 12th [place] [address] [place] [address] Clif Mendez MD S/P cervical spinal fusion (Primary Dx) from Last 3 Months Immunizations Immunization Administration [...] SARS-CoV-2 Monovalent Vaccination (12+ Yrs) PURPLE 07/18/2021,12/02/2020,08/12/2020,07/21 [employer] logo Sars-Cov-2 Bivalent V accination (12+ YRS) 07/01/2023,03/19/2022 Pneumococcal Conjugate PCV 13 03/30/2019 Pneumococcal Conjugate, Unspecified 01/25/2019 RSV Vaccine, Pref, Recombina nt, Subunit, Adjuvanted, PF, IM (Arexvy) 12/16/2023 Td, adsorbed 04/13/2018 Tdap 09/17/2008 ZOSTER Recombinant 02/10/2019,12/07/2018 Surgical History Surgery Date Site/Laterality Comments [place] STOT/TOT HYSTERECTOMY AFTER DELIVERY Hysterectomy - (Added by TW Conv) [place] CHOLECSTOT/CHOLECSTOST W/EXPL DRG/RMVL ST1 SPX Cholecystotomy - [...] GI AIR CONTRAST W KUB 08/21/2024 Bilateral IR INJECTION ARTHROGRAM SI JOINT BILATERAL WITH GUIDANCE 09/20/2024 Bilateral Medical History Medical History Date Comments [...] on file Legal Sex Female 7:57 PM EMAIL PRODUCER Gender Identity Not on file Sexual Orientation Not on file 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 Not on file Not on file Obstetrics History Last Filed Vital Signs Vital Sign Reading Time Taken Comments Blood Pressure 142/80 09/20/2024 1:46 PM CDT Pulse 69 09/20/2024 1:46 PM CDT Temperature 36.6 C (97.8 F) 05/20/2024 7:32 AM EMAIL PRODUCER Respiratory Rate 16 09/20/2024 1:46 PM CDT [...] exists Hemoglobin A1C 11/02/2024 05/05/2024 Influenza Vaccine (#1) 2024 , 02/25/2022, 01/23/2021, Additional history exists Lipid Panel 05/19/2025 05/19/2024 eGFR 05/20/2025 05/20/2024, 02/0 10/2024, 05/05/2024, Additional history exists Fall Risk Assessment 09/20/2025 09/20/2024 DTaP/Tdap/Td Vaccine (3 - Td or Tdap) 04/13/2028 04/13/2018, 09/17/2008 Zoster Vaccine Completed 02/10/2019, 12/07/2018 Medical Devices Implanted Type Area Conservation Agent Device Identifier Shelf Expiration Date Model / Serial / Lot [employer] [id number] Corkscrew Fiberwire 2.7mm 7mm 17.9mm Needle Wire Foot Ankle 2-0 - [id number] Implanted:Qty: 1 on 05/22/2020 by Philip Fine MD at [facility] Right: Wrist [employer] [id number] 11/09/2024 [id number] / / [id number] [employer] [id number] Corkscrew Fiberwire 2.7mm 7mm 17.9mm Needle Wire Foot Ankle 2-0 - [id number] Implanted:Qty: 1 on 05/22/2020 by Philip Fine MD at [facility] Right: Wrist [employer] [id number] 11/09/2024 [id number] / / [id number] [employer] Graft Bone Magnetos 2.5cc 1-2mm Granules In Moldable Putty [id number]-Us - [id number] Implanted:Qty: 1 on 05/18/2024 by Clif Mendez MD at [facility] N/A: Spine Cervical [employer] 10/10/2028 [id number] / / Medtronic Inc Screw Spinal Anterior Cervical Self Drilling Solid Zevo 3.5x17mm Titanium [id number] - [id number] Implanted:Qty: 7 on 05/18/2024 by Clif Mendez MD at [facility] N/A: Spine Cervical Med[employer] Inc [id number] / / Med[employer]onic [employer] Plate Spine Anterior Cervical Level 3 Zevo 48mm Titanium [id number] - [id number] Implanted:Qty: 1 on 05/18/2024 by Clif Mendez MD at [facility] N/A: Spine Cervical Med[employer] Inc [id number] / / Med[employer] Inc Cage Spinal Cervical 6 Degree Acif Large Endoskeleton Tcs Nanolock [id number] Titanium [id number]-N - [id number] Implanted:Qty: 1 on 05/18/2024 by Clif Mendez MD at [facility] N/A: Spine Cervical [employer] Inc [id number] -[id number] / / Med[employer]onic Inc Cage Spinal Cervical 6 Degree Acif Large Endoskeleton Tcs Nanolock [id number] Titanium 3046-7772-N - [id number] Implanted:Qty: 1 on 05/18/2024 by Clif Mendez MD at [facility] N/A: Spine Cervical Med[employer] Inc [id number] -[id number] / / Med[employer] Inc Cage Spinal Cervical 6 Degree Acif Large Endoskeleton Tcs Nanolock [id number] Titanium [id number]-N - [id number] Implanted:Qty: 1 on 05/18/2024 by Clif Mendez MD at [facility] N/A: Spine Cervical Med[employer]onic Inc [id number] -[id number] / / [employer]onic Inc Screw Spinal Anterior Cervical Self Drilling Solid Zevo 4.0x17mm Titanium [id number] - [id number] Implanted:Qty: 1 on 05/18/2024 by Clif Mendez MD at [facility] N/A: Spine Cervical [employer] Inc [id number] / / Procedures Procedure Name Priority Date/Time [...] spinal fusion EGFR Routine 05/20/2024 4:35 AM EMAIL PRODUCER LIPID PANEL Routine 05/19/2024 5:00 AM EMAIL PRODUCER HEMOGLOBIN A1C Routine 05/05/2024 4:02 PM EMAIL PRODUCER Spinal stenosis in cervical region Cervical radiculopathy Type 2 diabetes mellitus with other specified complication, unspecified whether residential insulin use (HCC) from Last 3 Months or Most Recently Relevant to Health Maintenance Results * IR Injection SI Joint Bilateral with Guidance (09/20/2024 1:44 PM CDT) Narrative RAD_PACS_BJ - 09/20/2024 1:44 PM CDT The images [...] and moderate at C7-T1. Dictated by: Azael Corye M.D. The radiology attending physician has personally [...] Final Result * eGFR (05/20/2024 4:35 AM EMAIL PRODUCER) eGFR 71 >=60 mL/min/1. 73 m2 Comment: [...] last reviewed 2021. Blood 05/20/2024 4:35 AM EMAIL PRODUCER 05/20/2024 4:51 AM EMAIL PRODUCER us Ed Du MD LAB BLOOD ORDERABLES Fi nal Result [facility] Department [place] [address] * Lipid panel (05/19/2024 5:00 AM EMAIL PRODUCER) Cholesterol 117 30 - 199 mg/dL Comment: [...] on 2017. Triglycerides 48 <=149 mg/dL [facility] Comment: Interpretive Data Ages < or [...] on 2017. HDL 63 >=40 mg/dL [facility] Comment: Interpretive Data Ages < or [...] 2017. LDL, calculated 42 <=129 mg/dL [facility] Comment: Interpretive Data Ages < or [...] revised on 2023. Non-HDL Cholesterol 54 mg/dL [facility] Comment: Interpretive Data Ages < [...] last revised on 2017. Chol/HDL ratio 2 [facility] Blood 05/19/2024 5:00 AM EMAIL PRODUCER 05/19/2024 5:29 AM EMAIL PRODUCER Narrative [facility] - 05/19/2024 8:37 AM EMAIL PRODUCER Reflex us Clif Mendez MD LAB BLOOD ORDERABLES Fi nal Result [facility] Department [place] [address] * (ABNORMAL) Hemoglobin A1c (05/05/2024 4:02 PM EMAIL PRODUCER) Hgb A1C 5.7(H) 4.0 - 5.6 % Estimated Average Glucose 117 mg/dL [facility] Comment: The ADA recommends reporting an estimated Average Glucose (eAG) with all Hemoglobin A1c results using the equation derived from a study of 507 normal and diabetic adults. Minority populations were underrepresented and children were not included. (Diabetes Care 2020; 43(S1): S66-S76). The eAG is not equivalent to a fasting glucose. Blood 05/05/2024 4:02 PM EMAIL PRODUCER 05/05/2024 4:53 PM EMAIL PRODUCER us Clif Mendez MD LAB BLOOD ORDERABLES Fi nal Result [facility] Department [place] [address] from Last 3 Months or Most Recently Relevant to Health Maintenance Insurance [place] [address] MEDICARE [facility] [place] [address] MEDICARE [facility] Advance Directives For more information, please contact: [phone] * Full Code (Latest Code Status on File) Date Activated Date Inactivated Comments 05/18/2024 5:44 PM 05/20/2024 6:10 PM Care Teams Gunner'S Mate M Relationship Specialty Start Date End Date Gene Moreno MD [address] [facility] [place] [address] PCP - General Emergency Medicine 07/27/22 Sandra Mark MD [address] [place] [address] Rheumatology 08/19/23
--- NOTE | 2024-10-12 15:00 | NEURO_ITS ---
Clinical note: The patient is 69-year-old with history of pain in the lower back for last 6 years. The patient also has history of diabetes mellitus for past 8 years. She has had injections in the lumbar spine for pain management. She had a fracture of the right big toe in the past. A brief examination of the lower limbs did not show any focal muscle wasting or weakness or fasciculations in both lower limbs. Please refer to the detailed EMG and nerve conduction study findings the shown below. Summary of findings: 1. Left and right medial plantar sensory responses were absent 2. Left and right sural sensory distal latency is a mildly prolonged on the left and normal on the right side however amplitudes and conduction velocity also moderately decreased. 3. Left and right peroneal motor distal latencies, amplitudes and conduction velocities were within normal limits. There is no focal slowing across the fibular head. 4. Left and tibial motor distal latency with a mildly prolonged on the right and normal on the left side. Amplitudes were mildly decreased was conduction velocity within normal limits. 5. Left and right H reflex latencies were within normal limits however the latency was slightly prolonged on the left than right side. Amplitudes are significantly decreased on the right compared to the left side. H-reflex amplitude on the left side was within normal limits. 6. EMG examination was performed for various muscles in the distribution of L3- S1 repair examined. Related paraspinal muscles were also examined. No denervation changes seen in paraspinal muscles however mild denervation changes she the right gastrocnemius and mild decreased recruitment noted in bilateral biceps more short head and right tensor fascial carleen. Impression: EMG and nerve conduction studies on both lower limbs show followings: 1. Mild chronic L5-S1 radiculopathy. Radiographic correlation is recommended. 2. Mild diffuse, length-dependent, predominantly sensory, axonal type peripheral neuropathy such as may be seen with diabetes mellitus. Remainder of the study is considered within acceptable normal limits. Gavin Figueredo MD, FAAN, FAANEM Neurology [facility] Nerve Conduction Studies Motor Nerve Results ? Latency Amplitude F-Lat Segment Distance CV Comment Site (ms) (mV) (ms) (cm) (m/s) Left Peroneal (EDB) Motor Ankle 4.9 2.8 Bel Fib Head 10.4 2.4 Bel Fib Head-Ankle 290 53 Pop Fossa 12.4 2.5 Pop Fossa-Bel Fib Head 80 40 Right Peroneal (EDB) Motor Ankle 4.5 3.2 Bel Fib Head 10.4 2.9 Bel Fib Head-Ankle 250 42 Pop Fossa 11.9 2.8 Pop Fossa-Bel Fib Head 70 47 Left Tibial (AHB) Motor Ankle 4.9 5.8 Knee 14.2 2.7 Knee-Ankle 400 43 Right Tibial (AHB) Motor Ankle 6.4 5.6 Knee 15.7 4.7 Knee-Ankle 385 41 Sensory Nerve Results ? Latency (Peak) Amplitude (P-P) Segment Distance CV Comment Site (ms) (?V) (cm) (m/s) Left Medial Plantar (Ortho) Sensory Great Toe-Med Mall NR NR Great Toe-Med Mall 110 NR Right Medial Plantar (Ortho) Sensory Great Toe-Med Mall NR NR Great Toe-Med Mall 100 NR Left Sural Sensory Calf-Lat Mall 4.1 6 Calf-Lat Mall 120 29 Right Sural Sensory Calf-Lat Mall 3.5 7 Calf-Lat Mall 120 34 H-Reflex Results ? M-Lat H Lat H Peak-Peak Amp M Peak-Peak Amp H-M Lat Site (ms) (ms) mV mV (ms) Left Tibial H-Reflex Pop Fossa 5.5 32.9 1.63 10.7 27.4 Right Tibial H-Reflex Pop Fossa 5.2 29.4 2.4 2.9 24.2 Electromyography ?Side Muscle Nerve Ins Act Fibs Psw Amp Dur Recrt Comment Right BicepsFemS Sciatic Nml Nml Nml Incr >12ms +1 Right Semimembranosus Sciatic Nml Nml Nml Nml Nml Nml Right AntTibialis Dp Br Fibular Nml Nml Nml Nml Nml Nml Right Gastroc Tibial Nml Nml 1+ Nml Nml Nml Right VastusMed Femoral Nml Nml Nml Nml Nml Nml Right TensorFascLat SupGluteal Nml Nml Nml Nml Nml +1 Left BicepsFemS Sciatic Nml Nml Nml Incr >12ms +1 Left Semimembranosus Sciatic Nml Nml Nml Nml Nml Nml Left AntTibialis Dp Br Fibular Nml Nml Nml Nml Nml Nml Left Gastroc Tibial Nml Nml Nml Nml Nml Nml Left VastusMed Femoral Nml Nml Nml Nml Nml Nml Left TensorFascLat SupGluteal Nml Nml Nml Nml Nml Nml Left L4 Parasp Rami Nml Nml Nml Nml Nml Nml Right L4 Parasp Rami Nml Nml Nml Nml Nml Nml Right L5 Parasp Rami Nml Nml Nml Nml Nml Nml
== END 2024-10-12 13:10 | disposition home or self-care (01) ==
LOC: ANHNEURO 13:10
PROVIDERS: PCP Emergency Medicine; Visit Provider Psychiatry & Neurology Neurology
DX: M54.17 Radiculopathy, lumbosacral region (principal); E11.9 Type 2 diabetes mellitus without complications; G62.89 Other specified polyneuropathies
CPT/HCPCS: 95886; 95910

== ENCOUNTER 2024-10-30 15:03 | Outpatient (CLI) | payer MEDICARE, OTHER, SELFPAY ==
--- NOTE | ~2024-10-30 | DEXA_ITS ---
Bone Density Report Name: HOWARD WAYNE Age: 69 Sex: Female Ethnicity: Black Date of : 1955 Indication: monitoring treatment; asthma or emphysema; hysterectomy; rheumatoid arthritis; Referring Provider: CAMPOS CORRAL Study: Bone densitometry was performed. Exam Date: October 30, 2024 Accession number: [id number] Bone Density: Region BMD T-score Z-score Classification AP Spine(L1, L2, L3) 1.125 1.0 2.1 Normal Femoral Neck (Left) 0.936 0.8 1.2 Normal Total Hip (Left) 1.065 1.0 1.3 Normal Femoral Neck (Right) 0.958 1.0 1.4 Normal Total Hip (Right) 1.072 1.1 1.3 Normal Total Hip Mean 1.069 1.1 1.3 Normal World Health Organization criteria for BMD impression classify patients as: Normal (T-score at or above -1.0), Osteopenia (T-score between -1.0 and -2.5), or Osteoporosis (T-score at or below -2.5). 10-year Fracture Risk: FRAX not reported because: All T-scores for Spine Total, Hip Total, Femoral Neck at or above -1.0 Treated for osteoporosis Previous Exams: -- Region Exam Age BMD T-score BMD Change BMD Change Date g/cm2 vs Baseline vs Previous -- AP Spine (L1-L3) 10/30/2024 69 1.125 1.0 4.8%* 3.5%* 07/29/2017 62 1.087 0.6 1.3% 1.3% 09/10/2014 59 1.073 0.5 Total Hip(Left) 10/30/2024 69 1.065 1.0 -1.3% -3.6%* 07/29/2017 62 1.105 1.3 2.3% 2.3% 09/10/2014 59 1.080 1.1 Total Hip(Right) 10/30/2024 69 1.072 1.1 -3.9%* -6.1%* 07/29/2017 62 1.142 1.6 2.3% 2.3% 09/10/2014 59 1.116 1.4 -- *Denotes significance at 95% confidence level, LSC for AP Spine = 0.022 g/cm2, LSC for Total Hip = 0.027 g/cm2 Clinical Information Provided by Patient: Has rheumatoid arthritis Is being treated for osteoporosis Has used the following medications: Vitamin D, Calcium Has the following medical conditions: Asthma or Emphysema, Hysterectomy Patient maximum height was 62 Menopause Age: 24 No regular weight bearing exercise Does not regularly consume dairy products Drinks caffeinated beverages Onset of menses at age 12 Number of children 3 Impression: The patient has normal bone mass. The BMD for the Total Hip(Left) decreased, changing by -3.6% since the last DXA exam. The BMD for the Total Hip(Right) decreased, changing by -6.1% since the last DXA exam. Discussion: SIGNIFICANT BONE LOSS OBSERVED. Adherence to therapy (including calcium and vitamin D intake) should be assessed. If compliance is not a factor, review management and exclusion of secondary causes of bone loss. It is important to ask patients whether they are taking their medications and to encourage continued and appropriate compliance with their osteoporosis therapies to reduce fracture risk. It is also important to review their risk factors and encourage appropriate calcium and vitamin D intakes, exercise, fall prevention and other lifestyle measures. Follow-Up: Consider a repeat BMD and Vertebral Fracture Assessment (VFA) exam in 2 years or sooner if medically necessary, to reassess this patient's status. Reported by: ОЛЬГА on 10/30/2024 3:20:00 PM. Reviewed, dictated and finalized at location A.
== END 2024-10-30 15:04 | disposition home or self-care (01) ==
PROVIDERS: PCP Emergency Medicine; Visit Provider Emergency Medicine
DX: Z78.0 Asymptomatic menopausal state (principal)
CPT/HCPCS: 77080

== ENCOUNTER 2024-11-29 10:49 | Outpatient (CLI) | payer MEDICARE, OTHER, SELFPAY ==
--- OUTSIDE RECORDS SUMMARY | 2024-11-29 11:25 | XMS_ITS | Patient Health Record ---
Author Organization [facility] Address [address] [place], [place] [id number] Care Team Providers Care Supervisor Money Room Name Role Phone MEKHI CELESTE Unavailable [phone] Reason For Referral No Information Medications Medication SIG (Take, Route, Frequency, Duration) Notes Start Date End Date Status Nabumetone 500 MG Oral Tablet ORAL nabumetone 500 MG Oral TabletOriginal Medicationnabumetone 500 MG Oral Tablet *Reorder from Neohapsis for eRx and Interaction Alerts* 04/06/2013 Active Plan Of Treatment No Information Insurance Providers Payer Name Payer Address Payer Phone Subscriber Number Group Number Insured Name Patient Relationship to Insured Coverage Start Date Coverage End Date [facility] [address] [place] [address] [id number] ROYA WAYNE Spouse - patient is the spouse of the insured
--- OUTSIDE RECORDS SUMMARY | 2024-11-29 11:25 | XMS_ITS | Encounter Summary ---
Author Organization [facility] Address [address] [facility] [place] [address] Care Team Providers Care Manager Safe Name Role Phone Unavailable Primary Care Provider Unavailabl e Encounter Details Date Type Department Care Team (Late st Contact Info) Description 03/27/2022 Lab Requisition [facility] [address] [facility] [place] [id number] Ashish Sanches MD [address] [place] [address] Social History Tobacco Use Types Packs/Day Years Used Date Smoking Tobacco: Former Smokeless Tobacco: Never Comments Unknown Sex and Gender Information Value Date Recorded Sex Assigned at Not on file Legal Sex Female 2: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 Gender Identity Not on file Sexual Orientation Not on file documented as of this encounter Plan of Treatment Not on file documented as of this encounter Procedures Procedure Name Priority Date/Time Associated Diagnosis Comments DERMATOPATHOLOGY Routine 03/25/2022 12:0 0 AM GRAVITY METER OPERATOR documented in this encounter Results * DERMATOPATHOLOGY (03/25/2022 12:00 AM GRAVITY METER OPERATOR) Case Report Dermatopathology Report Case: [id number] Authorizing Provider: Ashish Sanches MD Collected: 03/25/2022 12:00 AM Ordering Location: [facility] Lab Received: 03/27/2022 06:59 AM Pathologist: Krystal Braswell MD Specimen: Skin, right thumb 2 3:26 PM GRAVITY METER OPERATOR DERMATOPATHOLOGY LABORATORY Final Diagnosis Specimen A. SKIN, right thumb: PARAKERATOSIS (L85.9) (see microscopic description and comment) 2 3:26 PM [facility] DERMATOPATHOLOGY LABORATORY at [address]25 GRAVITY METER OPERATOR Clinical History VV vs. Other Path: [id number] 2 3:26 PM [facility] DERMATOPATHOLOGY LABORATORY Gross Description Specimen A: Received is one formalin filled container labeled with the patient's name and designated right thumb. The specimen consists of a shave biopsy measuring 4x3x1 mm. Jar 0. 2 3:26 PM [facility] DERMATOPATHOLOGY LABORATORY Microscopic Description Specimen A. SKIN, right thumb: The specimen consisted mostly of stratum corneum with retained nuclei. There is no cellular epidermis present for evaluation. COMMENT: This type of stratum corneum is frequently seen overlying squamous proliferations such as verruca vulgaris, clavus (corn), actinic keratoses or squamous cell carcinomas. Additional deeper sections were obtained and reviewed. 2 3:26 PM [facility] DERMATOPATHOLOGY LABORATORY Disclaimer An external and internal [...] purposes. Billing Codes Specimen Charges Stain Charges 25067 1 2 3:26 PM [facility] DERMATOPATHOLOGY LABORATORY Embedded Images 2 3:26 PM [facility] DERMATOPATHOLOGY LABORATORY Pathology/Cytolog y TISSUE SPECIMEN FROM SKIN / Unknown 03/25/2022 03/27/2022 6:59 AM [facility] us Ashish Sanches MD LAB - PATHOLOGY/CYTOLOGY ORDER ANNELISE Final Result DERMATOPATHOLOGY LABORATORY [facility] - Department of Dermatology [address], [address] [phone] documented in this encounter Visit Diagnoses Not on filedocumented in this encounter
--- OUTSIDE RECORDS SUMMARY | 2024-11-29 11:25 | XMS_ITS | Encounter Summary ---
Author Organization [facility] Address [address] [place] [address] Phone Care Team Providers Care Laboratory Sampler Name Role Phone NathanTracy gamino Cindy OREILLY Unavailable [phone] Marylou Alas DO Unavailable [phone] Marylou Alas DO Primary Care Provider [phone] Biju Rogers MD Primary Care Provider [phone]- [phone] Marylou Alas DO Primary Care Provider [phone] Biju Rogers MD Primary Care Provider [phone]- [phone] Gene Moreno MD Primary Care Provide r [...] on file Legal Sex Female 7:57 PM GAMING CAGE 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 Gender Identity Not on file Sexual Orientation Not on file 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 Not on file Not [...] on filedocumented in this encounter Care Teams Laboratory Sampler Relationship Specialty Start Date End Date Marylou Alas DO PCP - General Family Medicine 02/02/20 03/27/21 Biju Rogers MD PCP - General Internal Medicine 03/28/21 05/08/21 Marylou Alas DO PCP - General 05/09/21 11/13/21 Biju Rogers MD [address] [place] [address] PCP - General Internal Medicine 11/14/21 07/26/22 Gene Moreno MD [address] [place] [address] PCP - General Emergency Medicine 07/27/22 Tracy Dickerson, AFIA Nurse Practitioner Rheumatology 11/24/19 07/26/22 Marylou Alas DO Family Medicine 12/13/19 07/26/22 Sandra Mark MD [address] [facility] [address] [place] [address] Rheumatology 08/19/23 documented as of this encounter
--- OUTSIDE RECORDS SUMMARY | 2024-11-29 11:25 | XMS_ITS | Encounter Summary ---
Author Organization [facility] Address [address] [facility] [address] [place] [address] Phone Care Team Providers Care Poultry Farmer Meat Name Role Phone Radu Jara MD Primary Care Provider [phone] Tracy Dickerson NP Unavailable [phone] Marylou Alas DO Unavailable [phone] Radu Jara MD Primary Care Provider [phone] Marylou Alas DO Primary Care Provider [phone] Biju Rogers MD Primary Care Provider [phone]- [phone] Marylou Alas DO Primary Care Provider [phone] Biju Rogers MD Primary Care Provider [phone] Gene Moreno MD Primary Care Provide r [...] on file Legal Sex Female 7:57 PM PRIMER ASSEMBLER Gender Identity Not on file Sexual Orientation Not on file 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 on file Not [...] on filedocumented in this encounter Care Teams Poultry Farmer Meat Relationship Specialty Start Date End Date Radu Jara MD PCP - General 10/14/18 01/29/20 Radu Jara MD PCP - General 01/30/20 02/01/20 Marylou Alas DO PCP - General Family Medicine 02/02/20 03/27/21 Biju Rogers MD PCP - General Internal Medicine 03/28/21 05/08/21 Marylou Alas DO PCP - General 05/09/21 11/13/21 Biju Rogers MD [address] [place] [address] PCP - General Internal Medicine 11/14/21 07/26/22 Gene Moreno MD [address] [place] [address] PCP - General Emergency Medicine 07/27/22 Tracy Dickerson NP Nurse Practitioner Rheumatology 11/24/19 07/26/22 Marylou Alas DO Family Medicine 12/13/19 07/26/22 Sandra Mark MD [address] [facility] [address] [place] [address] Rheumatology 08/19/23 documented as of this encounter
--- OUTSIDE RECORDS SUMMARY | 2024-11-29 11:25 | XMS_ITS | Encounter Summary ---
Author Organization [facility] Address [address] [place] [address] Care Team Providers Care Software Developer Consultant Name Role Phone Gene Moreno MD Primary Care Provide r Sandra Mark MD Unavailable + Encounter Details Date Type Department Care Team (Late st Contact Info) Description 10/17/2024 Results Follow-Up [facility] Medical Group Rheumatology at [facility] [address] [place] [address] Sandra Mark MD [address] [facility] [address] [place] [address] Uric acid Social History Tobacco Use Types Packs/Day Years [...] on file Legal Sex Female 7:57 PM 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 Uric acid is at goal at 3.1 documented in this encounter Plan of Treatment Not on file documented as of this encounter Visit Diagnoses Not on filedocumented in this encounter Care Teams Software Developer Consultant Relationship Specialty Start Date End Date Gene Moreno MD [address] [place] [address] PCP - General Emergency Medicine 07/27/22 Sandra Mark MD [address] [facility] [address] [place] [address] Rheumatology 08/19/23 documented as of this encounter
--- OUTSIDE RECORDS SUMMARY | 2024-11-29 11:25 | XMS_ITS | Clinical Summary ---
Author Organization [facility] Address [address] [place] [address] Care Team Providers Care Soaking Room Operator Name Role Phone Unavailable Primary Care Provider Unavailabl e Source Comments [facility],non-owned Affiliates and Associated Physician Practices is amultiple site organization consisting of ambulatory clinics and hospital sitesin [place], [place], [place]. This disclosure is being madepursuant to the Care Everywhere program and may not contain all information available regarding this patient. Last updated 17.[facility] Butlr Allergies Active Allergy Reactions Criticality Noted Date [...] on file Legal Sex Female 2:09 PM DIET CLERK Gender Identity Not on file Sexual Orientation Not on file Last Filed Vital Signs Vital Sign Reading Time Taken Comments Blood Pressure 117/68 04/08/2018 11:24 AM DIET CLERK Pulse 62 04/08/2018 11:24 AM DIET CLERK Temperature 36.9 C (98.5 F) 04/08/2018 11:24 AM DIET CLERK Respiratory Rate 18 04/08/2018 11:24 AM DIET CLERK Oxygen Saturation 100% 04/08/2018 11:24 AM DIET CLERK Inhaled Oxygen Concentration - - Weight 85.3 kg (188 lb) 04/08/2018 11:24 AM DIET CLERK Height 157.5 cm (5' 2) 04/08/2018 11:24 AM DIET CLERK Body Mass Index 34.39 04/08/2018 11:24 AM DIET CLERK Plan of Treatment Health Maintenance Due [...] season) 2023 DEPRESSION SCREENING 04/12/2024 INFLUENZA VACCINE (#1) 2024 02/04/2018 Respiratory Syncytial Virus (RSV) Vaccine [...] COMPREHENSIVE METABOLIC PANEL Routine 04/08/2018 11:18 AM DIET CLERK Leukocytosis, unspecified type from Last 3 Months or Most Recently Relevant to Health Maintenance Results * COMPREHENSIVE METABOLIC PANEL (04/08/2018 11:18 AM DIET CLERK) BUN 15 7 - 26 mg/dL [...] 8.4 - 10.2 mg/dL 04/08/2018 11:[address] [facility] Protein Total 6.7 6.0 - 8.3 g/dL 04/08/2018 11:[address] [facility] Albumin 3.5 3.4 - 5.0 g/dL 04/08/2018 11:[address] [facility] Bilirubin Total 0.4 0.2 - 1.2 mg/dL 04/08/2018 11:[address] [facility] Alkaline Phosphatase 58 40 - 150 Units/L 04/08/2018 11:[address] [facility] ALT 8 0 - 55 Units/L [...] Lab Venipuncture / Unknown 04/08/2018 11:18 AM DIET CLERK 04/08/2018 11:28 AM [facility] us Praveen Ordonez MD LAB - CHEMISTRY ORDERABLES Tammy gilmore Result [address] [phone] from Last 3 Months or Most Recently Relevant to Health Maintenance Insurance [facility] Emergency Department/[facility] Address: [facility] [address] [place] [address] [place] [address]
--- OUTSIDE RECORDS SUMMARY | 2024-11-29 11:25 | XMS_ITS | Clinical Summary ---
Author Organization [facility] Address [address] [place] [address] Care Team Providers Care Animal Skinner Name Role Phone Gene Moreno MD Primary Care Provider [phone] Allergies Active Allergy Reactions Criticality Noted Date [...] Comments Blood Pressure 151/80 04/03/2024 8:21 AM MEDICAL SCIENTIFIC OFFICER Pulse 68 04/03/2024 8:21 AM MEDICAL SCIENTIFIC OFFICER Temperature 36.2 C (97.2 F) 04/03/2024 7:01 AM MEDICAL SCIENTIFIC OFFICER Respiratory Rate 18 04/03/2024 8:21 AM MEDICAL SCIENTIFIC OFFICER Oxygen Saturation 100% 04/03/2024 8:21 AM MEDICAL SCIENTIFIC OFFICER Inhaled Oxygen Concentration - - Weight 72.6 kg (160 lb) 04/03/2024 7:01 AM MEDICAL SCIENTIFIC OFFICER Height 157.5 cm (5' 2) 04/03/2024 7:01 AM MEDICAL SCIENTIFIC OFFICER Body Mass Index 29.26 04/03/2024 7:01 AM MEDICAL SCIENTIFIC OFFICER Plan of Treatment Health Maintenance Due Date [...] this topic Medical Devices Implanted Type Area Repair Supervisor Device Identifier Shelf Expiration Date Model / Serial / Lot Tecnis 1 Piece Iol Implanted:Qty: 1 on 04/03/2024 by Damián Newton MD at [facility] Left: Eye [employer] 04/23/2025 / [id number] / Insurance MEDICARE [facility] Care Teams Animal Skinner Relationship Specialty Start Date End Date Gene Moreno MD [address] [place] [address] PCP - General 04/02/24
--- OUTSIDE RECORDS SUMMARY | 2024-11-29 11:25 | XMS_ITS | Encounter Summary ---
Author Organization [facility] Address [address] [place] [address] Care Team Providers Care Manganese Breaker Name Role Phone Unavailable Primary Care Provider Unavailabl e Encounter Details Date Type Department Care Team (Late st Contact Info) Description 04/29/2022 Lab Requisition [facility] DermPath Lab [address] [place] [id number] Ashish Sanches MD [address] [place] [address] Social History Tobacco Use Types Packs/Day Years Used Date Smoking Tobacco: Former Smokeless Tobacco: Never Comments Unknown Sex and Gender Information Value Date Recorded Sex Assigned at Not on file Legal Sex Female 2:09 PM WOOD ROOM SUPERVISOR Gender Identity Not on file Sexual Orientation Not on file documented as of this encounter Plan of Treatment Not on file documented as of this encounter Procedures Procedure Name Priority Date/Time Associated Diagnosis Comments DERMATOPATHOLOGY Routine 04/28/2022 12:0 0 AM WOOD ROOM SUPERVISOR documented in this encounter Results * DERMATOPATHOLOGY (04/28/2022 12:00 AM WOOD ROOM SUPERVISOR) Case Report Dermatopathology Report Case: [id number] Authorizing Provider: Ashish Sanches MD Collected: 04/28/2022 12:00 AM Ordering Location: [facility] Care DermPath Lab Received: 04/29/2022 04:41 PM Pathologist: Lisset Lucia MD Specimen: Skin, right thumb 1:29 PM WOOD ROOM SUPERVISOR DERMATOPATHOLOGY LABORATORY Final Diagnosis Specimen A. SKIN, right thumb: VERRUCA VULGARIS, SUPERFICIAL PORTIONS OF (B07.8) (see microscopic description and comment) 3 1:[address] [facility] DERMATOPATHOLOGY LABORATORY at [address] WOOD ROOM SUPERVISOR Clinical History VV vs SCCA vs foreign body Path#[id number] 3 1:[address] [facility] DERMATOPATHOLOGY LABORATORY Gross Description Specimen A: Received is one formalin filled container labeled with the patient's name and designated right thumb. The specimen consists of a shave biopsy measuring 9x9x3 mm. Jar 0. 1:[address] [facility] DERMATOPATHOLOGY LABORATORY Microscopic Description Specimen A. SKIN, right thumb: Sections show papillomatosis and hypergranulosis with overlying focal parakeratosis. The base of the lesion is not visualized. COMMENT: Given the superficial nature of the biopsy specimen, a deeper process cannot be excluded. 1:[address] [facility] DERMATOPATHOLOGY LABORATORY Disclaimer An external and internal positive and negative controls are appropriate for the histochemical, immunohistochemical and immunofluorescence stain(s) in this case (if any), except where stated explicitly. The performance characteristics of the stain(s) cited in this report were developed and its performance characteristic determined by the Dermatopathology Laboratory at [facility], directed by Dr. Radha Bates. These tests need not be, and therefore are not, approved by the [place] Food and Drug Administration. The tests are used for clinical purposes. Billing Codes Specimen Charges Stain Charges 78646 1 3 1:[address] [facility] DERMATOPATHOLOGY LABORATORY Embedded Images 3 1:[address] [facility] DERMATOPATHOLOGY LABORATORY Pathology/Cytolog y TISSUE SPECIMEN FROM SKIN / Unknown 04/28/2022 04/29/2022 4:41 PM WOOD ROOM SUPERVISOR us Ashish Sanches MD LAB - PATHOLOGY/CYTOLOGY ORDER ANNELISE Final Result DERMATOPATHOLOGY LABORATORY [facility] - Department of Dermatology [address], [address] [phone] documented in this encounter Visit Diagnoses Not on filedocumented in this encounter
--- OUTSIDE RECORDS SUMMARY | 2024-11-29 11:25 | XMS_ITS | Encounter Summary ---
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
--- OUTSIDE RECORDS SUMMARY | 2024-11-29 11:25 | XMS_ITS | Clinical Summary ---
Author Organization [facility] Address [address] [place] [address] Care Team Providers Care Otolaryngology Surgeon Name Role Phone Gene Moreno MD Primary [...] mouth every 8 (eight) hours 5 Active Additional Information Patient not taking.Reported on 10/17/2024 senna-docusate (PERICOLACE) 8.6-50 mgIndications:c onstipation Take 2 tablets by mouth 2 (two) times a day 120 tablet 5 Active Additional Information Patient not taking.Reported on 10/17/2024 cyclobenzaprine (FLEXERIL) 10 mg tabletIndicatio ns:Muscle Spasm Take 1 tablet (10 mg total) by mouth every 8 (eight) hours 90 tablet 5 Active benzocaine-ment hoL (CHLORASEPTIC) 6-10 mg lozenge Take 1 lozenge by mouth every 3 (three) hours as needed for sore throat 54 tablet 5 Active Additional Information Patient not taking.Reported on 10/17/2024 oxyCODONE (ROXICODONE) 5 mg immediate release tabletIndicatio ns:Pain Take 1 tablet (5 mg total) by mouth every 4 (four) hours as needed Active Mucinex 600 mg 12 hr tablet 5 Active triamcinolone (KENALOG) 0.1 % cream 5 Active testosterone micronized, bulk, 100 % powder 5 5 Active Wixela Inhub 250-50 mcg/dose diskus inhaler 5 Active estradioL (VIVELLE-DOT) 0.0375 mg/24 hr APPLY PATCH TO LOWER ABDOMEN TWICE A WEEKLY 5 Active Active Problems Problem Noted Date [...] 06/02/2019 Assessment & Plan (06/02/2019 8:58 AM SANIPRACTIC PHYSICIAN): Status post left CMC injection today High [...] (05/08/2020): Added automatically from request for surgery [id number] Swelling 05/07/2020 07/19/2020 OA (osteoarthritis) of finger, right 01/30/2020 09/23/2021 Thumb pain 05/05/2019 07/19/2020 Assessment & Plan (05/05/2019 9:12 AM SANIPRACTIC PHYSICIAN): Status post intra-articular injection of the CMC today Arthritis, senescent 05/05/2019 021 Assessment & Plan (05/05/2019 9:13 AM SANIPRACTIC PHYSICIAN): Status post bilateral intra-articular injections Arthritis 06/17/2017 09/23/2021 SOB (shortness of breath) Chronic cough 07/19/2020 Encounters Date Type Department Care Team Description 11/17/2024 10:00 AM CDT Office Visit [facility] Medicine Orthopaedic Surgery [address] [facility] 12th [place] [address] [place] [address] Clif Mendez MD Fusion of spine of cervical region (Primary Dx) 11/17/2024 9:33 AM CDT - 11/17/2024 11:59 PM CDT Hospital Encounter [facility] [address] [place] [address] Fusion of spine of cervical region Discharge Disposition: Discharge to home or self care 10/17/2024 11:07 AM CDT - 10/17/2024 11:59 PM CDT Hospital Encounter [address] [place] [phone] Discharge Disposition: Discharge to home or self care 10/17/2024 10:45 AM CDT Office Visit [facility] Rheumatology at [address] [place] [phone] Sandra Mark MD Hyperuricemia (Primary Dx); Primary generalized (osteo)arthritis; Polyneuropathy 10/17/2024 Results Follow-Up [facility] Rheumatology at [address] [place] [phone] Sandra Mark MD Uric acid 09/20/2024 1:12 PM CDT - 09/20/2024 11:59 PM CDT Hospital Encounter [facility] [address] [place] [address] Misael Almanza MD Sacroiliac joint pain (Primary Dx); Osteoarthritis of both hips, unspecified osteoarthritis type Discharge Disposition: Discharge to home or self care 09/18/2024 Orders Only [facility] Medicine Orthopaedic Surgery [address] [facility] [address] [place] [phone] Misael Almanza MD Osteoarthritis of both hips, unspecified osteoarthritis type (Primary Dx); Sacroiliitis, not elsewhere classified 09/12/2024 8:45 AM CDT - 09/12/2024 11:59 PM CDT Hospital Encounter [facility] [address] [place] [address] Hip pain, unspecified laterality Discharge Disposition: Discharge to home or self care 09/12/2024 8:30 AM CDT Office Visit [facility] Medicine Orthopaedic Surgery [address] [place] [address] 2nd Floor [address] [place] [phone] Misael Almanza MD Hip pain, unspecified laterality (Primary Dx); Osteoarthritis of both hips, unspecified osteoarthritis type 09/12/2024 Telephone [facility] [address] [place] [address] 2nd [address] [place] [address] Melany Keen CMA Scheduling Appointments 09/12/2024 Telephone [facility] [address] [place] [address] [address] [place] [address] Melany Keen CMA Scheduling Appointments 09/08/2024 Telephone [facility] [address] [place] [address] 2nd [address] [place] [address] Misael Almanza MD 09/07/2024 Telephone [facility] [address] [place] [address] Floor [address] [place] [address] Misael Almanza MD from Last 3 Months [...] 02/10/2019,12/07/2018 Surgical History Surgery Date Site/Laterality Comments TX STOT/TOT HYSTERECTOMY AFTER DELIVERY Hysterectomy - (Added by TW Conv) TX CHOLECSTOT/CHOLECSTOST W/EXPL DRG/RMVL ST1 SPX Cholecystotomy - [...] on file Legal Sex Female 7:57 PM SANIPRACTIC PHYSICIAN Gender Identity Not on file Sexual Orientation Not on file 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 Not on file Not on file Obstetrics History Last Filed Vital Signs Vital Sign Reading Time Taken Comments Blood Pressure 126/78 10/17/2024 10:34 AM CDT Pulse 75 10/17/2024 10:34 AM CDT Temperature 36.6 C (97.8 F) 05/20/2024 7:32 AM SANIPRACTIC PHYSICIAN Respiratory Rate 16 09/20/2024 1:46 PM CDT Oxygen Saturation 98% 10/17/2024 10:34 AM CDT Inhaled Oxygen Concentration - - Weight 77.1 kg (170 lb) 11/17/2024 9:47 AM CDT Height 157.5 cm (5' 2) 11/17/2024 9:47 AM CDT Body Mass Index 31.09 11/17/2024 9:47 AM CDT Plan of Treatment Health Maintenance Due Date Last Done Comments Albumin Creatinine Ratio, Urine 1957 Breast Cancer Screening-Mammogram 1957 Colon Cancer Screening-Colonoscopy 1957 Hepatitis C Screening 1957 Osteoporosis Screening-Bone Density Scan 1957 Dilated Eye Exam 1957 Foot Exam 1957 Hepatitis B Screening 1975 Pneumococcal vaccine 65+ (2 of 2 - PPSV23, PCV20, or PCV21) 05/25/2019 03/30/2019, 01/25/2019 Well Visit 65+ 2022 Depression Screening 02/17/2023 02/17/2022 Covid-19 Vaccine (8 - 2023-2 5 season) 2023 07/01/2023, 03/19/2022, 07/18/2021, Additional history exists Hemoglobin A1C 11/02/2024 05/05/2024 Influenza Vaccine (#1) 2024 , 02/25/2022, 01/23/2021, Additional history exists Lipid Panel 05/19/2025 05/19/2024 eGFR 05/20/2025 05/20/2024, 0210/2024, 05/05/2024, Additional history exists Fall Risk Assessment 09/20/2025 09/20/2024 DTaP/Tdap/Td Vaccine (3 - Td or Tdap) 04/13/2028 04/13/2018, 09/17/2008 Zoster Vaccine Completed 02/10/2019, 12/07/2018 Medical Devices Implanted Type Area Pomology Teacher Device Identifier Shelf Expiration Date Model / Serial / Lot [employer] [id number] Corkscrew Fiberwire 2.7mm 7mm 17.9mm Needle Wire Foot Ankle 2-0 - [id number] Implanted:Qty: 1 on 05/22/2020 by Philip Fine MD at [facility] Right: Wrist [employer] [id number] 11/09/2024 [id number] / / [id number] [employer] [id number] Corkscrew Fiberwire 2.7mm 7mm 17.9mm Needle Wire Foot Ankle 2-0 - [id number] Implanted:Qty: 1 on 05/22/2020 by Philip Fine MD at [facility] Right: Wrist [employer] [id number] 11/09/2024 [id number] / / [id number] [employer] Graft Bone Magnetos 2.5cc 1-2mm Granules In Moldable Putty [id number]-[id number] - [id number] Implanted:Qty: 1 on 05/18/2024 by Clif Mendez MD at [facility] N/A: Spine Cervical [employer] 10/10/2028 [id number] / / Medtronic Inc Screw Spinal Anterior Cervical Self Drilling Solid Zevo 3.5x17mm Titanium [id number] - [id number] Implanted:Qty: 7 on 05/18/2024 by Clif Mendez MD at [facility] N/A: Spine Cervical [employer] [id number] / / [employer] Plate Spine Anterior Cervical Level 3 Zevo 48mm Titanium [id number] - [id number] Implanted:Qty: 1 on 05/18/2024 by Clif Mendez MD at [facility] N/A: Spine Cervical Med[employer] Inc [id number] / / [employer] Cage Spinal Cervical 6 Degree Acif Large Endoskeleton Tcs Nanolock [id number] Titanium [id number] - [id number] Implanted:Qty: 1 on 05/18/2024 by Clif Mendez MD at [facility] N/A: Spine Cervical [employer] Inc [id number] -[id number] / / [employer] Cage Spinal Cervical 6 Degree Acif Large Endoskeleton Tcs Nanolock [id number] Titanium [id number]-[id number] - [id number] Implanted:Qty: 1 on 05/18/2024 by Clif Mendez MD at [facility] N/A: Spine Cervical [employer] Inc [id number] -[id number] / / [employer] Cage Spinal Cervical 6 Degree Acif Large Endoskeleton Tcs Nanolock [id number] Titanium [id number] - [id number] Implanted:Qty: 1 on 05/18/2024 by Clif Mendez MD at [facility] N/A: Spine Cervical [employer] Inc [id number] -[id number] / / [employer] Inc Screw Spinal Anterior Cervical Self Drilling Solid Zevo 4.0x17mm Titanium [id number] - [id number] Implanted:Qty: 1 on 05/18/2024 by Clif Mendez MD at [facility] N/A: Spine Cervical [employer] Inc [id number] / / Procedures Procedure Name Priority Date/Time Associated Diagnosis Comments XR SPINE CERVICAL COMPLETE 4 OR 5 VW Schedule Routine, Read Routine (OP Routine) 11/17/2024 9:43 AM CDT Fusion of spine of cervical region URIC ACID Routine 10/17/2024 11:16 AM CDT Hyperuricemia IR INJECTION SI JOINT BILATERAL WITH GUIDANCE Schedule Routine, Read Routine (OP Routine) 09/20/2024 1:44 PM CDT Osteoarthritis of both hips, unspecified osteoarthritis type Sacroiliac joint pain XR PELVIS 1 OR 2 VIEWS Schedule Routine, Read Routine (OP Routine) 09/12/2024 9:03 AM CDT Hip pain, unspecified laterality EGFR Routine 05/20/2024 4:35 AM SANIPRACTIC PHYSICIAN LIPID PANEL Routine 05/19/2024 5:00 AM SANIPRACTIC PHYSICIAN HEMOGLOBIN A1C Routine 05/05/2024 4:02 PM SANIPRACTIC PHYSICIAN Spinal stenosis in cervical region Cervical radiculopathy Type 2 diabetes mellitus with other specified complication, unspecified whether superintendent terminal insulin use (HCC) from Last 3 Months or Most Recently Relevant to Health Maintenance Results * XR Spine Cervical Complete 4 or 5 Views (11/17/2024 9:43 AM CDT) Anatomical Region Laterality Modality Spine N/A Computed Radiogr aphy 11/17/2024 11:3 7 AM CDT Impressions 11/17/2024 12:39 PM CDT 1. Unchanged postsurgical changes of anterior cervical discectomy and interbody fusion from C4 to C7. 2. Unchanged moderate degenerative disc disease at C7-T1. Dictated by: Joo Paz M.D. The radiology attending physician has personally reviewed this study, and had reviewed and/or edited this written report and agrees with it. Electronically signed by: Osbaldo Call MD Narrative 11/17/2024 12:39 PM CDT EXAMINATION: XR SPINE CERVICAL COMPLETE 4 OR 5 VW HISTORY: Cervical spine fusion follow-up. COMPARISON: Radiographs from 08/18/2024. FINDINGS: Unchanged postsurgical changes of anterior cervical discectomy and interbody fusion from C4 to C7. Instrumentation is intact without evidence of periprosthetic fracture or loosening. No angular excursion with flexion or extension at the fused cervical spine levels. No vertebral body compression deformity. Unchanged moderate degenerative disc disease at C7-T1. No acute fracture or dislocation. No prevertebral soft tissue thickening. Procedure Note Osbaldo Call MD - 11/17/2024 EXAMINATION: XR SPINE CERVICAL COMPLETE 4 OR 5 VW HISTORY: Cervical spine fusion follow-up. COMPARISON: Radiographs from 08/18/2024. FINDINGS: Unchanged postsurgical changes of anterior cervical discectomy and interbody fusion from C4 to C7. Instrumentation is intact without evidence of periprosthetic fracture or loosening. No angular excursion with flexion or extension at the fused cervical spine levels. No vertebral body compression deformity. Unchanged moderate degenerative disc disease at C7-T1. No acute fracture or dislocation. No prevertebral soft tissue thickening. IMPRESSION: 1. Unchanged postsurgical changes of anterior cervical discectomy and interbody fusion from C4 to C7. 2. Unchanged moderate degenerative disc disease at C7-T1. Dictated by: Joo Paz M.D. The radiology attending physician has personally reviewed this study, and had reviewed and/or edited this written report and agrees with it. Electronically signed by: Osbaldo Call MD us Clif Mendez MD IMG XR PROCEDURES Final Result * Uric acid (10/17/2024 11:16 AM CDT) Uric acid 3.1 2.5 - 7.0 mg/dL Blood 10/17/2024 11:1 6 AM CDT 10/17/2024 5:27 PM CDT us Sandra Mark MD LAB BLOOD ORDERABL ES Final Result [facility] [address] Department [place] [address] * IR Injection SI Joint Bilateral with Guidance (09/20/2024 1:44 PM CDT) Narrative [email or web address] - 09/20/2024 1:44 PM CDT The images from this study are not interpreted by Radiology. Please refer to the physician's procedure / OR operative note. us Misael Almanza MD IMG IR PROCEDURES Final Result Performing Organization Address [facility]/ZIP Co de Phone Number [email or web address] * XR Pelvis 1 or 2 [...] spine. Electronically signed by: Espinoza Pantoja M.D. us Misael Almanza MD IMG XR PROCEDURES Final Result * eGFR (05/20/2024 4:35 AM SANIPRACTIC PHYSICIAN) eGFR 71 >=60 mL/min/1. 73 m2 Comment: [...] last reviewed 2021. Blood 05/20/2024 4:35 AM SANIPRACTIC PHYSICIAN 05/20/2024 4:51 AM SANIPRACTIC PHYSICIAN us Ed Du MD LAB BLOOD ORDERABLES Fi nal Result [facility] [address] [facility] [place] [address] * Lipid panel (05/19/2024 5:00 AM SANIPRACTIC PHYSICIAN) Cholesterol 117 30 - 199 mg/dL Comment: [...] revised on 2017. Triglycerides 48 <=149 mg/dL [facility] Comment: Interpretive Data Ages < or [...] revised on 2017. HDL 63 >=40 mg/dL [facility] Comment: Interpretive Data Ages < or [...] on 2017. LDL, calculated 42 <=129 mg/dL [facility] Comment: Interpretive Data Ages < or [...] revised on 2023. Non-HDL Cholesterol 54 mg/dL [facility] Comment: Interpretive Data Ages < or [...] revised on 2017. Chol/HDL ratio 2 [facility] Blood 05/19/2024 5:00 AM SANIPRACTIC PHYSICIAN 05/19/2024 5:29 AM SANIPRACTIC PHYSICIAN Narrative [facility] - 05/19/2024 8:37 AM SANIPRACTIC PHYSICIAN Reflex us Clif Mendez MD LAB BLOOD ORDERABLES Fi nal Result [facility] [address] [facility] Department [place] [address] * (ABNORMAL) Hemoglobin A1c (05/05/2024 4:02 PM SANIPRACTIC PHYSICIAN) Hgb A1C 5.7(H) 4.0 - 5.6 % Estimated Average Glucose 117 mg/dL [facility] Comment: The ADA recommends reporting an estimated Average Glucose (eAG) with all Hemoglobin A1c results using the equation derived from a study of 507 normal and diabetic adults. Minority populations were underrepresented and children were not included. (Diabetes Care 2020; 43(S1): S66-S76). The eAG is not equivalent to a fasting glucose. Blood 05/05/2024 4:02 PM SANIPRACTIC PHYSICIAN 05/05/2024 4:53 PM SANIPRACTIC PHYSICIAN us Clif Mendez MD LAB BLOOD ORDERABLES Fi nal Result [facility] Department [place] [address] from Last 3 Months or Most Recently Relevant to Health Maintenance Insurance MEDICARE [employer] MEDICARE [facility] MEDICARE [facility] Advance Directives For more information, please contact: [phone] * Full Code (Latest Code Status on File) Date Activated Date Inactivated Comments 05/18/2024 5:44 PM 05/20/2024 6:10 PM Care Teams Otolaryngology Surgeon Relationship Specialty Start Date End Date Gene Moreno MD [address] [place] [address] PCP - General Emergency Medicine 07/27/22 Sandra Mark MD [address] [place] [address] Rheumatology 08/19/23
--- OUTSIDE RECORDS SUMMARY | 2024-11-29 11:25 | XMS_ITS | Encounter Summary ---
Author Organization [facility] Address [address] [place] [address] Care Team Providers Care Civil Preparedness Coordinator Name Role Phone Gene Moreno MD Primary Care Provider Encounter Details Date Type Department Care Team (Late st Contact Info) Description 08/28/2014 Abstract [facility] CONVERSION [address] [place] [address] , Generic ConversionMD Social History Tobacco Use [...] on filedocumented in this encounter Care Teams Civil Preparedness Coordinator Relationship Specialty Start Date End Date Gene Moreno MD [address] [place] [address] PCP - General 04/02/24 documented as of this encounter
--- OUTSIDE RECORDS SUMMARY | 2024-11-29 11:25 | XMS_ITS | Encounter Summary ---
Author Organization [facility] Address [address] [place] [address] Phone Care Team Providers Care Airline Attendant Name Role Phone Jones Edmondson MD Primary Care Provider [phone] Radu Jara MD Primary Care Provider [phone] Tracy Dickerson ACUPUNCTURIST Unavailable [phone] Marylou Alas DO Unavailable [phone] Radu Jara MD Primary Care Provider [phone] Marylou Alas DO Primary Care Provider [phone] Biju Rogers MD Primary Care Provider [phone] Marylou Alas DO Primary Care Provider [phone] Biju Rogers MD Primary Care Provider [phone] Gene Moreno MD Primary Care Provide r Sandra Mark MD Unavailable + Encounter Details Date Type Department Care Team (Latest Contact Info) Description 07/28/2017 Orders Only [facility] CONVERSION Scanning, Provider Social History Tobacco Use Types Packs/Day Years Used Date Smoking Tobacco: Former Comments Unknown Sex and Gender Information Value Date Recorded Sex Assigned at Not on file 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 Gender Identity Not on file Sexual Orientation [...] on filedocumented in this encounter Care Teams Airline Attendant Relationship Specialty Start Date End Date Jones Edmondson MD [address] [place] [address] PCP - General 07/23/17 10/13/18 Radu Jara MD [address] [place] [address] PCP - General 10/14/18 01/29/20 Radu Jara MD [address] [place] [address] PCP - General 01/30/20 02/01/20 Marylou Alas DO [address] [place], [place] [address] PCP - General Family Medicine 02/02/20 03/27/21 Biju Rogers MD [address] [place] [address] PCP - General Internal Medicine 03/28/21 05/08/21 Evette Marylou Yuridia, DO [address] [place] [address] PCP - General 05/09/21 11/13/21 Biju Rogers MD [address] [place] [address] PCP - General Internal Medicine 11/14/21 07/26/22 Gene Moreno MD [address] [place], [place] [address] PCP - General Emergency Medicine 07/27/22 Tracy Dickerson NP [address] [place] [address] Nurse Practitioner Rheumatology 11/24/19 07/26/22 Evette Marylou Yuridia, DO [address] [place] [address] Family Medicine 12/13/19 07/26/22 Sandra Mark MD [address] [facility] [address] [place] [address] Rheumatology 08/19/23 documented as of this encounter
[2024-11-29 12:03] LABS: Hemoglobin A1C 5.7 % (<5.7)
[2024-11-29 12:30] LABS: Creatine Kinase 58 U/L (30-135)
[2024-11-29 13:45] LABS: Vitamin B12 > 1000.0 pg/mL (239-931)
[2024-11-30 11:08] LABS: C-Reactive Protein, Cardiac 2.27 mg/L (0.00-3.00)
[2024-12-01 12:08] LABS: Immunoglobulin A, Qn 124 mg/dL (87-352); Immunoglobulin G, Qn 1340 mg/dL (586-1602); Immunoglobulin M, Qn 89 mg/dL (26-217)
[2024-12-04 18:08] LABS: Vit. B1, Whole Blood 303.1 nmol/L (66.5-200.0)
== END 2024-11-29 10:50 | disposition home or self-care (01) ==
LOC: ANHLAB 10:51
PROVIDERS: PCP Emergency Medicine; Visit Provider Psychiatry & Neurology Neurology
DX: M79.10 Myalgia, unspecified site (principal); M79.7 Fibromyalgia; E11.9 Type 2 diabetes mellitus without complications
CPT/HCPCS: 36415; 82550; 82607; 82746; 82784; 83036; 83090; 83921; 84207; 84425; 86141; 86334